=== PATIENT | male | born 1970 | race Caucasian/White ===

== ENCOUNTER 2021-05-05 18:07 | Inpatient (IN) ==
[2021-05-05] MEDS ORDERED: dexAMETHasone**PF** 10 MG/ML VIAL IV ONE (18:45)
[2021-05-05] MEDS ORDERED: ACETAMINOPHEN 1,000 MG/100 ML VIAL IV STA (18:45)
[2021-05-05] MEDS ORDERED: guaiFENesin 600 MG TABCR PO STA (18:45)
[2021-05-05] MEDS ORDERED: SODIUM CHLORIDE 0.9% 1000ML 1,000 ML IV ONE (18:45)
[2021-05-05] MEDS ORDERED: IPRATROPIUM BROMIDE/ALBUTEROL respimat INH INH STA (18:47)
--- NOTE | 2021-05-05 18:50 | Emergency Department Note ---
Impression & Plan Acute respiratory failure with hypoxia, Pneumonia due to COVID-19 virus ED Provider Note NAME: SOUTH WALTON AGE: 50 SEX: M ARRIVES VIA: Walk-In INFORMANT: patient ED PROVIDER(S): Kolton Cm MD CHIEF COMPLAINT: COVID-19, shortness of breath. PLAN: Disposition: Admit MEDICAL DECISION MAKING: The patient is a pleasant 50-year-old gentleman with a past medical history of hypertension, hyperlipidemia, sleep apnea on home CPAP who presents to the emergency department with worsening cough, congestion shortness of breath in the setting of being diagnosed with COVID-19 this past Thursday with symptoms that began approximately a week ago with malaise, sore throat and congestion and then developing fevers and chills. He denies nausea, vomiting, diarrhea. He reports he received noticed on Thursday that a coworker was exposed to COVID-19 and thinks this is how he may have been exposed. He denies being vaccinated for COVID-19. He reports chest tightness but denies discrete chest pain. He was noted to have oxygen saturation of 85% at rest on room air in triage which easily desaturated to 79% with minimal exertion and was placed on 100% nonrebreather. He is in agreement with plan for admission given his low oxygen. On arrival patient is uncomfortable with mild respiratory distress, tachycardic in the 100s and tachypneic in the upper 20s with O2 saturation 85% on room air at rest desaturating to 79% with exertion subsequently placed on 100% nonrebreather with improvement in saturation to the mid 90s. He appears cl inically dry. He has scattered wheezes and is otherwise clear. EKG without overt acute ischemia. Chest x-ray demonstrates bilateral multifocal pneumonia consistent with COVID-19 pneumonia. WBC, H/H and platelets within normal limits. Chemistry without metabolic acidosis. Electrolytes are unremarkable. AST is mildly elevated at 75 and consistent with patient's known COVID-19. Otherwise, LFTs without significant abnormality. Troponin negative/undetectable. BNP within normal limits. Lipase is not elevated. Case was discussed with Dr. Ortega, [facility] hospitalist, who will evaluate the patient for admission. Triage Nursing notes reviewed and agree them. prior medical records reviewed Vital Signs: reviewed and remarkable for hypoxia, tachycardia, tachypnea. Differential diagnosis: Reactive airway disease, pneumonia, pneumothorax, COPD, CHF, infections, cardiac ischemia, pulmonary embolism, musculoskeletal, gastrointestinal, as well as other pathologies. ER treatment provided: See below. Diagnostics interpreted by me: ECG: Normal sinus rhythm, 97 bpm, no ectopy, incomplete right bundle branch block, no overt ST elevation or depression, QTC 436, QRS 102. Cardiac Monitoring: An order for continuous cardiac monitoring was placed and demonstrated normal sinus rhythm, 97 bpm, no ectopy. Laboratory studies: see below Imaging studies: See below Consultation(s): Case was discussed with Dr. Ortega, [facility] hospitalist, who will evaluate the patient for admission. HPI: The patient is a pleasant 50-year-old gentleman with a past medical history of hypertension, hyperlipidemia, sleep apnea on home CPAP who presents to the emergency department with worsening cough, congestion shortness of breath in the setting of being diagnosed with COVID-19 this past Thursday with symptoms that began approximately a week ago with malaise, sore throat and congestion and then developing fevers and chills. He denies nausea, vomiting, diarrhea. He reports he received noticed on Thursday that a coworker was exposed to COVID-19 and thinks this is how he may have been exposed. He denies being vaccinated for COVID-19. He reports chest tightness but denies discrete chest pain. He was noted to have oxygen saturation of 85% at rest on room air in triage which easily desaturated to 79% with minimal exertion and was placed on 100% nonrebreather. He is in agreement with plan for admission given his low oxygen. ROS: See above HPI for pertinent positives & negatives. A total of 10 systems reviewed and were otherwise negative. PAST MEDICAL HISTORY: see Below PAST SURGICAL HISTORY: see Below FAMILY HISTORY:See Below SOCIAL HISTORY: see Below HOME MEDICATIONS: see Below ALLERGIES: see Below VITALS: see Below PHYSICAL EXAMINATION: GENERAL: Awake, alert, uncomfortable-appearing, in mild respiratory distress, BMI 59.0. HENT: Normocephalic, atraumatic. Oropharynx unremarkable. EYES: Normal conjunctiva. Sclera non-icteric. NECK: Supple. No nuchal rigidity. FROM. No JVD. RESPIRATORY: Scattered wheezes bilaterally and otherwise clear to auscultation. Mild increased work of breathing which improved on 100% nonrebreather. CARDIAC: Tachycardic rate, normal rhythm. Extremities warm and well perfused. Pulses equal. ABDOMEN: Soft, non-distended. No tenderness to palpation. No rebound or guarding. No masses. RECTAL: Deferred. MUSCULOSKELETAL: Chest examination reveals no tenderness. The back is symmetrical on inspection without obvious abnormality. There is no CVA tenderness to palpation. No joint edema. LOWER EXTREMITIES: Calves are equal size bilaterally and non-tender. No edema. No discoloration. NEURO: Normal sensorium. No sensory or motor deficits noted. SKIN: No rash or jaundice noted. ED COURSE: Critical Care: I have personally spent greater than 45 minutes of critical care time in the direct management of this patient. This includes bedside care, interpretation of diagnostic studies, and testing, discussion with consultants, patient, and family members, and other required patient management activities. This 45 minutes is in excess of all separately billable procedures. 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 Beliefs That Will Affect Care: Yazdanism Yazdanism Beliefs: mormonism Current Living Situation: Spouse Feels Safe at Home: Yes Assistive Devices: None Allergies Allergies Allergy/AdvReac Type Severity Reaction Status Date / Time Sulfa (Sulfonamide Allergy Intermediate Rash Verified 05/05/21 19:07 Antibiotics) amoxicillin AdvReac Intermediate PUFFY FACE Verified 05/05/21 19:07 Home Meds Home Medications Medication Instructions Recorded Confirmed amlodipine 5 mg tablet 5 mg PO DAILY 05/05/21 05/05/21 atorvastatin 20 mg tablet 20 mg PO DAILY 05/05/21 05/05/21 lisinopril 20 1 tab PO DAILY 05/05/21 05/05/21 mg-hydrochlorothiazide 12.5 mg tablet Results & Data (ED) Vital Signs Vital Signs - 24 hr 05/05/21 18:15 05/05/21 18:33 05/05/21 20:01 Temperature 36.9 C Temperature Source Temporal Artery Scan Pulse Rate 107 H 99 H Pulse Rate [Apical] Pulse Rhythm Regular Pulse Rhythm [Apical] Pulse Strength [Apical] Respiratory Rate 18 28 H Respiratory Effort / Characteristics Respiratory Depth Respiratory Pattern Blood Pressure 154/86 H Blood Pressure [Right Arm] Blood Pressure Mean 108 Blood Pressure Mean [Right Arm] Blood Pressure Position [Right Arm] Pulse Oximetry 85 L 75 L 96 Oxygen Delivery Method Room Air Non-rebreather Non-rebreather Oxygen Flow Rate 0 15 Sepsis Recent Fever Within 48 Hours No Sepsis New/Unexplained Change in Mental Status No Sepsis Action Taken by Nursing No Action Required Oxygen Flow Rate - Titration 15 Pulse Oximetry Post Tiitration 94 05/05/21 20:02 05/05/21 20:36 Temperature 37.5 C Temperature Source Oral Pulse Rate Pulse Rate [Apical] 97 H Pulse Rhythm Pulse Rhythm [Apical] Regular Pulse Strength [Apical] Normal Respiratory Rate 28 H Respiratory Effort / Characteristics Spontaneous SOB on Exertion Short of Breath SOB on Exertion Respiratory Depth Normal Respiratory Pattern Tachypnea Tachypnea Blood Pressure Blood Pressure [Right Arm] 146/95 H Blood Pressure Mean Blood Pressure Mean [Right Arm] 112 Blood Pressure Position [Right Arm] Semi-fowlers Pulse Oximetry 96 Oxygen Delivery Method Non-rebreather Non-rebreather Oxygen Flow Rate 15 15 Sepsis Recent Fever Within 48 Hours Sepsis New/Unexplained Change in Mental Status Sepsis Action Taken by Nursing Oxygen Flow Rate - Titration Pulse Oximetry Post Tiitration Laboratory Data Attestation: I reviewed the patient's lab results. Result diagrams: 05/05/21 19:47 05/05/21 19:47 Lab Results 05/05/21 05/05/21 05/05/21 Range/Units 19:47 19:47 20:27 WBC 7.76 (4.8-10.8) K/uL RBC 5.28 (4.7-6.1) M/uL Hgb 15.6 (14.0-18.0) g/dL Hct 47.9 (42-52) % MCV 90.7 (80-100) fL MCH 29.5 (25-34) pg MCHC 32.6 (32-36) g/dL RDW Std Deviation 50.2 H (36.4-46.3) fL RDW Coeff of Samia 15.0 H (11.5-14.5) % Plt Count 189 (130-400) K/uL MPV 9.8 (7.4-10.4) fL Immature Gran % (Auto) 1.4 % Neut % (Auto) 86.3 % Lymph % (Auto) 8.6 % Campbell % (Auto) 3.6 % Eos % (Auto) 0.0 % Baso % (Auto) 0.1 % Neut # (Auto) 6.69 H (1.4-6.5) K/uL Lymph # (Auto) 0.67 L (1.2-3.4) K/uL Campbell # (Auto) 0.28 (0.11-0.59) K/uL Eos # (Auto) 0.00 (0-0.5) K/uL Baso # (Auto) 0.01 (0-0.2) K/uL Immature Gran # (Auto) 0.11 H (0.00-0.02) K/uL Sodium 138 (136-145) mmol/L Potassium 4.3 (3.5-5.1) mmol/L Chloride 104 (98-107) mmol/L Carbon Dioxide 26 (21-32) mmol/L Anion Gap 9.0 (3-11) BUN 16 (7-18) mg/dl Creatinine 0.90 (0.6-1.4) mg/dl Est Cr Clr Drug Dosing 156.0 ml/min Est GFR ( Amer) 113.4 ml/min Est GFR (Non-Af Amer) 97.9 ml/min BUN/Creatinine Ratio 17.7 (10-20) Glucose 132 H (70-99) mg/dl Calcium 8.3 L (8.5-10.1) mg/dl Phosphorus 2.4 L (2.5-4.9) mg/dl Magnesium 2.2 (1.8-2.4) mg/dl Total Bilirubin 0.6 (0.2-1) mg/dl Direct Bilirubin 0.2 (0-0.2) mg/dl AST 75 H (15-37) U/L ALT 56 (12-78) U/L Alkaline Phosphatase 24 L (45-117) U/L Troponin I < 0.015 (0-0.045) ng/ml NT-Pro-B Natriuret Pep 118 (0-900) pg/ml Total Protein 7.4 (6.4-8.2) gm/dl Albumin 3.0 L (3.4-5.0) gm/dl Globulin 4.4 H (2.5-4.0) gm/dl Albumin/Globulin Ratio 0.7 L (0.9-2) Lipase 96 (73-393) U/L SARS-CoV-2 (PCR) POSITIVE A* (Negative) Administered Medications Enoxaparin Sodium (Enoxaparin Inj 40 Mg/0.4 Ml Syr) 40 mg SQ Q12H NATALIA Stop: 06/05/21 00:00 Last Admin: 05/06/21 01:08 Dose: 40 mg Documented by: [id number] Sodium Chloride (Nss 1000ml) 1,000 mls @ 100 mls/hr IV .Q10H NATALIA Stop: 05/06/21 19:27 Last Admin: 05/06/21 01:15 Dose: 100 mls/hr Documented by: [id number] Sodium Chloride (Sodium Chloride 0.9% 10ml Flush) 30 ml IV Q24H NATALIA Stop: 05/10/21 00:01 Last Admin: 05/06/21 01:06 Dose: 30 ml Documented by: [id number] Discontinued Medications Albuterol (Ipratropium [place]/Albuterol Respimat Inh) 2 puffs INH NOW STA Stop: 05/05/21 18:48 Last Admin: 05/05/21 20:23 Dose: 2 puffs Documented by: [id number] Dexamethasone Sodium Phosphate (DexamethasonePf 10 Mg/Ml Vial) 10 mg IV NOW ONE Stop: 05/05/21 18:46 Last Admin: 05/05/21 20:18 Dose: 10 mg Documented by: [id number] Guaifenesin (Guaifenesin 600 Mg Tabcr) 600 mg PO NOW STA Stop: 05/05/21 18:46 Last Admin: 05/05/21 20:20 Dose: 600 mg Documented by: [id number] Sodium Chloride (Nss 1000ml) 1,000 mls @ 999 mls/hr IV .Q1H1M ONE Stop: 05/05/21 19:45 Last Infusion: 05/06/21 00:05 Dose: 0 mls/hr Documented by: [id number] Admin: 05/05/21 20:12 Dose: 999 mls/hr Documented by: [id number] Acetaminophen (Ofirmev) 1,000 mg in 100 mls @ 400 mls/hr IV NOW STA Stop: 05/05/21 18:59 Last Infusion: 05/05/21 22:05 Dose: 0 mls/hr Documented by: [id number] Admin: 05/05/21 20:14 Dose: 400 mls/hr Documented by: [id number] Remdesivir 200 mg/ Sodium (Chloride) 250 mls @ 125 mls/hr IV ONE STA; Protocol Stop: 05/05/21 23:03 Last Infusion: 05/06/21 00:58 Dose: 0 mls/hr Documented by: [id number] Admin: 05/05/21 21:58 Dose: 125 mls/hr Documented by: [id number] Imaging Data Radiologist's Impression: Chest X-Ray 05/05/21 18:45 XR chest 1V portable CLINICAL HISTORY: Chest Pain. COMPARISON STUDY: 04/17/2018 TECHNIQUE: 1 view of the chest FINDINGS: Single frontal view of the chest demonstrates the cardiomediastinal silhouette to be within normal limits. Extensive patchy interstitial and alveolar opacities are present bilaterally. The findings are most characteristic of a viral type pneumonitis. Covid 19 pneumonia should be excluded. There is no evidence for pl eural effusion. There is no evidence for vascular congestion. There is no acute osseous pathology. IMPRESSION: Extensive patchy interstitial and alveolar opacities bilaterally characteristic of a viral type pneumonitis and probable Covid 19 pneumonia. ACT 112: Negative or not required by law. Electronically signed by: Ramesh Dao M.D. 05/05/2021 7:10 PM Discharge Plan Visit Data Chief Complaint: Shortness of Breath/Dyspnea Stated Complaint: COVID + - SHORTNESS OF BREATH ED Provider: Kolton Cm Discharge Problem: Acute respiratory failure with hypoxia, Pneumonia due to COVID-19 virus Patient Disposition: Admitted As Inpatient Discharge Instructions Interventions: ED Discharge Assessment Last Done: 05/05/21 23:45
--- NOTE | 2021-05-05 19:11 | XRay Report ---
XR chest 1V portable CLINICAL HISTORY: Chest Pain. COMPARISON STUDY: 04/17/2018 TECHNIQUE: 1 view of the chest FINDINGS: Single frontal view of the chest demonstrates the cardiomediastinal silhouette to be within normal li mits. Extensive patchy interstitial and alveolar opacities are present bilaterally. The findings are most characteristic of a viral type pneumonitis. Covid 19 pneumonia should be excluded. There is no e vidence for pleural effusion. There is no evidence for vascular congestion. There is no acute osseous pathology. IMPRESSION: Extensive patchy interstitial and alveolar opacities bilaterally characteristic of a floyd l type pneumonitis and probable Covid 19 pneumonia. ACT 112: Negative or not required by law. Electronically signed by: Ramesh Dao M.D. 05/05/2021 7:10 PM
[2021-05-05 20:15] LABS: Basophils # (auto) 0.01 K/uL (0-0.2); Basophils % (auto) 0.1 %; Hematocrit (blood only) 47.9 % (42-52); Hemoglobin 15.6 g/dL (14.0-18.0); Immature Granulocytes # (auto) 0.11 K/uL (0.00-0.02); Immature Granulocytes % (auto) 1.4 %; Lymphocytes # (auto) 0.67 K/uL (1.2-3.4); Lymphocytes % (auto) 8.6 %; Mean Corpuscular Hemoglobin 29.5 pg (25-34); Mean Corpuscular Hgb Conc 32.6 g/dL (32-36); Mean Corpuscular Volume 90.7 fL (80-100); Mean Platelet Volume 9.8 fL (7.4-10.4); Monocytes # (auto) 0.28 K/uL (0.11-0.59); Monocytes % (auto) 3.6 %; Neutrophils # (auto) 6.69 K/uL (1.4-6.5); Neutrophils % (auto) 86.3 %; Platelet Count 189 K/uL (130-400); RDW Standard Deviation 50.2 fL (36.4-46.3); Red Blood Count 5.28 M/uL (4.7-6.1); White Blood Count 7.76 K/uL (4.8-10.8)
[2021-05-05 20:32] LABS: Alanine Aminotransferase 56 U/L (12-78); Aspartate Aminotransferase 75 U/L (15-37); BUN Creatinine Ratio 17.7 (10-20); Bilirubin Direct 0.2 mg/dl (0-0.2); Blood Urea Nitrogen 16 mg/dl (7-18); Calcium 8.3 mg/dl (8.5-10.1); Carbon Dioxide 26 mmol/L (21-32); Chloride 104 mmol/L (98-107); Est GFR (African American) 113.4 ml/min; Est GFR (Non-African American) 97.9 ml/min; Glucose 132 mg/dl (70-99); Lipase 96 U/L (73-393); Magnesium 2.2 mg/dl (1.8-2.4); Potassium 4.3 mmol/L (3.5-5.1); Sodium 138 mmol/L (136-145)
[2021-05-05 20:35] LABS: Albumin Globulin Ratio 0.7 (0.9-2); Alkaline Phosphatase 24 U/L (45-117); Bilirubin,Total 0.6 mg/dl (0.2-1); Globulin 4.4 gm/dl (2.5-4.0); NT Pro B Type Natriuretic Pept 118 pg/ml (0-900); Phosphorus 2.4 mg/dl (2.5-4.9); Total Protein 7.4 gm/dl (6.4-8.2); Troponin I < 0.015 ng/ml (0-0.045)
[2021-05-05] MEDS ORDERED: REMDESIVIR 200 MG in SODIUM CHLORIDE 0.9% 210 ML IV STA (21:04)
--- NOTE | 2021-05-05 22:38 | History and Physical Report ---
DATE OF ADMISSION: 05/05/2021. CHIEF COMPLAINT: Shortness of breath, COVID pneumonia. HISTORY OF PRESENT ILLNESS: This is a 50-year-old male with past medical history significant for hyperlipidemia, obstructive sleep apnea on CPAP, hypertension, morbid obesity, restless legs, history of tobacco use disorder. Presents with shortness of breath, not feeling well. The patient was diagnosed with COVID on Thursday. The patient says he is having symptoms since last Thursday. Initially felt cold-like symptoms. Then since last , symptoms got worse. He was taking regular Tylenol and Advil, so he was not sure about the fever, but having generalized aches and pains, weakness, poor appetite, constant headaches, body aches, not feeling well, cough, bringing up yellowish greenish phlegm, and he was feeling short of breath, which prompted him to come to the ER. In the ER, he was saturating only 75%, currently he is placed on nonrebreather, saturating in mid 90s. Denies any chest pain. No blurred visions. Denies any runny nose or sore throat, nausea, vomiting or abdominal pain. Abdomen has somewhat discomfort, but no significant pain, no diarrhea. Normal bowel and bladder movements. No rash. ALLERGIES: SULFA ANTIBIOTICS, AMOXICILLIN. PAST MEDICAL HISTORY: As mentioned above. PAST SURGICAL HISTORY: Revision of ankle joint. MEDICATIONS: The patient is on amlodipine 5 mg p.o. daily, atorvastatin 20 mg p.o. daily, lisinopril/hydrochlorothiazide 20/12.5 mg p.o. daily. FAMILY HISTORY: Significant for mother has obesity, maternal grandfather has black lung, paternal grandmother has Alzheimer disease and breast cancer, paternal grandfather has CAD in his 50s. SOCIAL HISTORY: . Smokes cigars once in a while. Alcohol, rarely. No drug use. REVIEW OF SYSTEMS: As per HPI. Rest of the review of systems is negative. PHYSICAL EXAMINATION: GENERAL: The patient is morbidly obese, not in acute distress. VITAL SIGNS: Temperature 37.5, pulse 97, respiratory rate 28, blood pressure 146/94, oxygen 96% on nonrebreather. HEENT: Pupils equal, round and reactive to light. NECK: No JVD. No masses. CARDIOVASCULAR: S1 and S2 heard. Regular rate and rhythm. No murmur, no gallop. RESPIRATORY SYSTEM: Normal AP diameter. No accessory muscle use. No wheezing, no crackles. ABDOMEN: Soft, bowel sounds present, nontender, no distention. CENTRAL NERVOUS SYSTEM: Cranial nerves II through XII are grossly intact, nonfocal. EXTREMITIES: No edema, no erythema. LABORATORY DATA: WBC 7.7, hemoglobin 15.6, hematocrit 47.9, platelets 189. Sodium 138, potassium 4.6, chloride 104, bicarbonate 26, BUN 16, creatinine 0.9, serum glucose 132, calcium 8.3, phosphorus 2.4, magnesium 2.2, total bilirubin 0.6, direct bilirubin 0.2, AST 75, ALT 56, alkaline phosphatase 24. Troponin I less than 0.015. BNP 118. Lipase 96. IMAGING DATA: Chest x-ray, extensive patchy infiltrate seen bilaterally characteristic of a viral-type pneumonitis and probable COVID pneumonia. EKG: Normal sinus rhythm at a rate of 97, incomplete right bundle-branch block, no significant change was found. ASSESSMENT AND PLAN: This is a 50-year-old male who presents with COVID pneumonia. 1. COVID pneumonia, hypoxia: Bilateral extensive infiltrates, having symptoms since last Thursday. Meets criteria for remdesivir and Decadron, which will be given, and follow the remdesivir labs. Supportive care with inhalers and nebs p.r.n. Closely monitor in the tele floor. 2. Morbid obesity, obstructive sleep apnea: On CPAP at bedtime. 3. Hypertension: Continue home medication of amlodipine lisinopril/ hydrochlorothiazide. Will monitor the blood pressure. 4. Hyperlipidemia: Continue statin. 5. Tobacco use disorder: Mild smoking history. 6. Deep venous thrombosis prophylaxis: Lovenox. DISPOSITION: Closely monitor in the tele floor. Level 1 full code. Expect to discharge home and follow with family doctor. Job ID: [id number] [facility]
[2021-05-05] MEDS ORDERED: POLYETHYLENE (MIRALAX) 17 GM PACK PO PRN (23:28)
[2021-05-05] MEDS ORDERED: NITROGLYCERIN SL 0.4 MG/TAB TAB SL PRN (23:28)
[2021-05-05] MEDS ORDERED: ONDANSETRON INJ 2 MG/ML 2 ML VIAL IV PRN (23:28)
[2021-05-05] MEDS ORDERED: LEVALBUTEROL HCL 1.25 MG/3 ML NEB NEB PRN (23:28)
[2021-05-05] MEDS ORDERED: ALBUTEROL HFA 8 GM INHALER INH PRN (23:28)
[2021-05-05] MEDS ORDERED: ACETAMINOPHEN 325 MG TAB PO PRN (23:28)
[2021-05-06] MEDS: SODIUM CHLORIDE 0.9% 10ML FLUSH IV SCH ×2 (01:06→20:55)
[2021-05-06] MEDS: ENOXAPARIN INJ 40 MG/0.4 ML SYR SQ SCH ×3 (01:08→23:00)
[2021-05-06] MEDS: SODIUM CHLORIDE 0.9% 1000ML 1,000 ML IV SCH ×2 (01:15→13:11)
[2021-05-06 05:47] LABS: Basophils # (auto) 0.01 K/uL (0-0.2); Basophils % (auto) 0.1 %; Eosinophils # (auto) 0.01 K/uL (0-0.5); Eosinophils % (auto) 0.1 %; Hematocrit (blood only) 45.4 % (42-52); Hemoglobin 14.7 g/dL (14.0-18.0); Immature Granulocytes # (auto) 0.11 K/uL (0.00-0.02); Immature Granulocytes % (auto) 1.4 %; Lymphocytes # (auto) 0.78 K/uL (1.2-3.4); Lymphocytes % (auto) 9.7 %; Mean Corpuscular Hemoglobin 29.6 pg (25-34); Mean Corpuscular Hgb Conc 32.4 g/dL (32-36); Mean Corpuscular Volume 91.3 fL (80-100); Mean Platelet Volume 9.8 fL (7.4-10.4); Monocytes # (auto) 0.32 K/uL (0.11-0.59); Neutrophils # (auto) 6.78 K/uL (1.4-6.5); Neutrophils % (auto) 84.7 %; Platelet Count 186 K/uL (130-400); RDW Coefficient of Variation 15.2 % (11.5-14.5); RDW Standard Deviation 51.5 fL (36.4-46.3); Red Blood Count 4.97 M/uL (4.7-6.1); White Blood Count 8.01 K/uL (4.8-10.8)
[2021-05-06 06:27] LABS: Albumin Level 2.5 gm/dl (3.4-5.0); BUN Creatinine Ratio 17.6 (10-20); Bilirubin Direct 0.2 mg/dl (0-0.2); C Reactive Protein 8.49 mg/dl (0-0.29); Calcium 7.6 mg/dl (8.5-10.1); Creatinine Clr Calc Pharmacy 159.6 ml/min; Est GFR (African American) 114.5 ml/min; Est GFR (Non-African American) 98.8 ml/min; Magnesium 2.2 mg/dl (1.8-2.4); Potassium 4.1 mmol/L (3.5-5.1)
[2021-05-06 06:30] LABS: Bilirubin,Total 0.5 mg/dl (0.2-1); Total Protein 6.9 gm/dl (6.4-8.2)
[2021-05-06] MEDS: FLUTICASONE FUROATE 100MCG 14 PUFFS/INHALER INH SCH (09:45)
[2021-05-06] MEDS: dexAMETHasone 6 MG in SYRINGE 0 ML IV SCH (09:45)
[2021-05-06] MEDS: LISINOPRIL/HCTZ 20/12.5MG 1 TAB TAB PO SCH (09:45)
[2021-05-06] MEDS: ATORVASTATIN 20 MG TAB PO SCH (09:45)
[2021-05-06] MEDS: amLODIPine BESYLATE 5 MG TAB PO SCH (09:45)
--- NOTE | 2021-05-06 14:41 | Electrocardiogram Report ---
Test Reason : Blood Pressure : / mmHG Vent. Rate : 097 BPM Atrial Rate : 097 BPM P-R Int : 170 ms QRS Dur : 102 ms QT Int : 344 ms P-R-T Axes : 025 -06 028 degrees QTc Int : 436 ms Normal sinus rhythm Incomplete right bundle branch block Poor R wave progression, consider anterior MS vs. lead placement vs. LVH Borderline ECG When compared with ECG of 18-APR-2018 07:43, No significant change was found Confirmed by Chad Aragon ([id number]) on 05/06/2021 2:41:09 PM Referred By: REFERRED SELF Confirmed By:Emmanuel Aragon
--- NOTE | 2021-05-06 18:14 | Hospitalist Progress Note ---
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 if the condition does not get any better (3) Hypertension: Plan: Blood pressure remains in the upper side of normal We will continue current medications (4) SUDHIR (obstructive sleep apnea): Plan: He is morbidly obese and has obstructive sleep apnea Can use his own CPAP (5) Hyperlipidemia: Plan: Continue statin DVT prophylaxis Lovenox CODE STATUS Full Admission and Anticipated Discharge Date Admission Date: May 05, 2021 Subjective 05/06/2021 The patient was seen and examined in emergency room in the [facility] area and in the [place] room He has been complaining of more shortness of breath with cough Has been requiring high flow oxygen to maintain saturation Review of Systems Review of Systems: All systems reviewed and are unremarkable except as noted below Respiratory: Moderate shortness of breath at rest Physical Exam Physical Exam: Sitting on a recliner with mild to moderate shortness of breath Constitutional: well developed, well nourished, + ill appearing and + obese Eyes: PERRL, conjunctivae normal, anicteric sclerae ENMT: external ear and nose normal, oropharynx normal Neck: trachea midline, no thyromegaly Respiratory: + respiratory distress and + cough Auscultation: + diminished lung sounds and + crackles (Minimal crackles at the bases) Cardiovascular: Rate/Rhythm: regular rate, regular rhythm and + tachycardic Heart Sounds: normal S1 and normal S2; no murmur Extremities: + edema (1+ edema bilaterally) Gastrointestinal (Abdomen): Inspection/Auscultation: + abdomen distended and normal bowel sounds Percussion/Palpation: abdomen soft; abdomen nontender Musculoskeletal: No acute arthritis in any joint Neurologic: Alert, awake and oriented x3. Generally weak Results & Data Results & Data ([facility]) Vital Signs (Past 12 Hours) Vital Signs Temp Pulse Pulse Resp BP Pulse Ox 05/06/21 17:44 36.9 C 98 H 24 130/83 89 L 05/06/21 14:35 87 28 H 91 05/06/21 12:55 87 30 H 91 05/06/21 11:45 87 28 H 93 05/06/21 08:09 36.8 C 102 H 38 H 148/102 H 94 05/06/21 07:43 87 28 H 93 05/06/21 06:21 89 18 145/94 H 96 Laboratory Results Short CBC 05/05/21 05/06/21 Range/Units 19:47 04:39 WBC 7.76 8.01 (4.8-10.8) K/uL Hgb 15.6 14.7 (14.0-18.0) g/dL Hct 47.9 45.4 (42-52) % Plt Count 189 186 (130-400) K/uL BMP 05/05/21 05/06/21 19:47 04:39 Sodium 138 139 Potassium 4.3 4.1 Chloride 104 107 Carbon Dioxide 26 24 BUN 16 15 Creatinine 0.90 0.88 Glucose 132 H 164 H Calcium 8.3 L 7.6 L Cardiac Enzymes 05/05/21 Range/Units 19:47 Troponin I < 0.015 (0-0.045) ng/ml Liver Function 05/05/21 05/06/21 Range/Units 19:47 04:39 Total Bilirubin 0.6 0.5 (0.2-1) mg/dl Direct Bilirubin 0.2 0.2 (0-0.2) mg/dl AST 75 H 70 H (15-37) U/L ALT 56 50 (12-78) U/L Alkaline Phosphatase 24 L 11 L (45-117) U/L Albumin 3.0 L 2.5 L (3.4-5.0) gm/dl Medications Administered Current Inpatient Medications Acetaminophen (Acetaminophen 325 Mg Tab) 650 mg PO Q4H PRN PRN Reason: Pain or Fever Stop: 06/04/21 23:27 Albuterol (Albuterol Hfa 8 Gm Inhaler) 2 puffs INH Q4H PRN PRN Reason: Shortness Of Breath Or Wheezin Stop: 06/04/21 23:27 Last Admin: 05/06/21 14:30 Dose: 2 puffs Documented by: Amlodipine Besylate (Amlodipine Besylate 5 Mg Tab) 5 mg PO DAILY [facility] Stop: 06/05/21 08:59 Last Admin: 05/06/21 09:45 Dose: 5 mg Documented by: Atorvastatin Calcium (Atorvastatin 20 Mg Tab) 20 mg PO DAILY NATALIA Stop: 06/05/21 08:59 Last Admin: 05/06/21 09:45 Dose: 20 mg Documented by: Enoxaparin Sodium (Enoxaparin Inj 40 Mg/0.4 Ml Syr) 40 mg SQ Q12H NATALIA Stop: 06/05/21 00:00 Last Admin: 05/06/21 13:11 Dose: 40 mg Documented by: Fluticasone Furoate (Fluticasone Furoate 100mcg 14 Puffs/Inhaler) 1 puffs INH DAILY [facility] Stop: 06/05/21 08:59 Last Admin: 05/06/21 09:45 Dose: 1 puffs Documented by: Lisinopril/HCTZ (Lisinopril/Hctz 20/12.5mg 1 Tab Tab) 1 tab PO DAILY NATALIA Stop: 06/05/21 08:59 Last Admin: 05/06/21 09:45 Dose: 1 tab Documented by: Sodium Chloride (Nss 1000ml) 1,000 mls @ 100 mls/hr IV .Q10H NATALIA Stop: 05/06/21 19:27 Last Admin: 05/06/21 13:11 Dose: 100 mls/hr Documented by: Remdesivir 100 mg/ Sodium (Chloride) 250 mls @ 250 mls/hr IV Q24H [facility]; Protocol Stop: 05/09/21 20:59 Dexamethasone 6 mg/ Syringe 1.5 mls @ 1 mls/min IV DAILY NATALIA Stop: 05/16/21 08:59 Last Admin: 05/06/21 09:45 Dose: 1 mls/min Documented by: Levalbuterol HCl (Levalbuterol Hcl 1.25 Mg/3 Ml Neb) 1.25 mg NEB Q4H PRN PRN Reason: Shortness Of Breath Or Wheezing Stop: 06/04/21 23:27 Nitroglycerin (Nitroglycerin Sl 0.4 Mg/Tab Tab) 0.4 mg SL UD PRN PRN Reason: Chest Pain Stop: 06/04/21 23:27 Ondansetron HCl (Ondansetron Inj 2 Mg/Ml 2 Ml Vial) 4 mg IV Q6H PRN PRN Reason: Nausea Stop: 06/04/21 23:27 Polyethylene Glycol (Polyethylene (Miralax) 17 Gm Pack) 17 gm PO DAILY PRN PRN Reason: Constipation Stop: 06/04/21 23:27 Sodium Chloride (Sodium Chloride 0.9% 10ml Flush) 30 ml IV Q24H NATALIA Stop: 05/10/21 00:01 Last Admin: 05/06/21 01:06 Dose: 30 ml Documented by:
[2021-05-06] MEDS: REMDESIVIR 100 MG in SODIUM CHLORIDE 0.9% 230 ML IV SCH (20:55)
[2021-05-06] MEDS ORDERED: LORazepam 0.5 MG TAB PO STA (21:06)
[2021-05-07] MEDS ORDERED: BENZONATATE 100 MG CAPSULE PO ONE (02:13)
[2021-05-07] MEDS ORDERED: guaiFENesin/CODEINE 100MG/10MG 5ML UDC PO PRN (02:13)
[2021-05-07] MEDS: guaiFENesin 600 MG TABCR PO SCH ×3 (03:45→20:14)
[2021-05-07 07:13] LABS: Basophils # (auto) 0.01 K/uL (0-0.2); Basophils % (auto) 0.1 %; Hemoglobin 15.7 g/dL (14.0-18.0); Immature Granulocytes # (auto) 0.16 K/uL (0.00-0.02); Immature Granulocytes % (auto) 1.7 %; Lymphocytes % (auto) 9.4 %; Mean Corpuscular Hgb Conc 33.4 g/dL (32-36); Mean Corpuscular Volume 89.7 fL (80-100); Mean Platelet Volume 9.8 fL (7.4-10.4); Monocytes # (auto) 0.59 K/uL (0.11-0.59); Monocytes % (auto) 6.1 %; Neutrophils # (auto) 7.95 K/uL (1.4-6.5); Neutrophils % (auto) 82.7 %; Platelet Count 201 K/uL (130-400); RDW Coefficient of Variation 15.2 % (11.5-14.5); RDW Standard Deviation 50.5 fL (36.4-46.3); Red Blood Count 5.24 M/uL (4.7-6.1); White Blood Count 9.61 K/uL (4.8-10.8)
[2021-05-07 07:56] LABS: Albumin Globulin Ratio 0.6 (0.9-2); Albumin Level 2.5 gm/dl (3.4-5.0); BUN Creatinine Ratio 28.6 (10-20); Bilirubin,Total 0.8 mg/dl (0.2-1); C Reactive Protein 5.33 mg/dl (0-0.29); Calcium 8.7 mg/dl (8.5-10.1); Creatinine Clr Calc Pharmacy 191.6 ml/min; Est GFR (African American) 123.6 ml/min; Est GFR (Non-African American) 106.6 ml/min; Globulin 4.2 gm/dl (2.5-4.0); Total Protein 6.7 gm/dl (6.4-8.2)
[2021-05-07] MEDS: dexAMETHasone 6 MG in SYRINGE 0 ML IV SCH (08:13)
[2021-05-07] MEDS: ATORVASTATIN 20 MG TAB PO SCH (11:11)
[2021-05-07] MEDS: LISINOPRIL/HCTZ 20/12.5MG 1 TAB TAB PO SCH (11:11)
[2021-05-07] MEDS: amLODIPine BESYLATE 5 MG TAB PO SCH (11:12)
[2021-05-07] MEDS: BENZONATATE 100 MG CAPSULE PO SCH ×3 (11:12→20:14)
[2021-05-07] MEDS: ENOXAPARIN INJ 40 MG/0.4 ML SYR SQ SCH ×2 (11:13→23:19)
[2021-05-07] MEDS: FLUTICASONE FUROATE 100MCG 14 PUFFS/INHALER INH SCH (11:14)
[2021-05-07] MEDS: REMDESIVIR 100 MG in SODIUM CHLORIDE 0.9% 230 ML IV SCH (20:13)
[2021-05-07] MEDS: SODIUM CHLORIDE 0.9% 10ML FLUSH IV SCH (20:14)
--- NOTE | 2021-05-07 21:42 | Hospitalist Progress Note ---
Date of Service May 07, 2021 Assessment & Plan (1) Acute respiratory failure with hypoxia: Plan: Secondary to COVID-19 virus infection Management as below (2) Pneumonia due to COVID-19 virus: Plan: He is not being vaccinated for COVID-19 virus Symptoms have been since Thursday last Has been receiving dexamethasone and remdesivir Cough suppressants, use of spirometer and flutter valve Monitor inflammatory marker such as ESR, CRP, and ferritin Will repeat procalcitonin in a.m. Continue encouraging patient to prone Continue CPAP for now; then if worsening will consult pulm (3) Hypertension: Plan: Blood pressure remains in the upper side of normal We will continue current medications (4) SUDHIR (obstructive sleep apnea): Plan: He is morbidly obese and has obstructive sleep apnea Can use his own CPAP (5) Hyperlipidemia: Plan: Continue statin DVT prophylaxis Lovenox CODE STATUS Full Admission and Anticipated Discharge Date Admission Date: May 05, 2021 Subjective Patient was seen and examined for follow-up of COVID-19 Lying in bed with respiratory distress Currently on high flow oxygen supplement He said that he felt his breathing slightly better compared to yesterday Denies any chest pain, palpitation, dizziness, fever. Review of Systems Review of Systems: All systems reviewed & are unremarkable except as noted in Subjective Physical Exam Physical Exam: General- obese Head- atraumatic Eyes- PERRL, EOMI, ENT- oropharynx clear Neck- supple, no JVD Lungs- +diminished breath sounds Heart- regular rhythm; no murmur Abdomen- normal bowel sounds, soft, nontender Extremities- no calf tenderness Neuro- alert, oriented x 3; PERRL, EOMI; no facial palsy; no dysarthria Skin- warm & dry Results & Data Results & Data ([facility]) Vital Signs (Past 12 Hours) Vital Signs Temp Pulse Pulse Resp BP BP Pulse Ox 05/07/21 19:17 37.3 C 85 22 109/70 93 05/07/21 14:42 36.7 C 88 18 125/77 91 05/07/21 14:10 93 H 22 90 05/07/21 12:37 37.2 C 90 18 116/82 92 05/07/21 11:47 96 H 36 H 87 L
[2021-05-08] MEDS ORDERED: FUROSEMIDE 40 MG/4 ML VIAL IV ONE ×2 (00:16)
[2021-05-08] MEDS ORDERED: FUROSEMIDE INJ 20 MG/2 ML VIAL IV ONE ×3 (02:27→14:32)
[2021-05-08 07:35] LABS: Albumin Level 2.4 gm/dl (3.4-5.0); BUN Creatinine Ratio 37.1 (10-20); Bilirubin,Total 0.8 mg/dl (0.2-1); Calcium 8.6 mg/dl (8.5-10.1); Creatinine Clr Calc Pharmacy 214.3 ml/min; Est GFR (African American) 129.6 ml/min; Est GFR (Non-African American) 111.9 ml/min; Potassium 3.9 mmol/L (3.5-5.1)
[2021-05-08 07:56] LABS: Albumin Globulin Ratio 0.6 (0.9-2); C Reactive Protein 5.2 mg/dl (0-0.29); Ferritin 5631.4 ng/ml (8-388); Globulin 4.2 gm/dl (2.5-4.0); Total Protein 6.6 gm/dl (6.4-8.2)
[2021-05-08] MEDS: dexAMETHasone 6 MG in SYRINGE 0 ML IV SCH (09:26)
[2021-05-08] MEDS ORDERED: PROPOFOL IV EMULSION 10 MG/ML 100 ML VIAL IV ONE (10:23)
[2021-05-08] MEDS ORDERED: fentaNYL citrate 100 MCG/2 ML VIAL ONE (11:31)
--- NOTE | 2021-05-08 11:43 | Procedure Note ---
Procedure Note Date of Service May 08, 2021 Note Request placed by ICU team to intubate pt due to worsening COVID respiratory failure. Informed patient of plan to place ETT after IV sedation and patient in agreement. Pt preoxygenated and given 30mg etomidate and 180 mg of succinylc holine IV push. Immediately after fasciculations, 8.5 ETT placed orally utilizing glidescope #4. Tube placed easily on first attempt to 26cm at the lips. Placement confirmed with CO2 detection and auscultation. Pt given 50 mg of rocuronium after succinylcholine recovery. Pt care resumed by ICU team. Ileana Rome MD, PhD Anesthesiologist Coding
[2021-05-08] MEDS ORDERED: VECURONIUM BROMIDE 10 MG VIAL IV PRN (11:45)
[2021-05-08] MEDS ORDERED: PROPOFOL BOLUS FROM BAG IV PRN (11:45)
[2021-05-08] MEDS ORDERED: STAT IV Infusion **Titration per Protocol STA ×3 (11:45→14:25)
[2021-05-08 12:09] LABS: iSTAT Art Bld Gas pCO2 Correct 56 mmHg (35-46); iSTAT Art Bld Gas pH Corrected 7.342 (7.35-7.45); iSTAT Arterial Blood Gas HCO3 30 meg/L (19-24); iSTAT Arterial Blood Gas pCO2 56 mmHg (35-46); iSTAT Arterial Blood Gas pH 7.34 (7.35-7.45); iSTAT Arterial Blood Gas pO2 93 mmHg (80-95); iSTAT Arterial Blood Gas pO2 C 92; iSTAT Carbon Dioxide 32 mmol/L (24-31); iSTAT FiO2 100 %; iSTAT Hematocrit 44 % (42-52); iSTAT Potassium 3.8 mmol/L (3.3-5.0); iSTAT Site Art Line; iSTAT Sodium 140 mmol/L (135-144)
--- NOTE | 2021-05-08 12:10 | Procedure Note ---
Procedure Note Date of Service May 08, 2021 Note ARTERIAL LINE PROCEDURE NOTE: Placement of arterial line to right radial artery under ultrasound guidance Procedure: Arterial Line Placement Attending: Dr. Hart APC: Adria Wheeler ([facility]) Indication: Monitoring on Pressors Anesthesia: X Lidocaine 1% Emergent consent implied following intubation Right radial Arterial line was prepped and draped in sterile fashion, the right wrist was placed in extension position. Allens test was performed to ensure adequate perfusion. Ultrasound guidance was used to recoil spring winder the vessel and use to aid needle placement. A 20g Arrow arterial line was introduced into the right ra dial artery. Catheter was threaded, and the needle was removed with appropriate blood return. Good waveform was observed. The patient tolerated the procedure well. Arterial line was secured with stat-lock Blood Loss: Minimal Complications: None Procedural Ultrasound Guidance: Procedure Date: 05/08/21 Indication: Hemodynamic monitoring, frequent ABGs, frequent blood draws Attending: Dr. Hart Artery Identified: YES Line confirmed in Artery with ultrasound:YES Complications: NONE Patient tolerated procedure: WELL Images not saved to medical record Coding
--- NOTE | 2021-05-08 12:16 | Procedure Note ---
Procedure Note Date of Service May 08, 2021 Note INTERNAL JUGULAR CENTRAL LINE PROCEDURE NOTE:- Placement of Triple Lumen Catheter to the Right IJ under direct visual guidance - Procedure #2 Procedure: Internal Jugular Central Line Placement Attending: Dr. Hart APC: Adria Wheeler ([facility]) Indication: Central Drug Administration, Poor Venous Access, Multiple Lab Draws Necessary, etc. Anesthesia: X Lidocaine 1% Emergent consent implied following intubation secondary to COVID 19 respiratory failure A time-out was completed verifying correct patient, procedure, site, positioning, and implants(s) or special equipment if applicable. Patients Right Neck was cleansed and draped in the typical sterile fashion using Chloraprep. The Internal Jugular Vein and Carotid Artery were identified using ultrasound. The IJ was scouted with ultrasound and used for direct visualization for placement. The superficial tissue was anesthetized using [5] mL of 1% lidocaine without epinephrine under direct visualization with the ultrasound. After adequate anesthetization was achieved, the Internal Jugular vein was cannulated under direct ultrasound guidance using an introducer needle on a syringe. Good venous blood return was maintained prior to removal of syringe f rom introducer needle. Using Seldinger Technique, a guide wire was advanced through the introducer needle without resistance. The introducer needle was removed and ultrasound verified the guide wire within the Internal Jugular Vein. A small incision was made in penetrating fashion at the guide wire insertion site utilizing an 11 blade scalpel. The dilator was advanced to the vessel without resistance. The dilator was exchanged for the triple lumen catheter which was advanced into the vessel without resistance. The guide wire was removed intact from the catheter without issue. Claves were placed on each catheter tip with confirmation of good blood flow from each lumen. Each port was easily flushed with sterile saline. The catheter was placed at 16 cm and sutured in place. BioPatch was applied to the catheter and a sterile Tegaderm dressing was applied over the catheter with careful attention to sterility. Patient tolerated procedure well. No immediate complications were met. Post procedure x-ray was completed, placement was appropriate and no pneumothorax was noted. Images obtained are saved for permanent record Procedural Ultrasound Guidance: Procedure Date: 05/08/21 Indication: Intubation, central access for vasopressor agent if needed, Vascular access Attending: Dr. Hart Artery AND Vein visualized: Yes Compressible Vein: Yes Guidewire or Short Catheter seen in vein prior to dilation: Complications: None immediately identified - Blood loss- minimal - Secured with sutures and sterile dressing placed Coding
[2021-05-08] MEDS: ATORVASTATIN 20 MG TAB PO SCH (12:17)
[2021-05-08] MEDS: guaiFENesin 600 MG TABCR PO SCH (12:17)
[2021-05-08] MEDS: amLODIPine BESYLATE 5 MG TAB PO SCH (12:17)
[2021-05-08] MEDS: FLUTICASONE FUROATE 100MCG 14 PUFFS/INHALER INH SCH (12:17)
[2021-05-08] MEDS: BENZONATATE 100 MG CAPSULE PO SCH (12:17)
[2021-05-08] MEDS: LISINOPRIL/HCTZ 20/12.5MG 1 TAB TAB PO SCH (12:18)
[2021-05-08] MEDS: propofoL 1,000 MG/100 ML VIAL IV SCH ×4 (12:30→22:05)
--- NOTE | 2021-05-08 12:32 | XRay Report ---
XR chest 1V portable CLINICAL HISTORY: OGT,ETT,central line placement COMPARISON STUDY: Chest radiograph May 05, 2021. FINDINGS: Tip of the endotracheal tube is approximately 1.2 cm above the juan francisco. Tip of right interna l jugular central line projects over the cavoatrial junction. Tip of nasogastric tube is below the lo wer aspect of this image but at least within the body of the stomach. There is no pneumothorax or ple ural effusion. Enlargement of the cardiac silhouette is unchanged. There has been significant progres katia of extensive bilateral airspace opacities appear IMPRESSION: 1. Tip of endotracheal tube approximately 1.2 cm above the juan francisco. 2. No pneumothorax following placement of a right internal jugular central line. 3. Progression of extensive bilateral airspace opacities suggestive of viral pneumonia. ACT 112: Negative or not required by law. Electronically signed by: Petros Barth M.D. 05/08/2021 12:31 PM
--- NOTE | 2021-05-08 12:48 | Critical Care Consultation ---
Date of Consultation May 08, 2021 Assessment & Plan (1) Acute respiratory failure with hypoxia: (2) Pneumonia due to COVID-19 virus: (3) ARDS (adult respiratory distress syndrome): (4) SUDHIR (obstructive sleep apnea): 50-year-old male who is unvaccinated against COVID-19 with morbid obesity presenting to the hospital due to COVID-19 around pneumonia and found to have ARDS. Neurologic: Sedate with propofol. Pain control with fentanyl. Nimbex for neuromuscular blockade to promote ventilator synchrony. Will initiate Versed as well to limit the use of propofol given the propensity towards hypertriglyceridemia in a patient with his body habitus. Pulmonary: Initiate lung protective ventilation strategy. ABG pending. Chest x-ray with diffuse bilateral infiltrates. Patient with severe ARDS. May require proning, but this may be difficult due to body habitus. Continue as needed Lasix. Will initiate late-phase fibroproliferative steroid dosing. Decadron 20 mg x 5 days and 10 mg x 5 days. Cardiovascular: Art line in place. No hemodynamic issues at present. Will hold antihypertensives while intubated. Echo 2018 was limited due to body habitus. LVEF of 55 to 60%. Right ventricle not well visualized. Continue statin therapy. Gastrointestinal: Protonix 40 mg daily. N.p.o. today. OG tube placed. We will consider initiation of tube feeds tomorrow. Renal: Monitor urine output closely. Will initiate Lasix drip at 10 mg an hour. Monitor BMP every 12 hours. Infectious disease: We will initiate cefepime. MRSA screen pending. Procalcitonin negative. Repeat pro-Quentin tomorrow. Will finish a 5-day course of remdesivir. Hematologic: No significant issues at present. Endocrine: ICU pharmacy consult for management of hyperglycemia. Lines and tubes: Internal jugular central line and radial arterial line placed 05/08/2021. Intubated 05/08/2021. VTE prophylaxis: Lovenox 40 mg twice daily CODE STATUS: Full code Family at bedside: updated over the phone extensively. Disposition: Remain in the ICU I have personally spent 61 minutes of critical care time in the direct management of this patient. This is a life/limb threatening event. This includes time spent evaluating patient, direct bedside care, chart review, placing orders, interpretation of diagnostic studies, discussion with consultants, patient, and family members, as well as other required patient management activities. This time is exclusive of all separately billable procedures, and teaching time and separate from and in addition to any other critical care service time. Thank you for allowing us to participate in the care of this patient. History of Present Illness Reason for Consultation: Acute hypoxemic respiratory failure secondary to COVID-19 pneumonia Attending Physician: Wicho Joseph MD History of Present Illness 50-year-old male with a past medical history of morbid obesity, obstructive sleep apnea, hypertension, restless leg syndrome and tobacco abuse presenting to the hospital on 05/05/2021 due to COVID-19. He was diagnosed on Thursday. He has had increasing shortness of breath. In the Covid unit he has been requiring CPAP continuously and has had significant desaturations when coming off of CPAP. He denied any chest pain. He did note body aches prior to hospital admission. His oxygen saturations were in the 70s while on nasal cannula. On 100% CPAP his pulse oximetry readings were anywhere from 86 to 91%. Patient was initially very hesitant about intubation and wish that I discussed this with his over the phone. I had a lengthy discussion with his and the patient. Ultimately they were agreeable to intubation. The patient was intubated by the anesthesia staff. Allergies Allergy/AdvReac Type Severity Reaction Status Date / Time Sulfa (Sulfonamide Allergy Intermediate Rash Verified 05/05/21 19:07 Antibiotics) amoxicillin AdvReac Intermediate PUFFY FACE Verified 05/05/21 19:07 Home Medications Medication Instructions Recorded Confirmed Type amlodipine 5 mg tablet 5 mg PO DAILY 05/05/21 05/05/21 History atorvastatin 20 mg tablet 20 mg PO DAILY 05/05/21 05/05/21 History lisinopril 20 1 tab PO DAILY 05/05/21 05/05/21 History mg-hydrochlorothiazide 12.5 mg tablet Patient History Medical History (Updated 05/08/21 @ 12:55 by Marco Hart MD) ARDS (adult respiratory distress syndrome) Body mass index (BMI) of 50-59.9 in adult Hyperlipidemia Hypertension SUDHIR (obstructive sleep apnea) Surgical History History of ankle surgery Family History Other No significant family history Social History Smoking Status: Former smoker Hx Alcohol Use: No Hx Substance Use: No Preferred Language: [place] Communication Ability: Effective Student Services Vice President Required: No Beliefs That Will Affect Care: None marital status: Current Living Situation: Spouse How many Children do You have: 1 Other Information That Helps Us Care for You: No Feels Safe at Home: Yes Safety Concerns: Feels Safe At This Time Assistive Devices: CPAP and Oxygen - Continuous Review of Systems Review of Systems: All systems reviewed & are unremarkable except as noted in HPI & below Physical Exam Physical Exam: Constitutional: Morbidly obese appearing male in severe distress. CPAP mask in place. Eyes: Pupils are equal round and reactive to light. Conjunctivae are normal. Anicteric sclera. Ears nose, mouth and throat: Mallampati class 3. Normal posterior oropharynx. Uvula is midline. Neck: Trachea is midline. Visual inspection is normal. Respiratory: Diminished lung sounds bilaterally. No wheezes. Cardiovascular: Regular rate and rhythm. No murmurs. Trace edema. Gastrointestinal: Normal bowel sounds, soft, nontender and nondistended. No hepatosplenomegaly noted. Musculoskeletal: Patient is able to move all extremities. Skin: No rashes, warm dry and intact. Neurologic: No obvious focal neurological deficits seen. Psychiatric: Alert and oriented x3 with a euthymic affect. Results & Data Results & Data ([facility]) Vital Signs (Past 12 Hours) Vital Signs Temp Pulse Pulse Resp BP BP Pulse Ox 05/08/21 11:02 76 24 92 05/08/21 08:21 90 33 H 91 05/08/21 07:59 37.0 C 83 18 153/98 H 89 L 05/08/21 04:57 73 22 88 L 05/08/21 02:36 74 30 H 90 05/08/21 02:32 37.2 C 85 26 H 148/94 H 91 Vital signs, labs and imaging reviewed. Chest x-ray with diffuse lateral alveolar interstitial infiltrates. Coding Level of Care Code Critical Care 1st 30-74 mins Diagnoses Acute respiratory failure with hypoxia J96.01 Pneumonia due to COVID-19 virus U07.1; J12.82 ARDS (adult respiratory distress syndrome) J80 SUDHIR (obstructive sleep apnea) G47.33 Time Spent (min) 61
[2021-05-08] MEDS ORDERED: MIDAZOLAM BOLUS FROM BAG IV PRN (12:57)
[2021-05-08] MEDS: fentaNYL DRIP 1,250 MCG/250 ML BAG IV SCH ×2 (13:00→19:46)
[2021-05-08] MEDS: ENOXAPARIN INJ 40 MG/0.4 ML SYR SQ SCH (13:30)
[2021-05-08 13:56] LABS: Calcium 8.3 mg/dl (8.5-10.1); Creatinine Clr Calc Pharmacy 163.9 ml/min; Est GFR (African American) 116.1 ml/min; Est GFR (Non-African American) 100.2 ml/min; Potassium 4.1 mmol/L (3.5-5.1)
[2021-05-08] MEDS ORDERED: dexAMETHasone 14 MG in DEXTROSE 5% 25 ML IV ONE (14:00)
[2021-05-08] MEDS: CEFEPIME 2,000 MG in SYRINGE 0 ML IV SCH ×2 (14:42→22:03)
[2021-05-08] MEDS: FUROSEMIDE 100 MG in DEXTROSE 5% 90 ML IV SCH (14:43)
[2021-05-08] MEDS: MIDAZOLAM HCL 125 MG/250 ML BAG IV SCH (14:43)
[2021-05-08] MEDS: CISATRACURIUM BESYLATE 40 MG in 0.9 % SODIUM CHLORIDE 80 ML IV SCH ×2 (15:35→22:03)
--- NOTE | 2021-05-08 17:21 | Communication Note ---
Date of Service: May 08, 2021 1630- Patient proning performed, with decrease in SPO2 to 76% with no increase in oxygenation and increase in Pplt pressures to 38. Patient unproned with increase in SPo2 to 92% and decrease in Pplt bck to 30-32. Discussed with Terminal Operator to discuss with Primary team for possible ECMO candidacy as he still remains on PEEP 18 and FIO2 100%, although his obesity will likely preclude him from such. Continue maximal ventilatory support and supportive care. CXR pending after Movement to assess tube placment. Adria STUART ([facility]
[2021-05-08] MEDS: ICU PROTOCOL FOR HYPERGLYCEMIA SCH (17:48)
[2021-05-08] MEDS: ARTIFICIAL TEARS OP OINT 3.5 GM TUBE OP SCH ×2 (17:49→20:24)
--- NOTE | 2021-05-08 18:02 | XRay Report ---
XR chest 1V portable at 5:28 PM CLINICAL HISTORY: Hypoxia, Check tube placement. COMPARISON STUDY: Portable chest from 05/08/2021 and 11:54 AM TECHNIQUE: 1 view of the chest FINDINGS: Single frontal view of the chest demonstrates the cardiomediastinal silhouette to be within normal li mits. Tubes and catheters are in satisfactory position. Diffuse interstitial alveolar opacities are a gain seen bilaterally throughout both lungs characteristic of a viral type pneumonitis and Covid pneu monia. There is no evidence for pleural effusion. There is no evidence for vascular congestion. There is no acute osseous pathology. IMPRESSION: Tubes and catheters are in satisfactory position. Extensive interstitial and alveolar opa cities characteristic of Covid pneumonia are again seen. ACT 112: Negative or not required by law. Electronically signed by: Ramesh Dao M.D. 05/08/2021 6:00 PM
--- NOTE | 2021-05-08 18:13 | Hospitalist Progress Note ---
Date of Service May 08, 2021 Assessment & Plan (1) Acute respiratory failure with hypoxia: Plan: Secondary to COVID-19 virus infection (2) Pneumonia due to COVID-19 virus: Plan: Acute respiratory failure with hypoxia ARDS Pneumonia due to COVID-19 H/O SUDHIR --CXR:Extensive patchy interstitial and alveolar opacities bilaterally characteristic of a viral type pneumonitis and probable Covid 19 pneumonia. -Intubated on 05/08/21 -Appreciate Critical Care Input -CRP:8.49> 5.20 -On 100% FiO2 and PEEP 18 Desaturated with proning Not a candidate for ECHO given his BMI as per Critical Care, [facility] Continue Dexamethasone, Remdesivir Also on Cefepime Received Nimbex Also on lasix drip on Lovenox for DVT Prophylaxis (3) Hypertension: Plan: Slightly elevated Continue current medications (4) SUDHIR (obstructive sleep apnea): Plan: Morbidly obese BMI: 58 Was on CPAP (5) Hyperlipidemia: Plan: Continue statin DVT prophylaxis Lovenox CODE STATUS Full Admission and Anticipated Discharge Date Admission Date: May 05, 2021 Subjective Patient is seen and examined at bedside Respiratory status deteriorated earlier this morning and patient was intubated Discussed with pulmonary critical care today Patient is on 100% FiO2, PEEP of 18 Review of Systems Review of Systems: Unobtainable due to endotracheal tube Physical Exam Physical Exam: Physical Exam: Vitals signs as noted above General Appearance:Morbidly Obese, no apparent distress, Sedated and Intubated Head: normocephalic, Atraumatic Eyes: normal inspection, EOMI Neck: supple, Trachea midline Respiratory/Chest: Decreased breath sounds, CTA Cardiovascular: S1, S2, No murmur Abdomen/GI:Soft, Non tender, Bowel sounds present Extremities/Musculoskeletal:normal inspection, no edema Neurologic/Psych:Sedated and Intubated Skin: normal color, warm Results & Data Results & Data ([facility]) Vital Signs (Past 12 Hours) Vital Signs Temp Pulse Pulse Resp BP Pulse Ox 05/08/21 15:15 68 27 H 92 05/08/21 12:17 26 H 05/08/21 11:02 76 24 92 05/08/21 08:21 90 33 H 91 05/08/21 07:59 37.0 C 83 18 153/98 H 89 L Laboratory Results [facility] 05/08/21 05/08/21 06:06 13:26 Sodium 139 140 Potassium 3.9 4.1 Chloride 106 107 Carbon Dioxide 27 29 BUN 24 H 28 H Creatinine 0.65 0.85 Glucose 154 H 168 H Calcium 8.6 8.3 L Liver Function 05/08/21 Range/Units 06:06 Total Bilirubin 0.8 (0.2-1) mg/dl AST 75 H (15-37) U/L ALT 47 (12-78) U/L Alkaline Phosphatase 23 L (45-117) U/L Albumin 2.4 L (3.4-5.0) gm/dl
[2021-05-08 19:54] LABS: iSTAT Art Bld Gas pCO2 Correct 64 mmHg (35-46); iSTAT Art Bld Gas pH Corrected 7.285 (7.35-7.45); iSTAT Arterial Blood Gas HCO3 30 meg/L (19-24); iSTAT Arterial Blood Gas pCO2 64 mmHg (35-46); iSTAT Arterial Blood Gas pH 7.29 (7.35-7.45); iSTAT Arterial Blood Gas pO2 124 mmHg (80-95); iSTAT Arterial Blood Gas pO2 C 124; iSTAT Carbon Dioxide 32 mmol/L (24-31); iSTAT FiO2 100 %; iSTAT Hematocrit 45 % (42-52); iSTAT Hemoglobin 15.3 g/dl (14.0-18.0); iSTAT Potassium 4.4 mmol/L (3.3-5.0); iSTAT Site Art Line; iSTAT Sodium 142 mmol/L (135-144)
[2021-05-08] MEDS ORDERED: CHLOROTHIAZIDE SODIUM 500 MG in DEXTROSE 5% 50 ML IV ONE (20:01)
[2021-05-08] MEDS: REMDESIVIR 100 MG in SODIUM CHLORIDE 0.9% 230 ML IV SCH (20:24)
[2021-05-08] MEDS: SODIUM CHLORIDE 0.9% 10ML FLUSH IV SCH (20:25)
[2021-05-09] MEDS: ENOXAPARIN INJ 40 MG/0.4 ML SYR SQ SCH ×3 (00:21→23:54)
[2021-05-09] MEDS: FUROSEMIDE 100 MG in DEXTROSE 5% 90 ML IV SCH ×3 (00:22→20:41)
[2021-05-09] MEDS: ARTIFICIAL TEARS OP OINT 3.5 GM TUBE OP SCH ×7 (00:23→23:54)
[2021-05-09] MEDS: CISATRACURIUM BESYLATE 40 MG in 0.9 % SODIUM CHLORIDE 80 ML IV SCH ×5 (02:14→23:38)
[2021-05-09] MEDS: propofoL 1,000 MG/100 ML VIAL IV SCH ×7 (02:14→23:38)
[2021-05-09] MEDS: fentaNYL DRIP 1,250 MCG/250 ML BAG IV SCH ×3 (04:08→20:46)
[2021-05-09 05:04] LABS: iSTAT Arterial Blood Gas HCO3 32 meg/L (19-24); iSTAT Arterial Blood Gas pCO2 68 mmHg (35-46); iSTAT Arterial Blood Gas pH 7.28 (7.35-7.45); iSTAT Arterial Blood Gas pO2 99 mmHg (80-95); iSTAT Carbon Dioxide 34 mmol/L (24-31); iSTAT FiO2 75 %; iSTAT Site Art Line
[2021-05-09] MEDS: CEFEPIME 2,000 MG in SYRINGE 0 ML IV SCH ×3 (05:55→22:07)
[2021-05-09 07:22] LABS: Basophils # (auto) 0.02 K/uL (0-0.2); Basophils % (auto) 0.2 %; Hematocrit (blood only) 45.7 % (42-52); Hemoglobin 14.2 g/dL (14.0-18.0); Immature Granulocytes # (auto) 0.35 K/uL (0.00-0.02); Immature Granulocytes % (auto) 3.2 %; Lymphocytes # (auto) 0.53 K/uL (1.2-3.4); Lymphocytes % (auto) 4.9 %; Mean Corpuscular Hemoglobin 29.1 pg (25-34); Mean Corpuscular Hgb Conc 31.1 g/dL (32-36); Mean Corpuscular Volume 93.6 fL (80-100); Mean Platelet Volume 9.5 fL (7.4-10.4); Monocytes # (auto) 0.54 K/uL (0.11-0.59); Monocytes % (auto) 4.9 %; Neutrophils # (auto) 9.48 K/uL (1.4-6.5); Neutrophils % (auto) 86.8 %; Platelet Count 235 K/uL (130-400); RDW Coefficient of Variation 15.5 % (11.5-14.5); RDW Standard Deviation 53.4 fL (36.4-46.3); Red Blood Count 4.88 M/uL (4.7-6.1); White Blood Count 10.92 K/uL (4.8-10.8)
[2021-05-09 07:57] LABS: Albumin Level 2.3 gm/dl (3.4-5.0); BUN Creatinine Ratio 34.9 (10-20); Calcium 8.3 mg/dl (8.5-10.1); Creatinine Clr Calc Pharmacy 113.3 ml/min; Est GFR (African American) 80.1 ml/min; Est GFR (Non-African American) 69.1 ml/min; Potassium 4.2 mmol/L (3.5-5.1)
[2021-05-09 07:59] LABS: Albumin Globulin Ratio 0.5 (0.9-2); Bilirubin,Total 0.6 mg/dl (0.2-1); Globulin 4.2 gm/dl (2.5-4.0); Phosphorus 6.2 mg/dl (2.5-4.9); Total Protein 6.5 gm/dl (6.4-8.2)
[2021-05-09] MEDS: dexAMETHasone 20 MG in DEXTROSE 5% 25 ML IV SCH (08:10)
[2021-05-09] MEDS: ATORVASTATIN 20 MG TAB PO SCH (08:10)
--- NOTE | 2021-05-09 08:32 | XRay Report ---
XR chest 1V portable HISTORY: Shortness of breath. Respiratory failure. Follow-up. COMPARISON: Chest 05/08/2021. FINDINGS: Endotracheal tube terminates 4.9 cm and the juan francisco. Nasogastric tube terminates below the d iaphragm. The tip is not included on this study. Right jugular central venous catheter terminates at the distal SVC. No pneumothorax. No pleural effusions. Hazy bilateral airspace opacities persist. The heart is borderline enlarged. IMPRESSION: 1. Satisfactory support line placement. 2. No change in the hazy bilateral airspace opacities consistent with a viral pneumonia. ACT 112: Negative or not required by law. Electronically signed by: Otis Lagos M.D. 05/09/2021 8:31 AM
[2021-05-09] MEDS: ICU PROTOCOL FOR HYPERGLYCEMIA SCH (09:34)
[2021-05-09] MEDS ORDERED: PEPTAMEN INTENSE VHP 1.0 CAL 1,000 ML BAG GT SCH (10:30)
[2021-05-09] MEDS ORDERED: STAT IV Infusion **Titration per Protocol STA (11:05)
[2021-05-09] MEDS: NOREPINEPHRINE/D5W 8 MG/508 ML BAG IV SCH (11:29)
[2021-05-09] MEDS ORDERED: DOCUSATE SODIUM SYRUP 100 MG/10 ML UDC PO ONE (11:30)
[2021-05-09] MEDS ORDERED: POLYETHYLENE (MIRALAX) 17 GM PACK PO ONE (11:30)
[2021-05-09] MEDS ORDERED: PHARMACY GLYCEMIC MGMT CONSULT PRN (12:38)
[2021-05-09] MEDS ORDERED: INSULIN GLARGINE SOLOSTAR 100 UNITS/ML 3 ML PEN SC ONE (12:45)
[2021-05-09] MEDS ORDERED: INSULIN ASPART 100 UNITS/ML 3 ML PEN SC ONE (12:45)
--- NOTE | 2021-05-09 13:30 | Pharmacy Report ---
Pharmacy Glycemic Short Note 2 - Date of Service May 09, 2021 - Glycemic Short BSG Results (Last 24 hours): 05/08/21 05/08/21 05/08/21 13:26 18:45 23:55 Glucose 168 H POC Glucose 161 H 178 H 05/09/21 05/09/21 05/09/21 06:01 07:05 11:59 Glucose 201 H POC Glucose 181 H 180 H OUTPATIENT ANTIDIABETIC REGIMEN: * n/a * A1c = ? ASSESSMENT: * Patient admitted for respiratory failure secondary to COVID19 viral pna, ARDS * Auto glycemic consult generated per ICU hyperglycemia screening protocol (>/= 2 consecutive BSGs above 140) * Currently intubated, sedated, paralyzed, receiving IV steroid therapy, on pressor support (norepi at 0.05mcg/kg/min), and tube feeds have now been ordered * BSGs in 180-200 range this AM prior to initiation of tube feeds. * Will add A1c to current labs * Will begin Novolog Q 4 hrs to provide correctional insulin as well as carb coverage delivered in continuous feeds - "severe" stress level dosing based upon adjusted BW due to obesity * Low dose Lantus x 1 dose will be given now, will determine if more should be given based upon response to initial SQ Novolog doses and upon eval of A1c PLAN FOR INPATIENT GLYCEMIC CONTROL: * Basal insulin * Lantus 15 units SQ x 1 now * Bolus insulin * NovoLog per scale Q 4 hrs * Goal Range: Low 110 mg/dL - High 140 mg/dL * Correction Factor: 18 mg/dL/unit * Nutritional / Prandial insulin per carb ratio of 1 unit per 6 grams CHO consumed PLAN FOR DISCHARGE: * to be determined
[2021-05-09] MEDS: PANTOprazole 40 MG in SYRINGE 0 ML IV SCH (13:58)
[2021-05-09] MEDS: TUBE FEEDING WATER FLUSH GT SCH ×3 (13:59→20:41)
[2021-05-09 14:33] LABS: Estimated Average Glucose 134 mg/dl; Hemoglobin A1C 6.3 % (4.5-5.6)
--- NOTE | 2021-05-09 16:06 | Critical Care Progress Note ---
Date of Service May 09, 2021 Assessment & Plan (1) Acute respiratory failure with hypoxia: (2) Pneumonia due to COVID-19 virus: (3) ARDS (adult respiratory distress syndrome): (4) SUDHIR (obstructive sleep apnea): Plan: 50-year-old male who is unvaccinated against COVID-19 with morbid obesity presenting to the hospital due to COVID-19 around pneumonia and found to have ARDS. Neurologic: Continue lowest effective dose of propofol, Versed and fentanyl. Continue neuromuscular blockade and wean to the lowest effective dose. No encephalopathy prior to intubation. Pulmonary: Continue lung protective ventilation strategy. Patient with severe ARDS. Responded very poorly to proning on 05/08/2021 and was quickly placed supine. Continue as needed Lasix. Will initiate late-phase fibroproliferative steroid dosing. Decadron 20 mg x 5 days and 10 mg x 5 days. Continues to require significant vent support. FiO2 65% and PEEP of 18. Cardiovascular: Art line in place. No significant hemodynamic issues at present. Echo 2018 was limited due to body habitus. LVEF of 55 to 60%. Right ventricle not well visualized. Continue statin therapy. Gastrointestinal: Protonix 40 mg daily. Tube feeds initiated. Renal: Monitor urine output closely. Continue Lasix drip. Infectious disease: Continue empiric cefepime. MRSA screen negative. Procalcitonin negative. Will finish a 5-day course of remdesivir. Sputum cultures orderd. Hematologic: No significant issues at present. Endocrine: ICU pharmacy consult for management of hyperglycemia. Lines and tubes: Internal jugular central line and radial arterial line placed 05/08/2021. Intubated 05/08/2021. VTE prophylaxis: Lovenox 40 mg twice daily CODE STATUS: Full code Family at bedside: None available due to covid 19 pandemic Disposition: Remain in the ICU I have personally spent 46 minutes of critical care time in the direct management of this patient. This is a life/limb threatening event. This includes time spent evaluating patient, direct bedside care, chart review, placing order s, interpretation of diagnostic studies, discussion with consultants, patient, and family members, as well as other required patient management activities. This time is exclusive of all separately billable procedures, and teaching time and separate from and in addition to any other critical care service time. Thank you for allowing us to participate in the care of this patient. Admission and Anticipated Discharge Date Admission Date: May 05, 2021 Subjective Patient seen and examined at bedside. Currently on sedation with propofol fentanyl and Versed. Also neuromuscular blockade with Nimbex. Review of Systems Review of Systems: Unobtainable due to endotracheal tube Physical Exam Physical Exam: Constitutional: Morbidly obese appearing male currently intubated and sedated. Eyes: Pupils are equal round and reactive to light. Conjunctivae are normal. Anicteric sclera. Ears nose, mouth and throat: ET tube in place. Neck: Trachea is midline. Visual inspection is normal. Respiratory: Diminished lung sounds bilaterally. No wheezes. Cardiovascular: Regular rate and rhythm. No murmurs. Trace edema. Gastrointestinal: Normal bowel sounds, soft, nontender and nondistended. No hepatosplenomegaly noted. Musculoskeletal: Patient is able to move all extremities. Skin: No rashes, warm dry and intact. Neurologic: Exam limited due to neuromuscular blockade Results & Data Results & Data ([facility]) Vital Signs (Past 12 Hours) Vital Signs Temp Pulse Resp BP Pulse Ox 05/09/21 14:40 80 26 H 92 05/09/21 11:10 80 26 H 92 05/09/21 07:13 80 24 91 05/09/21 07:00 37.1 C 05/09/21 06:00 82 24 91 05/09/21 05:30 82 24 91 05/09/21 05:00 83 24 90 05/09/21 04:40 24 05/09/21 04:30 84 24 92 05/09/21 04:00 83 24 86/54 L 92 Coding Level of Care Code Critical Care 1st 30-74 mins Diagnoses Acute respiratory failure with hypoxia J96.01 Pneumonia due to COVID-19 virus U07.1; J12.82 ARDS (adult respiratory distress syndrome) J80 SUDHIR (obstructive sleep apnea) G47.33 Time Spent (min) 46
--- NOTE | 2021-05-09 17:12 | Hospitalist Progress Note ---
Date of Service May 09, 2021 Assessment & Plan (1) Acute respiratory failure with hypoxia: Plan: Secondary to COVID-19 virus infection (2) Pneumonia due to COVID-19 virus: Plan: Acute respiratory failure with hypoxia ARDS Pneumonia due to COVID-19 H/O SUDHIR --CXR:Extensive patchy interstitial and alveolar opacities bilaterally characteristic of a viral type pneumonitis and probable Covid 19 pneumonia. -Intubated on 05/08/21 -Appreciate Critical Care Input -CRP:8.49> 5.20 -On 100% FiO2 and PEEP 18 Desaturated with proning Not a candidate for ECHO given his BMI as per Critical Care, [facility] Continue Dexamethasone, Remdesivir as per Protocol Also on Cefepime Received Nimbex Also on lasix drip on Lovenox for DVT Prophylaxis On 65% FiO2 Continue current management Follow-up sputum cultures (3) Hypertension: Plan: BP low today Monitor (4) SUDHIR (obstructive sleep apnea): Plan: Morbidly obese BMI: 58 Was on CPAP (5) Hyperlipidemia: Plan: Continue statin DVT prophylaxis Lovenox CODE STATUS Full Admission and Anticipated Discharge Date Admission Date: May 05, 2021 Subjective Patient is seen and examined at bedside Remains Intubated On 65% FiO2 Sedated with propofol, Versed and fentanyl Also had neuromuscular blockade Review of Systems Review of Systems: Unobtainable due to endotracheal tube Physical Exam Physical Exam: Physical Exam: Vitals signs as noted above General Appearance:Morbidly Obese, no apparent distress, Sedated and Intubated Head: normocephalic, Atraumatic Eyes: normal inspection, EOMI Neck: supple, Trachea midline Respiratory/Chest: Decreased breath sounds, CTA Cardiovascular: S1, S2, No murmur Abdomen/GI:Soft, Non tender, Bowel sounds present Extremities/Musculoskeletal:normal inspection, no edema Neurologic/Psych:Sedated and Intubated Skin: normal color, warm Results & Data Results & Data ([facility]) Vital Signs (Past 12 Hours) Vital Signs Temp Pulse Resp Pulse Ox 05/09/21 14:40 80 26 H 92 05/09/21 11:10 80 26 H 92 05/09/21 07:13 80 24 91 05/09/21 07:00 37.1 C 05/09/21 06:00 82 24 91 05/09/21 05:30 82 24 91 Laboratory Results Short CBC 05/09/21 Range/Units 07:05 WBC 10.92 H (4.8-10.8) K/uL Hgb 14.2 (14.0-18.0) g/dL Hct 45.7 (42-52) % Plt Count 235 (130-400) K/uL BMP 05/09/21 07:05 Sodium 139 Potassium 4.2 Chloride 106 Carbon Dioxide 29 BUN 42 H Creatinine 1.20 D Glucose 201 H Calcium 8.3 L Liver Function 05/09/21 Range/Units 07:05 Total Bilirubin 0.6 (0.2-1) mg/dl AST 33 (15-37) U/L ALT 41 (12-78) U/L Alkaline Phosphatase 24 L (45-117) U/L Albumin 2.3 L (3.4-5.0) gm/dl
[2021-05-09] MEDS: INSULIN ASPART 100 UNITS/ML 3 ML PEN SC SCH ×2 (18:19→22:06)
[2021-05-09] MEDS: REMDESIVIR 100 MG in SODIUM CHLORIDE 0.9% 230 ML IV SCH (20:40)
[2021-05-09] MEDS: SODIUM CHLORIDE 0.9% 10ML FLUSH IV SCH (20:42)
[2021-05-09] MEDS: DOCUSATE SODIUM SYRUP 100 MG/10 ML UDC PO SCH (20:42)
[2021-05-10] MEDS: TUBE FEEDING WATER FLUSH GT SCH ×6 (01:03→21:12)
[2021-05-10] MEDS: INSULIN ASPART 100 UNITS/ML 3 ML PEN SC SCH ×6 (01:04→21:04)
[2021-05-10] MEDS: CISATRACURIUM BESYLATE 40 MG in 0.9 % SODIUM CHLORIDE 80 ML IV SCH ×5 (03:58→23:54)
[2021-05-10] MEDS: propofoL 1,000 MG/100 ML VIAL IV SCH ×6 (03:59→23:56)
[2021-05-10] MEDS: ARTIFICIAL TEARS OP OINT 3.5 GM TUBE OP SCH ×5 (04:00→21:06)
[2021-05-10 04:32] LABS: iSTAT Art Bld Gas pCO2 Correct 62 mmHg (35-46); iSTAT Art Bld Gas pH Corrected 7.322 (7.35-7.45); iSTAT Arterial Blood Gas HCO3 32 meg/L (19-24); iSTAT Arterial Blood Gas pCO2 61 mmHg (35-46); iSTAT Arterial Blood Gas pH 7.33 (7.35-7.45); iSTAT Arterial Blood Gas pO2 75 mmHg (80-95); iSTAT Arterial Blood Gas pO2 C 77; iSTAT Carbon Dioxide 34 mmol/L (24-31); iSTAT FiO2 50 %; iSTAT Hematocrit 45 % (42-52); iSTAT Hemoglobin 15.3 g/dl (14.0-18.0); iSTAT Potassium 3.7 mmol/L (3.3-5.0); iSTAT Site Art Line; iSTAT Sodium 143 mmol/L (135-144)
[2021-05-10] MEDS: FUROSEMIDE 100 MG in DEXTROSE 5% 90 ML IV SCH ×2 (05:39→15:55)
[2021-05-10] MEDS: CEFEPIME 2,000 MG in SYRINGE 0 ML IV SCH ×2 (05:40→14:21)
[2021-05-10] MEDS: fentaNYL DRIP 1,250 MCG/250 ML BAG IV SCH ×4 (05:41→23:57)
[2021-05-10 07:09] LABS: Hematocrit (blood only) 47.2 % (42-52); Mean Corpuscular Hemoglobin 29.6 pg (25-34); Mean Corpuscular Hgb Conc 31.8 g/dL (32-36); Mean Corpuscular Volume 93.3 fL (80-100); Mean Platelet Volume 9.5 fL (7.4-10.4); Platelet Count 318 K/uL (130-400); RDW Coefficient of Variation 15.5 % (11.5-14.5); RDW Standard Deviation 53.1 fL (36.4-46.3); Red Blood Count 5.06 M/uL (4.7-6.1); White Blood Count 13.88 K/uL (4.8-10.8)
[2021-05-10 07:28] LABS: Basophils # (auto) 0.06 K/uL (0-0.2); Basophils % (auto) 0.4 %; Immature Granulocytes # (auto) 0.88 K/uL (0.00-0.02); Immature Granulocytes % (auto) 6.3 %; Lymphocytes # (auto) 0.61 K/uL (1.2-3.4); Lymphocytes % (auto) 4.4 %; Monocytes # (auto) 1.13 K/uL (0.11-0.59); Monocytes % (auto) 8.1 %; Neutrophils % (auto) 80.8 %
[2021-05-10 07:36] LABS: Albumin Level 2.2 gm/dl (3.4-5.0); BUN Creatinine Ratio 40.8 (10-20); Calcium 8.2 mg/dl (8.5-10.1); Creatinine Clr Calc Pharmacy 115.5 ml/min; Est GFR (African American) 80.9 ml/min; Est GFR (Non-African American) 69.8 ml/min; Potassium 3.6 mmol/L (3.5-5.1)
[2021-05-10 07:39] LABS: Albumin Globulin Ratio 0.5 (0.9-2); Bilirubin,Total 0.8 mg/dl (0.2-1); Globulin 4.3 gm/dl (2.5-4.0); Total Protein 6.5 gm/dl (6.4-8.2)
--- NOTE | 2021-05-10 08:40 | XRay Report ---
XR chest 1V portable CLINICAL HISTORY: Resp failure. Follow-up bilateral interstitial and alveolar opacities COMPARISON STUDY: 05/09/2021 TECHNIQUE: 1 view of the chest FINDINGS: Single frontal view of the chest demonstrates the cardiomediastinal silhouette to be within normal li mits. Tubes and catheters are unchanged. Compared to the previous examination, there is no significan t interval change of bilateral interstitial and alveolar opacities. There is no evidence for pleural effusion. There is no evidence for vascular congestion. There is no acute osseous pathology. IMPRESSION: No significant interval change of bilateral interstitial and alveolar opacities, again mo st characteristic of a viral type pneumonitis and Covid pneumonia. ACT 112: Negative or not required by law. Electronically signed by: Ramesh Dao M.D. 05/10/2021 8:38 AM
[2021-05-10] MEDS: POLYETHYLENE (MIRALAX) 17 GM PACK PO SCH (08:53)
[2021-05-10] MEDS: DOCUSATE SODIUM SYRUP 100 MG/10 ML UDC PO SCH (08:53)
[2021-05-10] MEDS: ATORVASTATIN 20 MG TAB PO SCH (08:53)
[2021-05-10] MEDS: dexAMETHasone 20 MG in DEXTROSE 5% 25 ML IV SCH (08:54)
[2021-05-10] MEDS ORDERED: INSULIN HUMAN NPH SC SCH (09:00)
[2021-05-10] MEDS: NOREPINEPHRINE/D5W 8 MG/508 ML BAG IV SCH (11:24)
[2021-05-10] MEDS: ENOXAPARIN INJ 40 MG/0.4 ML SYR SQ SCH (11:25)
[2021-05-10] MEDS: PEPTAMEN INTENSE VHP 1.0 CAL 1,000 ML BAG GT SCH (11:25)
[2021-05-10] MEDS: PANTOprazole 40 MG in SYRINGE 0 ML IV SCH (11:25)
--- NOTE | 2021-05-10 11:30 | Pharmacy Report ---
Pharmacy Glycemic Short Note 2 - Date of Service May 10, 2021 - Glycemic Short BSG Results (Last 24 hours): 05/09/21 05/09/21 05/09/21 11:59 18:08 22:04 Glucose POC Glucose 180 H 197 H 214 H POC Glucose (other) 05/10/21 05/10/21 05/10/21 00:55 04:24 06:37 Glucose 213 H POC Glucose POC Glucose (other) 228 H 238 H 05/10/21 08:42 Glucose POC Glucose 179 H POC Glucose (other) OUTPATIENT ANTIDIABETIC REGIMEN: * n/a * A1c = 6.3% 05/09/21 ASSESSMENT: 05/10 * BSGs remained elevated despite addition of SQ insulin orders yesterday * Patient remains intubated, sedated, paralyzed, high dose IV steroid continues as well as pressor support and tube feeds * Will convert basal insulin to NPH and administer once daily in AM at the same time dexamethasone given * Will also increase Novolog dosing parameters 05/09 * Patient admitted for respiratory failure secondary to COVID19 viral pna, ARDS * Auto glycemic consult generated per ICU hyperglycemia screening protocol (>/= 2 consecutive BSGs above 140) * Currently intubated, sedated, paralyzed, receiving IV steroid therapy, on pressor support (norepi at 0.05mcg/kg/min), and tube feeds have now been ordered * BSGs in 180-200 range this AM prior to initiation of tube feeds. * Will add A1c to current labs * Will begin Novolog Q 4 hrs to provide correctional insulin as well as carb coverage delivered in continuous feeds - "severe" stress level dosing based upon adjusted BW due to obesity * Low dose Lantus x 1 dose will be given now, will determine if more should be given based upon response to initial SQ Novolog doses and upon eval of A1c PLAN FOR INPATIENT GLYCEMIC CONTROL: * Basal insulin * NPH 40 units SQ Q AM with IV dexamethasone * Bolus insulin * NovoLog per scale Q 4 hrs * Goal Range: Low 110 mg/dL - High 140 mg/dL * Correction Factor: 12 mg/dL/unit * Nutritional / Prandial insulin per carb ratio of 1 unit per 4 grams CHO consumed PLAN FOR DISCHARGE: * to be determined
[2021-05-10] MEDS ORDERED: POTASSIUM CHLORIDE 20 MEQ/15 ML UDC PO STA (14:12)
--- NOTE | 2021-05-10 14:15 | Critical Care Progress Note ---
Date of Service May 10, 2021 Assessment & Plan (1) Acute respiratory failure with hypoxia: (2) Pneumonia due to COVID-19 virus: (3) ARDS (adult respiratory distress syndrome): (4) SUDHIR (obstructive sleep apnea): (5) Morbid obesity: Plan: 50-year-old male who is unvaccinated against COVID-19 with morbid obesity presenting to the hospital due to COVID-19 around pneumonia and found to have ARDS. Neurologic: Continue lowest effective dose of propofol, Versed and fentanyl. Wean off neuromuscular blockade and wean to the lowest effective dose. No encephalopathy prior to intubation. Pulmonary: Continue lung protective ventilation strategy. Patient with severe ARDS. Responded very poorly to proning on 05/08/2021 and was quickly placed supine. Continue as needed Lasix. Will initiate late-phase fibroproliferative steroid dosing. Decadron 20 mg x 5 days and 10 mg x 5 days. Vent parameters improved to 50% FiO2 and a PEEP of 18. Cardiovascular: Art line in place. No significant hemodynamic issues at present. Echo 2018 was limited due to body habitus. LVEF of 55 to 60%. Right ventricle not well visualized. Continue statin therapy. Gastrointestinal: Protonix 40 mg daily. Tube feeds initiated. Renal: Monitor urine output closely. Continue Lasix drip 10mg/hr. Infectious disease: We will discontinue cefepime as no obvious signs of infection at this time. MRSA screen negative. Procalcitonin negative. Will finish a 5-day course of remdesivir. Sputum cultures ordered. Hematologic: No significant issues at present. Endocrine: ICU pharmacy consult for management of hyperglycemia. Lines and tubes: Internal jugular central line and radial arterial line placed 05/08/2021. Intubated 05/08/2021. VTE prophylaxis: Lovenox 40 mg twice daily CODE STATUS: Full code Family at bedside: None available due to covid 19 pandemic Disposition: Remain in the ICU I have personally spent 38 minutes of critical care time in the direct management of this patient. This is a life/limb threatening event. This includes time spent evaluating patient, direct bedside care, chart review, placing orders, interpretation of diagnostic studies, discussion with consultants, patient, and family members, as well as other required patient management activities. This time is exclusive of all separately billable procedures, and teaching time and separate from and in addition to any other critical care service time. Thank you for allowing us to participate in the care of this patient. Admission and Anticipated Discharge Date Admission Date: May 05, 2021 Subjective Patient seen and examined. He remained stable on his current vent settings. He is on 50% FiO2 and a PEEP of 18. No significant events overnight. Review of Systems Review of Systems: Unobtainable due to endotracheal tube Physical Exam Physical Exam: Constitutional: Morbidly obese appearing male currently intubated and sedated. Eyes: Pupils are equal round and reactive to light. Conjunctivae are normal. Anicteric sclera. Ears nose, mouth and throat: ET tube in place. Neck: Trachea is midline. Visual inspection is normal. Respiratory: Diminished lung sounds bilaterally. No wheezes. Cardiovascular: Regular rate and rhythm. No murmurs. Trace edema. Gastrointestinal: Normal bowel sounds, soft, nontender and nondistended. No hepatosplenomegaly noted. Musculoskeletal: Patient is able to move all extremities. Skin: No rashes, warm dry and intact. Neurologic: Unable to fully assess due to sedation Results & Data Results & Data ([facility]) Vital Signs (Past 12 Hours) Vital Signs Pulse Resp Pulse Ox 05/10/21 10:23 30 H 05/10/21 05:59 87 30 H 89 L 05/10/21 04:18 30 H 05/10/21 03:30 86 26 H 91 05/10/21 03:00 85 26 H 91 05/10/21 02:30 85 26 H 91 Coding Level of Care Code Critical Care 1st 30-74 mins Diagnoses Acute respiratory failure with hypoxia J96.01 Pneumonia due to COVID-19 virus U07.1; J12.82 ARDS (adult respiratory distress syndrome) J80 SUDHIR (obstructive sleep apnea) G47.33 Morbid obesity E66.01 Time Spent (min) 38
--- NOTE | 2021-05-10 17:30 | XRay Report ---
SINGLE VIEW CHEST CLINICAL HISTORY: Hypoxia. FINDINGS: 4 AP, portable, upright chest radiographs are compared to study performed earlier the same day 05/10/2021. The examinations are significantly degraded by portable technique and patient rotation . The endotracheal tube, an enteric tube, and a right internal jugular central venous catheter are un changed in position. The cardiac silhouette appears enlarged. Multifocal airspace opacities throughou t both lungs are unchanged to modestly worsened from today's earlier examination. No large pleural ef fusion or pneumothorax is seen. The bony thorax is grossly intact. IMPRESSION: 1. Stable lines and tubes. 2. Multifocal airspace opacities are unchanged to modestly worsened from today's earlier study. The a ppearance favors a viral pneumonia. Correlate clinically for evidence of superimposed fluid overload/ congestive failure. Radiographic follow-up to resolution is recommended. ACT 112: Negative or not required by law. Electronically signed by: Mario Gipson M.D. 05/10/2021 5:29 PM
[2021-05-10] MEDS ORDERED: STAT IV Infusion **Titration per Protocol STA (17:56)
--- NOTE | 2021-05-10 19:24 | Hospitalist Progress Note ---
Date of Service May 10, 2021 Assessment & Plan (1) Acute respiratory failure with hypoxia: Plan: Secondary to COVID-19 virus infection (2) Pneumonia due to COVID-19 virus: Plan: Acute respiratory failure with hypoxia ARDS Pneumonia due to COVID-19 H/O SUDHIR --CXR:Extensive patchy interstitial and alveolar opacities bilaterally characteristic of a viral type pneumonitis and probable Covid 19 pneumonia. -Intubated on 05/08/21 -Appreciate Critical Care Input -CRP:8.49> 5.20 -On 100% FiO2 and PEEP 18 Desaturated with proning Not a candidate for ECHO given his BMI as per Critical Care, [facility] Completed Remdesivir Continue dexamethasone Received Cefepime weaned off of Nimbex Also on lasix drip on Lovenox for DVT Prophylaxis On propofol, Versed and fentanyl Vent management as per Critical Care CXR today suggestive of worsening pneumonia and fluid overload. Currently on 100% FiO2, 18 PEEP (3) Hypertension: Plan: Monitor (4) SUDHIR (obstructive sleep apnea): Plan: Morbidly obese BMI: 58 Was on CPAP (5) Hyperlipidemia: Plan: Continue statin DVT prophylaxis Lovenox CODE STATUS Full Admission and Anticipated Discharge Date Admission Date: May 05, 2021 Subjective Patient is seen and examined at bedside Remains Intubated PEEP 18 , 100 % FiO2 today evening CXR suggestive of worsening pneumonia and fluid overload. On Lasix drip Review of Systems Review of Systems: Unobtainable due to endotracheal tube Physical Exam Physical Exam: Physical Exam: Vitals signs as noted above General Appearance:Morbidly Obese, no apparent distress, Sedated and Intubated Head: normocephalic, Atraumatic Eyes: normal inspection, EOMI Neck: supple, Trachea midline Respiratory/Chest: Decreased breath sounds Cardiovascular: S1, S2, No murmur Abdomen/GI:Soft, Non tender, Bowel sounds present Extremities/Musculoskeletal:normal inspection, no edema Neurologic/Psych:Sedated and Intubated Skin: normal color, warm Results & Data Results & Data ([facility]) Vital Signs (Past 12 Hours) Vital Signs Pulse Resp Pulse Ox 05/10/21 14:48 99 H 30 H 89 L 05/10/21 10:23 30 H 05/10/21 08:00 63 Laboratory Results Short CBC 05/10/21 Range/Units 06:37 WBC 13.88 H (4.8-10.8) K/uL Hgb 15.0 (14.0-18.0) g/dL Hct 47.2 (42-52) % Plt Count 318 (130-400) K/uL BMP 05/10/21 06:37 Sodium 143 Potassium 3.6 Chloride 107 Carbon Dioxide 30 BUN 49 H Creatinine 1.19 Glucose 213 H Calcium 8.2 L Liver Function 05/10/21 Range/Units 06:37 Total Bilirubin 0.8 (0.2-1) mg/dl AST 26 (15-37) U/L ALT 35 (12-78) U/L Alkaline Phosphatase 22 L (45-117) U/L Albumin 2.2 L (3.4-5.0) gm/dl
[2021-05-10 19:31] LABS: BUN Creatinine Ratio 41.9 (10-20); Calcium 8.4 mg/dl (8.5-10.1); Creatinine Clr Calc Pharmacy 108.3 ml/min; Est GFR (African American) 74.8 ml/min; Est GFR (Non-African American) 64.5 ml/min
[2021-05-10] MEDS ORDERED: ACETAMINOPHEN SUSP 500 MG/15.6 ML UDP PO PRN (23:27)
[2021-05-11] MEDS: INSULIN ASPART 100 UNITS/ML 3 ML PEN SC SCH ×6 (00:38→20:25)
[2021-05-11] MEDS: DOCUSATE SODIUM SYRUP 100 MG/10 ML UDC PO SCH ×2 (00:43→08:03)
[2021-05-11] MEDS: FUROSEMIDE 100 MG in DEXTROSE 5% 90 ML IV SCH (02:00)
[2021-05-11] MEDS: propofoL 1,000 MG/100 ML VIAL IV SCH ×7 (02:01→20:34)
[2021-05-11] MEDS: ENOXAPARIN INJ 40 MG/0.4 ML SYR SQ SCH ×2 (02:21→12:35)
[2021-05-11] MEDS: TUBE FEEDING WATER FLUSH GT SCH ×6 (02:22→20:29)
[2021-05-11] MEDS: ARTIFICIAL TEARS OP OINT 3.5 GM TUBE OP SCH ×6 (04:29→21:39)
[2021-05-11 04:56] LABS: iSTAT Arterial Blood Gas HCO3 37 meg/L (19-24); iSTAT Arterial Blood Gas pCO2 56 mmHg (35-46); iSTAT Arterial Blood Gas pH 7.42 (7.35-7.45); iSTAT Arterial Blood Gas pO2 75 mmHg (80-95); iSTAT Carbon Dioxide 38 mmol/L (24-31); iSTAT FiO2 80 %; iSTAT Site Art Line
[2021-05-11] MEDS: fentaNYL DRIP 1,250 MCG/250 ML BAG IV SCH ×5 (05:30→23:05)
[2021-05-11] MEDS: CISATRACURIUM BESYLATE 40 MG in 0.9 % SODIUM CHLORIDE 80 ML IV SCH ×6 (07:13→20:30)
[2021-05-11] MEDS: NOREPINEPHRINE/D5W 8 MG/508 ML BAG IV SCH ×2 (07:13→07:52)
[2021-05-11 07:27] LABS: Hematocrit (blood only) 45.2 % (42-52); Hemoglobin 14.2 g/dL (14.0-18.0); Mean Corpuscular Hemoglobin 29.5 pg (25-34); Mean Corpuscular Hgb Conc 31.4 g/dL (32-36); Mean Corpuscular Volume 93.8 fL (80-100); Platelet Count 316 K/uL (130-400); RDW Coefficient of Variation 15.2 % (11.5-14.5); RDW Standard Deviation 52.6 fL (36.4-46.3); Red Blood Count 4.82 M/uL (4.7-6.1); White Blood Count 14.18 K/uL (4.8-10.8)
[2021-05-11] MEDS: MIDAZOLAM HCL 125 MG/250 ML BAG IV SCH (07:52)
[2021-05-11 08:00] LABS: BUN Creatinine Ratio 41.4 (10-20); Calcium 8.3 mg/dl (8.5-10.1); Creatinine Clr Calc Pharmacy 115.8 ml/min; Est GFR (African American) 81.7 ml/min; Est GFR (Non-African American) 70.5 ml/min; Magnesium 2.9 mg/dl (1.8-2.4)
[2021-05-11] MEDS: dexAMETHasone 20 MG in DEXTROSE 5% 25 ML IV SCH (08:01)
[2021-05-11] MEDS: ATORVASTATIN 20 MG TAB PO SCH (08:04)
[2021-05-11] MEDS: POLYETHYLENE (MIRALAX) 17 GM PACK PO SCH (08:05)
[2021-05-11 08:17] LABS: Albumin Globulin Ratio 0.5 (0.9-2); Bilirubin,Total 0.9 mg/dl (0.2-1); Globulin 4.2 gm/dl (2.5-4.0); Phosphorus 3.2 mg/dl (2.5-4.9); Total Protein 6.2 gm/dl (6.4-8.2)
--- NOTE | 2021-05-11 08:32 | XRay Report ---
XR chest 1V portable CLINICAL HISTORY: Respiratory failure. COMPARISON STUDY: Chest radiograph May 10, 2021. FINDINGS: Tip of endotracheal tube 6 cm above the [place]. Tip of nasogastric tube is below the lower aspect of this image but at least within the proximal stomach. There is no pneumothorax or pleural ef fusion. Right internal jugular central line remains in place. Interstitial thickening and moderate to extensive bilateral airspace opacities are similar to prior exam. IMPRESSION: 1. Satisfactory positioning of lines and tubes. 2. No significant change in bilateral airspace opacities suggestive of viral pneumonia. ACT 112: Negative or not required by law. Electronically signed by: Petros Barth M.D. 05/11/2021 8:31 AM
[2021-05-11] MEDS ORDERED: MAGNESIUM HYDROXIDE SUSP 30 ML UDC PO ONE (08:52)
[2021-05-11] MEDS ORDERED: INSULIN HUMAN NPH SC SCH ×2 (09:00→20:00)
[2021-05-11] MEDS: PEPTAMEN INTENSE VHP 1.0 CAL 1,000 ML BAG GT SCH (10:33)
[2021-05-11] MEDS: PANTOprazole 40 MG in SYRINGE 0 ML IV SCH (10:33)
[2021-05-11] MEDS: DOCUSATE SODIUM/SENNA 50/8.6MG TAB PO SCH ×2 (10:33→20:31)
--- NOTE | 2021-05-11 11:08 | Pharmacy Report ---
Pharmacy Glycemic Short Note 2 - Date of Service May 11, 2021 - Glycemic Short BSG Results (Last 24 hours): 05/10/21 05/10/21 05/10/21 12:05 17:08 18:44 Glucose 200 H POC Glucose 154 H 153 H POC Glucose (other) 05/10/21 05/11/21 05/11/21 21:02 00:36 04:27 Glucose POC Glucose 198 H 217 H 214 H POC Glucose (other) 05/11/21 05/11/21 06:17 07:52 Glucose 195 H POC Glucose POC Glucose (other) 180 H OUTPATIENT ANTIDIABETIC REGIMEN: * n/a * A1c = 6.3% 05/09/21 ASSESSMENT: 05/11 * Glycemic control improved with yesterday's changes. BSGs did climb overnight however. May need to consider BID dosing of NPH if same BSG pattern repeats today while on continuous tube feeds. Continuous tube feeds resumed at "trickle" this AM. * Patient remains intubated, sedated but no longer paralyzed. High dose dexamethasone (20mg daily IV) continues. * NPH dose will be increased slightly today and carb ratio will also be increased slightly given last 3 BSGs > 180. 05/10 * BSGs remained elevated despite addition of SQ insulin orders yesterday * Patient remains intubated, sedated, paralyzed, high dose IV steroid continues as well as pressor support and tube feeds * Will convert basal insulin to NPH and administer once daily in AM at the same time dexamethasone given * Will also increase Novolog dosing parameters 05/09 * Patient admitted for respiratory failure secondary to COVID19 viral pna, ARDS * Auto glycemic consult generated per ICU hyperglycemia screening protocol (>/= 2 consecutive BSGs above 140) * Currently intubated, sedated, paralyzed, receiving IV steroid therapy, on pressor support (norepi at 0.05mcg/kg/min), and tube feeds have now been ordered * BSGs in 180-200 range this AM prior to initiation of tube feeds. * Will add A1c to current labs * Will begin Novolog Q 4 hrs to provide correctional insulin as well as carb coverage delivered in continuous feeds - "severe" stress level dosing based upon adjusted BW due to obesity * Low dose Lantus x 1 dose will be given now, will determine if more should be given based upon response to initial SQ Novolog doses and upon eval of A1c PLAN FOR INPATIENT GLYCEMIC CONTROL: * Basal insulin * NPH 45 units SQ Q AM with IV dexamethasone; consider addition of PM dose of NPH if BSGs again trend upwards 2nd half of day * Bolus insulin * NovoLog per scale Q 4 hrs * Goal Range: Low 110 mg/dL - High 140 mg/dL * Correction Factor: 12 mg/dL/unit * Nutritional / Prandial insulin per carb ratio of 1 unit per 3 grams CHO consumed PLAN FOR DISCHARGE: * to be determined
[2021-05-11] MEDS ORDERED: STAT IV Infusion **Titration per Protocol STA (12:18)
[2021-05-11] MEDS ORDERED: PROPOFOL BOLUS FROM BAG IV PRN (12:18)
[2021-05-11] MEDS ORDERED: PIPERACILL/TAZOBAC CONSULT ACTIVE PRN (12:28)
--- NOTE | 2021-05-11 12:29 | Critical Care Progress Note ---
Date of Service May 11, 2021 Assessment & Plan (1) Acute respiratory failure with hypoxia: (2) Pneumonia due to COVID-19 virus: (3) ARDS (adult respiratory distress syndrome): (4) SUDHIR (obstructive sleep apnea): (5) Morbid obesity: Plan: Neurologic: Sedated and pharmacologically paralyzed for mechanical ventilation - No acute needs- If Pplt and oxygenation levels remain stable today can likely discontinue Nimbex infusion tomorrow and move towards bolus dosing for syncrony and complaince Pulmonary: COVID 19, hypoxic respiratory failure secondry to COVID 19, ARDS, SUDHIR Continue lung protective ventilation strategy. Patient with severe ARDS. Responded very poorly to proning on 05/08/2021 and was quickly placed supine. Continue as needed Lasix. DEXARDS dosing for Decadron 20 mg x 5 days and 10 mg x 5 days. Vent parameters improved to 50% FiO2 and a PEEP of 18. Pplt 24 today, increase VT to 400ml. Cardiovascular: HLD, HTN, pressor dependant Art line in place. Continue hemodynamic support, no evidence of organ dysfunction, cultues are pending for secondary infection. Gastrointestinal: NPO - Resume trickle feeds while on vasopressor Protonix 40 mg daily. Tube feeds initiated. Renal: Monitor urine output closely. Continue Lasix drip 10mg/hr. Infectious disease: COVID, Luekocytosis - Will place on Zosyn with elevation of WBC to 14, PCT pending (was negative on admission) MRSA screen negative. Will finish a 5-day course of remdesivir. Sputum cultures ordered. Hematologic: No significant issues at present. Endocrine: DMII ICU pharmacy consult for management of hyperglycemia. Lines and tubes: Internal jugular central line and radial arterial line placed 05/08/2021. Intu bated 05/08/2021. BARBY Duffy- Continue use of these lines VTE prophylaxis: Lovenox 40 mg twice daily CODE STATUS: Full code Disposition: Remain in the ICU I have personally spent 30 minutes of critical care time in the direct management of this patient. This is a life/limb threatening event. This includes time spent evaluating patient, direct bedside care, chart review, placing orders, interpretation of diagnostic studies, discussion with consultants, patient, and family members, as well as other required patient management activities. This time is exclusive of all separately billable procedures, and teaching time and separate from and in addition to any other critical care service time. Thank you for allowing us to participate in the care of this patient. Admission and Anticipated Discharge Date Admission Date: May 05, 2021 Subjective 50 YOM- ICU day #3, Intubation day #3 secondary to hypoxic respiratory failure secondary to COVID 19 and ARDS. Patient remains on high Peep and high FIO2, with minimal reduction in ventilator settings, but noted better Pplt. Will resume trickle tube feeds today as he is still remaining on Levophed for MAP support. His WBC are elevated this morning with Tmax 38.5. He has had blood cultures drawn this morning. No acute changes in his CXR. He has not had a BM in a few days so will increase his bowel regime. Duffy is draining dilute yellow urine. Will D/C his Lasix infusion and move to bolus dosing this afternoon. Lines in good position and no evidence of infection noted at CVL site. Will place on Zosyn IV and await blood culture results. Will add biomarkers. Review of Systems Review of Systems: Unable to perform secondary to intubation and sedaton Physical Exam Physical Exam: N: Unable to assess CAM Intubated, sedated, paralyzed pharmacologically Eyes: Pupils are equal round and reactive to light Neck: Trachea is midline. CVL site intact no errythema Respiratory: ETT in place with OGT, Diminished coarse lung sounds bilaterally. Cardiovascular: Regular rate and rhythm. No murmurs. Trace edema. Gastrointestinal: Normal bowel sounds, soft, obese, typmanic on exam Skin: No rashes, warm dry and intact, bony prominences padded Results & Data Results & Data ([facility]) Vital Signs (Past 12 Hours) Vital Signs Temp Pulse Resp BP Pulse Ox 05/11/21 11:08 72 30 H 90 05/11/21 09:30 74 30 H 92 05/11/21 09:00 79 30 H 91 05/11/21 08:30 79 30 H 92 05/11/21 08:00 38.4 C H 77 30 H 92 05/11/21 07:30 78 30 H 90 05/11/21 07:18 76 30 H 90 05/11/21 06:00 76 30 H 91 05/11/21 05:30 79 30 H 91 05/11/21 05:00 37.5 C 76 30 H 91 05/11/21 04:30 78 30 H 92 12/04/21 04:00 79 30 H 92 05/11/21 03:59 74 05/11/21 03:30 38.0 C H 79 30 H 92 05/11/21 03:20 80 30 H 92 05/11/21 03:00 80 30 H 108/62 92 05/11/21 02:30 83 30 H 91 05/11/21 02:00 76 31 H 92 05/11/21 01:30 76 32 H 92 05/11/21 01:00 75 28 H 92 05/11/21 00:30 76 31 H 92 Laboratory Results Abnormal lab results 05/10/21 05/10/21 05/10/21 Range/Units 17:08 18:44 21:02 WBC (4.8-10.8) K/uL MCHC (32-36) g/dL RDW Std Deviation (36.4-46.3) fL RDW Coeff of Samia (11.5-14.5) % POC pCO2 (35-46) mmHg POC pO2 (80-95) mmHg POC HCO3 (19-24) jovanna/L POC Total CO2 (24-31) mmol/L POC Base Excess (-9-1.8) jovanna/L Carbon Dioxide (21-32) mmol/L BUN 53 H (7-18) mg/dl BUN/Creatinine Ratio 41.9 H (10-20) Glucose 200 H (70-99) mg/dl POC Glucose 153 H 198 H (70-99) mg/dl POC Glucose (other) (70-99) mg/dl Calcium 8.4 L (8.5-10.1) mg/dl Magnesium (1.8-2.4) mg/dl Alkaline Phosphatase (45-117) U/L Total Protein (6.4-8.2) gm/dl Albumin (3.4-5.0) gm/dl Globulin (2.5-4.0) gm/dl Albumin/Globulin Ratio (0.9-2) 05/11/21 05/11/21 05/11/21 Range/Units 00:36 04:27 04:42 WBC (4.8-10.8) K/uL MCHC (32-36) g/dL RDW Std Deviation (36.4-46.3) fL RDW Coeff of Samia (11.5-14.5) % POC pCO2 56 H (35-46) mmHg POC pO2 75 L (80-95) mmHg POC HCO3 37 H (19-24) jovanna/L POC Total CO2 38 H (24-31) mmol/L POC Base Excess 12.0 H (-9-1.8) jovanna/L Carbon Dioxide (21-32) mmol/L BUN (7-18) mg/dl BUN/Creatinine Ratio (10-20) Glucose (70-99) mg/dl POC Glucose 217 H 214 H (70-99) mg/dl POC Glucose (other) (70-99) mg/dl Calcium (8.5-10.1) mg/dl Magnesium (1.8-2.4) mg/dl Alkaline Phosphatase (45-117) U/L Total Protein (6.4-8.2) gm/dl Albumin (3.4-5.0) gm/dl Globulin (2.5-4.0) gm/dl Albumin/Globulin Ratio (0.9-2) 05/11/21 05/11/21 05/11/21 Range/Units 06:17 06:17 07:52 WBC 14.18 H (4.8-10.8) K/uL MCHC 31.4 L (32-36) g/dL RDW Std Deviation 52.6 H (36.4-46.3) fL RDW Coeff of Samia 15.2 H (11.5-14.5) % POC pCO2 (35-46) mmHg POC pO2 (80-95) mmHg POC HCO3 (19-24) jovanna/L POC Total CO2 (24-31) mmol/L POC Base Excess (-9-1.8) jovanna/L Carbon Dioxide 33 H (21-32) mmol/L BUN 49 H (7-18) mg/dl BUN/Creatinine Ratio 41.4 H (10-20) Glucose 195 H (70-99) mg/dl POC Glucose (70-99) mg/dl POC Glucose (other) 180 H (70-99) mg/dl Calcium 8.3 L (8.5-10.1) mg/dl Magnesium 2.9 H (1.8-2.4) mg/dl Alkaline Phosphatase 17 L (45-117) U/L Total Protein 6.2 L (6.4-8.2) gm/dl Albumin 2.0 L (3.4-5.0) gm/dl Globulin 4.2 H (2.5-4.0) gm/dl Albumin/Globulin Ratio 0.5 L (0.9-2) Medications Administered CLINICAL HISTORY: Respiratory failure. COMPARISON STUDY: Chest radiograph May 10, 2021. FINDINGS: Tip of endotracheal tube 6 cm above the juan francisco. Tip of nasogastric tube is below the lower aspect of this image but at least within the proximal stomach. There is no pneumothorax or pleural effusion. Right internal jugular central line remains in place. Interstitial thickening and moderate to extensive bilateral airspace opacities are similar to prior exam. IMPRESSION: 1. Satisfactory positioning of lines and tubes. 2. No significant change in bilateral airspace opacities suggestive of viral pneumonia. ACT 112: Negative or not required by law. Coding Level of Care Code Critical Care 1st 30-74 mins Diagnoses Acute respiratory failure with hypoxia J96.01 Pneumonia due to COVID-19 virus U07.1; J12.82 ARDS (adult respiratory distress syndrome) J80 SUDHIR (obstructive sleep apnea) G47.33 Morbid obesity E66.01
[2021-05-11] MEDS ORDERED: PIPERACILLIN/TAZOBACTAM 3.375 GM in DEXTROSE 5% 100 ML IV SCH (12:30)
[2021-05-11] MEDS ORDERED: PIPERACILLIN/TAZOBACTAM 4.5 GM in DEXTROSE 5% 100 ML IV ONE (13:00)
[2021-05-11 14:44] LABS: Appearance Urine Clear (Clear); Bacteria Urine Automated Negative (Negative); Bilirubin Urine Negative (Negative); Blood Urine Negative (Negative); Color Urine Dark Yellow; Epithelial Cell Urine Auto >30 /lpf (0-5); Glucose Urine UA Negative (Negative); Ketones Urine Negative (Negative); Leukocyte Esterase Urine Trace (Negative); Nitrite Urine Negative (Negative); Protein Urine Trace (Negative); Specific Gravity Urine 1.022 (1.000-1.030); Urobilinogen Urine Negative (Negative); pH Urine 5.5 (4.5-7.5)
[2021-05-11] MEDS: FUROSEMIDE 40 MG/4 ML VIAL IV SCH ×2 (16:54→20:31)
--- NOTE | 2021-05-11 19:19 | Hospitalist Progress Note ---
Date of Service May 11, 2021 Assessment & Plan (1) Acute respiratory failure with hypoxia: Plan: Secondary to COVID-19 virus infection (2) Pneumonia due to COVID-19 virus: Plan: Acute respiratory failure with hypoxia ARDS Pneumonia due to COVID-19 H/O SUDHIR --CXR:Extensive patchy interstitial and alveolar opacities bilaterally characteristic of a viral type pneumonitis and probable Covid 19 pneumonia. -Intubated on 05/08/21 -Appreciate Critical Care Input -CRP:8.49> 5.20 Desaturated with proning Not a candidate for ECHO given his BMI as per Critical Care, [facility] [place] Completed 5 day Remdesivir course Continue dexamethasone course Received Cefepime >> Zosyn weaned off of Nimbex lasix drip>> transition to Lasix 40mg TID on Lovenox for DVT Prophylaxis On propofol, Versed and fentanyl Vent management as per Critical Care Pressor dependent on Levophed Currently on 16 PEEP, 70% FiO2 Blood, sputum cultures pending (3) Hypertension: Plan: Monitor (4) SUDHIR (obstructive sleep apnea): Plan: Morbidly obese BMI: 58 Was on CPAP (5) Hyperlipidemia: Plan: Continue statin DVT prophylaxis Lovenox CODE STATUS Full Admission and Anticipated Discharge Date Admission Date: May 05, 2021 Subjective Patient is seen and examined at bedside Remains Intubated Currently on PEEP 16, FiO2 70% Nimbex discontinued Febrile today Empirically started on broad-spectrum antibiotics Updated patient's family over the phone Review of Systems Review of Systems: Unobtainable due to endotracheal tube Physical Exam Physical Exam: Physical Exam: Vitals signs as noted above General Appearance:Morbidly Obese, no apparent distress, Sedated and Intubated Head: normocephalic, Atraumatic Eyes: normal inspection, EOMI Neck: supple, Trachea midline Respiratory/Chest: Decreased breath sounds Cardiovascular: S1, S2, No murmur Abdomen/GI:Soft, Non tender, Bowel sounds present Extremities/Musculoskeletal:normal inspection, no edema Neurologic/Psych:Sedated and Intubated Skin: normal color, warm Results & Data Results & Data ([facility]) Vital Signs (Past 12 Hours) Vital Signs Temp Pulse Resp BP Pulse Ox 05/11/21 18:30 83 30 H 90 05/11/21 18:00 81 30 H 89 L 05/11/21 17:30 80 30 H 91 05/11/21 17:00 37.9 C H 75 30 H 116/71 93 05/11/21 16:30 76 30 H 92 05/11/21 16:00 75 30 H 92 05/11/21 15:30 75 30 H 92 05/11/21 15:00 75 30 H 92 05/11/21 14:30 78 30 H 91 05/11/21 14:00 75 30 H 91 05/11/21 13:51 38.0 C H 05/11/21 13:30 63 30 H 93 05/11/21 13:00 73 30 H 92 05/11/21 12:30 68 30 H 92 05/11/21 12:00 70 30 H 92 05/11/21 11:30 72 30 H 91 05/11/21 11:08 72 30 H 90 05/11/21 11:00 73 30 H 90 05/11/21 10:30 73 30 H 92 05/11/21 10:00 74 30 H 92 05/11/21 09:30 74 30 H 92 05/11/21 09:00 79 30 H 91 05/11/21 08:30 79 30 H 92 05/11/21 08:00 38.4 C H 77 30 H 92 05/11/21 07:30 78 30 H 90 05/11/21 07:18 76 30 H 90 Laboratory Results Short CBC 05/11/21 Range/Units 06:17 WBC 14.18 H (4.8-10.8) K/uL Hgb 14.2 (14.0-18.0) g/dL Hct 45.2 (42-52) % Plt Count 316 (130-400) K/uL BMP 05/10/21 05/11/21 18:44 06:17 Sodium 142 145 Potassium 4.0 4.0 Chloride 106 105 Carbon Dioxide 28 33 H BUN 53 H 49 H Creatinine 1.27 1.18 Glucose 200 H 195 H Calcium 8.4 L 8.3 L Liver Function 05/11/21 Range/Units 06:17 Total Bilirubin 0.9 (0.2-1) mg/dl AST 25 (15-37) U/L ALT 29 (12-78) Alkaline Phosphatase 17 L (45-117) U/L Albumin 2.0 L (3.4-5.0) gm/dl Urine 12/04/21 Range/Units 14:00 Urine Color Dark Yellow Urine Appearance Clear (Clear) Urine pH 5.5 (4.5-7.5) Ur Specific [place] 1.022 (1.000-1.030) Urine Protein Trace H (Negative) Urine Glucose (UA) Negative (Negative)
[2021-05-11] MEDS: PIPERACILLIN/TAZOBACTAM 4.5 GM in DEXTROSE 5% 100 ML IV SCH (20:30)
[2021-05-12] MEDS: INSULIN ASPART 100 UNITS/ML 3 ML PEN SC SCH ×5 (00:03→16:28)
[2021-05-12] MEDS: ENOXAPARIN INJ 40 MG/0.4 ML SYR SQ SCH ×3 (00:04→23:50)
[2021-05-12] MEDS: propofoL 1,000 MG/100 ML VIAL IV SCH ×7 (00:11→23:52)
[2021-05-12] MEDS: CISATRACURIUM BESYLATE 40 MG in 0.9 % SODIUM CHLORIDE 80 ML IV SCH ×3 (00:13→07:47)
[2021-05-12] MEDS: TUBE FEEDING WATER FLUSH GT SCH ×8 (00:13→23:50)
[2021-05-12] MEDS: ARTIFICIAL TEARS OP OINT 3.5 GM TUBE OP SCH ×6 (02:15→20:51)
[2021-05-12] MEDS: PIPERACILLIN/TAZOBACTAM 4.5 GM in DEXTROSE 5% 100 ML IV SCH ×3 (03:59→20:49)
[2021-05-12] MEDS: ACETAMINOPHEN SUSP 160 MG/5 ML UDC PO PRN ×3 (04:14→15:07)
[2021-05-12 05:31] LABS: iSTAT Art Bld Gas pCO2 Correct 56 mmHg (35-46); iSTAT Art Bld Gas pH Corrected 7.469 (7.35-7.45); iSTAT Arterial Blood Gas HCO3 40 meg/L (19-24); iSTAT Arterial Blood Gas pCO2 50 mmHg (35-46); iSTAT Arterial Blood Gas pH 7.51 (7.35-7.45); iSTAT Arterial Blood Gas pO2 77 mmHg (80-95); iSTAT Arterial Blood Gas pO2 C 90; iSTAT Carbon Dioxide > 40 mmol/L (24-31); iSTAT FiO2 70 %; iSTAT Hematocrit 40 % (42-52); iSTAT Hemoglobin 13.6 g/dl (14.0-18.0); iSTAT Potassium 3.8 mmol/L (3.3-5.0); iSTAT Site Art Line; iSTAT Sodium 146 mmol/L (135-144)
[2021-05-12 07:43] LABS: Hematocrit (blood only) 43.9 % (42-52); Hemoglobin 13.5 g/dL (14.0-18.0); Mean Corpuscular Hemoglobin 29.3 pg (25-34); Mean Corpuscular Hgb Conc 30.8 g/dL (32-36); Mean Corpuscular Volume 95.2 fL (80-100); Mean Platelet Volume 9.9 fL (7.4-10.4); Nucleated RBC # (auto) 0.02 K/uL (0-0); Nucleated RBC % (auto) 0.1 %; Platelet Count 294 K/uL (130-400); RDW Coefficient of Variation 15.2 % (11.5-14.5); RDW Standard Deviation 53.2 fL (36.4-46.3); Red Blood Count 4.61 M/uL (4.7-6.1); White Blood Count 17.26 K/uL (4.8-10.8)
[2021-05-12] MEDS: dexAMETHasone 20 MG in DEXTROSE 5% 25 ML IV SCH (08:18)
[2021-05-12] MEDS: INSULIN HUMAN NPH SC SCH (08:19)
[2021-05-12] MEDS: POLYETHYLENE (MIRALAX) 17 GM PACK PO SCH (08:19)
[2021-05-12] MEDS: ATORVASTATIN 20 MG TAB PO SCH (08:19)
[2021-05-12] MEDS: FUROSEMIDE 40 MG/4 ML VIAL IV SCH (08:19)
[2021-05-12] MEDS: DOCUSATE SODIUM/SENNA 50/8.6MG TAB PO SCH ×2 (08:20→20:50)
[2021-05-12 08:24] LABS: Calcium 8.6 mg/dl (8.5-10.1); Creatinine Clr Calc Pharmacy 103.9 ml/min; Est GFR (African American) 71.4 ml/min; Est GFR (Non-African American) 61.6 ml/min; Magnesium 3.3 mg/dl (1.8-2.4); Phosphorus 3.8 mg/dl (2.5-4.9); Potassium 3.8 mmol/L (3.5-5.1)
--- NOTE | 2021-05-12 08:29 | XRay Report ---
XR chest 1V portable CLINICAL HISTORY: Respiratory failure. COMPARISON STUDY: Chest radiograph May 11, 2021. FINDINGS: Tip of endotracheal tube is 5.8 cm above the juan francisco. Right internal jugular central line re nathalie in place. Tip of nasogastric tube is not well visualized on this exam but is at least within th e proximal stomach. No pneumothorax or pleural effusion is noted. Cardiomediastinal silhouette is sta ble. Interstitial thickening and bilateral opacities are similar to prior exam. IMPRESSION: 1. Satisfactory positioning of lines and tubes. 2. No significant change in bilateral airspace opacities suggestive of viral pneumonia. ACT 112: Negative or not required by law. Electronically signed by: Petros Barth M.D. 05/12/2021 8:28 AM
[2021-05-12 09:18] LABS: iSTAT Art Bld Gas pCO2 Correct 54 mmHg (35-46); iSTAT Art Bld Gas pH Corrected 7.473 (7.35-7.45); iSTAT Arterial Blood Gas HCO3 40 meg/L (19-24); iSTAT Arterial Blood Gas pCO2 54 mmHg (35-46); iSTAT Arterial Blood Gas pH 7.47 (7.35-7.45); iSTAT Arterial Blood Gas pO2 75 mmHg (80-95); iSTAT Arterial Blood Gas pO2 C 75; iSTAT Carbon Dioxide > 40 mmol/L (24-31); iSTAT FiO2 60 %; iSTAT Hematocrit 41 % (42-52); iSTAT Hemoglobin 13.9 g/dl (14.0-18.0); iSTAT Potassium 3.5 mmol/L (3.3-5.0); iSTAT Site Art Line; iSTAT Sodium 145 mmol/L (135-144)
[2021-05-12] MEDS: fentaNYL DRIP 1,250 MCG/250 ML BAG IV SCH ×2 (11:02→20:23)
[2021-05-12] MEDS: PANTOprazole 40 MG in SYRINGE 0 ML IV SCH (11:09)
--- NOTE | 2021-05-12 11:38 | Critical Care Progress Note ---
Date of Service May 12, 2021 Assessment & Plan (1) Acute respiratory failure with hypoxia: (2) Pneumonia due to COVID-19 virus: (3) ARDS (adult respiratory distress syndrome): (4) SUDHIR (obstructive sleep apnea): (5) Morbid obesity: Plan: Neurologic: Sedated and pharmacologically paralyzed for mechanical ventilation - No acute needs- If Pplt and oxygenation levels remain stable today. Remains off paraylytics - Continue sedation- if stable overnight with decreasing Vent requirements- sedation holiday tomorrow morning Pulmonary: COVID 19, hypoxic respiratory failure secondary to COVID 19, ARDS, SUDHIR Continue lung protective ventilation strategy. Patient with severe ARDS. Responded very poorly to proning on 05/08/2021 and was quickly placed supine. Continue as needed Lasix. DEXARDS dosing for Decadron 20 mg x 5 days and 10 mg x 5 days. Vent parameters improved to 50% FiO2 and a PEEP of 16. Pplt 24 today, increase VT to 420ml. Cardiovascular: HLD, HTN, pressor dependant Art line in place. Continue hemodynamic support, no evidence of organ dysfunction, Gastrointestinal: NPO - Resume trickle feeds while on vasopressor Protonix 40 mg daily. Tube feeds initiated. - Increased free water today to 60ml q4 Renal: Monitor urine output closely. - Mixed alkalosis- likely contractile at this time with diuretics Infectious disease: COVID, Luekocytosis - Continue Zosyn with GNB in sputum- remains ventliated- PCT negative at 0.09 - WBC elevated but remains on DeX 20mg MRSA screen negative. Will finish a 5-day course of remdesivir. Sputum cultures ordered. Hematologic: No significant issues at present. Endocrine: DMII ICU pharmacy consult for management of hyperglycemia. Lines and tubes: Internal jugular central line and radial arterial line placed 05/08/2021. Intubated 05/08/2021. BARBY Duffy- Continue use of these lines VTE prophylaxis: Lovenox 40 mg twice daily CODE STATUS: Full code Disposition: Remain in the ICU I have personally spent 40 minutes of critical care time in the direct management of this patient. This is a life/limb threatening event. This includes time spent evaluating patient, direct bedside care, chart review, placing orders, interpretation of diagnostic studies, discussion with consultants, patient, and family members, as well as other required patient management activities. This time is exclusive of all separately billable procedures, and teaching time and separate from and in addition to any other critical care service time. Thank you for allowing us to participate in the care of this patient. Admission and Anticipated Discharge Date Admission Date: May 05, 2021 Subjective 50 YOM- ICU day #4, Intubation day #4 secondary to hypoxic respiratory failure secondary to COVID 19 and ARDS. Patient remains on high Peep and high FIO2, with minimal reduction in ventilator settings, but noted better Pplt. His VT has been titrated back to 6ml/kg. Remains on High Peep Low Fio2 ARDSnet. Continue with tube feed to goal today- low dose pressors. His WBC are elevated this morning with Tmax 38.5- sputum with GNB sensitivities pending- Started on Zosyn yesterday. He has had blood cultures drawn with NGTD, No acute changes in his CXR. remains with no BM. Duffy is draining dilute yellow urine. Likely contractile alkalosis this morning as his NA has crept up as well. Will discontinue TID lasix an dgive one dose this evening. Increase free water. Lines in good position and no evidence of infection noted at CVL site. Will place on Zosyn IV and await blood culture results. Will add biomarkers. Review of Systems Review of Systems: Unable to perform secondary to intubation and sedaton Physical Exam Physical Exam: N: Unable to assess CAM Intubated, sedated, paralyzed pharmacologically Eyes: Pupils are equal round and reactive to light Neck: Trachea is midline. CVL site intact no errythema Respiratory: ETT in place with OGT, Diminished coarse lung sounds bilaterally. Cardiovascular: Regular rate and rhythm. No murmurs. Trace edema. Gastrointestinal: Normal bowel sounds, soft, obese, typmanic on exam Skin: No rashes, warm dry and intact, bony prominences padded Results & Data Results & Data ([facility]) Vital Signs (Past 12 Hours) Vital Signs Temp Pulse Resp BP Pulse Ox 05/12/21 07:27 73 26 H 90 05/12/21 05:26 38.6 C H 05/12/21 05:00 80 26 H 96/59 L 91 05/12/21 04:31 26 H 05/12/21 04:30 78 30 H 92 05/12/21 04:11 39.1 C H 05/12/21 04:00 80 30 H 92/52 L 94 12/05/21 03:30 78 93 05/12/21 03:00 77 93 05/12/21 02:30 80 93 05/12/21 02:00 71 116/68 94 05/12/21 01:30 76 93 05/12/21 01:00 74 110/68 93 05/12/21 00:30 75 93 05/12/21 00:00 37.5 C 76 111/66 93 05/11/21 23:55 77 30 H 94 05/11/21 23:31 79 05/11/21 23:30 70 94 Laboratory Results Abnormal lab results 05/11/21 05/11/21 05/11/21 Range/Units 12:33 14:00 16:30 WBC (4.8-10.8) K/uL RBC (4.7-6.1) M/uL Hgb (14.0-18.0) g/dL POC Hgb (14.0-18.0) g/dl POC Hct (42-52) % MCHC (32-36) g/dL RDW Std Deviation (36.4-46.3) fL RDW Coeff of Samia (11.5-14.5) % Absolute Nucleated RBC (0-0) K/uL POC pH (7.35-7.45) POC pCO2 (35-46) mmHg POC pO2 (80-95) mmHg POC HCO3 (19-24) jovanna/L POC Total CO2 (24-31) mmol/L POC Base Excess (-9-1.8) jovanna/L ABG pH (Temp Correct) (7.35-7.45) ABG pCO2 (Temp Corrct (35-46) mmHg POC ABG O2 Sat (90-95) % POC Sodium (135-144) mmol/L Sodium (136-145) mmol/L Carbon Dioxide (21-32) mmol/L BUN (7-18) mg/dl BUN/Creatinine Ratio (10-20) Glucose (70-99) mg/dl POC Glucose (other) 207 H 226 H (70-99) mg/dl Magnesium (1.8-2.4) mg/dl Urine Protein Trace H (Negative) Ur Leukocyte Esterase Trace H (Negative) Urine WBC (Auto) 5-10 H (0-5) /hpf Urine RBC (Auto) 5-10 H (0-4) /hpf U Epithel Cells (Auto) >30 H (0-5) /lpf 05/12/21 05/12/21 05/12/21 Range/Units 04:31 07:24 07:24 WBC 17.26 H (4.8-10.8) K/uL RBC 4.61 L (4.7-6.1) M/uL Hgb 13.5 L (14.0-18.0) g/dL POC Hgb 13.6 L (14.0-18.0) g/dl POC Hct 40 L (42-52) % MCHC 30.8 L (32-36) g/dL RDW Std Deviation 53.2 H (36.4-46.3) fL RDW Coeff of Samia 15.2 H (11.5-14.5) % Absolute Nucleated RBC 0.02 H (0-0) K/uL POC pH 7.51 H* (7.35-7.45) POC pCO2 50 H (35-46) mmHg POC pO2 77 L (80-95) mmHg POC HCO3 40 H (19-24) jovanna/L POC Total CO2 > 40 H* (24-31) mmol/L POC Base Excess 17.0 H (-9-1.8) jovanna/L ABG pH (Temp Correct) 7.469 H (7.35-7.45) ABG pCO2 (Temp Corrct 56 H (35-46) mmHg POC ABG O2 Sat 96.0 H (90-95) % POC Sodium 146 H (135-144) mmol/L Sodium 146 H (136-145) mmol/L Carbon Dioxide 33 H (21-32) mmol/L BUN 65 H (7-18) mg/dl BUN/Creatinine Ratio 49.0 H (10-20) Glucose 173 H (70-99) mg/dl POC Glucose (other) (70-99) mg/dl Magnesium 3.3 H (1.8-2.4) mg/dl Urine Protein (Negative) Ur Leukocyte Esterase (Negative) Urine WBC (Auto) (0-5) /hpf Urine RBC (Auto) (0-4) /hpf U Epithel Cells (Auto) (0-5) /lpf 05/12/21 05/12/21 Range/Units 07:47 09:02 WBC (4.8-10.8) K/uL RBC (4.7-6.1) M/uL Hgb (14.0-18.0) g/dL POC Hgb 13.9 L (14.0-18.0) g/dl POC Hct 41 L (42-52) % MCHC (32-36) g/dL RDW Std Deviation (36.4-46.3) fL RDW Coeff of Samia (11.5-14.5) % Absolute Nucleated RBC (0-0) K/uL POC pH 7.47 H (7.35-7.45) POC pCO2 54 H (35-46) mmHg POC pO2 75 L (80-95) mmHg POC HCO3 40 H (19-24) jovanna/L POC Total CO2 > 40 H* (24-31) mmol/L POC Base Excess 16.0 H (-9-1.8) jovanna/L ABG pH (Temp Correct) 7.473 H (7.35-7.45) ABG pCO2 (Temp Corrct 54 H (35-46) mmHg POC ABG O2 Sat (90-95) % POC Sodium 145 H (135-144) mmol/L Sodium (136-145) mmol/L Carbon Dioxide (21-32) mmol/L BUN (7-18) mg/dl BUN/Creatinine Ratio (10-20) Glucose (70-99) mg/dl POC Glucose (other) 169 H (70-99) mg/dl Magnesium (1.8-2.4) mg/dl Urine Protein (Negative) Ur Leukocyte Esterase (Negative) Urine WBC (Auto) (0-5) /hpf Urine RBC (Auto) (0-4) /hpf U Epithel Cells (Auto) (0-5) /lpf pec: [id number] Collected: 05/11/21-1099 Received: 05/11/[address]: Marco Hart MD Copy To: Gio Ortega MD Source: Sputum,Vent Suction OV Order: Ordered: Sputum Cult/Smr Procedure Result Verified Site Gram Stain Final 05/12/21 Gram Stain Result Few Epithelial Cells Moderate WBCs Seen Moderate Gram Negative Bacilli Sputum Culture Preliminary 05/12/21 Organism 1 Gram negative bacilli Quantity Moderate Sens No Sensitivities to Follow Normal Amy No Normal Amy Diagnostic Findings XR chest 1V portable CLINICAL HISTORY: Respiratory failure. COMPARISON STUDY: Chest radiograph May 11, 2021. FINDINGS: Tip of endotracheal tube is 5.8 cm above the juan francisco. Right internal jugular central line remains in place. Tip of nasogastric tube is not well visualized on this exam but is at least within the proximal stomach. No pneumothorax or pleural effusion is noted. Cardiomediastinal silhouette is stable. Interstitial thickening and bilateral opacities are similar to prior exam. IMPRESSION: 1. Satisfactory positioning of lines and tubes. 2. No significant change in bilateral airspace opacities suggestive of viral pneumonia. Coding Level of Care Code Critical Care 1st 30-74 mins Diagnoses Acute respiratory failure with hypoxia J96.01 Pneumonia due to COVID-19 virus U07.1; J12.82 ARDS (adult respiratory distress syndrome) J80 SUDHIR (obstructive sleep apnea) G47.33 Morbid obesity E66.01
[2021-05-12] MEDS: NOREPINEPHRINE/D5W 8 MG/508 ML BAG IV SCH ×3 (12:26→16:30)
[2021-05-12] MEDS: PEPTAMEN INTENSE VHP 1.0 CAL 1,000 ML BAG GT SCH (14:00)
[2021-05-12] MEDS ORDERED: VANCOMYCIN CONSULT ACTIVE PRN ×2 (14:30)
[2021-05-12] MEDS ORDERED: VANCOMYCIN HCL 1 MG in SODIUM CHLORIDE 0.9% 250 ML IV SCH (14:30)
[2021-05-12] MEDS ORDERED: MAGNESIUM HYDROXIDE SUSP 30 ML UDC ONE (15:02)
[2021-05-12] MEDS: bisacodyL 10 MG SUPP PR PRN (15:07)
[2021-05-12] MEDS: LINEZOLID 600 MG/300 ML BAG IV SCH ×2 (16:11→23:51)
--- NOTE | 2021-05-12 16:44 | Hospitalist Progress Note ---
Date of Service May 12, 2021 Assessment & Plan (1) Acute respiratory failure with hypoxia: Plan: Secondary to COVID-19 virus infection (2) Pneumonia due to COVID-19 virus: Plan: Acute respiratory failure with hypoxia ARDS Pneumonia due to COVID-19 H/O SUDHIR --CXR:Extensive patchy interstitial and alveolar opacities bilaterally characteristic of a viral type pneumonitis and probable Covid 19 pneumonia. -Intubated on 05/08/21 -Appreciate Critical Care Input -CRP:8.49> 5.20 Desaturated with proning Not a candidate for ECHO given his BMI as per Critical Care, [facility] [place] Completed 5 day Remdesivir course Continue dexamethasone course Received Cefepime >> Zosyn weaned off of Nimbex lasix drip>> transition to Lasix 40mg TID on Lovenox for DVT Prophylaxis On propofol, Versed and fentanyl Vent management as per Critical Care Pressor dependent on Levophed Currently on 16 PEEP, 50% FiO2 1/2 Blood Cx growing gram-positive cocci Sputum culture growing gram-negative Added vancomycin to Zosyn (3) Hypertension: Plan: Monitor (4) SUDHIR (obstructive sleep apnea): Plan: Morbidly obese BMI: 58 Was on CPAP (5) Hyperlipidemia: Plan: Continue statin DVT prophylaxis Lovenox CODE STATUS Full Admission and Anticipated Discharge Date Admission Date: May 05, 2021 Subjective Patient is seen and examined at bedside Remains Intubated 1/2 blood culture growing gram-positive cocci Sputum culture growing gram-negative bacilli Currently on PEEP 16, FiO2 50% [place] frothy sputum noted Febrile today Vancomycin added to Zosyn Pressor dependent Review of Systems Review of Systems: Unobtainable due to endotracheal tube Physical Exam Physical Exam: Physical Exam: Vitals signs as noted above General Appearance:Morbidly Obese, no apparent distress, Sedated and Intubated Head: normocephalic, Atraumatic Eyes: normal inspection, EOMI Neck: supple, Trachea midline Respiratory/Chest: Decreased breath sounds, CTA Cardiovascular: S1, S2, No murmur Abdomen/GI:Soft, Non tender, Bowel sounds present Extremities/Musculoskeletal:normal inspection, no edema Neurologic/Psych:Sedated and Intubated Skin: normal color, warm Results & Data Results & Data ([facility]) Vital Signs (Past 12 Hours) Vital Signs Temp Pulse Resp BP Pulse Ox 05/12/21 16:07 71 26 H 92 05/12/21 12:00 70 26 H 89 L 05/12/21 11:30 78 26 H 89 L 05/12/21 11:00 66 26 H 138/71 89 L 05/12/21 10:30 72 26 H 88 L 05/12/21 10:00 71 26 H 114/66 88 L 05/12/21 09:30 72 26 H 89 L 05/12/21 09:00 69 26 H 119/67 91 05/12/21 08:30 75 27 H 90 05/12/21 08:00 38.4 C H 73 26 H 98/60 L 91 05/12/21 07:30 75 26 H 90 05/12/21 07:27 73 26 H 90 05/12/21 05:26 38.6 C H 05/12/21 05:00 80 26 H 96/59 L 91 Laboratory Results Short CBC 05/12/21 Range/Units 07:24 WBC 17.26 H (4.8-10.8) K/uL Hgb 13.5 L (14.0-18.0) g/dL Hct 43.9 (42-52) % Plt Count 294 (130-400) K/uL BMP 05/12/21 07:24 Sodium 146 H Potassium 3.8 Chloride 105 Carbon Dioxide 33 H BUN 65 H Creatinine 1.32 Glucose 173 H Calcium 8.6
[2021-05-12] MEDS ORDERED: FUROSEMIDE 40 MG/4 ML VIAL IV ONE (20:00)
[2021-05-12] MEDS ORDERED: INSULIN HUMAN NPH SC SCH (21:00)
[2021-05-12] MEDS: MAGNESIUM HYDROXIDE SUSP 30 ML UDC PO SCH (21:18)
[2021-05-12] MEDS: INSULIN ASPART 100 UNITS/ML VIAL SC SCH (21:20)
[2021-05-13] MEDS: INSULIN ASPART 100 UNITS/ML VIAL SC SCH ×6 (02:25→19:47)
[2021-05-13] MEDS: ARTIFICIAL TEARS OP OINT 3.5 GM TUBE OP SCH ×6 (02:25→21:39)
[2021-05-13] MEDS: propofoL 1,000 MG/100 ML VIAL IV SCH ×12 (02:26→21:38)
[2021-05-13] MEDS: NOREPINEPHRINE/D5W 8 MG/508 ML BAG IV SCH ×2 (02:45→06:52)
[2021-05-13 05:32] LABS: iSTAT Art Bld Gas pCO2 Correct 53 mmHg (35-46); iSTAT Art Bld Gas pH Corrected 7.514 (7.35-7.45); iSTAT Arterial Blood Gas HCO3 42 meg/L (19-24); iSTAT Arterial Blood Gas pCO2 49 mmHg (35-46); iSTAT Arterial Blood Gas pH 7.54 (7.35-7.45); iSTAT Arterial Blood Gas pO2 57 mmHg (80-95); iSTAT Arterial Blood Gas pO2 C 64; iSTAT Carbon Dioxide > 40 mmol/L (24-31); iSTAT FiO2 40 %; iSTAT Hematocrit 38 % (42-52); iSTAT Hemoglobin 12.9 g/dl (14.0-18.0); iSTAT Potassium 3.5 mmol/L (3.3-5.0); iSTAT Site Art Line; iSTAT Sodium 144 mmol/L (135-144)
[2021-05-13 06:21] LABS: Hematocrit (blood only) 42.4 % (42-52); Hemoglobin 13.1 g/dL (14.0-18.0); Mean Corpuscular Hemoglobin 29.4 pg (25-34); Mean Corpuscular Hgb Conc 30.9 g/dL (32-36); Mean Corpuscular Volume 95.3 fL (80-100); Mean Platelet Volume 10.1 fL (7.4-10.4); Platelet Count 282 K/uL (130-400); RDW Coefficient of Variation 15.1 % (11.5-14.5); RDW Standard Deviation 53.2 fL (36.4-46.3); Red Blood Count 4.45 M/uL (4.7-6.1)
[2021-05-13] MEDS: TUBE FEEDING WATER FLUSH GT SCH ×5 (06:39→19:33)
[2021-05-13] MEDS: PIPERACILLIN/TAZOBACTAM 4.5 GM in DEXTROSE 5% 100 ML IV SCH ×3 (06:47→19:33)
[2021-05-13] MEDS: fentaNYL DRIP 1,250 MCG/250 ML BAG IV SCH ×3 (06:48→19:51)
[2021-05-13 06:58] LABS: BUN Creatinine Ratio 56.6 (10-20); Calcium 8.6 mg/dl (8.5-10.1); Creatinine Clr Calc Pharmacy 136.5 ml/min; Est GFR (African American) 98.7 ml/min; Est GFR (Non-African American) 85.1 ml/min; Magnesium 3.7 mg/dl (1.8-2.4); Potassium 3.5 mmol/L (3.5-5.1)
[2021-05-13 06:59] LABS: Phosphorus 3.8 mg/dl (2.5-4.9)
[2021-05-13] MEDS: dexAMETHasone 10 MG in SYRINGE 0 ML IV SCH (08:25)
[2021-05-13] MEDS: ATORVASTATIN 20 MG TAB PO SCH (08:25)
[2021-05-13] MEDS: DOCUSATE SODIUM/SENNA 50/8.6MG TAB PO SCH ×2 (08:26→19:37)
[2021-05-13] MEDS: INSULIN HUMAN NPH SC SCH ×2 (08:30→19:48)
[2021-05-13] MEDS: LINEZOLID 600 MG/300 ML BAG IV SCH (08:31)
[2021-05-13] MEDS: POLYETHYLENE (MIRALAX) 17 GM PACK PO SCH (08:35)
[2021-05-13] MEDS: MAGNESIUM HYDROXIDE SUSP 30 ML UDC PO SCH ×2 (08:35→19:36)
--- NOTE | 2021-05-13 08:48 | XRay Report ---
XR chest 1V portable CLINICAL HISTORY: Resp failure. Follow-up bilateral airspace opacities COMPARISON STUDY: 05/12/2021 TECHNIQUE: 1 view of the chest FINDINGS: Single frontal view of the chest demonstrates the cardiomediastinal silhouette to be within normal li mits. Tubes and catheters are unchanged. Patchy interstitial and alveolar opacities are again seen bi laterally and essentially unchanged. The findings are again characteristic of a viral type pneumoniti s and Covid pneumonia. There is no evidence for pleural effusion. There is no evidence for vascular c ongestion. There is no acute osseous pathology. IMPRESSION: Compared to the previous study, bilateral interstitial and alveolar opacities are again s een and essentially unchanged. Findings are again most characteristic of a viral type pneumonitis and Covid pneumonia. ACT 112: Negative or not required by law. Electronically signed by: Ramesh Dao M.D. 05/13/2021 8:46 AM
[2021-05-13] MEDS: MIDAZOLAM HCL 125 MG/250 ML BAG IV SCH ×2 (10:24→18:08)
[2021-05-13] MEDS: PANTOprazole 40 MG in SYRINGE 0 ML IV SCH (12:17)
[2021-05-13] MEDS: ENOXAPARIN INJ 40 MG/0.4 ML SYR SQ SCH (12:24)
--- NOTE | 2021-05-13 14:23 | Pharmacy Report ---
Pharmacy Glycemic Short Note 2 - Date of Service May 13, 2021 - Glycemic Short BSG Results (Last 24 hours): 05/12/21 05/13/21 05/13/21 16:27 04:17 05:56 Glucose 148 H POC Glucose POC Glucose (other) 232 H 174 H 05/13/21 05/13/21 08:25 12:23 Glucose POC Glucose 174 H POC Glucose (other) 155 H OUTPATIENT ANTIDIABETIC REGIMEN: * n/a * A1c = 6.3% 05/09/21 ASSESSMENT: 05/13 * BSGs continue to rise throughout the day into the evening. Adjusted NPH to BID dosing. TF increased to 20mL/hr. * Given decrease in dex from 20mg -->10mg daily, plan to dose HS NPH as a scale given well controlled AM fasting BSGs. * Norepinephrine continues; pt remains intubated. 05/11 * Glycemic control improved with yesterday's changes. BSGs did climb overnight however. May need to consider BID dosing of NPH if same BSG pattern repeats today while on continuous tube feeds. Continuous tube feeds resumed at "trickle" this AM. * Patient remains intubated, sedated but no longer paralyzed. High dose dexamethasone (20mg daily IV) continues. * NPH dose will be increased slightly today and carb ratio will also be increased slightly given last 3 BSGs > 180. 05/10 * BSGs remained elevated despite addition of SQ insulin orders yesterday * Patient remains intubated, sedated, paralyzed, high dose IV steroid continues as well as pressor support and tube feeds * Will convert basal insulin to NPH and administer once daily in AM at the same time dexamethasone given * Will also increase Novolog dosing parameters 05/09 * Patient admitted for respiratory failure secondary to COVID19 viral pna, ARDS * Auto glycemic consult generated per ICU hyperglycemia screening protocol (>/= 2 consecutive BSGs above 140) * Currently intubated, sedated, paralyzed, receiving IV steroid therapy, on pressor support (norepi at 0.05mcg/kg/min), and tube feeds have now been ordered * BSGs in 180-200 range this AM prior to initiation of tube feeds. * Will add A1c to current labs * Will begin Novolog Q 4 hrs to provide correctional insulin as well as carb coverage delivered in continuous feeds - "severe" stress level dosing based upon adjusted BW due to obesity * Low dose Lantus x 1 dose will be given now, will determine if more should be given based upon response to initial SQ Novolog doses and upon eval of A1c PLAN FOR INPATIENT GLYCEMIC CONTROL: * Basal insulin * NPH 55 units SQ Q AM with IV dexamethasone + scaled dosing this evening (20/30 units) * Bolus insulin * NovoLog per scale Q 4 hrs * Goal Range: Low 110 mg/dL - High 140 mg/dL * Correction Factor: 12 mg/dL/unit * Nutritional / Prandial insulin per carb ratio of 1 unit per 3 grams CHO consumed PLAN FOR DISCHARGE: * to be determined
--- NOTE | 2021-05-13 15:24 | Critical Care Progress Note ---
Date of Service May 13, 2021 Assessment & Plan (1) Acute respiratory failure with hypoxia: (2) Pneumonia due to COVID-19 virus: (3) ARDS (adult respiratory distress syndrome): (4) SUDHIR (obstructive sleep apnea): (5) Morbid obesity: Plan: Impression: 50-year-old male admitted to hospital 05/05/2021 with Covid pneumonia. He was intubated 05/08/2021. 24-hour events: Patient remains on high PEEP with lower FiO2. Recommendations Neurologic: Continue sedation. Currently on propofol fentanyl and Versed. Neuromuscular blockade is off. Work on weaning PEEP. Once PEEP is decreased, may consider sedation holidays and SBT trials. Pulmonary: Continue lung protective ventilation strategy. Patient with severe ARDS. Responded very poorly to proning on 05/08/2021 and was quickly placed supine. Defer any additional proning. BMI excludes any additional interventions such as extracorporeal membrane oxygenation. Continue Dex dosing for late-phase ARDS, Decadron 20 mg x 5 days and 10 mg x 5 days. Vent parameters improved to 40% FiO2 and a PEEP of 14. Pplt 24. Continue to work on weaning PEEP as tolerated. Cardiovascular: Off pressors. Hemodynamically stable currently. Gastrointestinal: Continue trophic tube feedings with free water flushes. PPI in place. We will need aggressive bowel protocol. Renal: Electrolytes stable. Acid-base status stable. Infectious disease: Day #5 broad-spectrum antibiotics. Received 2 days of cefepime followed by 3 days of Zosyn. Day #2 Zyvox. Respiratory culture with pansensitive Pseudomonas. Will discontinue Zyvox. Continue Zosyn for anticipated 7-10-day course for Pseudomonas ventilator associated PNA. Hematologic: No significant issues at present. Continue to trend Endocrine: Glycemic control per protocol. Lines and tubes: Internal jugular central line and radial arterial line placed 05/08/2021. Intubated 05/08/2021. BARBY Duffy- Continue use of these lines VTE prophylaxis: Lovenox 40 mg daily CODE STATUS: Full code Disposition: Remain in the ICU I have personally spent 50 minutes of critical care time in the direct management of this patient. This is a life/limb threatening event. This includes time spent evaluating patient, direct bedside care, chart review, placing orders, interpretation of diagnostic studies, discussion with consultants, patient, and family members, as well as other required patient management activities. This time is exclusive of all separately billable procedures, and teaching time and separate from and in addition to any other critical care service time. Thank you for allowing us to participate in the care of this patient. Admission and Anticipated Discharge Date Admission Date: May 05, 2021 Subjective Patient is intubated and sedated. Review of Systems Review of Systems: Unobtainable due to endotracheal tube Physical Exam Constitutional: + mechanically ventilated Neck: trachea midline, no thyromegaly Respiratory: no respiratory distress and no labored breathing Auscultation: + crackles and + wheezes Cardiovascular: RRR, no murmur, no edema Gastrointestinal (Abdomen): normal bowel sounds, soft, nontender, no hepatospl enomegaly Musculoskeletal: Extremities: extremities normal to inspection Skin: no rashes, warm and dry Neurologic: Nonfocal exam Lymphatic: no cervical lymphadenopathy Results & Data Results & Data ([facility]) Vital Signs (Past 12 Hours) Vital Signs Temp Pulse Resp Pulse Ox 05/13/21 14:59 80 25 H 88 L 05/13/21 13:12 36.9 C 05/13/21 13:00 87 22 87 L 05/13/21 12:30 77 22 90 05/13/21 12:00 77 22 90 05/13/21 11:53 78 22 90 05/13/21 11:30 82 26 H 90 05/13/21 11:00 87 25 H 90 05/13/21 10:30 84 23 90 05/13/21 10:00 79 22 90 05/13/21 09:30 87 26 H 90 05/13/21 09:00 92 H 27 H 91 05/13/21 08:47 86 24 93 05/13/21 08:30 102 H 29 H 93 05/13/21 08:00 37.2 C 83 23 93 05/13/21 07:30 78 25 H 91 05/13/21 07:00 74 22 91 05/13/21 04:49 22 05/13/21 03:55 93 H 26 H 94 Critical Care Results & Data Vital Signs (Past 12 Hours) Vital Signs Temp Pulse Resp Pulse Ox 05/13/21 14:59 80 25 H 88 L 05/13/21 13:12 36.9 C 05/13/21 13:00 87 22 87 L 12/06/21 12:30 77 22 90 05/13/21 12:00 77 22 90 05/13/21 11:53 78 22 90 05/13/21 11:30 82 26 H 90 05/13/21 11:00 87 25 H 90 05/13/21 10:30 84 23 90 05/13/21 10:00 79 22 90 05/13/21 09:30 87 26 H 90 05/13/21 09:00 92 H 27 H 91 05/13/21 08:47 86 24 93 05/13/21 08:30 102 H 29 H 93 05/13/21 08:00 37.2 C 83 23 93 05/13/21 07:30 78 25 H 91 05/13/21 07:00 74 22 91 05/13/21 04:49 22 05/13/21 03:55 93 H 26 H 94 Lab & Micro Results (Past 24 Hours) RBC 4.45 M/uL (4.7-6.1) L 05/13/21 WBC 17.60 K/uL (4.8-10.8) H 05/13/21 Hgb 13.1 g/dL (14.0-18.0) L 05/13/21 Hct 42.4 % (42-52) 05/13/21 MCV 95.3 fL (80-100) 05/13/21 MCH 29.4 pg (25-34) 05/13/21 MCHC 30.9 g/dL (32-36) L 05/13/21 RDW Standard Deviation 53.2 fL (36.4-46.3) H 05/13/21 RDW Coefficient of Variation 15.1 % (11.5-14.5) H 05/13/21 Plt Count 282 K/uL (130-400) 05/13/21 MPV 10.1 fL (7.4-10.4) 05/13/21 Na 143 mmol/L (136-145) 05/13/21 K 3.5 mmol/L (3.5-5.1) 05/13/21 Cl 103 mmol/L (98-107) 05/13/21 CO2 37 mmol/L (21-32) H 05/13/21 Anion Gap 3.0 (3-11) 05/13/21 BUN 57 mg/dl (7-18) H 05/13/21 Creatinine 1.01 mg/dl (0.6-1.4) 05/13/21 Estimated GFR ( Amer) 98.7 ml/min 05/13/21 Estimated GFR (Non-Af Amer) 85.1 ml/min 05/13/21 BUN/Creatinine Ratio 56.6 (10-20) H 05/13/21 Glu 148 mg/dl (70-99) H 05/13/21 Ca 8.6 mg/dl (8.5-10.1) 05/13/21 Phosphorus Level 3.8 mg/dl (2.5-4.9) 05/13/21 Mg 3.7 mg/dl (1.8-2.4) H 05/13/21 05:56 05/13/21 Calcium Level 8.6 mg/dl (8.5-10.1) 05/13/21 05:56 05/13/21 Rajinder Test NA 05/13/21 04:49 05/13/21 Microbiology 05/11/21 06:17 Aerobic Blood Culture - Preliminary Blood Coag neg staph not lugdunensis Anaerobic Blood Culture - Preliminary No growth in Anaerobic bottle after 24 hours. 05/11/21 07:58 Aerobic Blood Culture - Preliminary Blood No growth in Aerobic bottle after 48 hours. Anaerobic Blood Culture - Preliminary No growth in Anaerobic bottle after 48 hours. 05/11/21 11:00 Gram Stain - Final Sputum,Vent Suction Sputum Culture - Final Pseudomonas aeruginosa Diagnostic Findings (Past 24 Hours) Chest X-Ray 05/13/21 07:00 XR chest 1V portable CLINICAL HISTORY: Resp failure. Follow-up bilateral airspace opacities COMPARISON STUDY: 05/12/2021 TECHNIQUE: 1 view of the chest FINDINGS: Single frontal view of the chest demonstrates the cardiomediastinal silhouette to be within normal limits. Tubes and catheters are unchanged. Patchy interstitial and alveolar opacities are again seen bilaterally and essentially unchanged. The findings are again characteristic of a viral type pneumonitis and Covid pneumonia. There is no evidence for pleural effusion. There is no evidence for vascular congestion. There is no acute osseous pathology. IMPRESSION: Compared to the previous study, bilateral interstitial and alveolar opacities are again seen and essentially unchanged. Findings are again most characteristic of a viral type pneumonitis and Covid pneumonia. ACT 112: Negative or not required by law. Electronically signed by: Ramesh Dao M.D. 05/13/2021 8:46 AM I & O Totals 24 Hours 05/12/21 05/13/21 05/14/21 06:59 06:59 06:59 Intake Total 2303.158 / 2303.158 2419.422 / 2419.422 590.423 / 590.423 Output Total 2450 / 2450 2375 / 2375 500 / 500 Balance -146.842 / -146.842 44.422 / 44.422 90.423 / 90.423 Cumulative 05/05/21 18:07 thru 05/13/21 14:00 Intake Total 89385.045 Output Total 06507 Balance -2600.955 RT Ventilator Mngmt (Last Documented) Ventilator Ordered Settings Ventilator Support Mode Assist Control 05/13/21 14:59 Respiratory Rate 25 05/13/21 14:59 Ventilator Tidal Volume 420 05/13/21 14:59 Setting Minute Ventilation 9.2 05/13/21 14:59 Ventilator Positive Pressure 18 05/08/21 20:00 Support Setting Positive End Expiratory 14 05/13/21 14:59 Pressure Fraction of Inspired Oxygen 40 05/13/21 14:59 Peak Inspiratory Flow 42 05/13/21 14:59 Machine Comment RR changed post ABG, TUBE PUSHER aware 05/13/21 04:49 Ventilator - PT Measurements Respiratory Rate 25 Exhaled Tidal Volume 438 Minute Ventilation 9.2 Peak Inspiratory Airway 26 Pressure Plateau Pressure 23.8 Respiratory Cycle Inspiratory: 1:2.4 Expiratory Ratio Inspiratory Phase Time 0.80 End-Tidal CO2 46 Static Lung Compliance 44.69 Dynamic Lung Compliance 36.50 Normal Static Lung Compliance 48.00 Patient Measurements Comment moderate amount brown tinged secretions extracted via high/low Coding Level of Care Code Critical Care 1st 30-74 mins Diagnoses Acute respiratory failure with hypoxia J96.01 Pneumonia due to COVID-19 virus U07.1; J12.82 ARDS (adult respiratory distress syndrome) J80 SUDHIR (obstructive sleep apnea) G47.33 Morbid obesity E66.01 Time Spent (min) 50
[2021-05-13] MEDS: PEPTAMEN INTENSE VHP 1.0 CAL 1,000 ML BAG GT SCH (16:37)
--- NOTE | 2021-05-13 17:48 | Hospitalist Progress Note ---
Date of Service May 13, 2021 Assessment & Plan (1) Acute respiratory failure with hypoxia: Plan: Secondary to COVID-19 virus infection (2) Pneumonia due to COVID-19 virus: Plan: Acute respiratory failure with hypoxia ARDS Pneumonia due to COVID-19 H/O SUDHIR --CXR:Extensive patchy interstitial and alveolar opacities bilaterally characteristic of a viral type pneumonitis and probable Covid 19 pneumonia. -Intubated on 05/08/21 -Appreciate Critical Care Input -CRP:8.49> 5.20 Desaturated with proning Not a candidate for ECHO given his BMI as per Critical Care, [facility] [place] Completed 5 day Remdesivir course Continue dexamethasone course Received Cefepime >> Zosyn weaned off of Nimbex lasix drip>> transition to Lasix 40mg TID> Lasix PRN on Lovenox for DVT Prophylaxis On propofol, Versed and fentanyl Vent management as per Critical Care Pressor dependent on Levophed Currently on 14 PEEP, 40% FiO2 1/2 Blood Cx coagulase-negative staph Sputum culture Pseudomonas Continue current management (3) Hypertension: Plan: Monitor (4) SUDHIR (obstructive sleep apnea): Plan: Morbidly obese BMI: 58 Was on CPAP (5) Hyperlipidemia: Plan: Continue statin DVT prophylaxis Lovenox CODE STATUS Full Admission and Anticipated Discharge Date Admission Date: May 05, 2021 Subjective Patient is seen and examined at bedside Remains Intubated 1/2 blood culture growing coagulase-negative staph Sputum culture growing Pseudomonas Currently on PEEP 14, FiO2 40% Off Pressors Review of Systems Review of Systems: Unobtainable due to endotracheal tube Physical Exam Physical Exam: Physical Exam: Vitals signs as noted above General Appearance:Morbidly Obese, no apparent distress, Sedated and Intubated Head: normocephalic, Atraumatic Eyes: normal inspection, EOMI Neck: supple, Trachea midline Respiratory/Chest: Decreased breath sounds, CTA Cardiovascular: S1, S2, No murmur Abdomen/GI:Soft, Non tender, Bowel sounds present Extremities/Musculoskeletal:normal inspection, no edema Neurologic/Psych:Sedated and Intubated Skin: normal color, warm Results & Data Results & Data ([facility]) Vital Signs (Past 12 Hours) Vital Signs Temp Pulse Resp Pulse Ox 05/13/21 16:45 36.9 C 05/13/21 16:00 92 H 21 88 L 05/13/21 15:30 84 18 87 L 05/13/21 15:00 74 20 89 L 05/13/21 14:59 80 25 H 88 L 05/13/21 14:30 75 23 88 L 05/13/21 14:00 73 23 89 L 05/13/21 13:30 82 22 88 L 05/13/21 13:12 36.9 C 05/13/21 13:00 87 22 87 L 05/13/21 12:30 77 22 90 05/13/21 12:00 77 22 90 05/13/21 11:53 78 22 90 05/13/21 11:30 82 26 H 90 05/13/21 11:00 87 25 H 90 05/13/21 10:30 84 23 90 05/13/21 10:00 79 22 90 05/13/21 09:30 87 26 H 90 05/13/21 09:00 92 H 27 H 91 05/13/21 08:47 86 24 93 05/13/21 08:30 102 H 29 H 93 05/13/21 08:00 37.2 C 83 23 93 05/13/21 07:30 78 25 H 91 05/13/21 07:00 74 22 91 Laboratory Results Short CBC 05/13/21 Range/Units 05:56 WBC 17.60 H (4.8-10.8) K/uL Hgb 13.1 L (14.0-18.0) g/dL Hct 42.4 (42-52) % Plt Count 282 (130-400) K/uL BMP 05/13/21 05:56 Sodium 143 Potassium 3.5 Chloride 103 Carbon Dioxide 37 H BUN 57 H Creatinine 1.01 Glucose 148 H Calcium 8.6
[2021-05-13] MEDS: ACETAMINOPHEN SUSP 160 MG/5 ML UDC PO PRN (18:49)
[2021-05-14] MEDS: INSULIN ASPART 100 UNITS/ML VIAL SC SCH ×6 (00:24→20:11)
[2021-05-14] MEDS: propofoL 1,000 MG/100 ML VIAL IV SCH ×11 (00:24→23:54)
[2021-05-14] MEDS: TUBE FEEDING WATER FLUSH GT SCH ×7 (00:24→22:00)
[2021-05-14] MEDS: ARTIFICIAL TEARS OP OINT 3.5 GM TUBE OP SCH ×6 (02:20→22:00)
[2021-05-14] MEDS: PIPERACILLIN/TAZOBACTAM 4.5 GM in DEXTROSE 5% 100 ML IV SCH ×3 (03:44→19:47)
[2021-05-14 03:53] LABS: iSTAT Art Bld Gas pCO2 Correct 55 mmHg (35-46); iSTAT Arterial Blood Gas HCO3 41 meg/L (19-24); iSTAT Arterial Blood Gas pCO2 53 mmHg (35-46); iSTAT Arterial Blood Gas pO2 60 mmHg (80-95); iSTAT Arterial Blood Gas pO2 C 64; iSTAT Carbon Dioxide > 40 mmol/L (24-31); iSTAT FiO2 50 %; iSTAT Hematocrit 37 % (42-52); iSTAT Hemoglobin 12.6 g/dl (14.0-18.0); iSTAT Potassium 3.9 mmol/L (3.3-5.0); iSTAT Site Art Line; iSTAT Sodium 144 mmol/L (135-144)
[2021-05-14 06:46] LABS: Hematocrit (blood only) 42.9 % (42-52); Hemoglobin 13.1 g/dL (14.0-18.0); Mean Corpuscular Hemoglobin 29.4 pg (25-34); Mean Corpuscular Hgb Conc 30.5 g/dL (32-36); Mean Corpuscular Volume 96.4 fL (80-100); Mean Platelet Volume 10.4 fL (7.4-10.4); Platelet Count 267 K/uL (130-400); RDW Coefficient of Variation 15.1 % (11.5-14.5); RDW Standard Deviation 53.6 fL (36.4-46.3); Red Blood Count 4.45 M/uL (4.7-6.1); White Blood Count 17.47 K/uL (4.8-10.8)
[2021-05-14] MEDS: ACETAMINOPHEN SUSP 160 MG/5 ML UDC PO PRN ×3 (07:27→19:49)
[2021-05-14 07:30] LABS: BUN Creatinine Ratio 59.9 (10-20); Calcium 9.3 mg/dl (8.5-10.1); Creatinine Clr Calc Pharmacy 168.2 ml/min; Est GFR (African American) 117.8 ml/min; Est GFR (Non-African American) 101.7 ml/min; Potassium 3.8 mmol/L (3.5-5.1)
--- NOTE | 2021-05-14 07:53 | XRay Report ---
XR chest 1V portable CLINICAL HISTORY: Resp failure. Follow-up bilateral airspace opacities COMPARISON STUDY: 05/13/2021 TECHNIQUE: 1 view of the chest FINDINGS: Single frontal view of the chest demonstrates the cardiomediastinal silhouette to be within normal li mits. Tubes and catheters are unchanged. Compared to previous examination, there has been interval wo rsening of bilateral interstitial and alveolar opacities. There is no evidence for pleural effusion. There is no evidence for vascular congestion. There is no acute osseous pathology. IMPRESSION: Interval worsening of bilateral interstitial and alveolar opacities. ACT 112: Negative or not required by law. Electronically signed by: Ramesh Dao M.D. 05/14/2021 7:52 AM
[2021-05-14] MEDS ORDERED: INSULIN HUMAN NPH SC SCH (09:00)
[2021-05-14] MEDS: dexAMETHasone 10 MG in SYRINGE 0 ML IV SCH (09:15)
[2021-05-14] MEDS: ATORVASTATIN 20 MG TAB PO SCH (09:22)
[2021-05-14] MEDS: DOCUSATE SODIUM/SENNA 50/8.6MG TAB PO SCH ×2 (09:22→19:47)
[2021-05-14] MEDS: ENOXAPARIN INJ 40 MG/0.4 ML SYR SQ SCH (09:22)
[2021-05-14] MEDS: MAGNESIUM HYDROXIDE SUSP 30 ML UDC PO SCH ×2 (09:23→19:46)
[2021-05-14] MEDS: POLYETHYLENE (MIRALAX) 17 GM PACK PO SCH (09:23)
[2021-05-14] MEDS: fentaNYL DRIP 1,250 MCG/250 ML BAG IV SCH ×2 (09:48→19:01)
[2021-05-14] MEDS: PANTOprazole 40 MG in SYRINGE 0 ML IV SCH (11:01)
[2021-05-14] MEDS: PEPTAMEN INTENSE VHP 1.0 CAL 1,000 ML BAG GT SCH (12:40)
[2021-05-14] MEDS ORDERED: STAT IV Infusion **Titration per Protocol STA (14:43)
[2021-05-14] MEDS ORDERED: PROPOFOL BOLUS FROM BAG IV PRN (14:43)
[2021-05-14] MEDS ORDERED: PROPOFOL IV EMULSION 10 MG/ML 100 ML VIAL IV ONE (14:45)
--- NOTE | 2021-05-14 17:10 | Hospitalist Progress Note ---
Date of Service May 14, 2021 Assessment & Plan (1) Acute respiratory failure with hypoxia: Plan: Secondary to COVID-19 virus infection (2) Pneumonia due to COVID-19 virus: Plan: Acute respiratory failure with hypoxia ARDS Pneumonia due to COVID-19 H/O SUDHIR --CXR:Extensive patchy interstitial and alveolar opacities bilaterally characteristic of a viral type pneumonitis and probable Covid 19 pneumonia. -Intubated on 05/08/21 -Appreciate Critical Care Input -CRP:8.49> 5.20 Desaturated with proning Not a candidate for ECHO given his BMI as per Critical Care, [facility] [place] Completed 5 day Remdesivir course Continue dexamethasone course Received Cefepime >> Zosyn weaned off of Nimbex lasix drip>> transition to Lasix 40mg TID> Lasix PRN on Lovenox for DVT Prophylaxis On propofol, Versed and fentanyl Vent management as per Critical Care 06/09 Blood Cx coagulase-negative staph Sputum culture grew Pseudomonas Currently on 14 PEEP, 55% FiO2 Chest x-ray today showed worsening bilateral interstitial and alveolar opacities (3) Hypertension: Plan: Monitor (4) SUDHIR (obstructive sleep apnea): Plan: Morbidly obese BMI: 58 Was on CPAP (5) Hyperlipidemia: Plan: Continue statin DVT prophylaxis Lovenox CODE STATUS Full Admission and Anticipated Discharge Date Admission Date: May 05, 2021 Subjective Patient is seen and examined at bedside Remains Intubated Febrile today Currently on PEEP 14, FiO2 55 % Chest x-ray today showed worsening bilateral interstitial and alveolar opacities On tube feeds Review of Systems Review of Systems: Unobtainable due to endotracheal tube Physical Exam Physical Exam: Physical Exam: Vitals signs as noted above General Appearance:Morbidly Obese, no apparent distress, Sedated and Intubated Head: normocephalic, Atraumatic Eyes: normal inspection, EOMI Neck: supple, Trachea midline Respiratory/Chest: Decreased breath sounds, CTA Cardiovascular: S1, S2, No murmur Abdomen/GI:Soft, Non tender, Bowel sounds present Extremities/Musculoskeletal:normal inspection, no edema Neurologic/Psych:Sedated and Intubated Skin: normal color, warm Results & Data Results & Data ([facility]) Vital Signs (Past 12 Hours) Vital Signs Temp Pulse Resp BP Pulse Ox 05/14/21 16:13 73 05/14/21 16:00 74 22 112/54 L 89 L 05/14/21 15:46 38.1 C H 05/14/21 15:30 73 18 91 05/14/21 15:00 73 17 119/68 90 05/14/21 14:50 73 22 90 05/14/21 14:30 71 92 05/14/21 14:00 72 122/70 91 05/14/21 13:30 73 91 05/14/21 13:00 79 91 05/14/21 12:30 100 H 22 83 L 05/14/21 12:00 78 127/61 89 L 05/14/21 11:58 38.4 C H 05/14/21 11:30 77 14 89 L 05/14/21 11:15 79 17 89 L 05/14/21 11:13 81 24 89 L 05/14/21 11:00 84 14 90 05/14/21 10:45 89 14 91 05/14/21 10:30 95 H 21 88 L 05/14/21 10:15 84 15 91 05/14/21 10:00 85 17 118/75 91 05/14/21 09:45 85 17 92 05/14/21 09:40 87 05/14/21 09:30 86 21 91 05/14/21 09:15 83 18 91 05/14/21 09:00 84 16 91 05/14/21 08:45 83 21 91 05/14/21 08:30 82 23 91 05/14/21 08:15 82 18 90 05/14/21 08:00 87 17 89 L 05/14/21 07:55 38.0 C H 05/14/21 07:45 95 H 21 86 L 05/14/21 07:30 98 H 22 88 L 05/14/21 07:15 108 H 24 87 L 05/14/21 07:00 107 H 23 88 L 05/14/21 06:44 24 Laboratory Results Short CBC 05/14/21 Range/Units 06:14 WBC 17.47 H (4.8-10.8) K/uL Hgb 13.1 L (14.0-18.0) g/dL Hct 42.9 (42-52) % Plt Count 267 (130-400) K/uL BMP 05/14/21 06:14 Sodium 142 Potassium 3.8 Chloride 104 Carbon Dioxide 34 H BUN 49 H Creatinine 0.82 Glucose 124 H Calcium 9.3
--- NOTE | 2021-05-14 17:13 | Critical Care Progress Note ---
Date of Service May 14, 2021 Assessment & Plan (1) Acute respiratory failure with hypoxia: (2) Pneumonia due to COVID-19 virus: (3) ARDS (adult respiratory distress syndrome): (4) SUDHIR (obstructive sleep apnea): (5) Morbid obesity: Plan: Impression: 50-year-old male admitted to hospital 05/05/2021 with Covid pneumonia. He was intubated 05/08/2021. 24-hour events: Minimal progress weaning ventilator. Recommendations Neurologic: Continue sedation. Currently on propofol fentanyl and Versed. Neuromuscular blockade is off. Work on weaning PEEP. Once PEEP is decreased, may consider sedation holidays and SBT trials. Pulmonary: Continue lung protective ventilation strategy. Patient with severe ARDS mechanical ventilation day #7. Responded very poorly to proning on 05/08/2021 and was quickly placed supine. Defer any additional proning. BMI excludes any additional interventions such as extracorporeal membrane oxygenation. Continue Dex dosing for late-phase ARDS, Decadron 20 mg x 5 days and 10 mg x 5 days. Current vent settings: Assist-control: 22/420/14/0.55, plateau pressure 23. Last blood gas 7.5/53/60. open to prospect of trach. If he fails to make any progress with diuresis over the next 24 to 48 hours, may consider tracheostomy at that point. Cardiovascular: Off pressors. Hemodynamically stable currently. We will pursue trial of diuretics, Lasix 40 mg IV twice a day Gastrointestinal: Advance tube feedings with free water flushes. PPI in place. We will need aggressive bowel protocol. Renal: Electrolytes stable. Acid-base status stable. Starting Lasix. Will give dose of Diamox for post hypercapnic alkalosis Infectious disease: Day #6 broad-spectrum antibiotics. Received 2 days of cefepime followed by Zosyn. Received 2 days of Zyvox. Respiratory culture with pansensitive Pseudomonas. Continue Zosyn for anticipated 7-10-day course for Pseudomonas ventilator associated PNA. Continues with intermittent fevers. White count remains elevated but stable. May need to reculture if persistently febrile Hematologic: No significant issues at present. Continue to trend Endocrine: Glycemic control per protocol. Lines and tubes: Internal jugular central line and radial arterial line placed 05/08/2021. Intubated 05/08/2021. BARBY Duffy- Continue use of these lines VTE prophylaxis: Lovenox 40 mg daily CODE STATUS: Full code Disposition: Remain in the ICU I have personally spent 56 minutes of critical care time in the direct management of this patient. This is a life/limb threatening event. This includes time spent evaluating patient, direct bedside care, chart review, placing orders, interpretation of diagnostic studies, discussion with consultants, patient, and family members, as well as other required patient management activities. This time is exclusive of all separately billable procedures, and teaching time and separate from and in addition to any other critical care service time. Discussed with on phone and updated. We briefly discussed tracheostomy as the patient is currently mechanical ventilation day #7. She is amenable to do what ever is needed. She understands that he may require long-term acute care. Admission and Anticipated Discharge Date Admission Date: May 05, 2021 Subjective Intubated and sedated Review of Systems Review of Systems: Unobtainable due to endotracheal tube Physical Exam Constitutional: + mechanically ventilated Neck: trachea midline, no thyromegaly Respiratory: no respiratory distress and no labored breathing Auscultation: + crackles and + wheezes Cardiovascular: RRR, no murmur, no edema Gastrointestinal (Abdomen): normal bowel sounds, soft, nontender, no hepatosplenomegaly Musculoskeletal: Extremities: extremities normal to inspection Skin: no rashes, warm and dry Lymphatic: no cervical lymphadenopathy Results & Data Results & Data ([facility]) Vital Signs (Past 12 Hours) Vital Signs Temp Pulse Resp BP Pulse Ox 05/14/21 16:13 73 05/14/21 16:00 74 22 112/54 L 89 L 05/14/21 15:46 38.1 C H 05/14/21 15:30 73 18 91 05/14/21 15:00 73 17 119/68 90 05/14/21 14:50 73 22 90 05/14/21 14:30 71 92 05/14/21 14:00 72 122/70 91 05/14/21 13:30 73 91 05/14/21 13:00 79 91 05/14/21 12:30 100 H 22 83 L 05/14/21 12:00 78 127/61 89 L 05/14/21 11:58 38.4 C H 05/14/21 11:30 77 14 89 L 05/14/21 11:15 79 17 89 L 05/14/21 11:13 81 24 89 L 05/14/21 11:00 84 14 90 05/14/21 10:45 89 14 91 05/14/21 10:30 95 H 21 88 L 05/14/21 10:15 84 15 91 05/14/21 10:00 85 17 118/75 91 05/14/21 09:45 85 17 92 05/14/21 09:40 87 05/14/21 09:30 86 21 91 05/14/21 09:15 83 18 91 05/14/21 09:00 84 16 91 05/14/21 08:45 83 21 91 05/14/21 08:30 82 23 91 05/14/21 08:15 82 18 90 05/14/21 08:00 87 17 89 L 05/14/21 07:55 38.0 C H 05/14/21 07:45 95 H 21 86 L 05/14/21 07:30 98 H 22 88 L 05/14/21 07:15 108 H 24 87 L 05/14/21 07:00 107 H 23 88 L 05/14/21 06:44 24 Critical Care Results & Data Vital Signs (Past 12 Hours) Vital Signs Temp Pulse Resp BP Pulse Ox 05/14/21 16:13 73 05/14/21 16:00 74 22 112/54 L 89 L 05/14/21 15:46 38.1 C H 05/14/21 15:30 73 18 91 05/14/21 15:00 73 17 119/68 90 05/14/21 14:50 73 22 90 05/14/21 14:30 71 92 05/14/21 14:00 72 122/70 91 05/14/21 13:30 73 91 05/14/21 13:00 79 91 05/14/21 12:30 100 H 22 83 L 05/14/21 12:00 78 127/61 89 L 05/14/21 11:58 38.4 C H 05/14/21 11:30 77 14 89 L 05/14/21 11:15 79 17 89 L 05/14/21 11:13 81 24 89 L 05/14/21 11:00 84 14 90 05/14/21 10:45 89 14 91 05/14/21 10:30 95 H 21 88 L 12/07/21 10:15 84 15 91 05/14/21 10:00 85 17 118/75 91 05/14/21 09:45 85 17 92 05/14/21 09:40 87 05/14/21 09:30 86 21 91 05/14/21 09:15 83 18 91 05/14/21 09:00 84 16 91 05/14/21 08:45 83 21 91 05/14/21 08:30 82 23 91 05/14/21 08:15 82 18 90 05/14/21 08:00 87 17 89 L 05/14/21 07:55 38.0 C H 05/14/21 07:45 95 H 21 86 L 05/14/21 07:30 98 H 22 88 L 05/14/21 07:15 108 H 24 87 L 05/14/21 07:00 107 H 23 88 L 05/14/21 06:44 24 Lab & Micro Results (Past 24 Hours) RBC 4.45 M/uL (4.7-6.1) L 05/14/21 WBC 17.47 K/uL (4.8-10.8) H 05/14/21 Hgb 13.1 g/dL (14.0-18.0) L 05/14/21 Hct 42.9 % (42-52) 05/14/21 MCV 96.4 fL (80-100) 05/14/21 MCH 29.4 pg (25-34) 05/14/21 MCHC 30.5 g/dL (32-36) L 05/14/21 RDW Standard Deviation 53.6 fL (36.4-46.3) H 05/14/21 RDW Coefficient of Variation 15.1 % (11.5-14.5) H 05/14/21 Plt Count 267 K/uL (130-400) 05/14/21 MPV 10.4 fL (7.4-10.4) 05/14/21 Na 142 mmol/L (136-145) 05/14/21 K 3.8 mmol/L (3.5-5.1) 05/14/21 Cl 104 mmol/L (98-107) 05/14/21 CO2 34 mmol/L (21-32) H 05/14/21 Anion Gap 4.0 (3-11) 05/14/21 BUN 49 mg/dl (7-18) H 05/14/21 Creatinine 0.82 mg/dl (0.6-1.4) 05/14/21 Estimated GFR ( Amer) 117.8 ml/min 05/14/21 Estimated GFR (Non-Af Amer) 101.7 ml/min 05/14/21 BUN/Creatinine Ratio 59.9 (10-20) H 05/14/21 Glu 124 mg/dl (70-99) H 05/14/21 Ca 9.3 mg/dl (8.5-10.1) 05/14/21 Calcium Level 9.3 mg/dl (8.5-10.1) 05/14/21 06:14 05/14/21 Rajinder Test NA 05/14/21 03:38 05/14/21 Microbiology 05/11/21 06:17 Aerobic Blood Culture - Preliminary Blood Coag neg staph not lugdunensis Anaerobic Blood Culture - Preliminary No growth in Anaerobic bottle after 48 hours. Diagnostic Findings (Past 24 Hours) Chest X-Ray 05/14/21 07:00 XR chest 1V portable CLINICAL HISTORY: Resp failure. Follow-up bilateral airspace opacities COMPARISON STUDY: 05/13/2021 TECHNIQUE: 1 view of the chest FINDINGS: Single frontal view of the chest demonstrates the cardiomediastinal silhouette to be within normal limits. Tubes and catheters are unchanged. Compared to previous examination, there has been interval worsening of bilateral interstitial and alveolar opacities. There is no evidence for pleural effusion. There is no evidence for vascular congestion. There is no acute osseous pathology. IMPRESSION: Interval worsening of bilateral interstitial and alveolar opacities. ACT 112: Negative or not required by law. Electronically signed by: Ramesh Dao M.D. 05/14/2021 7:52 AM I & O Totals 24 Hours 05/13/21 05/14/21 05/15/21 06:59 06:59 06:59 Intake Total 2419.422 / 2419.422 1752.114 / 3546.683 2547.547 / 1251.547 Output Total 2375 / 2375 1760 / 1760 735 / 735 Balance 44.422 / 44.422 -7.886 / -7.886 516.547 / 516.547 Cumulative 05/05/21 18:07 thru 05/14/21 16:26 Intake Total 52501.283 Output Total 32105 Balance -2182.717 RT Ventilator Mngmt (Last Documented) Ventilator Ordered Settings Ventilator Support Mode Assist Control 05/14/21 14:50 Respiratory Rate 22 05/14/21 16:00 Ventilator Tidal Volume 420 05/14/21 14:50 Setting Minute Ventilation 7.5 05/14/21 14:50 Ventilator Positive Pressure 18 05/08/21 20:00 Support Setting Positive End Expiratory 14 05/14/21 14 :50 Pressure Fraction of Inspired Oxygen 55 05/14/21 14:50 Peak Inspiratory Flow 42 05/13/21 14:59 Machine Comment DECREASED TO 55% FIO2 05/14/21 14:50 Ventilator - PT Measurements Respiratory Rate 22 Exhaled Tidal Volume 430 Minute Ventilation 7.5 Peak Inspiratory Airway 25 Pressure Plateau Pressure 23 Respiratory Cycle Inspiratory: 1:3.2 Expiratory Ratio Inspiratory Phase Time 0.8 End-Tidal CO2 45 Static Lung Compliance 47.78 Dynamic Lung Compliance 39.09 Normal Static Lung Compliance 48.00 Patient Measurements Comment FIO2 INCREASED TO 55% AT THIS TIME Coding Level of Care Code Critical Care 1st 30-74 mins Diagnoses Acute respiratory failure with hypoxia J96.01 Pneumonia due to COVID-19 virus U07.1; J12.82 ARDS (adult respiratory distress syndrome) J80 SUDHIR (obstructive sleep apnea) G47.33 Morbid obesity E66.01 Time Spent (min) 56
[2021-05-14] MEDS: acetaZOLAMIDE 500 MG in SYRINGE 0 ML IV SCH (18:16)
[2021-05-14] MEDS: ICU ELECTROLYTE REPLACEMENT PROTOCOL SCH (18:20)
[2021-05-14] MEDS: FUROSEMIDE 40 MG/4 ML VIAL IV SCH (19:47)
[2021-05-14] MEDS: INSULIN HUMAN NPH SC SCH (20:12)
[2021-05-14] MEDS: NOREPINEPHRINE/D5W 8 MG/508 ML BAG IV SCH (22:00)
[2021-05-15] MEDS: INSULIN ASPART 100 UNITS/ML VIAL SC SCH ×7 (00:08→23:50)
[2021-05-15] MEDS: ARTIFICIAL TEARS OP OINT 3.5 GM TUBE OP SCH ×6 (03:34→20:42)
[2021-05-15] MEDS: TUBE FEEDING WATER FLUSH GT SCH ×6 (03:36→23:47)
[2021-05-15] MEDS: PIPERACILLIN/TAZOBACTAM 4.5 GM in DEXTROSE 5% 100 ML IV SCH ×3 (03:52→20:37)
[2021-05-15 04:08] LABS: iSTAT Art Bld Gas pCO2 Correct 55 mmHg (35-46); iSTAT Art Bld Gas pH Corrected 7.426 (7.35-7.45); iSTAT Arterial Blood Gas HCO3 36 meg/L (19-24); iSTAT Arterial Blood Gas pCO2 53 mmHg (35-46); iSTAT Arterial Blood Gas pH 7.44 (7.35-7.45); iSTAT Arterial Blood Gas pO2 64 mmHg (80-95); iSTAT Arterial Blood Gas pO2 C 68; iSTAT Carbon Dioxide 38 mmol/L (24-31); iSTAT FiO2 55 %; iSTAT Hematocrit 38 % (42-52); iSTAT Hemoglobin 12.9 g/dl (14.0-18.0); iSTAT Potassium 3.9 mmol/L (3.3-5.0); iSTAT Site Art Line; iSTAT Sodium 141 mmol/L (135-144)
[2021-05-15] MEDS: propofoL 1,000 MG/100 ML VIAL IV SCH ×6 (04:21→23:11)
[2021-05-15 06:05] LABS: Hemoglobin 12.7 g/dL (14.0-18.0); Mean Corpuscular Hemoglobin 29.3 pg (25-34); Mean Corpuscular Hgb Conc 30.2 g/dL (32-36); Mean Platelet Volume 10.8 fL (7.4-10.4); Platelet Count 246 K/uL (130-400); RDW Standard Deviation 53.3 fL (36.4-46.3); Red Blood Count 4.33 M/uL (4.7-6.1); White Blood Count 17.11 K/uL (4.8-10.8)
[2021-05-15] MEDS: fentaNYL DRIP 1,250 MCG/250 ML BAG IV SCH ×4 (06:25→20:58)
[2021-05-15 06:41] LABS: BUN Creatinine Ratio 51.8 (10-20); Calcium 8.4 mg/dl (8.5-10.1); Creatinine Clr Calc Pharmacy 170.2 ml/min; Est GFR (African American) 118.4 ml/min; Est GFR (Non-African American) 102.2 ml/min; Magnesium 2.9 mg/dl (1.8-2.4); Potassium 3.8 mmol/L (3.5-5.1)
[2021-05-15 06:55] LABS: Phosphorus 3.2 mg/dl (2.5-4.9)
--- NOTE | 2021-05-15 07:45 | XRay Report ---
XR chest 1V portable CLINICAL HISTORY: Resp failure. Follow-up bilateral airspace opacities COMPARISON STUDY: No previous studies for comparison. TECHNIQUE: 1 view of the chest FINDINGS: Single frontal view of the chest demonstrates the cardiomediastinal silhouette to be within normal li mits. Tubes and catheters appear unchanged. Diffuse interstitial and alveolar opacities are again see n bilaterally and essentially unchanged. There is evidence for left pleural effusion and left basilar atelectasis. There is no evidence for vascular congestion. There is no acute osseous pathology. IMPRESSION: No significant interval change in interstitial and alveolar opacities bilaterally. There is also evidence for small left pleural effusion and left basilar atelectasis. ACT 112: Negative or not required by law. Electronically signed by: Ramesh Dao M.D. 05/15/2021 7:43 AM
[2021-05-15] MEDS: ENOXAPARIN INJ 40 MG/0.4 ML SYR SQ SCH (08:40)
[2021-05-15] MEDS: dexAMETHasone 10 MG in SYRINGE 0 ML IV SCH (08:40)
[2021-05-15] MEDS: FUROSEMIDE 40 MG/4 ML VIAL IV SCH ×2 (08:41→20:46)
[2021-05-15] MEDS: ACETAMINOPHEN SUSP 160 MG/5 ML UDC PO PRN ×2 (08:41→23:11)
[2021-05-15] MEDS: ATORVASTATIN 20 MG TAB PO SCH (08:42)
[2021-05-15] MEDS: acetaZOLAMIDE 500 MG in SYRINGE 0 ML IV SCH (08:43)
[2021-05-15] MEDS: MAGNESIUM HYDROXIDE SUSP 30 ML UDC PO SCH ×2 (08:52→20:46)
[2021-05-15] MEDS ORDERED: INSULIN HUMAN NPH SC SCH (09:00)
[2021-05-15] MEDS: PANTOprazole 40 MG in SYRINGE 0 ML IV SCH (11:30)
[2021-05-15] MEDS: POLYETHYLENE (MIRALAX) 17 GM PACK PO SCH (11:41)
[2021-05-15] MEDS: DOCUSATE SODIUM/SENNA 50/8.6MG TAB PO SCH ×2 (11:41→20:46)
[2021-05-15] MEDS: PEPTAMEN INTENSE VHP 1.0 CAL 1,000 ML BAG GT SCH (13:46)
--- NOTE | 2021-05-15 15:11 | Pharmacy Report ---
Pharmacy Glycemic Short Note 2 - Date of Service May 15, 2021 - Glycemic Short BSG Results (Last 24 hours): 05/14/21 05/14/21 05/15/21 16:30 19:45 00:06 Glucose POC Glucose 170 H 133 H 111 H 05/15/21 05/15/21 05/15/21 03:49 05:25 08:06 Glucose 138 H POC Glucose 106 H 103 H 05/15/21 12:09 Glucose POC Glucose 166 H OUTPATIENT ANTIDIABETIC REGIMEN: * n/a * A1c = 6.3% 05/09/21 ASSESSMENT: 05/15 * BSGs better controlled over last 2 days * Patient remains intubated, sedated, receiving dexamethasone 10mg IV Q AM, receiving continuous tube feeds (Peptamen VHP @ 50cc/hr) and remains on norepi at low dose this AM (0.02mcg/kg/min) * NPH doses have been titrated down slowly over last 2 days as BSGs did drip below 140 on several occasions. Will again adjust down slightly, and use a scaled dose of NPH in the PM as BSGs do tend to drop overnight as effects of AM steroid dissipate. 05/13 * BSGs continue to rise throughout the day into the evening. Adjusted NPH to BID dosing. TF increased to 20mL/hr. * Given decrease in dex from 20mg -->10mg daily, plan to dose HS NPH as a scale given well controlled AM fasting BSGs. * Norepinephrine continues; pt remains intubated. 05/11 * Glycemic control improved with yesterday's changes. BSGs did climb overnight however. May need to consider BID dosing of NPH if same BSG pattern repeats today while on continuous tube feeds. Continuous tube feeds resumed at "trickle" this AM. * Patient remains intubated, sedated but no longer paralyzed. High dose dexamethasone (20mg daily IV) continues. * NPH dose will be increased slightly today and carb ratio will also be increased slightly given last 3 BSGs > 180. 05/10 * BSGs remained elevated despite addition of SQ insulin orders yesterday * Patient remains intubated, sedated, paralyzed, high dose IV steroid continues as well as pressor support and tube feeds * Will convert basal insulin to NPH and administer once daily in AM at the same time dexamethasone given * Will also increase Novolog dosing parameters PLAN FOR INPATIENT GLYCEMIC CONTROL: * Basal insulin * NPH 40 units SQ Q AM with IV dexamethasone + scaled dosing this evening (8/15 units) * Bolus insulin * NovoLog per scale Q 4 hrs * Goal Range: Low 110 mg/dL - High 140 mg/dL * Correction Factor: 12 mg/dL/unit * Nutritional / Prandial insulin per carb ratio of 1 unit per 3 grams CHO consumed PLAN FOR DISCHARGE: * to be determined
--- NOTE | 2021-05-15 17:08 | Critical Care Progress Note ---
Date of Service May 15, 2021 Assessment & Plan (1) Acute respiratory failure with hypoxia: (2) Pneumonia due to COVID-19 virus: (3) ARDS (adult respiratory distress syndrome): (4) SUDHIR (obstructive sleep apnea): (5) Morbid obesity: Plan: Impression: 50-year-old male admitted to hospital 05/05/2021 with Covid pneumonia. He was intubated 05/08/2021. 24-hour events: Minimal progress weaning ventilator. Had to increase fio2 and PEEP with turning today. Diuresed well. Still on small dose of norepi. Recommendations Neurologic: Continue sedation. Currently on propofol fentanyl and Versed. No indication for additional NM blockade. Pulmonary: Continue lung protective ventilation strategy. Patient with severe ARDS mechanical ventilation day #8. Responded very poorly to proning on 05/08/2021 and was quickly placed supine. Defer any additional proning. BMI excludes any additional interventions such as extracorporeal membrane oxygenation. Continue Dex dosing for late-phase ARDS, Decadron 20 mg x 5 days and 10 mg x 5 days. Current vent settings: Assist-control: 26/420/14/0.75, plateau pressure 26. Last blood gas 7.44/53/64. open to prospect of trach. We will plan on pursuing bedside tracheostomy once vent settings are appropriate. Cardiovascular: Off pressors. Hemodynamically stable currently. Continue Lasix 40 mg IV twice a day Gastrointestinal: Advance tube feedings with free water flushes. PPI in place. We will need aggressive bowel protocol. Renal: Electrolytes stable. Acid-base status stable. Starting Lasix. Post hypercapnic alkalosis better with Diamox. Follow at this point time. Infectious disease: Day #7 Zosyn for Pseudomonas. Still febrile. White count remains elevated but stable. Will reculture Hematologic: No significant issues at present. Continue to trend Endocrine: Glycemic control per protocol. Lines and tubes: Internal jugular central line and radial arterial line placed 05/08/2021. Intub ated 05/08/2021. BARBY Duffy- Continue use of these lines VTE prophylaxis: Lovenox 40 mg daily CODE STATUS: Full code Disposition: Remain in the ICU I have personally spent 48 minutes of critical care time in the direct management of this patient. This is a life/limb threatening event. This includes time spent evaluating patient, direct bedside care, chart review, placing orders, interpretation of diagnostic studies, discussion with consultants, patient, and family members, as well as other required patient management activities. This time is exclusive of all separately billable procedures, and teaching time and separate from and in addition to any other critical care service time. Admission and Anticipated Discharge Date Admission Date: May 05, 2021 Subjective intubated and sedated Review of Systems Review of Systems: Unobtainable due to endotracheal tube Physical Exam Constitutional: + mechanically ventilated Neck: trachea midline, no thyromegaly Respiratory: no respiratory distress and no labored breathing Auscultation: + crackles and + wheezes Cardiovascular: RRR, no murmur, no edema Gastrointestinal (Abdomen): normal bowel sounds, soft, nontender, no hepatosplenomegaly Musculoskeletal: Extremities: extremities normal to inspection Skin: no rashes, warm and dry Lymphatic: no cervical lymphadenopathy Results & Data Results & Data ([facility]) Vital Signs (Past 12 Hours) Vital Signs Temp Pulse Resp BP Pulse Ox 05/15/21 14:52 69 26 H 90 05/15/21 14:00 37.8 C H 71 17 91 05/15/21 12:00 37.8 C H 77 15 114/69 89 L 05/15/21 11:34 79 27 H 89 L 05/15/21 10:00 38.1 C H 82 18 105/77 88 L 05/15/21 08:00 38 C H 80 18 94 05/15/21 07:20 81 21 78 L 05/15/21 07:00 86 23 81 L 05/15/21 06:00 75 24 109/78 88 L Critical Care Results & Data Vital Signs (Past 12 Hours) Vital Signs Temp Pulse Resp BP Pulse Ox 05/15/21 14:52 69 26 H 90 05/15/21 14:00 37.8 C H 71 17 91 05/15/21 12:00 37.8 C H 77 15 114/69 89 L 05/15/21 11:34 79 27 H 89 L 05/15/21 10:00 38.1 C H 82 18 105/77 88 L 05/15/21 08:00 38 C H 80 18 94 05/15/21 07:20 81 21 78 L 05/15/21 07:00 86 23 81 L 05/15/21 06:00 75 24 109/78 88 L Lab & Micro Results (Past 24 Hours) RBC 4.33 M/uL (4.7-6.1) L 05/15/21 WBC 17.11 K/uL (4.8-10.8) H 05/15/21 Hgb 12.7 g/dL (14.0-18.0) L 05/15/21 Hct 42.0 % (42-52) 05/15/21 MCV 97.0 fL (80-100) 05/15/21 MCH 29.3 pg (25-34) 05/15/21 MCHC 30.2 g/dL (32-36) L 05/15/21 RDW Standard Deviation 53.3 fL (36.4-46.3) H 05/15/21 RDW Coefficient of Variation 15.0 % (11.5-14.5) H 05/15/21 Plt Count 246 K/uL (130-400) 05/15/21 MPV 10.8 fL (7.4-10.4) H 05/15/21 Na 142 mmol/L (136-145) 05/15/21 K 3.8 mmol/L (3.5-5.1) 05/15/21 Cl 104 mmol/L (98-107) 05/15/21 CO2 33 mmol/L (21-32) H 05/15/21 Anion Gap 4.0 (3-11) 05/15/21 BUN 42 mg/dl (7-18) H 05/15/21 Creatinine 0.81 mg/dl (0.6-1.4) 05/15/21 Estimated GFR ( Amer) 118.4 ml/min 05/15/21 Estimated GFR (Non-Af Amer) 102.2 ml/min 05/15/21 BUN/Creatinine Ratio 51.8 (10-20) H 05/15/21 Glu 138 mg/dl (70-99) H 05/15/21 Ca 8.4 mg/dl (8.5-10.1) L 05/15/21 Phosphorus Level 3.2 mg/dl (2.5-4.9) 05/15/21 Mg 2.9 mg/dl (1.8-2.4) H 05/15/21 05:25 05/15/21 Calcium Level 8.4 mg/dl (8.5-10.1) L 05/15/21 05:25 05/15/21 Rajinder Test NA 05/15/21 03:54 05/15/21 Diagnostic Findings (Past 24 Hours) Chest X-Ray 05/15/21 07:00 XR chest 1V portable CLINICAL HISTORY: Resp failure. Follow-up bilateral airspace opacities COMPARISON STUDY: No previous studies for comparison. TECHNIQUE: 1 view of the chest FINDINGS: Single frontal view of the chest demonstrates the cardiomediastinal silhouette to be within normal limits. Tubes and catheters appear unchanged. Diffuse interstitial and alveolar opacities are again seen bilaterally and essentially unchanged. There is evidence for left pleural effusion and left basilar atelectasis. There is no evidence for vascular congestion. There is no acute osseous pathology. IMPRESSION: No significant interval change in interstitial and alveolar opacities bilaterally. There is also evidence for small left pleural effusion and left basilar atelectasis. ACT 112: Negative or not required by law. Electronically signed by: Ramesh Dao M.D. 05/15/2021 7:43 AM I & O Totals 24 Hours 05/14/21 05/15/21 05/16/21 06:59 06:59 06:59 Intake Total 1752.114 / 6131.510 5181.247 / 3232.147 873.413 / 873.413 Output Total 1760 / 1760 3260 / 3260 1800 / 1800 Balance -7.886 / -7.886 -145.753 / -27.853 -926.587 / -926.587 Cumulative 05/05/21 18:07 thru 05/15/21 15:50 Intake Total 18418.396 Output Total 15112 Balance -3771.604 RT Ventilator Mngmt (Last Documented) Ventilator Ordered Settings Ventilator Support Mode Assist Control 05/15/21 14:52 Respiratory Rate 26 05/15/21 14:52 Ventilator Tidal Volume 420 05/15/21 14:52 Setting Minute Ventilation 9.6 05/15/21 14:52 Ventilator Positive Pressure 18 05/08/21 20:00 Support Setting Positive End Expiratory 14 05/15/21 14:52 Pressure Fraction of Inspired Oxygen 75 05/15/21 14:52 Peak Inspiratory Flow 42 05/13/21 14:59 Machine Comment found on 75%O2 05/15/21 14:52 Ventilator - PT Measurements Respiratory Rate 26 Exhaled Tidal Volume 627 Minute Ventilation 9.6 Peak Inspiratory Airway 36 Pressure Plateau Pressure 26 Respiratory Cycle Inspiratory: 1:3.8 Expiratory Ratio Inspiratory Phase Time 0.70 End-Tidal CO2 37 Static Lung Compliance 52.25 Dynamic Lung Compliance 28.50 Normal Static Lung Compliance 47.00 Patient Measurements Comment SPO2 91% after increasing peep to 16 Coding Level of Care Code Critical Care 1st 30-74 mins Diagnoses Acute respiratory failure with hypoxia J96.01 Pneumonia due to COVID-19 virus U07.1; J12.82 ARDS (adult respiratory distress syndrome) J80 SUDHIR (obstructive sleep apnea) G47.33 Morbid obesity E66.01 Time Spent (min) 48
--- NOTE | 2021-05-15 17:18 | Hospitalist Progress Note ---
Date of Service May 15, 2021 Assessment & Plan (1) Acute respiratory failure with hypoxia: Plan: Secondary to COVID-19 virus infection (2) Pneumonia due to COVID-19 virus: Plan: Acute respiratory failure with hypoxia ARDS Pneumonia due to COVID-19 H/O SUDHIR --CXR:Extensive patchy interstitial and alveolar opacities bilaterally characteristic of a viral type pneumonitis and probable Covid 19 pneumonia. -Intubated on 05/08/21 -Appreciate Critical Care Input -CRP:8.49> 5.20 Desaturated with proning Not a candidate for ECMO given his BMI as per Critical Care, [facility] [place] [facility] [place]pleted 5 day Remdesivir course Continue dexamethasone course Received Cefepime >> Zosyn weaned off of Nimbex lasix drip>> transition to Lasix 40mg TID> Lasix PRN on Lovenox for DVT Prophylaxis On propofol, Versed and fentanyl Vent management as per Critical Care 06/09 Blood Cx coagulase-negative staph Sputum culture grew Pseudomonas - cont. Zosyn Chest x-ray today 05/15- No significant interval change in interstitial and alveolar opacities bilaterally. There is also evidence for small left pleural effusion and left basilar atelectasis. (3) Hypertension: Plan: Monitor (4) SUDHIR (obstructive sleep apnea): Plan: Morbidly obese BMI: 58 Was on CPAP (5) Hyperlipidemia: Plan: Continue statin DVT prophylaxis Lovenox CODE STATUS Full Admission and Anticipated Discharge Date Admission Date: May 05, 2021 Subjective Patient is seen in follow up of COVID pna, ARDS Remains Intubated, sedated Febrile On tube feeds on zosyn for pseudomonas pna, and steroid for ards Pulmonary medicine following closely Review of Systems Review of Systems: Unobtainable due to cognitive status and Unobtainable due to endotracheal tube Physical Exam Physical Exam: General Appearance:Morbidly Obese M, Sedated and Intubated Head: normocephalic, Atraumatic Eyes: normal inspection Respiratory/Chest: +decreased breath sounds, +crackles Cardiovascular: S1, S2, No murmur Abdomen/GI:Soft, obese, Bowel sounds present Extremities/Musculoskeletal:normal inspection, no edema Neurologic/Psych:Sedated and Intubated Skin: normal color, warm Results & Data Results & Data ([facility]) Vital Signs (Past 12 Hours) Vital Signs Temp Pulse Resp BP Pulse Ox 05/15/21 14:52 69 26 H 90 12/08/21 14:00 37.8 C H 71 17 91 05/15/21 12:00 37.8 C H 77 15 114/69 89 L 05/15/21 11:34 79 27 H 89 L 05/15/21 10:00 38.1 C H 82 18 105/77 88 L 05/15/21 08:00 38 C H 80 18 94 05/15/21 07:20 81 21 78 L 05/15/21 07:00 86 23 81 L 05/15/21 06:00 75 24 109/78 88 L Laboratory Results 05/15/21 05/15/21 05/15/21 Range/Units 16:01 12:09 08:06 WBC (4.8-10.8) K/uL RBC (4.7-6.1) M/uL Hgb (14.0-18.0) g/dL POC Hgb (14.0-18.0) g/dl Hct (42-52) % POC Hct (42-52) % MCV (80-100) fL MCH (25-34) pg MCHC (32-36) g/dL RDW Std Deviation (36.4-46.3) fL RDW Coeff of Samia (11.5-14.5) % Plt Count (130-400) K/uL MPV (7.4-10.4) fL Sample Site POC pH (7.35-7.45) POC pCO2 (35-46) mmHg POC pO2 (80-95) mmHg POC HCO3 (19-24) jovanna/L POC Total CO2 (24-31) mmol/L POC Base Excess (-9-1.8) jovanna/L ABG pH (Temp Correct) (7.35-7.45) ABG pCO2 (Temp Corrct (35-46) mmHg POC ABG pO2 at Pt Temp POC ABG O2 Sat (90-95) % Rajinder Test O2 Delivery Device POC O2 Rate POC FiO2 % Tidal Volume PEEP POC Sodium (135-144) mmol/L Sodium (136-145) mmol/L POC Potassium (3.3-5.0) mmol/L Potassium (3.5-5.1) mmol/L Chloride (98-107) mmol/L Carbon Dioxide (21-32) mmol/L Anion Gap (3-11) BUN (7-18) mg/dl Creatinine (0.6-1.4) mg/dl Est Cr Clr Drug Dosing ml/min Est GFR ( Amer) ml/min Est GFR (Non-Af Amer) ml/min BUN/Creatinine Ratio (10-20) Glucose (70-99) mg/dl POC Glucose 180 H 166 H 103 H (70-99) mg/dl Calcium (8.5-10.1) mg/dl Phosphorus (2.5-4.9) mg/dl Magnesium (1.8-2.4) mg/dl 05/15/21 05/15/21 05/15/21 Range/Units 05:25 05:25 03:54 WBC 17.11 H (4.8-10.8) K/uL RBC 4.33 L (4.7-6.1) M/uL Hgb 12.7 L (14.0-18.0) g/dL POC Hgb 12.9 L (14.0-18.0) g/dl Hct 42.0 (42-52) % POC Hct 38 L (42-52) % MCV 97.0 (80-100) fL MCH 29.3 (25-34) pg MCHC 30.2 L (32-36) g/dL RDW Std Deviation 53.3 H (36.4-46.3) fL RDW Coeff of Samia 15.0 H (11.5-14.5) % Plt Count 246 (130-400) K/uL MPV 10.8 H (7.4-10.4) fL Sample Site Art Line POC pH 7.44 (7.35-7.45) POC pCO2 53 H (35-46) mmHg POC pO2 64 L (80-95) mmHg POC HCO3 36 H (19-24) jovanna/L POC Total CO2 38 H (24-31) mmol/L POC Base Excess 12.0 H (-9-1.8) jovanna/L ABG pH (Temp Correct) 7.426 (7.35-7.45) ABG pCO2 (Temp Corrct 55 H (35-46) mmHg POC ABG pO2 at Pt Temp 68 POC ABG O2 Sat 92.0 (90-95) % Rajinder Test NA O2 Delivery Device Ventilator POC O2 Rate 19 POC FiO2 55 % Tidal Volume 420 PEEP 14 POC Sodium 141 (135-144) mmol/L Sodium 142 (136-145) mmol/L POC Potassium 3.9 (3.3-5.0) mmol/L Potassium 3.8 (3.5-5.1) mmol/L Chloride 104 (98-107) mmol/L Carbon Dioxide 33 H (21-32) mmol/L Anion Gap 4.0 (3-11) BUN 42 H (7-18) mg/dl Creatinine 0.81 (0.6-1.4) mg/dl Est Cr Clr Drug Dosing 170.2 ml/min Est GFR ( Amer) 118.4 ml/min Est GFR (Non-Af Amer) 102.2 ml/min BUN/Creatinine Ratio 51.8 H (10-20) Glucose 138 H (70-99) mg/dl POC Glucose (70-99) mg/dl Calcium 8.4 L (8.5-10.1) mg/dl Phosphorus 3.2 (2.5-4.9) mg/dl Magnesium 2.9 H (1.8-2.4) mg/dl 05/15/21 05/15/21 05/14/21 Range/Units 03:49 00:06 19:45 WBC (4.8-10.8) K/uL RBC (4.7-6.1) M/uL Hgb (14.0-18.0) g/dL POC Hgb (14.0-18.0) g/dl Hct (42-52) % POC Hct (42-52) % MCV (80-100) fL MCH (25-34) pg MCHC (32-36) g/dL RDW Std Deviation (36.4-46.3) fL RDW Coeff of Samia (11.5-14.5) % Plt Count (130-400) K/uL MPV (7.4-10.4) fL Sample Site POC pH (7.35-7.45) POC pCO2 (35-46) mmHg POC pO2 (80-95) mmHg POC HCO3 (19-24) jovanna/L POC Total CO2 (24-31) mmol/L POC Base Excess (-9-1.8) jovanna/L ABG pH (Temp Correct) (7.35-7.45) ABG pCO2 (Temp Corrct (35-46) mmHg POC ABG pO2 at Pt Temp POC ABG O2 Sat (90-95) % Rajinder Test O2 Delivery Device POC O2 Rate POC FiO2 % Tidal Volume PEEP POC Sodium (135-144) mmol/L Sodium (136-145) mmol/L POC Potassium (3.3-5.0) mmol/L Potassium (3.5-5.1) mmol/L Chloride (98-107) mmol/L Carbon Dioxide (21-32) mmol/L Anion Gap (3-11) BUN (7-18) mg/dl Creatinine (0.6-1.4) mg/dl Est Cr Clr Drug Dosing ml/min Est GFR ( Amer) ml/min Est GFR (Non-Af Amer) ml/min BUN/Creatinine Ratio (10-20) Glucose (70-99) mg/dl POC Glucose 106 H 111 H 133 H (70-99) mg/dl Calcium (8.5-10.1) mg/dl Phosphorus (2.5-4.9) mg/dl Magnesium (1.8-2.4) mg/dl Medications Administered Current Inpatient Medications Acetaminophen (Acetaminophen Susp 160 Mg/5 Ml Udc) 480 mg PO Q6H PRN PRN Reason: Fever Stop: 06/10/21 12:20 Last Admin: 05/15/21 08:41 Dose: 480 mg Documented by: Amlodipine Besylate (Amlodipine Besylate 5 Mg Tab) 5 mg PO DAILY [facility] Stop: 06/05/21 08:59 Last Admin: 05/08/21 12:17 Dose: Not Given Documented by: Atorvastatin Calcium (Atorvastatin 20 Mg Tab) 20 mg PO DAILY [facility] Stop: 06/05/21 08:59 Last Admin: 05/15/21 08:42 Dose: 20 mg Documented by: Bisacodyl (Bisacodyl 10 Mg Supp) 10 mg MT DAILY PRN PRN Reason: Constipation- No BM >3 days Stop: 06/10/21 09:02 Last Admin: 05/12/21 15:07 Dose: 10 mg Documented by: Enoxaparin Sodium (Enoxaparin Inj 40 Mg/0.4 Ml Syr) 40 mg SQ DAILY [facility] Stop: 06/13/21 08:59 Last Admin: 05/15/21 08:40 Dose: 40 mg Documented by: Fentanyl Citrate (Fentanyl Bolus From Bag) 50 mcg IV Q60M PRN PRN Reason: Pain or Agitation Stop: 05/22/21 11:44 Last Admin: 05/10/21 21:34 Dose: 50 mcg Documented by: Furosemide (Furosemide 40 Mg/4 Ml Vial) 40 mg IV BID [facility] Stop: 06/13/21 20:59 Last Admin: 05/15/21 08:41 Dose: 40 mg Documented by: Fentanyl Citrate (Fentanyl Drip) 1,250 mcg in 250 mls @ 25 mls/hr IV .Q10H [facility]; Protocol Stop: 05/22/21 11:44 Last Admin: 05/15/21 15:49 Dose: 125 mcg/hr, 25 mls/hr Documented by: Dexamethasone 10 mg/ Syringe 2.5 mls @ 1 mls/min IV Q24H [facility] Stop: 05/17/21 09:03 Last Admin: 05/15/21 08:40 Dose: 1 mls/min Documented by: Midazolam HCl (Versed) 125 mg in 250 mls @ 4 mls/hr IV .[id number] [facility]; Protocol Stop: 06/07/21 12:59 Last Titration: 05/14/21 19:03 Dose: 2 mg/hr, 4 mls/hr Documented by: Pantoprazole Sodium 40 mg/ (Syringe) 10 mls @ 5 mls/min IV DAILY@1100 NATAL[facility] Stop: 06/08/21 10:59 Last Admin: 05/15/21 11:30 Dose: 5 mls/min Documented by: Norepinephrine Bitartrate (Levophed/D5w) 8 mg in 508 mls @ 6.553 mls/hr IV .Q24H [facility]; Protocol Stop: 06/08/21 11:14 Last Titration: 05/15/21 07:00 Dose: 0.01 mcg/kg/min, 6.6 mls/hr Documented by: Piperacillin Sod/Tazobactam (Sod 4.5 gm/ Dextrose) 120 mls @ 30 mls/hr IV Q8H [facility]; Protocol Stop: 05/25/21 19:59 Last Admin: 05/15/21 12:36 Dose: 28.7 mls/hr Documented by: Propofol (Diprivan) 1,000 mg in 100 mls @ 31.68 mls/hr IV .Q3H10M [facility]; Protocol Stop: 05/17/21 14:44 Last Admin: 05/15/21 15:50 Dose: 30 mcg/kg/min, 31.7 mls/hr Documented by: Acetazolamide 500 mg/ Syringe 5 mls @ 5 mls/min IV DAILY [facility] Stop: 05/16/21 17:29 Last Admin: 05/15/21 08:43 Dose: 5 mls/min Documented by: Insulin Aspart (Insulin Aspart 100 Units/Ml Vial) 0 units SC Q4 [facility] Stop: 06/11/21 19:59 Last Admin: 05/15/21 16:15 Dose: 6 units Documented by: Insulin Human NPH (Insulin Human Nph) 0 units SC DAILY@2100 [facility]; Protocol Stop: 06/11/21 20:59 Last Admin: 05/14/21 20:12 Dose: 12 units Documented by: Insulin Human NPH (Insulin Human Nph) 40 units SC QAM [facility] Stop: 06/14/21 08:59 Last Admin: 05/15/21 08:44 Dose: 40 units Documented by: Levalbuterol HCl (Levalbuterol Hcl 1.25 Mg/3 Ml Neb) 1.25 mg NEB Q4H PRN PRN Reason: Shortness Of Breath Or Wheezing Stop: 06/04/21 23:27 Magnesium Hydroxide (Magnesium Hydroxide Susp 30 Ml Udc) 30 ml PO Q12 [facility] Stop: 06/11/21 20:59 Last Admin: 05/15/21 08:52 Dose: 30 ml Documented by: Midazolam HCl (Midazolam Bolus From Bag) 2 mg IV Q60M PRN PRN Reason: Sedation Stop: 06/07/21 12:56 Miscellaneous (Icu Electrolyte Replacement Protocol) 1 ea N/A BID@06,18 [facility]; Protocol Stop: 05/21/21 17:59 Last Admin: 05/14/21 18:20 Dose: Not Given Documented by: Miscellaneous Information (Pharmacy Glycemic Mgmt Consult) 1 ea N/A UD PRN PRN Reason: Consult Stop: 06/08/21 12:37 Miscellaneous Information (Piperacill/Tazobac Consult Active) 1 ea N/A UD PRN PRN Reason: Consult Stop: 06/10/21 12:27 Multi-Ingredient Cream (Artificial Tears Op Oint 3.5 Gm Tube) 1 appln OP Q4H [facility] Stop: 06/09/21 17:59 Last Admin: 05/15/21 17:11 Dose: 1 appln Documented by: Nitroglycerin (Nitroglycerin Sl 0.4 Mg/Tab Tab) 0.4 mg SL UD PRN PRN Reason: Chest Pain Stop: 06/04/21 23:27 Nutritional Formula (Peptamen Intense Vhp 1.0 Quentin 1,000 Ml Bag) 1,000 ml GT CONT [facility]; Protocol Stop: 06/09/21 10:29 Last Admin: 05/15/21 13:46 Dose: 1,000 ml Documented by: Polyethylene Glycol (Polyethylene (Miralax) 17 Gm Pack) 17 gm PO DAILY PRN PRN Reason: Constipation Stop: 06/04/21 23:27 Polyethylene Glycol (Polyethylene (Miralax) 17 Gm Pack) 17 gm PO QAM [facility] Stop: 06/09/21 08:59 Last Admin: 05/15/21 11:41 Dose: Not Given Documented by: Propofol (Propofol Bolus From Bag) 20 mg IV Q5M PRN PRN Reason: Sedation Stop: 05/17/21 14:42 Senna/Docusate Sodium (Docusate Sodium/Senna 50/8.6mg Tab) 1 tab PO BID [facility] Stop: 06/10/21 08:59 Last Admin: 05/15/21 11:41 Dose: Not Given Documented by: Sterile Water (Tube Feeding Water Flush) 60 ml GT Q4H [facility] Stop: 06/11/21 11:29 Last Admin: 05/15/21 15:51 Dose: 60 ml Documented by:
[2021-05-15] MEDS ORDERED: ICU ELECTROLYTE REPLACEMENT PROTOCOL SCH (18:00)
[2021-05-15] MEDS: INSULIN HUMAN NPH SC SCH (20:30)
[2021-05-15] MEDS: NOREPINEPHRINE/D5W 8 MG/508 ML BAG IV SCH ×2 (20:55→23:20)
[2021-05-15] MEDS: MIDAZOLAM HCL 125 MG/250 ML BAG IV SCH (20:56)
[2021-05-15] MEDS: ICU ELECTROLYTE REPLACEMENT PROTOCOL SCH ×2 (20:56→20:57)
[2021-05-16] MEDS: fentaNYL DRIP 1,250 MCG/250 ML BAG IV SCH ×3 (01:07→19:12)
[2021-05-16] MEDS: ARTIFICIAL TEARS OP OINT 3.5 GM TUBE OP SCH ×6 (02:00→22:34)
[2021-05-16] MEDS: propofoL 1,000 MG/100 ML VIAL IV SCH ×8 (03:43→22:34)
[2021-05-16] MEDS: INSULIN ASPART 100 UNITS/ML VIAL SC SCH ×6 (04:17→23:38)
[2021-05-16] MEDS: TUBE FEEDING WATER FLUSH GT SCH ×6 (04:18→23:38)
[2021-05-16] MEDS: PIPERACILLIN/TAZOBACTAM 4.5 GM in DEXTROSE 5% 100 ML IV SCH ×3 (04:25→20:30)
[2021-05-16 04:47] LABS: iSTAT Arterial Blood Gas HCO3 35 meg/L (19-24); iSTAT Arterial Blood Gas pCO2 57 mmHg (35-46); iSTAT Arterial Blood Gas pO2 68 mmHg (80-95); iSTAT Carbon Dioxide 37 mmol/L (24-31); iSTAT FiO2 65 %; iSTAT Site Art Line
[2021-05-16 06:33] LABS: Hematocrit (blood only) 40.6 % (42-52); Hemoglobin 12.4 g/dL (14.0-18.0); Mean Corpuscular Hemoglobin 29.4 pg (25-34); Mean Corpuscular Hgb Conc 30.5 g/dL (32-36); Mean Corpuscular Volume 96.2 fL (80-100); Mean Platelet Volume 11.2 fL (7.4-10.4); Platelet Count 217 K/uL (130-400); RDW Coefficient of Variation 14.7 % (11.5-14.5); RDW Standard Deviation 52.1 fL (36.4-46.3); Red Blood Count 4.22 M/uL (4.7-6.1); White Blood Count 18.77 K/uL (4.8-10.8)
[2021-05-16 07:32] LABS: BUN Creatinine Ratio 54.5 (10-20); Creatinine Clr Calc Pharmacy 172.8 ml/min; Est GFR (African American) 119.7 ml/min; Est GFR (Non-African American) 103.2 ml/min; Magnesium 2.8 mg/dl (1.8-2.4); Potassium 3.6 mmol/L (3.5-5.1)
[2021-05-16 07:33] LABS: Phosphorus 2.7 mg/dl (2.5-4.9)
--- NOTE | 2021-05-16 07:49 | XRay Report ---
XR chest 1V portable HISTORY: 50 years-old Male Resp failure acute respiratory failure COMPARISON: Chest radiograph 05/15/2021 TECHNIQUE: Portable AP view of the chest FINDINGS: Endotracheal tube overlies the midline, 3.6 cm superior to the juan francisco. Right IJ central venous cathet er distal tip overlies the right atrium. Enteric tube courses below the diaphragm with distal tip out side the [id number]. No pneumothorax or large pleural effusion. Extensive bilateral airspace opaci ties have progressively worsened in the interval. Degenerative changes of the spine and left shoulder . The right lateral costophrenic angle is partially excluded from the [id number]. IMPRESSION: 1. Satisfactory positioning of life-support lines and tubes. 2. Progressively worsened multifocal airspace opacities. 3. No pneumothorax. ACT 112: Negative or not required by law. The above report was generated using voice recognition software. It may contain grammatical, syntax o r spelling errors. Electronically signed by: Satish Dowd M.D. 05/16/2021 7:48 AM
[2021-05-16] MEDS: acetaZOLAMIDE 500 MG in SYRINGE 0 ML IV SCH (07:52)
[2021-05-16] MEDS: ATORVASTATIN 20 MG TAB PO SCH (07:52)
[2021-05-16] MEDS: ENOXAPARIN INJ 40 MG/0.4 ML SYR SQ SCH ×2 (07:53→20:31)
[2021-05-16] MEDS: dexAMETHasone 10 MG in SYRINGE 0 ML IV SCH (07:54)
[2021-05-16] MEDS: MAGNESIUM HYDROXIDE SUSP 30 ML UDC PO SCH ×2 (07:56→20:30)
[2021-05-16] MEDS: POLYETHYLENE (MIRALAX) 17 GM PACK PO SCH (07:56)
[2021-05-16] MEDS: INSULIN HUMAN NPH SC SCH ×2 (08:00→20:22)
[2021-05-16] MEDS: DOCUSATE SODIUM/SENNA 50/8.6MG TAB PO SCH ×2 (08:01→20:32)
[2021-05-16] MEDS: FUROSEMIDE 40 MG/4 ML VIAL IV SCH ×2 (08:08→20:38)
[2021-05-16] MEDS ORDERED: VECURONIUM BROMIDE 10 MG VIAL IV ONE (09:05)
[2021-05-16] MEDS: ICU ELECTROLYTE REPLACEMENT PROTOCOL SCH ×2 (10:01→17:13)
[2021-05-16] MEDS: MIDAZOLAM HCL 125 MG/250 ML BAG IV SCH (10:50)
[2021-05-16] MEDS: PANTOprazole 40 MG in SYRINGE 0 ML IV SCH (10:51)
[2021-05-16] MEDS: POTASSIUM CHLORIDE / WTR 20 MEQ/100 ML PLCT IV SCH ×2 (11:22→13:19)
--- NOTE | 2021-05-16 11:55 | Pharmacy Report ---
Pharmacy Glycemic Short Note 2 - Date of Service May 16, 2021 - Glycemic Short BSG Results (Last 24 hours): 05/15/21 05/15/21 05/15/21 12:09 16:01 20:19 Glucose POC Glucose 166 H 180 H 138 H 05/15/21 05/16/21 05/16/21 23:47 04:07 05:47 Glucose 134 H POC Glucose 138 H 111 H 05/16/21 05/16/21 07:26 11:38 Glucose POC Glucose 115 H 135 H OUTPATIENT ANTIDIABETIC REGIMEN: * n/a * A1c = 6.3% 05/09/21 ASSESSMENT: 05/16 * Stressors stable, other than tubefeeds titrating up (currently about half of goal rate). Anticipate continued titration up over the next 24 hours. * BSG's in or slightly below goal range for ICU status patient, ranging 111-180 mg/dL over the last 24 hours. Will slightly reduce both AM and PM NPH. * No change to Novolog at this time 05/15 * BSGs better controlled over last 2 days * Patient remains intubated, sedated, receiving dexamethasone 10mg IV Q AM, receiving continuous tube feeds (Peptamen VHP @ 50cc/hr) and remains on norepi at low dose this AM (0.02mcg/kg/min) * NPH doses have been titrated down slowly over last 2 days as BSGs did drip below 140 on several occasions. Will again adjust down slightly, and use a scaled dose of NPH in the PM as BSGs do tend to drop overnight as effects of AM steroid dissipate. 05/13 * BSGs continue to rise throughout the day into the evening. Adjusted NPH to BID dosing. TF increased to 20mL/hr. * Given decrease in dex from 20mg -->10mg daily, plan to dose HS NPH as a scale given well controlled AM fasting BSGs. * Norepinephrine continues; pt remains intubated. PLAN FOR INPATIENT GLYCEMIC CONTROL: * Basal insulin * NPH 35 units SQ Q AM with IV dexamethasone + scaled dosing this evening (4- 8 units) * Bolus insulin * NovoLog per scale Q 4 hrs * Goal Range: Low 110 mg/dL - High 140 mg/dL * Correction Factor: 12 mg/dL/unit * Nutritional / Prandial insulin per carb ratio of 1 unit per 3 grams CHO consumed PLAN FOR DISCHARGE: * to be determined
[2021-05-16] MEDS: PEPTAMEN INTENSE VHP 1.0 CAL 1,000 ML BAG GT SCH (14:32)
--- NOTE | 2021-05-16 15:47 | Critical Care Progress Note ---
Date of Service May 16, 2021 Assessment & Plan (1) Acute respiratory failure with hypoxia: (2) Pneumonia due to COVID-19 virus: (3) ARDS (adult respiratory distress syndrome): (4) SUDHIR (obstructive sleep apnea): (5) Morbid obesity: Plan: Impression: 50-year-old male admitted to hospital 05/05/2021 with Covid pneumonia. He was intubated 05/08/2021. 24-hour events: Chest x-ray seems to have worsening opacities bilaterally. Patient continues to require FiO2 of 100%. Diuresed well. Pressors have been discontinued Recommendations Neurologic: Continue sedation with Fentanyl, midazolam, and Propofol. NM blockade discontinued. Synchronous with the vent. Pulmonary: Continue lung protective ventilation strategy. Patient with severe ARDS mechanical ventilation day #9. Responded very poorly to proning on 05/08/2021 and was quickly placed supine. Defer any additional proning. BMI excludes any additional interventions such as extracorporeal membrane oxygenati on. This was discussed extensively with the patient's Susan. Continue Dex dosing for late-phase ARDS, Decadron 20 mg x 5 days and 10 mg x 5 days. Continues with ventilation using assist control and still at FiO2 of 100%. Last blood gas 7.4/57/68. Long discussion with Susan. Still not able to consider trach as vent setting are not able to be maximized. Will continue to try to wean vent. Discussed possibility that we may never get to the point of trach unless oxygenation requirements reduce significantly and that by Thursday we may need to discuss withdrawal of care. was tearful but understood that we are doing everything possible. Further discussed Plaquenil and ivermectin as not being an option as they are not FDA approved and that data suggests that they can actually be harmful to COVID patients with advanced ARDs. She was receptive to our discussion. Cardiovascular: Off pressors. Hemodynamically stable currently. Continue Lasix 40 mg IV twice a day. Patient currently negative 5.6 liters Gastrointestinal: Advanced tube feedings with free water flushes. Currently at 50 ml/hr with a goal of 70ml/hr. Continue PPI. Large bowel movement. Continue bowel regimen Renal: Electrolytes stable. K+ 3.6 today. Continue ICU electrolyte replacement protocol. Acid-base status stable. Continue Lasix twice daily. Follow I&Os and maintain negative balance. Post hypercapnic alkalosis better with Diamox. Follow at this point time. Infectious disease: Day #01/19 Zosyn for Pseudomonas. Still febrile. White count remains elevated but stable. Will reculture as patient has fever again today. Hematologic: No significant issues at present. Continue to trend Endocrine: Glycemic control per protocol. Lines and tubes: Internal jugular central line and radial arterial line placed 05/08/2021. Intubated 05/08/2021. BARBY Duffy- Continue use of these lines VTE prophylaxis: Increase Lovenox to 40 mg twice daily CODE STATUS: Full code Disposition: Remain in the ICU I have personally spent 70 minutes of critical care time in the direct management of this patient including discussion with Susan. This is a life/limb threatening event. This includes time spent evaluating patient, direct bedside care, chart review, placing orders, interpretation of diagnostic studies, discussion with consultants, patient, and family members, as well as other required patient management activities. This time is exclusive of all separately billable procedures, and teaching time and separate from and in addition to any other critical care service time. Admission and Anticipated Discharge Date Admission Date: May 05, 2021 Subjective Attending: Dr. Hudson Patient seen and examined in his room. He continues to be ventilated. He still has high FiO2 requirements of 80 - 100%. The patient did have fever today with a T-max of 39 C. He did have a large bowel movement today. He continues on sedation but no neuromuscular blockade. Patient remains supine. No further rolled pronation. Review of Systems Review of Systems: Unobtainable due to endotracheal tube Physical Exam Physical Exam: GENERAL : No acute distress EYES: No icterus, gaze conjugate NOSE: No evidence of epistaxis MOUTH: No lesions or candidiasis NECK: Supple LUNGS: Patient remains mechanically ventilated. He has bibasilar crackles. Very faint expiratory wheezes. HEART: Regular, rate controlled ABDOMEN: Soft, NT, ND, BS Present EXTREMITIES: No LE edema. Legs and feet are cold. Palpable pedal pulses are weak. No cyanosis. No evidence of tissue breakdown. NEURO: A&OX3 Results & Data Results & Data ([facility]) Vital Signs (Past 12 Hours) Vital Signs Temp Pulse Pulse Resp BP BP Pulse Ox 05/16/21 15:20 79 27 H 97 05/16/21 14:00 37.8 C H 18 102/62 95/56 L 96 05/16/21 13:00 37.9 C H 18 105/63 98/56 L 95 05/16/21 12:00 38.1 C H 18 110/63 98/56 L 93 05/16/21 11:14 95 H 25 H 92 05/16/21 11:00 38.5 C H 105 H 18 102/65 92/53 L 91 05/16/21 10:00 38.8 C H 113 H 18 112/74 105/52 L 92 05/16/21 09:00 38.8 C H 116 H 18 115/82 116/56 L 86 L 05/16/21 08:00 38.3 C H 83 93 H 18 128/69 120/55 L 88 L 05/16/21 07:42 92 H 29 H 80 L 05/16/21 07:00 38 C H 89 18 109/72 109/62 86 L 05/16/21 06:00 85 18 89 L 05/16/21 05:30 85 24 90 05/16/21 05:27 80 05/16/21 05:00 83 24 90 05/16/21 04:30 58 L 16 94 05/16/21 04:13 78 25 H 91 05/16/21 04:00 81 19 91 Laboratory Results 05/16/21 05:47 05/16/21 05:47 05/08/21 05/08/21 05/09/21 11:54 19:31 04:39 POC pCO2 56 H 64 H 68 H POC pO2 93 124 H 99 H 05/10/21 05/11/21 05/12/21 04:18 04:42 04:31 POC pCO2 61 H 56 H 50 H POC pO2 75 L 75 L 77 L 05/12/21 05/13/21 05/14/21 09:02 04:49 03:38 POC pCO2 54 H 49 H 53 H POC pO2 75 L 57 L 60 L 05/15/21 05/16/21 03:54 04:12 POC pCO2 53 H 57 H POC pO2 64 L 68 L Critical Care Results & Data Vital Signs (Past 12 Hours) Vital Signs Temp Pulse Pulse Resp BP BP Pulse Ox 05/16/21 15:20 79 27 H 97 05/16/21 14:00 37.8 C H 18 102/62 95/56 L 96 05/16/21 13:00 37.9 C H 18 105/63 98/56 L 95 05/16/21 12:00 38.1 C H 18 110/63 98/56 L 93 05/16/21 11:14 95 H 25 H 92 05/16/21 11:00 38.5 C H 105 H 18 102/65 92/53 L 91 05/16/21 10:00 38.8 C H 113 H 18 112/74 105/52 L 92 05/16/21 09:00 38.8 C H 116 H 18 115/82 116/56 L 86 L 05/16/21 08:00 38.3 C H 83 93 H 18 128/69 120/55 L 88 L 05/16/21 07:42 92 H 29 H 80 L 05/16/21 07:00 38 C H 89 18 109/72 109/62 86 L 05/16/21 06:00 85 18 89 L 05/16/21 05:30 85 24 90 05/16/21 05:27 80 Lab & Micro Results (Past 24 Hours) RBC 4.22 M/uL (4.7-6.1) L 05/16/21 WBC 18.77 K/uL (4.8-10.8) H 05/16/21 Hgb 12.4 g/dL (14.0-18.0) L 05/16/21 Hct 40.6 % (42-52) L 05/16/21 MCV 96.2 fL (80-100) 05/16/21 MCH 29.4 pg (25-34) 05/16/21 MCHC 30.5 g/dL (32-36) L 05/16/21 RDW Standard Deviation 52.1 fL (36.4-46.3) H 05/16/21 RDW Coefficient of Variation 14.7 % (11.5-14.5) H 05/16/21 Plt Count 217 K/uL (130-400) 05/16/21 MPV 11.2 fL (7.4-10.4) H 05/16/21 Na 138 mmol/L (136-145) 05/16/21 K 3.6 mmol/L (3.5-5.1) 05/16/21 Cl 103 mmol/L (98-107) 05/16/21 CO2 29 mmol/L (21-32) 05/16/21 Anion Gap 6.0 (3-11) 05/16/21 BUN 43 mg/dl (7-18) H 05/16/21 Creatinine 0.79 mg/dl (0.6-1.4) 05/16/21 Estimated GFR ( Amer) 119.7 ml/min 05/16/21 Estimated GFR (Non-Af Amer) 103.2 ml/min 05/16/21 BUN/Creatinine Ratio 54.5 (10-20) H 05/16/21 Glu 134 mg/dl (70-99) H 05/16/21 Ca 9.0 mg/dl (8.5-10.1) 05/16/21 Phosphorus Level 2.7 mg/dl (2.5-4.9) 05/16/21 Mg 2.8 mg/dl (1.8-2.4) H 05/16/21 05:47 05/16/21 Calcium Level 9.0 mg/dl (8.5-10.1) 05/16/21 05:47 05/16/21 Rajinder Test NA 05/16/21 04:12 05/16/21 Microbiology 05/16/21 Unknown Gram Stain - Final Sputum,Vent Suction 05/11/21 06:17 Aerobic Blood Culture - Final Blood Coag neg staph not lugdunensis Anaerobic Blood Culture - Final No growth in Anaerobic bottle after 5 days. 05/11/21 07:58 Aerobic Blood Culture - Final Blood No growth in Aerobic bottle after 5 days. Anaerobic Blood Culture - Final No growth in Anaerobic bottle after 5 days. 05/15/21 20:55 Urine Culture - Preliminary Urine,Indwelling Cath No growth - Less than 1,000 colonies/mL, Final report to follow. Diagnostic Findings (Past 24 Hours) Chest X-Ray 05/16/21 07:00 XR chest 1V portable HISTORY: 50 years-old Male Resp failure acute respiratory failure COMPARISON: Chest radiograph 05/15/2021 TECHNIQUE: Portable AP view of the chest FINDINGS: Endotracheal tube overlies the midline, 3.6 cm superior to the juan francisco. Right IJ central venous catheter distal tip overlies the right atrium. Enteric tube courses below the diaphragm with distal tip outside the [id number]. No pneumothorax or large pleural effusion. Extensive bilateral airspace opacities have progressively worsened in the interval. Degenerative changes of the spine and left shoulder. The right lateral costophrenic angle is partially excluded from the [id number]. IMPRESSION: 1. Satisfactory positioning of life-support lines and tubes. 2. Progressively worsened multifocal airspace opacities. 3. No pneumothorax. ACT 112: Negative or not required by law. The above report was generated using voice recognition software. It may contain grammatical, syntax or spelling errors. Electronically signed by: Satish Dowd M.D. 05/16/2021 7:48 AM I & O Totals 24 Hours 05/15/21 05/16/21 05/17/21 06:59 06:59 06:59 Intake Total 3114.247 / 3232.147 2130.966 / 2130.966 760.670 / 760.670 Output Total 3260 / 3260 3850 / 3850 1450 / 1450 Balance -145.753 / -27.853 -1719.034 / -1719.034 -689.330 / -689.330 Cumulative 05/05/21 18:07 thru 05/16/21 16:07 Intake Total 74455.619 Output Total 66113 Balance -5253.381 RT Ventilator Mngmt (Last Documented) Ventilator Ordered Settings Ventilator Support Mode Assist Control 05/16/21 15:20 Respiratory Rate 27 05/16/21 15:20 Ventilator Tidal Volume 420 05/16/21 15:20 Setting Minute Ventilation 8.1 05/16/21 15:20 Ventilator Positive Pressure 18 05/15/21 16:00 Support Setting Positive End Expiratory 14 05/16/21 15:51 Pressure Fraction of Inspired Oxygen 100 05/16/21 15:20 Peak Inspiratory Flow 42 05/13/21 14:59 Machine Comment weaned peep to 14 05/16/21 15:51 Ventilator - PT Measurements Respiratory Rate 27 Exhaled Tidal Volume 497 Minute Ventilation 8.1 Peak Inspiratory Airway 33 Pressure Plateau Pressure 24 Respiratory Cycle Inspiratory: 1:3.8 Expiratory Ratio Inspiratory Phase Time 0.70 End-Tidal CO2 39 Static Lung Compliance 62.13 Dynamic Lung Compliance 29.24 Normal Static Lung Compliance 47.00 Patient Measurements Comment SPO2 91% after increasing peep to 16 Coding Level of Care Code Critical Care 1st 30-74 mins Diagnoses Acute respiratory failure with hypoxia J96.01 Pneumonia due to COVID-19 virus U07.1; J12.82 ARDS (adult respiratory distress syndrome) J80 SUDHIR (obstructive sleep apnea) G47.33 Morbid obesity E66.01 Time Spent (min) 70
--- NOTE | 2021-05-16 17:02 | Hospitalist Progress Note ---
Date of Service May 16, 2021 Assessment & Plan (1) Acute respiratory failure with hypoxia: Plan: Secondary to COVID-19 virus infection (2) Pneumonia due to COVID-19 virus: Plan: Acute respiratory failure with hypoxia ARDS Pneumonia due to COVID-19 H/O SUDHIR --CXR:Extensive patchy interstitial and alveolar opacities bilaterally characteristic of a viral type pneumonitis and probable Covid 19 pneumonia. -Intubated on 05/08/21 -Appreciate Critical Care Input -CRP:8.49> 5.20 Desaturated with proning Not a candidate for ECMO given his BMI as per Critical Care, [facility] [place] Completed 5 day Remdesivir course Continue dexamethasone course Received Cefepime >> Zosyn weaned off of Nimbex lasix drip>> transition to Lasix 40mg TID> Lasix PRN on Lovenox for DVT Prophylaxis On propofol, Versed and fentanyl Vent management as per Critical Care 06/09 Blood Cx coagulase-negative staph Sputum culture grew Pseudomonas - cont. Zosyn Chest x-ray today 05/15- No significant interval change in interstitial and alveolar opacities bilaterally. There is also evidence for small left pleural effusion and left basilar atelectasis. 05/16 - Continues with ventilation using assist control and still at FiO2 of 100%. Still not able to consider trach. Will continue to try to wean vent. Pulmonary medicine discussed possibility w/ pt's that we may never get to the point of trach unless oxygenation requirements reduce significantly and that by Thursday we may need to discuss withdrawal of care. (3) Hypertension: Plan: Monitor (4) SUDHIR (obstructive sleep apnea): Plan: Morbidly obese BMI: 58 Was on CPAP (5) Hyperlipidemia: Plan: Continue statin DVT prophylaxis Lovenox CODE STATUS Full Admission and Anticipated Discharge Date Admission Date: May 05, 2021 Subjective Patient is seen in follow up of COVID pna, ARDS Remains Intubated, sedated Febrile On tube feeds on zosyn for pseudomonas pna, and steroid for ards Pulmonary medicine following closely Review of Systems Review of Systems: Unobtainable due to cognitive status and Unobtainable due to endotracheal tube Physical Exam Physical Exam: General Appearance:Morbidly Obese M, Sedated and Intubated Head: normocephalic, Atraumatic Eyes: normal inspection Respiratory/Chest: +decreased breath sounds, +crackles Cardiovascular: S1, S2, No murmur Abdomen/GI:Soft, obese, Bowel sounds present Extremities/Musculoskeletal:normal inspection, no edema Neurologic/Psych:Sedated and Intubated Skin: normal color, warm Results & Data Results & Data ([facility]) Vital Signs (Past 12 Hours) Vital Signs Temp Pulse Pulse Resp BP BP Pulse Ox 05/16/21 15:20 79 27 H 97 05/16/21 14:00 37.8 C H 18 102/62 95/56 L 96 05/16/21 13:00 37.9 C H 18 105/63 98/56 L 95 05/16/21 12:00 38.1 C H 18 110/63 98/56 L 93 05/16/21 11:14 95 H 25 H 92 05/16/21 11:00 38.5 C H 105 H 18 102/65 92/53 L 91 05/16/21 10:00 38.8 C H 113 H 18 112/74 105/52 L 92 05/16/21 09:00 38.8 C H 116 H 18 115/82 116/56 L 86 L 05/16/21 08:00 38.3 C H 83 93 H 18 128/69 120/55 L 88 L 05/16/21 07:42 92 H 29 H 80 L 05/16/21 07:00 38 C H 89 18 109/72 109/62 86 L 05/16/21 06:00 85 18 89 L 05/16/21 05:30 85 24 90 05/16/21 05:27 80 Laboratory Results 05/16/21 05/16/21 05/16/21 Range/Units 16:17 11:38 07:26 WBC (4.8-10.8) K/uL RBC (4.7-6.1) M/uL Hgb (14.0-18.0) g/dL Hct (42-52) % MCV (80-100) fL MCH (25-34) pg MCHC (32-36) g/dL RDW Std Deviation (36.4-46.3) fL RDW Coeff of Samia (11.5-14.5) % Plt Count (130-400) K/uL MPV (7.4-10.4) fL Sample Site POC pH (7.35-7.45) POC pCO2 (35-46) mmHg POC pO2 (80-95) mmHg POC HCO3 (19-24) jovanna/L POC Total CO2 (24-31) mmol/L POC Base Excess (-9-1.8) jovanna/L POC ABG O2 Sat (90-95) % Rajinder Test O2 Delivery Device POC O2 Rate POC FiO2 % Tidal Volume PEEP Sodium (136-145) mmol/L Potassium (3.5-5.1) mmol/L Chloride (98-107) mmol/L Carbon Dioxide (21-32) mmol/L Anion Gap (3-11) BUN (7-18) mg/dl Creatinine (0.6-1.4) mg/dl Est Cr Clr Drug Dosing ml/min Est GFR ( Amer) ml/min Est GFR (Non-Af Amer) ml/min BUN/Creatinine Ratio (10-20) Glucose (70-99) mg/dl POC Glucose 193 H 135 H 115 H (70-99) mg/dl Calcium (8.5-10.1) mg/dl Phosphorus (2.5-4.9) mg/dl Magnesium (1.8-2.4) mg/dl 05/16/21 05/16/21 05/16/21 Range/Units 05:47 05:47 04:12 WBC 18.77 H (4.8-10.8) K/uL RBC 4.22 L (4.7-6.1) M/uL Hgb 12.4 L (14.0-18.0) g/dL Hct 40.6 L (42-52) % MCV 96.2 (80-100) fL MCH 29.4 (25-34) pg MCHC 30.5 L (32-36) g/dL RDW Std Deviation 52.1 H (36.4-46.3) fL RDW Coeff of Samia 14.7 H (11.5-14.5) % Plt Count 217 (130-400) K/uL MPV 11.2 H (7.4-10.4) fL Sample Site Art Line POC pH 7.40 (7.35-7.45) POC pCO2 57 H (35-46) mmHg POC pO2 68 L (80-95) mmHg POC HCO3 35 H (19-24) jovanna/L POC Total CO2 37 H (24-31) mmol/L POC Base Excess 11.0 H (-9-1.8) jovanna/L POC ABG O2 Sat 93.0 (90-95) % Rajinder Test NA O2 Delivery Device Ventilator POC O2 Rate 18 POC FiO2 65 % Tidal Volume 420 PEEP 14 Sodium 138 (136-145) mmol/L Potassium 3.6 (3.5-5.1) mmol/L Chloride 103 (98-107) mmol/L Carbon Dioxide 29 (21-32) mmol/L Anion Gap 6.0 (3-11) BUN 43 H (7-18) mg/dl Creatinine 0.79 (0.6-1.4) mg/dl Est Cr Clr Drug Dosing 172.8 ml/min Est GFR ( Amer) 119.7 ml/min Est GFR (Non-Af Amer) 103.2 ml/min BUN/Creatinine Ratio 54.5 H (10-20) Glucose 134 H (70-99) mg/dl POC Glucose (70-99) mg/dl Calcium 9.0 (8.5-10.1) mg/dl Phosphorus 2.7 (2.5-4.9) mg/dl Magnesium 2.8 H (1.8-2.4) mg/dl 05/16/21 05/15/21 05/15/21 Range/Units 04:07 23:47 20:19 WBC (4.8-10.8) K/uL RBC (4.7-6.1) M/uL Hgb (14.0-18.0) g/dL Hct (42-52) % MCV (80-100) fL MCH (25-34) pg MCHC (32-36) g/dL RDW Std Deviation (36.4-46.3) fL RDW Coeff of Samia (11.5-14.5) % Plt Count (130-400) K/uL MPV (7.4-10.4) fL Sample Site POC pH (7.35-7.45) POC pCO2 (35-46) mmHg POC pO2 (80-95) mmHg POC HCO3 (19-24) jovanna/L POC Total CO2 (24-31) mmol/L POC Base Excess (-9-1.8) jovanna/L POC ABG O2 Sat (90-95) % Rajinder Test O2 Delivery Device POC O2 Rate POC FiO2 % Tidal Volume PEEP Sodium (136-145) mmol/L Potassium (3.5-5.1) mmol/L Chloride (98-107) mmol/L Carbon Dioxide (21-32) mmol/L Anion Gap (3-11) BUN (7-18) mg/dl Creatinine (0.6-1.4) mg/dl Est Cr Clr Drug Dosing ml/min Est GFR ( Amer) ml/min Est GFR (Non-Af Amer) ml/min BUN/Creatinine Ratio (10-20) Glucose (70-99) mg/dl POC Glucose 111 H 138 H 138 H (70-99) mg/dl Calcium (8.5-10.1) mg/dl Phosphorus (2.5-4.9) mg/dl Magnesium (1.8-2.4) mg/dl Medications Administered Current Inpatient Medications Acetaminophen (Acetaminophen Susp 160 Mg/5 Ml Udc) 480 mg PO Q6H PRN PRN Reason: Fever Stop: 06/10/21 12:20 Last Admin: 05/15/21 23:11 Dose: 480 mg Documented by: Amlodipine Besylate (Amlodipine Besylate 5 Mg Tab) 5 mg PO DAILY [facility] Stop: 06/05/21 08:59 Last Admin: 05/08/21 12:17 Dose: Not Given Documented by: Atorvastatin Calcium (Atorvastatin 20 Mg Tab) 20 mg PO DAILY [facility] Stop: 06/05/21 08:59 Last Admin: 05/16/21 07:52 Dose: 20 mg Documented by: Bisacodyl (Bisacodyl 10 Mg Supp) 10 mg IA DAILY PRN PRN Reason: Constipation- No BM >3 days Stop: 06/10/21 09:02 Last Admin: 05/12/21 15:07 Dose: 10 mg Documented by: Enoxaparin Sodium (Enoxaparin Inj 40 Mg/0.4 Ml Syr) 40 mg SQ BID [facility] Stop: 06/15/21 20:59 Fentanyl Citrate (Fentanyl Bolus From Bag) 50 mcg IV Q60M PRN PRN Reason: Pain or Agitation Stop: 05/22/21 11:44 Last Admin: 05/10/21 21:34 Dose: 50 mcg Documented by: Furosemide (Furosemide 40 Mg/4 Ml Vial) 40 mg IV BID NATAL[facility] Stop: 06/13/21 20:59 Last Admin: 05/16/21 08:08 Dose: 40 mg Documented by: Fentanyl Citrate (Fentanyl Drip) 1,250 mcg in 250 mls @ 30 mls/hr IV .Q8H20M [facility]ALIA; Protocol Stop: 05/22/21 11:44 Last Admin: 05/16/21 10:50 Dose: 150 mcg/hr, 30 mls/hr Documented by: Dexamethasone 10 mg/ Syringe 2.5 mls @ 1 mls/min IV Q24H [facility] Stop: 05/17/21 09:03 Last Admin: 05/16/21 07:54 Dose: 1 mls/min Documented by: Midazolam HCl (Versed) 125 mg in 250 mls @ 4 mls/hr IV .[id number] [facility]; Protocol Stop: 06/07/21 12:59 Last Admin: 05/16/21 10:50 Dose: 2 mg/hr, 4 mls/hr Documented by: Pantoprazole Sodium 40 mg/ (Syringe) 10 mls @ 5 mls/min IV DAILY@1100 [facility] Stop: 06/08/21 10:59 Last Admin: 05/16/21 10:51 Dose: 5 mls/min Documented by: Norepinephrine Bitartrate (Levophed/D5w) 8 mg in 508 mls @ 19.66 mls/hr IV .Q24H [facility]; Protocol Stop: 06/08/21 11:14 Last Titration: 05/15/21 23:41 Dose: Infused Documented by: Piperacillin Sod/Tazobactam (Sod 4.5 gm/ Dextrose) 120 mls @ 30 mls/hr IV Q8H [facility]; Protocol Stop: 05/25/21 19:59 Last Infusion: 05/16/21 15:41 Dose: Infused Documented by: Propofol (Diprivan) 1,000 mg in 100 mls @ 21.12 mls/hr IV .Q4H45M [facility]; Protocol Stop: 05/17/21 14:44 Last Admin: 05/16/21 15:47 Dose: Not Given Documented by: Acetazolamide 500 mg/ Syringe 5 mls @ 5 mls/min IV DAILY [facility] Stop: 05/16/21 17:29 Last Admin: 05/16/21 07:52 Dose: 5 mls/min Documented by: Insulin Aspart (Insulin Aspart 100 Units/Ml Vial) 0 units SC Q4 [facility] Stop: 06/11/21 19:59 Last Admin: 05/16/21 12:31 Dose: 5 units Documented by: Insulin Human NPH (Insulin Human Nph) 0 units SC DAILY@2100 [facility]; Protocol Stop: 06/11/21 20:59 Last Admin: 05/15/21 20:30 Dose: 8 units Documented by: Insulin Human NPH (Insulin Human Nph) 35 units SC QAM [facility] Stop: 06/15/21 08:59 Last Admin: 05/16/21 08:00 Dose: 35 units Documented by: Levalbuterol HCl (Levalbuterol Hcl 1.25 Mg/3 Ml Neb) 1.25 mg NEB Q4H PRN PRN Reason: Shortness Of Breath Or Wheezing Stop: 06/04/21 23:27 Magnesium Hydroxide (Magnesium Hydroxide Susp 30 Ml Udc) 30 ml PO Q12 [facility] Stop: 06/11/21 20:59 Last Admin: 05/16/21 07:56 Dose: Not Given Documented by: Midazolam HCl (Midazolam Bolus From Bag) 2 mg IV Q60M PRN PRN Reason: Sedation Stop: 06/07/21 12:56 Miscellaneous (Icu Electrolyte Replacement Protocol) 1 ea N/A BID@06,18 [facility]; Protocol Stop: 05/21/21 17:59 Last Admin: 05/16/21 10:01 Dose: 1 ea Documented by: Miscellaneous Information (Pharmacy Glycemic Mgmt Consult) 1 ea N/A UD PRN PRN Reason: Consult Stop: 06/08/21 12:37 Miscellaneous Information (Piperacill/Tazobac Consult Active) 1 ea N/A UD PRN PRN Reason: Consult Stop: 06/10/21 12:27 Multi-Ingredient Cream (Artificial Tears Op Oint 3.5 Gm Tube) 1 appln OP Q4H [facility] Stop: 06/09/21 17:59 Last Admin: 05/16/21 14:32 Dose: 1 appln Documented by: Nitroglycerin (Nitroglycerin Sl 0.4 Mg/Tab Tab) 0.4 mg SL UD PRN PRN Reason: Chest Pain Stop: 06/04/21 23:27 Nutritional Formula (Peptamen Intense Vhp 1.0 Quentin 1,000 Ml Bag) 1,000 ml GT CONT [facility]; Protocol Stop: 06/09/21 10:29 Last Admin: 05/16/21 14:32 Dose: 1,000 ml Documented by: Polyethylene Glycol (Polyethylene (Miralax) 17 Gm Pack) 17 gm PO DAILY PRN PRN Reason: Constipation Stop: 06/04/21 23:27 Polyethylene Glycol (Polyethylene (Miralax) 17 Gm Pack) 17 gm PO QAM [facility] Stop: 06/09/21 08:59 Last Admin: 05/16/21 07:56 Dose: Not Given Documented by: Propofol (Propofol Bolus From Bag) 20 mg IV Q5M PRN PRN Reason: Sedation Stop: 05/17/21 14:42 Senna/Docusate Sodium (Docusate Sodium/Senna 50/8.6mg Tab) 1 tab PO BID [facility] Stop: 06/10/21 08:59 Last Admin: 05/16/21 08:01 Dose: Not Given Documented by: Sterile Water (Tube Feeding Water Flush) 60 ml GT Q4H [facility] Stop: 06/11/21 11:29 Last Admin: 05/16/21 14:32 Dose: 60 ml Documented by:
[2021-05-17] MEDS: ARTIFICIAL TEARS OP OINT 3.5 GM TUBE OP SCH ×3 (02:27→09:07)
[2021-05-17] MEDS: propofoL 1,000 MG/100 ML VIAL IV SCH ×5 (02:37→19:28)
[2021-05-17] MEDS: TUBE FEEDING WATER FLUSH GT SCH ×6 (04:09→23:49)
[2021-05-17] MEDS: INSULIN ASPART 100 UNITS/ML VIAL SC SCH ×5 (04:10→21:21)
[2021-05-17] MEDS: fentaNYL DRIP 1,250 MCG/250 ML BAG IV SCH ×3 (04:11→21:36)
[2021-05-17] MEDS: PIPERACILLIN/TAZOBACTAM 4.5 GM in DEXTROSE 5% 100 ML IV SCH ×3 (04:11→21:19)
[2021-05-17 04:30] LABS: iSTAT Arterial Blood Gas HCO3 33 meg/L (19-24); iSTAT Arterial Blood Gas pCO2 57 mmHg (35-46); iSTAT Arterial Blood Gas pH 7.37 (7.35-7.45); iSTAT Arterial Blood Gas pO2 66 mmHg (80-95); iSTAT Carbon Dioxide 35 mmol/L (24-31); iSTAT FiO2 80 %; iSTAT Site Art Line
[2021-05-17 06:42] LABS: Hematocrit (blood only) 37.4 % (42-52); Hemoglobin 11.4 g/dL (14.0-18.0); Mean Corpuscular Hemoglobin 29.2 pg (25-34); Mean Corpuscular Hgb Conc 30.5 g/dL (32-36); Mean Corpuscular Volume 95.9 fL (80-100); Platelet Count 228 K/uL (130-400); RDW Coefficient of Variation 14.6 % (11.5-14.5); RDW Standard Deviation 51.4 fL (36.4-46.3); White Blood Count 21.87 K/uL (4.8-10.8)
[2021-05-17 07:17] LABS: ALC (manual) 0.57 K/uL (1.2-3.4); ANC (manual) 19.77 K/uL (1.4-6.5); Eosinophils % (manual) 0.9 %; Lymphocytes # (manual) 0.57 K/uL (1.2-3.4); Lymphocytes % (manual) 2.6 %; Metamyelocytes % (manual) 0.9 %; Monocytes # (manual) 0.57 K/uL (0.11-0.59); Monocytes % (manual) 2.6 %; Myelocytes # (manual) 0.57 K/uL (0-0); Myelocytes % (manual) 2.6 %; Neutrophils # (manual) 19.77 K/uL (1.4-6.5); Neutrophils % (manual) 90.4 %
[2021-05-17 07:23] LABS: BUN Creatinine Ratio 56.9 (10-20); Calcium 8.9 mg/dl (8.5-10.1); Creatinine Clr Calc Pharmacy 176.1 ml/min; Est GFR (African American) 120.9 ml/min; Est GFR (Non-African American) 104.3 ml/min; Magnesium 2.6 mg/dl (1.8-2.4); Phosphorus 2.3 mg/dl (2.5-4.9); Potassium 3.5 mmol/L (3.5-5.1)
--- NOTE | 2021-05-17 08:03 | Hospitalist Progress Note ---
Date of Service May 17, 2021 Assessment & Plan (1) Acute respiratory failure with hypoxia: Plan: Secondary to COVID-19 virus infection (2) Pneumonia due to COVID-19 virus: Plan: Acute respiratory failure with hypoxia ARDS Pneumonia due to COVID-19 H/O SUDHIR --CXR:Extensive patchy interstitial and alveolar opacities bilaterally characteristic of a viral type pneumonitis and probable Covid 19 pneumonia. -Intubated on 05/08/21 -Appreciate Critical Care Input -CRP:8.49> 5.20 Desaturated with proning Not a candidate for ECMO given his BMI as per Critical Care[place] [facility] [place] 5 day Remdesivir course Continue dexamethasone course Received Cefepime >> Zosyn weaned off of Nimbex lasix drip>> transition to Lasix 40mg TID> Lasix PRN on Lovenox for DVT Prophylaxis On propofol, Versed and fentanyl Vent management as per Critical Care 06/09 Blood Cx coagulase-negative staph Sputum culture grew Pseudomonas - cont. Zosyn Chest x-ray today 05/15- No significant interval change in interstitial and alveolar opacities bilaterally. There is also evidence for small left pleural effusion and left basilar atelectasis. 05/16 - Continues with ventilation using assist control and still at FiO2 of 100%. Still not able to consider trach. Will continue to try to wean vent. Pulmonary medicine discussed possibility w/ pt's that we may never get to the point of trach unless oxygenation requirements reduce significantly and that by Thursday we may need to discuss withdrawal of care. (3) Hypertension: Plan: Monitor (4) SUDHIR (obstructive sleep apnea): Plan: Morbidly obese BMI: 58 Was on CPAP (5) Hyperlipidemia: Plan: Continue statin DVT prophylaxis: Lovenox CODE STATUS: Full Admission and Anticipated Discharge Date Admission Date: May 05, 2021 Subjective Patient is seen in follow up of COVID pna, ARDS Remains Intubated, sedated Febrile On tube feeds on zosyn for pseudomonas pna, and steroid for ards Pulmonary medicine following closely Review of Systems Review of Systems: Unobtainable due to cognitive status and Unobtainable due to endotracheal tube Physical Exam Physical Exam: General Appearance:Morbidly Obese M, Sedated and Intubated Head: normocephalic, Atraumatic Eyes: normal inspection Respiratory/Chest: +decreased breath sounds, +crackles Cardiovascular: S1, S2, No murmur Abdomen/GI:Soft, obese, Bowel sounds present Extremities/Musculoskeletal:normal inspection, no edema Neurologic/Psych:Sedated and Intubated Skin: normal color, warm Results & Data Results & Data ([facility]) Vital Signs (Past 12 Hours) Vital Signs Temp Pulse Resp BP Pulse Ox 05/17/21 07:00 37.6 C H 88 27 H 109/57 L 90 05/17/21 06:30 76 19 92 05/17/21 06:27 73 26 H 92 05/17/21 06:00 73 14 92 05/17/21 05:30 73 91 05/17/21 05:00 76 19 98/72 L 91 05/17/21 04:30 83 17 91 05/17/21 04:00 83 91 05/17/21 03:50 83 29 H 91 05/17/21 03:30 83 19 91 05/17/21 03:00 70 17 93 05/17/21 02:38 74 05/17/21 02:30 71 93 05/17/21 02:00 72 16 93 05/17/21 01:30 75 16 114/63 93 05/17/21 01:00 73 17 98/67 L 93 05/17/21 00:30 74 14 93 05/17/21 00:00 69 94 05/16/21 23:30 74 16 92 05/16/21 23:00 74 107/67 91 05/16/21 22:55 73 27 H 93 05/16/21 22:30 72 16 112/66 93 05/16/21 22:00 72 17 92 05/16/21 21:30 74 16 92 05/16/21 21:00 70 15 94 05/16/21 20:30 72 18 93 05/16/21 20:02 70 27 H 96 Laboratory Results 05/17/21 05/17/21 05/17/21 Range/Units 07:51 06:13 06:13 WBC 21.87 H (4.8-10.8) K/uL RBC 3.90 L (4.7-6.1) M/uL Hgb 11.4 L (14.0-18.0) g/dL Hct 37.4 L (42-52) % MCV 95.9 (80-100) fL MCH 29.2 (25-34) pg MCHC 30.5 L (32-36) g/dL RDW Std Deviation 51.4 H (36.4-46.3) fL RDW Coeff of Samia 14.6 H (11.5-14.5) % Plt Count 228 (130-400) K/uL MPV 11.0 H (7.4-10.4) fL Neutrophils % (Manual) 90.4 % Lymphocytes % (Manual) 2.6 % Monocytes % (Manual) 2.6 % Eosinophils % (Manual) 0.9 % Metamyelocytes % (Man) 0.9 % Myelocytes % (Man) 2.6 % Neutrophils # (Manual) 19.77 H (1.4-6.5) K/uL Total Absolute Neuts 19.77 H (1.4-6.5) K/uL Lymphocytes # (Manual) 0.57 L (1.2-3.4) K/uL Total Abs Lymphocytes 0.57 L (1.2-3.4) K/uL Monocytes # (Manual) 0.57 (0.11-0.59) K/uL Eosinophils # (Manual) 0.20 (0-0.5) K/uL Metamyelocytes # (Man) 0.20 H (0-0) K/uL Myelocytes # (Manual) 0.57 H (0-0) K/uL Sample Site POC pH (7.35-7.45) POC pCO2 (35-46) mmHg POC pO2 (80-95) mmHg POC HCO3 (19-24) jovanna/L POC Total CO2 (24-31) mmol/L POC Base Excess (-9-1.8) jovanna/L POC ABG O2 Sat (90-95) % Rajinder Test O2 Delivery Device POC O2 Rate POC FiO2 % Tidal Volume PEEP Sodium 141 (136-145) mmol/L Potassium 3.5 (3.5-5.1) mmol/L Chloride 103 (98-107) mmol/L Carbon Dioxide 33 H (21-32) mmol/L Anion Gap 5.0 (3-11) BUN 44 H (7-18) mg/dl Creatinine 0.77 (0.6-1.4) mg/dl Est Cr Clr Drug Dosing 176.1 ml/min Est GFR ( Amer) 120.9 ml/min Est GFR (Non-Af Amer) 104.3 ml/min BUN/Creatinine Ratio 56.9 H (10-20) Glucose 122 H (70-99) mg/dl POC Glucose 127 H (70-99) mg/dl Calcium 8.9 (8.5-10.1) mg/dl Phosphorus 2.3 L (2.5-4.9) mg/dl Magnesium 2.6 H (1.8-2.4) mg/dl 05/17/21 05/17/21 05/16/21 Range/Units 04:17 04:03 23:35 WBC (4.8-10.8) K/uL RBC (4.7-6.1) M/uL Hgb (14.0-18.0) g/dL Hct (42-52) % MCV (80-100) fL MCH (25-34) pg MCHC (32-36) g/dL RDW Std Deviation (36.4-46.3) fL RDW Coeff of Samia (11.5-14.5) % Plt Count (130-400) K/uL MPV (7.4-10.4) fL Neutrophils % (Manual) % Lymphocytes % (Manual) % Monocytes % (Manual) % Eosinophils % (Manual) % Metamyelocytes % (Man) % Myelocytes % (Man) % Neutrophils # (Manual) (1.4-6.5) K/uL Total Absolute Neuts (1.4-6.5) K/uL Lymphocytes # (Manual) (1.2-3.4) K/uL Total Abs Lymphocytes (1.2-3.4) K/uL Monocytes # (Manual) (0.11-0.59) K/uL Eosinophils # (Manual) (0-0.5) K/uL Metamyelocytes # (Man) (0-0) K/uL Myelocytes # (Manual) (0-0) K/uL Sample Site Art Line POC pH 7.37 (7.35-7.45) POC pCO2 57 H (35-46) mmHg POC pO2 66 L (80-95) mmHg POC HCO3 33 H (19-24) jovanna/L POC Total CO2 35 H (24-31) mmol/L POC Base Excess 8.0 H (-9-1.8) jovnana/L POC ABG O2 Sat 91.0 (90-95) % Rajinder Test NA O2 Delivery Device Ventilator POC O2 Rate 18 POC FiO2 80 % Tidal Volume 420 PEEP 14 Sodium (136-145) mmol/L Potassium (3.5-5.1) mmol/L Chloride (98-107) mmol/L Carbon Dioxide (21-32) mmol/L Anion Gap (3-11) BUN (7-18) mg/dl Creatinine (0.6-1.4) mg/dl Est Cr Clr Drug Dosing ml/min Est GFR ( Amer) ml/min Est GFR (Non-Af Amer) ml/min BUN/Creatinine Ratio (10-20) Glucose (70-99) mg/dl POC Glucose 120 H 119 H (70-99) mg/dl Calcium (8.5-10.1) mg/dl Phosphorus (2.5-4.9) mg/dl Magnesium (1.8-2.4) mg/dl 05/16/21 05/16/21 05/16/21 Range/Units 20:13 16:17 11:38 WBC (4.8-10.8) K/uL RBC (4.7-6.1) M/uL Hgb (14.0-18.0) g/dL Hct (42-52) % MCV (80-100) fL MCH (25-34) pg MCHC (32-36) g/dL RDW Std Deviation (36.4-46.3) fL RDW Coeff of Samia (11.5-14.5) % Plt Count (130-400) K/uL MPV (7.4-10.4) fL Neutrophils % (Manual) % Lymphocytes % (Manual) % Monocytes % (Manual) % Eosinophils % (Manual) % Metamyelocytes % (Man) % Myelocytes % (Man) % Neutrophils # (Manual) (1.4-6.5) K/uL Total Absolute Neuts (1.4-6.5) K/uL Lymphocytes # (Manual) (1.2-3.4) K/uL Total Abs Lymphocytes (1.2-3.4) K/uL Monocytes # (Manual) (0.11-0.59) K/uL Eosinophils # (Manual) (0-0.5) K/uL Metamyelocytes # (Man) (0-0) K/uL Myelocytes # (Manual) (0-0) K/uL Sample Site POC pH (7.35-7.45) POC pCO2 (35-46) mmHg POC pO2 (80-95) mmHg POC HCO3 (19-24) jovanna/L POC Total CO2 (24-31) mmol/L POC Base Excess (-9-1.8) jovanna/L POC ABG O2 Sat (90-95) % Rajinder Test O2 Delivery Device POC O2 Rate POC FiO2 % Tidal Volume PEEP Sodium (136-145) mmol/L Potassium (3.5-5.1) mmol/L Chloride (98-107) mmol/L Carbon Dioxide (21-32) mmol/L Anion Gap (3-11) BUN (7-18) mg/dl Creatinine (0.6-1.4) mg/dl Est Cr Clr Drug Dosing ml/min Est GFR ( Amer) ml/min Est GFR (Non-Af Amer) ml/min BUN/Creatinine Ratio (10-20) Glucose (70-99) mg/dl POC Glucose 144 H 193 H 135 H (70-99) mg/dl Calcium (8.5-10.1) mg/dl Phosphorus (2.5-4.9) mg/dl Magnesium (1.8-2.4) mg/dl Medications Administered Current Inpatient Medications Acetaminophen (Acetaminophen Susp 160 Mg/5 Ml Udc) 480 mg PO Q6H PRN PRN Reason: Fever Stop: 06/10/21 12:20 Last Admin: 05/15/21 23:11 Dose: 480 mg Documented by: Amlodipine Besylate (Amlodipine Besylate 5 Mg Tab) 5 mg PO DAILY [facility] Stop: 06/05/21 08:59 Last Admin: 05/08/21 12:17 Dose: Not Given Documented by: Atorvastatin Calcium (Atorvastatin 20 Mg Tab) 20 mg PO DAILY [facility] Stop: 06/05/21 08:59 Last Admin: 05/16/21 07:52 Dose: 20 mg Documented by: Bisacodyl (Bisacodyl 10 Mg Supp) 10 mg NM DAILY PRN PRN Reason: Constipation- No BM >3 days Stop: 06/10/21 09:02 Last Admin: 05/12/21 15:07 Dose: 10 mg Documented by: Enoxaparin Sodium (Enoxaparin Inj 40 Mg/0.4 Ml Syr) 40 mg SQ BID [facility] Stop: 06/15/21 20:59 Last Admin: 05/16/21 20:31 Dose: 40 mg Documented by: Fentanyl Citrate (Fentanyl Bolus From Bag) 50 mcg IV Q60M PRN PRN Reason: Pain or Agitation Stop: 05/22/21 11:44 Last Admin: 05/10/21 21:34 Dose: 50 mcg Documented by: Furosemide (Furosemide 40 Mg/4 Ml Vial) 40 mg IV BID [facility] Stop: 06/13/21 20:59 Last Admin: 05/16/21 20:38 Dose: 40 mg Documented by: Fentanyl Citrate (Fentanyl Drip) 1,250 mcg in 250 mls @ 30 mls/hr IV .Q8H20M [facility]; Protocol Stop: 05/22/21 11:44 Last Titration: 05/17/21 06:56 Dose: 150 mcg/hr, 30 mls/hr Documented by: Dexamethasone 10 mg/ Syringe 2.5 mls @ 1 mls/min IV Q24H [facility] Stop: 05/17/21 09:03 Last Admin: 05/16/21 07:54 Dose: 1 mls/min Documented by: Midazolam HCl (Versed) 125 mg in 250 mls @ 4 mls/hr IV .[id number] [facility]; Protocol Stop: 06/07/21 12:59 Last Titration: 05/17/21 06:56 Dose: 2 mg/hr, 4 mls/hr Documented by: Pantoprazole Sodium 40 mg/ (Syringe) 10 mls @ 5 mls/min IV DAILY@1100 [facility] Stop: 06/08/21 10:59 Last Admin: 05/16/21 10:51 Dose: 5 mls/min Documented by: Norepinephrine Bitartrate (Levophed/D5w) 8 mg in 508 mls @ 19.66 mls/hr IV .Q24H [facility]; Protocol Stop: 06/08/21 11:14 Last Titration: 05/15/21 23:41 Dose: Infused Documented by: Piperacillin Sod/Tazobactam (Sod 4.5 gm/ Dextrose) 120 mls @ 30 mls/hr IV Q8H [facility]; Protocol Stop: 05/25/21 19:59 Last Admin: 05/17/21 04:11 Dose: 30 mls/hr Documented by: Propofol (Diprivan) 1,000 mg in 100 mls @ 21.12 mls/hr IV .Q4H45M [facility]; Protocol Stop: 05/17/21 14:44 Last Titration: 05/17/21 06:56 Dose: 20 mcg/kg/min, 21.1 mls/hr Documented by: Insulin Aspart (Insulin Aspart 100 Units/Ml Vial) 0 units SC Q4 [facility] Stop: 06/11/21 19:59 Last Admin: 05/17/21 04:10 Dose: 7 units Documented by: Insulin Human NPH (Insulin Human Nph) 0 units SC DAILY@2100 [facility]; Protocol Stop: 06/11/21 20:59 Last Admin: 05/16/21 20:22 Dose: 4 units Documented by: Insulin Human NPH (Insulin Human Nph) 35 units SC QAM [facility] Stop: 06/15/21 08:59 Last Admin: 05/16/21 08:00 Dose: 35 units Documented by: Levalbuterol HCl (Levalbuterol Hcl 1.25 Mg/3 Ml Neb) 1.25 mg NEB Q4H PRN PRN Reason: Shortness Of Breath Or Wheezing Stop: 06/04/21 23:27 Magnesium Hydroxide (Magnesium Hydroxide Susp 30 Ml Udc) 30 ml PO Q12 [facility] Stop: 06/11/21 20:59 Last Admin: 05/16/21 20:30 Dose: 30 ml Documented by: Midazolam HCl (Midazolam Bolus From Bag) 2 mg IV Q60M PRN PRN Reason: Sedation Stop: 06/07/21 12:56 Miscellaneous (Icu Electrolyte Replacement Protocol) 1 ea N/A BID@06,18 [facility]; Protocol Stop: 05/21/21 17:59 Last Admin: 05/16/21 17:13 Dose: Not Given Documented by: Miscellaneous Information (Pharmacy Glycemic Mgmt Consult) 1 ea N/A UD PRN PRN Reason: Consult Stop: 06/08/21 12:37 Miscellaneous Information (Piperacill/Tazobac Consult Active) 1 ea N/A UD PRN PRN Reason: Consult Stop: 06/10/21 12:27 Multi-Ingredient Cream (Artificial Tears Op Oint 3.5 Gm Tube) 1 appln OP Q4H [facility] Stop: 06/09/21 17:59 Last Admin: 05/17/21 06:39 Dose: 1 appln Documented by: Nitroglycerin (Nitroglycerin Sl 0.4 Mg/Tab Tab) 0.4 mg SL UD PRN PRN Reason: Chest Pain Stop: 06/04/21 23:27 Nutritional Formula (Peptamen Intense Vhp 1.0 Quentin 1,000 Ml Bag) 1,000 ml GT CONT [facility]; Protocol Stop: 06/09/21 10:29 Last Admin: 05/16/21 14:32 Dose: 1,000 ml Documented by: Polyethylene Glycol (Polyethylene (Miralax) 17 Gm Pack) 17 gm PO DAILY PRN PRN Reason: Constipation Stop: 06/04/21 23:27 Polyethylene Glycol (Polyethylene (Miralax) 17 Gm Pack) 17 gm PO QAM [facility] Stop: 06/09/21 08:59 Last Admin: 05/16/21 07:56 Dose: Not Given Documented by: Propofol (Propofol Bolus From Bag) 20 mg IV Q5M PRN PRN Reason: Sedation Stop: 05/17/21 14:42 Senna/Docusate Sodium (Docusate Sodium/Senna 50/8.6mg Tab) 1 tab PO BID [facility] Stop: 06/10/21 08:59 Last Admin: 05/16/21 20:32 Dose: Not Given Documented by: Sterile Water (Tube Feeding Water Flush) 60 ml GT Q4H [facility] Stop: 06/11/21 11:29 Last Admin: 05/17/21 04:09 Dose: 60 ml Documented by:
[2021-05-17] MEDS ORDERED: SODIUM PHOSPHATE 3 MMOL/1 ML INFUSION IV STA (08:06)
[2021-05-17] MEDS: ICU ELECTROLYTE REPLACEMENT PROTOCOL SCH ×2 (08:20→17:09)
[2021-05-17] MEDS: DOCUSATE SODIUM/SENNA 50/8.6MG TAB PO SCH ×2 (08:21→21:20)
[2021-05-17] MEDS: POLYETHYLENE (MIRALAX) 17 GM PACK PO SCH (08:22)
[2021-05-17] MEDS: MAGNESIUM HYDROXIDE SUSP 30 ML UDC PO SCH ×2 (08:22→21:25)
--- NOTE | 2021-05-17 08:27 | XRay Report ---
XR chest 1V portable CLINICAL HISTORY: Follow-up bilateral airspace opacities.. COMPARISON STUDY: 05/16/2021 TECHNIQUE: 1 view of the chest FINDINGS: Single frontal view of the chest demonstrates the heart to be mildly enlarged. Tubes and catheters ar e unchanged. Extensive interstitial and alveolar opacities are again seen bilaterally characteristic of a viral pneumonitis and Covid pneumonia. There is blunting of left costophrenic angle characterist ic of a small left pleural effusion as well. There is no evidence for vascular congestion. There is n o acute osseous pathology. IMPRESSION: Compared to previous examination, extensive interstitial and alveolar opacities are again seen bilaterally most characteristic of Covid pneumonia. There is also evidence for left pleural eff usion. ACT 112: Negative or not required by law. Electronically signed by: Ramesh Dao M.D. 05/17/2021 8:26 AM
[2021-05-17] MEDS: POTASSIUM CHLORIDE 20 MEQ/15 ML UDC NG SCH ×2 (08:29→12:56)
[2021-05-17] MEDS ORDERED: SODIUM PHOSPHATE 15 MMOL in SODIUM CHLORIDE 0.9% 250 ML IV ONE (08:30)
[2021-05-17] MEDS: ATORVASTATIN 20 MG TAB PO SCH (08:48)
[2021-05-17] MEDS: FUROSEMIDE 40 MG/4 ML VIAL IV SCH ×2 (08:50→21:25)
[2021-05-17] MEDS: ENOXAPARIN INJ 40 MG/0.4 ML SYR SQ SCH ×2 (08:50→21:19)
[2021-05-17] MEDS: dexAMETHasone 10 MG in SYRINGE 0 ML IV SCH (08:50)
[2021-05-17] MEDS: INSULIN HUMAN NPH SC SCH ×2 (09:02→21:22)
[2021-05-17] MEDS: PEPTAMEN INTENSE VHP 1.0 CAL 1,000 ML BAG GT SCH (09:44)
[2021-05-17] MEDS: PANTOprazole 40 MG in SYRINGE 0 ML IV SCH (10:32)
--- NOTE | 2021-05-17 14:45 | Pharmacy Report ---
Pharmacy Glycemic Short Note 2 - Date of Service May 17, 2021 - Glycemic Short BSG Results (Last 24 hours): 05/16/21 05/16/21 05/16/21 16:17 20:13 23:35 Glucose POC Glucose 193 H 144 H 119 H 05/17/21 05/17/21 05/17/21 04:03 06:13 07:51 Glucose 122 H POC Glucose 120 H 127 H 05/17/21 12:10 Glucose POC Glucose 149 H OUTPATIENT ANTIDIABETIC REGIMEN: * n/a * A1c = 6.3% 05/09/21 ASSESSMENT: 05/17 * BSG's adequate for ICU status patient, ranging 119-193 mg/dL over the last 24 hours. Continue same for today. * Steroids stopping tomorrow. Will hold NPH starting tomorrow AM. Will also loosen Novolog parameters slightly tomorrow AM. Patient will likely require further adjustments tomorrow. 05/16 * Stressors stable, other than tubefeeds titrating up (currently about half of goal rate). Anticipate continued titration up over the next 24 hours. * BSG's in or slightly below goal range for ICU status patient, ranging 111-180 mg/dL over the last 24 hours. Will slightly reduce both AM and PM NPH. * No change to Novolog at this time 05/15 * BSGs better controlled over last 2 days * Patient remains intubated, sedated, receiving dexamethasone 10mg IV Q AM, receiving continuous tube feeds (Peptamen VHP @ 50cc/hr) and remains on norepi at low dose this AM (0.02mcg/kg/min) * NPH doses have been titrated down slowly over last 2 days as BSGs did drip below 140 on several occasions. Will again adjust down slightly, and use a scaled dose of NPH in the PM as BSGs do tend to drop overnight as effects of AM steroid dissipate. 05/13 * BSGs continue to rise throughout the day into the evening. Adjusted NPH to BID dosing. TF increased to 20mL/hr. * Given decrease in dex from 20mg -->10mg daily, plan to dose HS NPH as a scale given well controlled AM fasting BSGs. * Norepinephrine continues; pt remains intubated. PLAN FOR INPATIENT GLYCEMIC CONTROL: * Basal insulin * NPH 35 units SQ Q AM with IV dexamethasone + scaled dosing this evening (4- 8 units). Discontinue tomorrow AM. * Bolus insulin (today) * NovoLog per scale Q 4 hrs * Goal Range: Low 110 mg/dL - High 140 mg/dL * Correction Factor: 12 mg/dL/unit * Nutritional / Prandial insulin per carb ratio of 1 unit per 3 grams CHO consumed * Bolus insulin (tomorrow) * NovoLog per scale Q 4 hrs * Goal Range: Low 110 mg/dL - High 140 mg/dL * Correction Factor: 15 mg/dL/unit * Nutritional / Prandial insulin per carb ratio of 1 unit per 4 grams CHO consumed PLAN FOR DISCHARGE: * to be determined
--- NOTE | 2021-05-17 15:42 | Critical Care Progress Note ---
Date of Service May 17, 2021 Assessment & Plan (1) Acute respiratory failure with hypoxia: (2) Pneumonia due to COVID-19 virus: (3) ARDS (adult respiratory distress syndrome): (4) SUDHIR (obstructive sleep apnea): (5) Morbid obesity: Plan: Impression: 50-year-old male admitted to hospital 05/05/2021 with Covid pneumonia. He was intubated 05/08/2021. 24-hour events: Some progress in getting FiO2 down slightly. He otherwise remains about the same Recommendations Neurologic: Continue sedation with Fentanyl, midazolam, and Propofol. Now off neuromuscular blockade Pulmonary: Continue lung protective ventilation strategy. Patient with severe ARDS mechanical ventilation day #10. Responded very poorly to proning on 05/08/2021 and was quickly placed supine. Defer any additional proning. BMI excludes any additional interventions such as extracorporeal membrane oxygenation. Continue Dex dosing for late-phase ARDS, Decadron 20 mg x 5 days and 10 mg x 5 days. Continues with ventilation using assist control 26/420/14/0.8 with a plateau of 26. Last blood gas 7.37/57/66 Cardiovascular: Off pressors. Hemodynamically stable currently. Continue Lasix 40 mg IV twice a day. -1.2 L last 24 hours. Gastrointestinal: Tube feeding per dietary. Continue PPI. Large bowel movement. Continue bowel regimen Renal: Continue ICU electrolyte replacement protocol. Acid-base status stable. Continue Lasix twice daily. Follow I&Os and maintain negative balance. Continue diuresis pending bump in serum creatinine/BUN or progressive alkalosis or hemodynamic instability. Infectious disease: Day #9/ Zosyn for Pseudomonas. With white blood cell count increased to 21,000 today. Follow-up cultures pending but appear to show persistent Pseudomonas, query resistant organism versus potential stenotrophomonas. Await speciation. If remains febrile, will need to consider potentially replacing the patient's lines as they are 10 days old. Hematologic: No significant issues at present. Continue to trend Endocrine: Glycemic control per protocol. Lines and tubes: Internal jugular central line and radial arterial line placed 05/08/2021. Intubated 05/08/2021. BARBY Duffy- Continue use of these lines VTE prophylaxis: Increase Lovenox to 40 mg twice daily CODE STATUS: Full code Disposition: Remain in the ICU I have personally spent 55 minutes of critical care time in the direct management of this patient including discussion with Susan. This is a life/limb threatening event. This includes time spent evaluating patient, direct bedside care, chart review, placing orders, interpretation of diagnostic studies, discussion with consultants, patient, and family members, as well as other required patient management activities. This time is exclusive of all separately billable procedures, and teaching time and separate from and in addition to any other critical care service time. Admission and Anticipated Discharge Date Admission Date: May 05, 2021 Subjective Intubated and sedated Review of Systems Review of Systems: Unobtainable due to endotracheal tube Physical Exam Constitutional: + mechanically ventilated Neck: trachea midline, no thyromegaly Respiratory: no respiratory distress and no labored breathing Auscultation: + crackles and + wheezes Cardiovascular: RRR, no murmur, no edema Gastrointestinal (Abdomen): normal bowel sounds, soft, nontender, no hepatosplenomegaly Musculoskeletal: Extremities: extremities normal to inspection Skin: no rashes, warm and dry Lymphatic: no cervical lymphadenopathy Results & Data Results & Data ([facility]) Vital Signs (Past 12 Hours) Vital Signs Temp Pulse Resp BP Pulse Ox 05/17/21 15:06 69 26 H 91 05/17/21 15:00 37.5 C 71 26 H 103/51 L 90 05/17/21 14:00 37.5 C 85 26 H 111/60 90 05/17/21 13:00 37.5 C 85 28 H 109/53 L 90 05/17/21 12:00 37.5 C 73 26 H 105/54 L 90 05/17/21 11:00 37.7 C H 84 28 H 98/57 L 90 05/17/21 10:00 37.6 C H 93 H 28 H 95/61 L 90 05/17/21 09:00 37.5 C 81 28 H 131/70 93 05/17/21 08:00 37.5 C 77 28 H 110/58 L 92 05/17/21 07:00 37.6 C H 88 27 H 109/57 L 90 05/17/21 06:30 76 19 92 05/17/21 06:27 73 26 H 92 05/17/21 06:00 73 14 92 05/17/21 05:30 73 91 05/17/21 05:00 76 19 98/72 L 91 05/17/21 04:30 83 17 91 05/17/21 04:00 83 91 05/17/21 03:50 83 29 H 91 Critical Care Results & Data Vital Signs (Past 12 Hours) Vital Signs Temp Pulse Resp BP Pulse Ox 05/17/21 15:06 69 26 H 91 05/17/21 15:00 37.5 C 71 26 H 103/51 L 90 05/17/21 14:00 37.5 C 85 26 H 111/60 90 05/17/21 13:00 37.5 C 85 28 H 109/53 L 90 05/17/21 12:00 37.5 C 73 26 H 105/54 L 90 05/17/21 11:00 37.7 C H 84 28 H 98/57 L 90 05/17/21 10:00 37.6 C H 93 H 28 H 95/61 L 90 05/17/21 09:00 37.5 C 81 28 H 131/70 93 05/17/21 08:00 37.5 C 77 28 H 110/58 L 92 05/17/21 07:00 37.6 C H 88 27 H 109/57 L 90 05/17/21 06:30 76 19 92 05/17/21 06:27 73 26 H 92 05/17/21 06:00 73 14 92 05/17/21 05:30 73 91 05/17/21 05:00 76 19 98/72 L 91 05/17/21 04:30 83 17 91 05/17/21 04:00 83 91 05/17/21 03:50 83 29 H 91 Lab & Micro Results (Past 24 Hours) RBC 3.90 M/uL (4.7-6.1) L 05/17/21 WBC 21.87 K/uL (4.8-10.8) H 05/17/21 Hgb 11.4 g/dL (14.0-18.0) L 05/17/21 Hct 37.4 % (42-52) L 05/17/21 MCV 95.9 fL (80-100) 05/17/21 MCH 29.2 pg (25-34) 05/17/21 MCHC 30.5 g/dL (32-36) L 05/17/21 RDW Standard Deviation 51.4 fL (36.4-46.3) H 05/17/21 RDW Coefficient of Variation 14.6 % (11.5-14.5) H 05/17/21 Plt Count 228 K/uL (130-400) 05/17/21 MPV 11.0 fL (7.4-10.4) H 05/17/21 ANC 19.77 K/uL (1.4-6.5) H 05/17/21 ALC 0.57 K/uL (1.2-3.4) L 05/17/21 Neutrophils % (Manual) 90.4 % 05/17/21 Lymphocytes % (Manual) 2.6 % 05/17/21 Monocytes % (Manual) 2.6 % 05/17/21 Eosinophils % (Manual) 0.9 % 05/17/21 Metamyelocytes % (manual) 0.9 % 05/17/21 Myelocytes % (Manual) 2.6 % 05/17/21 Neutrophils # (Manual) 19.77 K/uL (1.4-6.5) H 05/17/21 Lymphocytes # (Manual) 0.57 K/uL (1.2-3.4) L 05/17/21 Monocytes # (Manual) 0.57 K/uL (0.11-0.59) 05/17/21 Eosinophils # (Manual) 0.20 K/uL (0-0.5) 05/17/21 Metamyelocytes # (Manual) 0.20 K/uL (0-0) H 05/17/21 Myelocytes # (Manual) 0.57 K/uL (0-0) H 05/17/21 Na 141 mmol/L (136-145) 05/17/21 K 3.5 mmol/L (3.5-5.1) 05/17/21 Cl 103 mmol/L (98-107) 05/17/21 CO2 33 mmol/L (21-32) H 05/17/21 Anion Gap 5.0 (3-11) 05/17/21 BUN 44 mg/dl (7-18) H 05/17/21 Creatinine 0.77 mg/dl (0.6-1.4) 05/17/21 Estimated GFR ( Amer) 120.9 ml/min 05/17/21 Estimated GFR (Non-Af Amer) 104.3 ml/min 05/17/21 BUN/Creatinine Ratio 56.9 (10-20) H 05/17/21 Glu 122 mg/dl (70-99) H 05/17/21 Ca 8.9 mg/dl (8.5-10.1) 05/17/21 Phosphorus Level 2.3 mg/dl (2.5-4.9) L 05/17/21 Mg 2.6 mg/dl (1.8-2.4) H 05/17/21 06:13 05/17/21 Calcium Level 8.9 mg/dl (8.5-10.1) 05/17/21 06:13 05/17/21 Rajinder Test NA 05/17/21 04:17 05/17/21 Microbiology 05/15/21 20:55 Urine Culture - Final Urine,Indwelling Cath No growth - less than 1,000 colonies/mL. 05/16/21 Unknown Gram Stain - Final Sputum,Vent Suction Sputum Culture - Preliminary Probable Pseudomonas species 05/15/21 17:59 Aerobic Blood Culture - Preliminary Blood No growth in Aerobic bottle after 24 hours. Anaerobic Blood Culture - Preliminary No growth in Anaerobic bottle after 24 hours. 05/15/21 17:59 Aerobic Blood Culture - Preliminary Blood No growth in Aerobic bottle after 24 hours. Anaerobic Blood Culture - Preliminary No growth in Anaerobic bottle after 24 hours. 05/11/21 06:17 Aerobic Blood Culture - Final Blood Coag neg staph not lugdunensis Anaerobic Blood Culture - Final No growth in Anaerobic bottle after 5 days. 05/11/21 07:58 Aerobic Blood Culture - Final Blood No growth in Aerobic bottle after 5 days. Anaerobic Blood Culture - Final No growth in Anaerobic bottle after 5 days. Diagnostic Findings (Past 24 Hours) Chest X-Ray 05/17/21 07:00 XR chest 1V portable CLINICAL HISTORY: Follow-up bilateral airspace opacities.. COMPARISON STUDY: 05/16/2021 TECHNIQUE: 1 view of the chest FINDINGS: Single frontal view of the chest demonstrates the heart to be mildly enlarged. Tubes and catheters are unchanged. Extensive interstitial and alveolar opacities are again seen bilaterally characteristic of a viral pneumonitis and Covid pneumonia. There is blunting of left costophrenic angle characteristic of a small left pleural effusion as well. There is no evidence for vascular co ngestion. There is no acute osseous pathology. IMPRESSION: Compared to previous examination, extensive interstitial and alveolar opacities are again seen bilaterally most characteristic of Covid pneumonia. There is also evidence for left pleural effusion. ACT 112: Negative or not required by law. Electronically signed by: Ramesh Dao M.D. 05/17/2021 8:26 AM I & O Totals 24 Hours 05/16/21 05/17/21 05/18/21 06:59 06:59 06:59 Intake Total 2130.966 / 2130.966 1820.107 / 1820.107 622.328 / 622.328 Output Total 3850 / 3850 3025 / 3025 1800 / 1800 Balance -1719.034 / -1719.034 -1204.893 / -1204.893 -1177.672 / -1177.672 Cumulative 05/05/21 18:07 thru 05/17/21 14:00 Intake Total 13901.384 Output Total 58862 Balance -6946.616 RT Ventilator Mngmt (Last Documented) Ventilator Ordered Settings Ventilator Support Mode Assist Control 05/17/21 15:06 Respiratory Rate 26 05/17/21 15:06 Ventilator Tidal Volume 420 05/17/21 15:06 Setting Minute Ventilation 8.2 05/17/21 15:06 Ventilator Positive Pressure 18 05/15/21 16:00 Support Setting Positive End Expiratory 14 05/17/21 15:06 Pressure Fraction of Inspired Oxygen 80 05/17/21 15:06 Peak Inspiratory Flow 42 05/13/21 14:59 Machine Comment Titrated FiO2 to 80% 05/16/21 20:02 Ventilator - PT Measurements Respiratory Rate 26 Exhaled Tidal Volume 500 Minute Ventilation 8.2 Peak Inspiratory Airway 27 Pressure Plateau Pressure 26 Respiratory Cycle Inspiratory: 1:3.8 Expiratory Ratio Inspiratory Phase Time 0.7 End-Tidal CO2 31 Static Lung Compliance 41.67 Dynamic Lung Compliance 38.46 Normal Static Lung Compliance 48.00 Patient Measurements Comment SPO2 91% after increasing peep to 16 Coding Level of Care Code Critical Care 1st 30-74 mins Diagnoses Acute respiratory failure with hypoxia J96.01 Pneumonia due to COVID-19 virus U07.1; J12.82 ARDS (adult respiratory distress syndrome) J80 SUDHIR (obstructive sleep apnea) G47.33 Morbid obesity E66.01 Time Spent (min) 52
[2021-05-17] MEDS ORDERED: PROPOFOL BOLUS FROM BAG IV PRN (16:08)
[2021-05-17] MEDS ORDERED: STAT IV Infusion **Titration per Protocol STA (16:08)
[2021-05-18] MEDS: INSULIN ASPART 100 UNITS/ML VIAL SC SCH ×6 (00:56→20:24)
[2021-05-18] MEDS: propofoL 1,000 MG/100 ML VIAL IV SCH ×6 (00:56→22:20)
[2021-05-18] MEDS: TUBE FEEDING WATER FLUSH GT SCH ×6 (03:37→22:20)
[2021-05-18] MEDS: PIPERACILLIN/TAZOBACTAM 4.5 GM in DEXTROSE 5% 100 ML IV SCH ×3 (04:17→19:57)
[2021-05-18 04:59] LABS: iSTAT Arterial Blood Gas HCO3 38 meg/L (19-24); iSTAT Arterial Blood Gas pCO2 53 mmHg (35-46); iSTAT Arterial Blood Gas pH 7.46 (7.35-7.45); iSTAT Arterial Blood Gas pO2 64 mmHg (80-95); iSTAT Carbon Dioxide 39 mmol/L (24-31); iSTAT FiO2 90 %; iSTAT Site Art Line
[2021-05-18] MEDS: NOREPINEPHRINE/D5W 8 MG/508 ML BAG IV SCH (06:53)
[2021-05-18 07:36] LABS: Hematocrit (blood only) 36.8 % (42-52); Hemoglobin 11.5 g/dL (14.0-18.0); Mean Corpuscular Hemoglobin 29.6 pg (25-34); Mean Corpuscular Hgb Conc 31.3 g/dL (32-36); Mean Corpuscular Volume 94.8 fL (80-100); Mean Platelet Volume 11.4 fL (7.4-10.4); Platelet Count 258 K/uL (130-400); RDW Coefficient of Variation 14.5 % (11.5-14.5); RDW Standard Deviation 49.7 fL (36.4-46.3); Red Blood Count 3.88 M/uL (4.7-6.1); White Blood Count 21.95 K/uL (4.8-10.8)
[2021-05-18] MEDS: DOCUSATE SODIUM/SENNA 50/8.6MG TAB PO SCH ×2 (08:10→20:50)
[2021-05-18] MEDS: ATORVASTATIN 20 MG TAB PO SCH (08:10)
[2021-05-18 08:11] LABS: Creatinine Clr Calc Pharmacy 186.9 ml/min; Est GFR (African American) 123.6 ml/min; Est GFR (Non-African American) 106.6 ml/min; Magnesium 2.3 mg/dl (1.8-2.4); Potassium 3.3 mmol/L (3.5-5.1)
[2021-05-18] MEDS: ENOXAPARIN INJ 40 MG/0.4 ML SYR SQ SCH ×2 (08:11→20:51)
[2021-05-18 08:12] LABS: Phosphorus 2.2 mg/dl (2.5-4.9)
[2021-05-18] MEDS: FUROSEMIDE 40 MG/4 ML VIAL IV SCH ×2 (08:14→20:57)
[2021-05-18] MEDS: MAGNESIUM HYDROXIDE SUSP 30 ML UDC PO SCH ×2 (08:14→20:57)
[2021-05-18 08:21] LABS: Basophils # (auto) 0.04 K/uL (0-0.2); Basophils % (auto) 0.2 %; Eosinophils # (auto) 0.12 K/uL (0-0.5); Eosinophils % (auto) 0.5 %; Immature Granulocytes # (auto) 2.11 K/uL (0.00-0.02); Immature Granulocytes % (auto) 9.6 %; Monocytes # (auto) 1.05 K/uL (0.11-0.59); Monocytes % (auto) 4.8 %; Neutrophils # (auto) 17.53 K/uL (1.4-6.5); Neutrophils % (auto) 79.9 %
[2021-05-18] MEDS ORDERED: POTASSIUM CHLORIDE 20 MEQ/15 ML UDC PO STA ×2 (08:25→17:37)
[2021-05-18] MEDS ORDERED: SODIUM PHOSPHATE 3 MMOL/1 ML INFUSION IV STA (08:26)
[2021-05-18] MEDS: ICU ELECTROLYTE REPLACEMENT PROTOCOL SCH ×2 (08:28→18:17)
[2021-05-18] MEDS: fentaNYL DRIP 1,250 MCG/250 ML BAG IV SCH ×2 (08:28→17:17)
[2021-05-18] MEDS ORDERED: SODIUM PHOSPHATE 15 MMOL in SODIUM CHLORIDE 0.9% 250 ML IV ONE (08:45)
--- NOTE | 2021-05-18 09:00 | XRay Report ---
XR chest 1V portable CLINICAL HISTORY: Follow-up bilateral interstitial and alveolar opacities. COMPARISON STUDY: 05/17/2021 TECHNIQUE: 1 view of the chest FINDINGS: Single frontal view of the chest demonstrates the cardiomediastinal silhouette to be within normal li mits. Tubes and catheters are unchanged. Extensive interstitial and alveolar opacities are again seen bilaterally and essentially unchanged. There is again blunting of left costophrenic angle characteri stic of a small left pleural effusion. There is no evidence for vascular congestion. There is no acut e osseous pathology. IMPRESSION: Extensive interstitial and alveolar opacities are again seen bilaterally and unchanged. E vidence for small left pleural effusion as well. ACT 112: Negative or not required by law. Electronically signed by: Ramesh Dao M.D. 05/18/2021 8:58 AM
[2021-05-18] MEDS ORDERED: STAT IV Infusion **Titration per Protocol STA (10:25)
[2021-05-18] MEDS ORDERED: CISATRACURIUM BOLUS FROM BAG IV STA (10:25)
[2021-05-18] MEDS: INSULIN GLARGINE SOLOSTAR 100 UNITS/ML 3 ML PEN SC SCH ×2 (10:59→20:52)
[2021-05-18] MEDS: PANTOprazole 40 MG in SYRINGE 0 ML IV SCH ×2 (11:02→11:03)
[2021-05-18] MEDS: CISATRACURIUM BESYLATE 40 MG in 0.9 % SODIUM CHLORIDE 80 ML IV SCH ×2 (11:03→16:12)
[2021-05-18] MEDS: PEPTAMEN INTENSE VHP 1.0 CAL 1,000 ML BAG GT SCH (11:39)
[2021-05-18] MEDS: ARTIFICIAL TEARS OP OINT 3.5 GM TUBE OP SCH ×4 (11:39→20:53)
--- NOTE | 2021-05-18 12:29 | Critical Care Progress Note ---
Date of Service May 18, 2021 Assessment & Plan (1) Acute respiratory failure with hypoxia: (2) Pneumonia due to COVID-19 virus: (3) ARDS (adult respiratory distress syndrome): (4) SUDHIR (obstructive sleep apnea): (5) Morbid obesity: Plan: Impression: 50-year-old male admitted to hospital 05/05/2021 with Covid pneumonia. He was intubated 05/08/2021. 24-hour events: Unfortunately the patient has become dyssynchronous this morning with the ventilator. This has resulted in decreasing oxygen saturations. His respiratory cultures are persistently positive for Pseudomonas Recommendations Neurologic: Continue sedation with Fentanyl, midazolam, and Propofol. Restart cisatracurium given his ventilator asynchrony and increasing oxygen requirements. Pulmonary: Continue lung protective ventilation strategy. Patient with severe ARDS mechanical ventilation day #11. Responded very poorly to proning on 05/08/2021 and was quickly placed supine. Defer any additional proning. BMI excludes any additional interventions such as extracorporeal membrane oxygenation. Continue Dex dosing for late-phase ARDS, Decadron 20 mg x 5 days and 10 mg x 5 days. Continues with ventilation using assist control 16/420/14/1.0 with a plateau of 22. Last blood gas 7.46/53/64. Chest x-ray today continues to show diffuse pulmonary infiltrates, unclear how much may be related to fluid overload. He is net -7 L since admission Cardiovascular: Off pressors. Hemodynamically stable currently. Continue Lasix 40 mg IV twice a day. -2.2 L last 24 hours. Gastrointestinal: Tube feeding per dietary. Continue PPI. Successful bowel movement. Continue bowel regimen Renal: Continue ICU electrolyte replacement protocol. Acid-base status stable. Continue Lasix twice daily. Follow I&Os and maintain negative balance. Serum creatinine has been stable so far so we will continue to push with aggressive diuresis. Infectious disease: Day #03/21 Zosyn for Pseudomonas. With white blood cell count stable at 21,000 today. Follow-up cultures show persistent Pseudomonas, remains pansensitive. His fever curve is better today. No change in antimicrobial therapy. Remaining cultures no growth to date Hematologic: No significant issues at present. Continue to trend Endocrine: Glycemic control per protocol. Lines and tubes: Internal jugular central line and radial arterial line placed 05/08/2021. Intubated 05/08/2021. BARBY Duffy- Continue use of these lines but may consider changing them out if the patient becomes persistently febrile VTE prophylaxis: Increase Lovenox to 40 mg twice daily CODE STATUS: Full code Disposition: Remain in the ICU I have personally spent 46 minutes of critical care time in the direct management of this patient including discussion with Susan. This is a life/limb threatening event. This includes time spent evaluating patient, direct bedside care, chart review, placing orders, interpretation of diagnostic studies, discussion with consultants, patient, and family members, as well as other required patient management activities. This time is exclusive of all separately billable procedures, and teaching time and separate from and in addition to any other critical care service time. Admission and Anticipated Discharge Date Admission Date: May 05, 2021 Subjective Intubated and sedated Review of Systems Review of Systems: Unobtainable due to endotracheal tube Physical Exam Constitutional: + morbidly obese and + mechanically ventilated Neck: trachea midline, no thyromegaly Respiratory: no respiratory distress and no labored breathing Auscultation: + crackles and + wheezes Cardiovascular: RRR, no murmur, no edema Gastrointestinal (Abdomen): normal bowel sounds, soft, nontender, no hepa tosplenomegaly Musculoskeletal: Extremities: extremities normal to inspection Skin: no rashes, warm and dry Lymphatic: no cervical lymphadenopathy Results & Data Results & Data ([facility]) Vital Signs (Past 12 Hours) Vital Signs Temp Pulse Resp BP Pulse Ox 05/18/21 03:00 77 16 104/68 90 05/18/21 02:16 90 30 H 89 L 05/18/21 02:00 37.4 C 82 115/60 89 L 05/18/21 01:00 85 118/69 90 Critical Care Results & Data Vital Signs (Past 12 Hours) Vital Signs Temp Pulse Resp BP Pulse Ox 05/18/21 03:00 77 16 104/68 90 05/18/21 02:16 90 30 H 89 L 05/18/21 02:00 37.4 C 82 115/60 89 L 05/18/21 01:00 85 118/69 90 Lab & Micro Results (Past 24 Hours) RBC 3.88 M/uL (4.7-6.1) L 05/18/21 WBC 21.95 K/uL (4.8-10.8) H 05/18/21 Hgb 11.5 g/dL (14.0-18.0) L 05/18/21 Hct 36.8 % (42-52) L 05/18/21 MCV 94.8 fL (80-100) 05/18/21 MCH 29.6 pg (25-34) 05/18/21 MCHC 31.3 g/dL (32-36) L 05/18/21 RDW Standard Deviation 49.7 fL (36.4-46.3) H 05/18/21 RDW Coefficient of Variation 14.5 % (11.5-14.5) 05/18/21 Plt Count 258 K/uL (130-400) 05/18/21 MPV 11.4 fL (7.4-10.4) H 05/18/21 Neutrophils (%) (Auto) 79.9 % 05/18/21 Lymphocytes (%) (Auto) 5.0 % 05/18/21 Monocytes # (Auto) 1.05 K/uL (0.11-0.59) H 05/18/21 Eosinophils # (Auto) 0.12 K/uL (0-0.5) 05/18/21 Immature Granulocyte % (Auto) 9.6 % 05/18/21 Neutrophils # (Auto) 17.53 K/uL (1.4-6.5) H 05/18/21 Lymphocytes # (Auto) 1.10 K/uL (1.2-3.4) L 05/18/21 Monocytes # (Auto) 1.05 K/uL (0.11-0.59) H 05/18/21 Eosinophils # (Auto) 0.12 K/uL (0-0.5) 05/18/21 Basophils # (Auto) 0.04 K/uL (0-0.2) 05/18/21 Immature Granulocyte # (Auto) 2.11 K/uL (0.00-0.02) H 05/18/21 Na 139 mmol/L (136-145) 05/18/21 K 3.3 mmol/L (3.5-5.1) L 05/18/21 Cl 101 mmol/L (98-107) 05/18/21 CO2 32 mmol/L (21-32) 05/18/21 Anion Gap 6.0 (3-11) 05/18/21 BUN 41 mg/dl (7-18) H 05/18/21 Creatinine 0.73 mg/dl (0.6-1.4) 05/18/21 Estimated GFR ( Amer) 123.6 ml/min 05/18/21 Estimated GFR (Non-Af Amer) 106.6 ml/min 05/18/21 BUN/Creatinine Ratio 56.0 (10-20) H 05/18/21 Glu 111 mg/dl (70-99) H 05/18/21 Ca 9.0 mg/dl (8.5-10.1) 05/18/21 Phosphorus Level 2.2 mg/dl (2.5-4.9) L 05/18/21 Mg 2.3 mg/dl (1.8-2.4) 05/18/21 06:34 05/18/21 Calcium Level 9.0 mg/dl (8.5-10.1) 05/18/21 06:34 05/18/21 Rajinder Test NA 05/18/21 04:22 05/18/21 Microbiology 05/16/21 Unknown Gram Stain - Final Sputum,Vent Suction Sputum Culture - Final Pseudomonas aeruginosa 05/15/21 17:59 Aerobic Blood Culture - Preliminary Blood No growth in Aerobic bottle after 48 hours. Anaerobic Blood Culture - Preliminary No growth in Anaerobic bottle after 48 hours. 05/15/21 17:59 Aerobic Blood Culture - Preliminary Blood No growth in Aerobic bottle after 48 hours. Anaerobic Blood Culture - Preliminary No growth in Anaerobic bottle after 48 hours. 05/15/21 20:55 Urine Culture - Final Urine,Indwelling Cath No growth - less than 1,000 colonies/mL. Diagnostic Findings (Past 24 Hours) Chest X-Ray 05/18/21 07:00 XR chest 1V portable CLINICAL HISTORY: Follow-up bilateral interstitial and alveolar opacities. COMPARISON STUDY: 05/17/2021 TECHNIQUE: 1 view of the chest FINDINGS: Single frontal view of the chest demonstrates the cardiomediastinal silhouette t o be within normal limits. Tubes and catheters are unchanged. Extensive interstitial and alveolar opacities are again seen bilaterally and essentially unchanged. There is again blunting of left costophrenic angle characteristic of a small left pleural effusion. There is no evidence for vascular congestion. There is no acute osseous pathology. IMPRESSION: Extensive interstitial and alveolar opacities are again seen bilaterally and unchanged. Evidence for small left pleural effusion as well. ACT 112: Negative or not required by law. Electronically signed by: Ramesh Dao M.D. 05/18/2021 8:58 AM I & O Totals 24 Hours 05/17/21 05/18/21 05/19/21 06:59 06:59 06:59 Intake Total 1820.107 / 7491.548 1985.265 / 1866.265 492.16 / 492.16 Output Total 3025 / 3025 4075 / 4075 Balance -1204.893 / -1204.893 -2208.735 / -2208.735 492.16 / 492.16 Cumulative 05/05/21 18:07 thru 05/18/21 09:52 Intake Total 46532.481 Output Total 34358 Balance -7485.519 RT Ventilator Mngmt (Last Documented) Ventilator Ordered Settings Ventilator Support Mode Assist Control 05/18/21 08:00 Respiratory Rate 16 05/18/21 03:00 Ventilator Tidal Volume 420 05/18/21 08:00 Setting Minute Ventilation 9.2 05/18/21 02:16 Ventilator Positive Pressure 18 05/15/21 16:00 Support Setting Positive End Expiratory 14 05/18/21 08:00 Pressure Fraction of Inspired Oxygen 100 05/18/21 08:00 Peak Inspiratory Flow 42 05/13/21 14:59 Machine Comment Titrated FiO2 to 80% 05/16/21 20:02 Ventilator - PT Measurements Respiratory Rate 16 Exhaled Tidal Volume 624 Minute Ventilation 9.2 Peak Inspiratory Airway 29 Pressure Plateau Pressure 22.2 Respiratory Cycle Inspiratory: 1:3.8 Expiratory Ratio Inspiratory Phase Time 0.70 End-Tidal CO2 35 Static Lung Compliance 76.10 Dynamic Lung Compliance 41.60 Normal Static Lung Compliance 48.00 Patient Measurements Comment increased FiO2 at this time Coding Level of Care Code Critical Care 1st 30-74 mins Diagnoses Acute respiratory failure with hypoxia J96.01 Pneumonia due to COVID-19 virus U07.1; J12.82 ARDS (adult respiratory distress syndrome) J80 SUDHIR (obstructive sleep apnea) G47.33 Morbid obesity E66.01 Time Spent (min) 46
[2021-05-18] MEDS ORDERED: POTASSIUM CHLORIDE 20 MEQ/15 ML UDC PO ONE ×2 (12:30→21:45)
--- NOTE | 2021-05-18 13:22 | Hospitalist Progress Note ---
Date of Service May 18, 2021 Assessment & Plan (1) Acute respiratory failure with hypoxia: Plan: Secondary to COVID-19 virus infection (2) Pneumonia due to COVID-19 virus: Plan: Acute respiratory failure with hypoxia ARDS Pneumonia due to COVID-19 H/O SUDHIR --CXR:Extensive patchy interstitial and alveolar opacities bilaterally characteristic of a viral type pneumonitis and probable Covid 19 pneumonia. -Intubated on 05/08/21 -Appreciate Critical Care Input -CRP:8.49> 5.20 Desaturated with proning Not a candidate for ECMO given his BMI as per Critical Care, [facility] [place] Completed 5 day Remdesivir course Continue dexamethasone course Received Cefepime >> Zosyn weaned off of Nimbex lasix drip>> transition to Lasix 40mg TID> Lasix PRN on Lovenox for DVT Prophylaxis On propofol, Versed and fentanyl Vent management as per Critical Care 06/09 Blood Cx coagulase-negative staph Sputum culture 05/11 grew Pseudomonas - cont. Zosyn Repeat sputum cultx 05/16 -persistently growing Pseudomonas Chest x-ray05/15- No significant interval change in interstitial and alveolar opacities bilaterally. There is also evidence for small left pleural effusion and left basilar atelectasis. 05/16 - Continues with ventilation using assist control and still at FiO2 of 100%. Still not able to consider trach. Will continue to try to wean vent. Pulmonary medicine discussed possibility w/ pt's that we may never get to the point of trach unless oxygenation requirements reduce significantly and that by Thursday we may need to discuss withdrawal of care. (3) Hypertension: Plan: Monitor (4) SUDHIR (obstructive sleep apnea): Plan: Morbidly obese BMI: 58 Was on CPAP (5) Hyperlipidemia: Plan: Continue statin DVT prophylaxis: Lovenox CODE STATUS: Full Admission and Anticipated Discharge Date Admission Date: May 05, 2021 Subjective Patient is seen in follow up of COVID pna, ARDS Remains Intubated, sedated Febrile On tube feeds on zosyn for pseudomonas pna, and steroid for ards Pulmonary/ ICU medicine following closely Review of Systems Review of Systems: All systems reviewed & are unremarkable except as noted in Subjective Physical Exam Physical Exam: General Appearance:Morbidly Obese M, Sedated and Intubated Head: normocephalic, Atraumatic Eyes: normal inspection Respiratory/Chest: +decreased breath sounds, +crackles Cardiovascular: S1, S2, No murmur Abdomen/GI:Soft, obese, Bowel sounds present Extremities/Musculoskeletal:normal inspection, no edema Neurologic/Psych:Sedated and Intubated Skin: normal color, warm Results & Data Results & Data ([facility]) Vital Signs (Past 12 Hours) Vital Signs Temp Pulse Resp BP Pulse Ox 05/18/21 03:00 77 16 104/68 90 05/18/21 02:16 90 30 H 89 L 05/18/21 02:00 37.4 C 82 115/60 89 L Laboratory Results 05/18/21 05/18/21 05/18/21 Range/Units 11:42 07:39 06:34 WBC 21.95 H (4.8-10.8) K/uL RBC 3.88 L (4.7-6.1) M/uL Hgb 11.5 L (14.0-18.0) g/dL Hct 36.8 L (42-52) % MCV 94.8 (80-100) fL MCH 29.6 (25-34) pg MCHC 31.3 L (32-36) g/dL RDW Std Deviation 49.7 H (36.4-46.3) fL RDW Coeff of Samia 14.5 (11.5-14.5) % Plt Count 258 (130-400) K/uL MPV 11.4 H (7.4-10.4) fL Immature Gran % (Auto) 9.6 % Neut % (Auto) 79.9 % Lymph % (Auto) 5.0 % [place] % (Auto) 4.8 % Eos % (Auto) 0.5 % Baso % (Auto) 0.2 % Neut # (Auto) 17.53 H (1.4-6.5) K/uL Lymph # (Auto) 1.10 L (1.2-3.4) K/uL [place] # (Auto) 1.05 H (0.11-0.59) K/uL Eos # (Auto) 0.12 (0-0.5) K/uL Baso # (Auto) 0.04 (0-0.2) K/uL Immature Gran # (Auto) 2.11 H (0.00-0.02) K/uL Sample Site POC pH (7.35-7.45) POC pCO2 (35-46) mmHg POC pO2 (80-95) mmHg POC HCO3 (19-24) jovanna/L POC Total CO2 (24-31) mmol/L POC Base Excess (-9-1.8) jovanna/L POC ABG O2 Sat (90-95) % Rajinder Test O2 Delivery Device POC O2 Rate Minute Ventilation POC FiO2 % Tidal Volume PEEP Sodium (136-145) mmol/L Potassium (3.5-5.1) mmol/L Chloride (98-107) mmol/L Carbon Dioxide (21-32) mmol/L Anion Gap (3-11) BUN (7-18) mg/dl Creatinine (0.6-1.4) mg/dl Est Cr Clr Drug Dosing ml/min Est GFR ( Amer) ml/min Est GFR (Non-Af Amer) ml/min BUN/Creatinine Ratio (10-20) Glucose (70-99) mg/dl POC Glucose 100 H 110 H (70-99) mg/dl Calcium (8.5-10.1) mg/dl Phosphorus (2.5-4.9) mg/dl Magnesium (1.8-2.4) mg/dl 05/18/21 05/18/21 05/18/21 Range/Units 06:34 04:22 04:01 WBC (4.8-10.8) K/uL RBC (4.7-6.1) M/uL Hgb (14.0-18.0) g/dL Hct (42-52) % MCV (80-100) fL MCH (25-34) pg MCHC (32-36) g/dL RDW Std Deviation (36.4-46.3) fL RDW Coeff of Samia (11.5-14.5) % Plt Count (130-400) K/uL MPV (7.4-10.4) fL Immature Gran % (Auto) % Neut % (Auto) % Lymph % (Auto) % [place] % (Auto) % Eos % (Auto) % Baso % (Auto) % Neut # (Auto) (1.4-6.5) K/uL Lymph # (Auto) (1.2-3.4) K/uL [place] # (Auto) (0.11-0.59) K/uL Eos # (Auto) (0-0.5) K/uL Baso # (Auto) (0-0.2) K/uL Immature Gran # (Auto) (0.00-0.02) K/uL Sample Site Art Line POC pH 7.46 H (7.35-7.45) POC pCO2 53 H (35-46) mmHg POC pO2 64 L (80-95) mmHg POC HCO3 38 H (19-24) jovanna/L POC Total CO2 39 H (24-31) mmol/L POC Base Excess 14.0 H (-9-1.8) jovanna/L POC ABG O2 Sat 93.0 (90-95) % Rajinder Test NA O2 Delivery Device Ventilator POC O2 Rate 18 Minute Ventilation 10.2 POC FiO2 90 % Tidal Volume 420 PEEP 14 Sodium 139 (136-145) mmol/L Potassium 3.3 L (3.5-5.1) mmol/L Chloride 101 (98-107) mmol/L Carbon Dioxide 32 (21-32) mmol/L Anion Gap 6.0 (3-11) BUN 41 H (7-18) mg/dl Creatinine 0.73 (0.6-1.4) mg/dl Est Cr Clr Drug Dosing 186.9 ml/min Est GFR ( Amer) 123.6 ml/min Est GFR (Non-Af Amer) 106.6 ml/min BUN/Creatinine Ratio 56.0 H (10-20) Glucose 111 H (70-99) mg/dl POC Glucose 88 (70-99) mg/dl Calcium 9.0 (8.5-10.1) mg/dl Phosphorus 2.2 L (2.5-4.9) mg/dl Magnesium 2.3 (1.8-2.4) mg/dl 05/18/21 05/17/21 05/17/21 Range/Units 00:00 19:39 17:12 WBC (4.8-10.8) K/uL RBC (4.7-6.1) M/uL Hgb (14.0-18.0) g/dL Hct (42-52) % MCV (80-100) fL MCH (25-34) pg MCHC (32-36) g/dL RDW Std Deviation (36.4-46.3) fL RDW Coeff of Samia (11.5-14.5) % Plt Count (130-400) K/uL MPV (7.4-10.4) fL Immature Gran % (Auto) % Neut % (Auto) % Lymph % (Auto) % [place] % (Auto) % Eos % (Auto) % Baso % (Auto) % Neut # (Auto) (1.4-6.5) K/uL Lymph # (Auto) (1.2-3.4) K/uL [place] # (Auto) (0.11-0.59) K/uL Eos # (Auto) (0-0.5) K/uL Baso # (Auto) (0-0.2) K/uL Immature Gran # (Auto) (0.00-0.02) K/uL Sample Site POC pH (7.35-7.45) POC pCO2 (35-46) mmHg POC pO2 (80-95) mmHg POC HCO3 (19-24) jovanna/L POC Total CO2 (24-31) mmol/L POC Base Excess (-9-1.8) jovanna/L POC ABG O2 Sat (90-95) % Rajinder Test O2 Delivery Device POC O2 Rate Minute Ventilation POC FiO2 % Tidal Volume PEEP Sodium (136-145) mmol/L Potassium (3.5-5.1) mmol/L Chloride (98-107) mmol/L Carbon Dioxide (21-32) mmol/L Anion Gap (3-11) BUN (7-18) mg/dl Creatinine (0.6-1.4) mg/dl Est Cr Clr Drug Dosing ml/min Est GFR ( Amer) ml/min Est GFR (Non-Af Amer) ml/min BUN/Creatinine Ratio (10-20) Glucose (70-99) mg/dl POC Glucose 132 H 124 H 154 H (70-99) mg/dl Calcium (8.5-10.1) mg/dl Phosphorus (2.5-4.9) mg/dl Magnesium (1.8-2.4) mg/dl Medications Administered Current Inpatient Medications Acetaminophen (Acetaminophen Susp 160 Mg/5 Ml Udc) 480 mg PO Q6H PRN PRN Reason: Fever Stop: 06/10/21 12:20 Last Admin: 05/15/21 23:11 Dose: 480 mg Documented by: Amlodipine Besylate (Amlodipine Besylate 5 Mg Tab) 5 mg PO DAILY NATALIA Stop: 06/05/21 08:59 Last Admin: 05/08/21 12:17 Dose: Not Given Documented by: Atorvastatin Calcium (Atorvastatin 20 Mg Tab) 20 mg PO DAILY [facility] Stop: 06/05/21 08:59 Last Admin: 05/18/21 08:10 Dose: 20 mg Documented by: Bisacodyl (Bisacodyl 10 Mg Supp) 10 mg IN DAILY PRN PRN Reason: Constipation- No BM >3 days Stop: 06/10/21 09:02 Last Admin: 05/12/21 15:07 Dose: 10 mg Documented by: Enoxaparin Sodium (Enoxaparin Inj 40 Mg/0.4 Ml Syr) 40 mg SQ BID [facility] Stop: 06/15/21 20:59 Last Admin: 05/18/21 08:11 Dose: 40 mg Documented by: Fentanyl Citrate (Fentanyl Bolus From Bag) 50 mcg IV Q60M PRN PRN Reason: Pain or Agitation Stop: 05/22/21 11:44 Last Admin: 05/10/21 21:34 Dose: 50 mcg Documented by: Furosemide (Furosemide 40 Mg/4 Ml Vial) 40 mg IV BID [facility] Stop: 06/13/21 20:59 Last Admin: 05/18/21 08:14 Dose: 40 mg Documented by: Fentanyl Citrate (Fentanyl Drip) 1,250 mcg in 250 mls @ 30 mls/hr IV .Q8H20M [facility]; Protocol Stop: 05/22/21 11:44 Last Admin: 05/18/21 08:28 Dose: 150 mcg/hr, 30 mls/hr Documented by: Midazolam HCl (Versed) 125 mg in 250 mls @ 4 mls/hr IV .[id number] [facility]; Protocol Stop: 06/07/21 12:59 Last Titration: 05/18/21 07:05 Dose: 2 mg/hr, 4 mls/hr Documented by: Pantoprazole Sodium 40 mg/ (Syringe) 10 mls @ 5 mls/min IV DAILY@1100 [facility] Stop: 06/08/21 10:59 Last Admin: 05/18/21 11:03 Dose: 5 mls/min Documented by: Norepinephrine Bitartrate (Levophed/D5w) 8 mg in 508 mls @ 19.66 mls/hr IV .Q24H [facility]; Protocol Stop: 06/08/21 11:14 Last Admin: 12/11/21 06:53 Dose: Not Given Documented by: Piperacillin Sod/Tazobactam (Sod 4.5 gm/ Dextrose) 120 mls @ 30 mls/hr IV Q8H [facility]; Protocol Stop: 05/25/21 19:59 Last Admin: 05/18/21 12:58 Dose: 30 mls/hr Documented by: Propofol (Diprivan) 1,000 mg in 100 mls @ 20.556 mls/hr IV .Q4H52M [facility]; Protocol Stop: 05/20/21 16:14 Last Admin: 05/18/21 09:52 Dose: 20 mcg/kg/min, 20.6 mls/hr Documented by: Cisatracurium Besylate 40 mg/ (Sodium Chloride) 100 mls @ 10.605 mls/hr IV .Q9H26M [facility]; Protocol Stop: 06/17/21 10:29 Last Admin: 05/18/21 11:03 Dose: 1 mcg/kg/min, 10.6 mls/hr Documented by: Insulin Aspart (Insulin Aspart 100 Units/Ml Vial) 0 units SC Q4 [facility] Stop: 06/17/21 07:59 Last Admin: 05/18/21 13:05 Dose: 5 units Documented by: Insulin Glargine (Insulin Glargine Solostar 100 Units/Ml 3 Ml Pen) 5 units SC BID [facility]; Protocol Stop: 06/17/21 09:14 Last Admin: 05/18/21 10:59 Dose: 5 units Documented by: Levalbuterol HCl (Levalbuterol Hcl 1.25 Mg/3 Ml Neb) 1.25 mg NEB Q4H PRN PRN Reason: Shortness Of Breath Or Wheezing Stop: 06/04/21 23:27 Magnesium Hydroxide (Magnesium Hydroxide Susp 30 Ml Udc) 30 ml PO Q12 [facility] Stop: 06/11/21 20:59 Last Admin: 05/18/21 08:14 Dose: 30 ml Documented by: Midazolam HCl (Midazolam Bolus From Bag) 2 mg IV Q60M PRN PRN Reason: Sedation Stop: 06/07/21 12:56 Miscellaneous (Icu Electrolyte Replacement Protocol) 1 ea N/A BID@ [facility]; Protocol Stop: 05/21/21 17:59 Last Admin: 05/18/21 08:28 Dose: 1 ea Documented by: Miscellaneous Information (Pharmacy Glycemic Mgmt Consult) 1 ea N/A UD PRN PRN Reason: Consult Stop: 06/08/21 12:37 Miscellaneous Information (Piperacill/Tazobac Consult Active) 1 ea N/A UD PRN PRN Reason: Consult Stop: 06/10/21 12:27 Multi-Ingredient Cream (Artificial Tears Op Oint 3.5 Gm Tube) 1 appln OP Q4H NATALIA Stop: 06/17/21 10:29 Last Admin: 05/18/21 11:39 Dose: 1 appln Documented by: Nitroglycerin (Nitroglycerin Sl 0.4 Mg/Tab Tab) 0.4 mg SL UD PRN PRN Reason: Chest Pain Stop: 06/04/21 23:27 Nutritional Formula (Peptamen Intense Vhp 1.0 Quentin 1,000 Ml Bag) 1,000 ml GT CONT NATALIA; Protocol Stop: 06/09/21 10:29 Last Admin: 05/18/21 11:39 Dose: 1,000 ml Documented by: Polyethylene Glycol (Polyethylene (Miralax) 17 Gm Pack) 17 gm PO DAILY PRN PRN Reason: Constipation Stop: 06/04/21 23:27 Propofol (Propofol Bolus From Bag) 20 mg IV Q5M PRN PRN Reason: Sedation Stop: 05/20/21 16:07 Senna/Docusate Sodium (Docusate Sodium/Senna 50/8.6mg Tab) 1 tab PO BID [facility] Stop: 06/10/21 08:59 Last Admin: 05/18/21 08:10 Dose: 1 tab Documented by: Sterile Water (Tube Feeding Water Flush) 60 ml GT Q4H [facility] Stop: 06/11/21 11:29 Last Admin: 05/18/21 11:40 Dose: 60 ml Documented by:
[2021-05-18 17:27] LABS: BUN Creatinine Ratio 51.6 (10-20); Creatinine Clr Calc Pharmacy 156.8 ml/min; Est GFR (Non-African American) 99.2 ml/min; Potassium 3.9 mmol/L (3.5-5.1)
[2021-05-18] MEDS: CISATRACURIUM BESYLATE 80 MG in SODIUM CHLORIDE 0.9% 160 ML IV SCH ×2 (18:06→20:54)
[2021-05-18 18:15] LABS: Magnesium 2.6 mg/dl (1.8-2.4); Phosphorus 4.8 mg/dl (2.5-4.9)
[2021-05-19] MEDS: INSULIN ASPART 100 UNITS/ML VIAL SC SCH ×7 (00:13→23:59)
[2021-05-19] MEDS: fentaNYL DRIP 1,250 MCG/250 ML BAG IV SCH ×3 (01:16→19:45)
[2021-05-19] MEDS: CISATRACURIUM BESYLATE 80 MG in SODIUM CHLORIDE 0.9% 160 ML IV SCH ×6 (01:18→21:41)
[2021-05-19] MEDS: ARTIFICIAL TEARS OP OINT 3.5 GM TUBE OP SCH ×6 (01:50→23:16)
[2021-05-19] MEDS: propofoL 1,000 MG/100 ML VIAL IV SCH ×5 (02:49→20:58)
[2021-05-19] MEDS: TUBE FEEDING WATER FLUSH GT SCH ×6 (03:54→23:16)
[2021-05-19] MEDS: PIPERACILLIN/TAZOBACTAM 4.5 GM in DEXTROSE 5% 100 ML IV SCH ×3 (04:06→20:50)
[2021-05-19 05:05] LABS: iSTAT Arterial Blood Gas HCO3 41 meg/L (19-24); iSTAT Arterial Blood Gas pCO2 95 mmHg (35-46); iSTAT Arterial Blood Gas pH 7.25 (7.35-7.45); iSTAT Arterial Blood Gas pO2 58 mmHg (80-95); iSTAT Carbon Dioxide > 40 mmol/L (24-31); iSTAT FiO2 100 %; iSTAT Site Art Line
[2021-05-19] MEDS: MIDAZOLAM HCL 125 MG/250 ML BAG IV SCH (06:23)
[2021-05-19 06:44] LABS: Appearance Urine Clear (Clear); Bacteria Urine Automated Negative (Negative); Bilirubin Urine Negative (Negative); Blood Urine 1+ (Negative); Color Urine Dark Yellow; Epithelial Cell Urine Auto 20-30 /lpf (0-5); Glucose Urine UA Negative (Negative); Ketones Urine Negative (Negative); Leukocyte Esterase Urine Negative (Negative); Nitrite Urine Negative (Negative); Protein Urine 1+ (Negative); Specific Gravity Urine 1.022 (1.000-1.030); Urobilinogen Urine Negative (Negative); pH Urine 5.5 (4.5-7.5)
[2021-05-19 06:59] LABS: Amorphous Sediment Urine Present (None Prsent)
--- NOTE | 2021-05-19 07:16 | Hospitalist Progress Note ---
Date of Service May 19, 2021 Assessment & Plan (1) Acute respiratory failure with hypoxia: Plan: Secondary to COVID-19 virus infection (2) Pneumonia due to COVID-19 virus: Plan: Acute respiratory failure with hypoxia ARDS Pneumonia due to COVID-19 H/O SUDHIR --CXR:Extensive patchy interstitial and alveolar opacities bilaterally characteristic of a viral type pneumonitis and probable Covid 19 pneumonia. -Intubated on 05/08/21 -Appreciate Critical Care Input -CRP:8.49> 5.20 Desaturated with proning Not a candidate for ECMO given his BMI as per Critical Care, [facility] [place] Completed 5 day Remdesivir course Continue dexamethasone course Received Cefepime >> Zosyn weaned off of Nimbex lasix drip>> transition to Lasix 40mg TID> Lasix PRN on Lovenox for DVT Prophylaxis On propofol, Versed and fentanyl Vent management as per Critical Care 06/09 Blood Cx coagulase-negative staph Sputum culture 05/11 grew Pseudomonas - cont. Zosyn Repeat sputum cultx 05/16 -persistently growing Pseudomonas Chest x-ray05/15- No significant interval change in interstitial and alveolar opacities bilaterally. There is also evidence for small left pleural effusion and left basilar atelectasis. 05/16 - Continues with ventilation using assist control and still at FiO2 of 100%. Still not able to consider trach. Will continue to try to wean vent. Pulmonary medicine discussed possibility w/ pt's that we may never get to the point of trach unless oxygenation requirements reduce significantly and that by Thursday (05/20) we may need to discuss withdrawal of care. 05/19 - Continues with ventilation using assist control 24//18/1 0.0 with a plateau of 31. Last ABG 7. 25/95/58. P/F 58, significantly worse than yesterday. Compliance continues to be a problem. Per pulmonary -we'll continue to tolerate permissive hypercapnia in an effort to minimize distending pressures. Chest x-ray today continues to show diffuse pulmonary infiltrates, unclear how much may be related to fluid overload. He is net - 10 L since admission (3) Hypertension: Plan: Monitor (4) SUDHIR (obstructive sleep apnea): Plan: Morbidly obese BMI: 58 Was on CPAP (5) Hyperlipidemia: Plan: Continue statin DVT prophylaxis: Lovenox CODE STATUS: Full Admission and Anticipated Discharge Date Admission Date: May 05, 2021 Subjective Patient is seen in follow up of COVID pna, ARDS Remains Intubated, sedated Febrile On tube feeds on zosyn for pseudomonas pna, and steroid for ards Pulmonary/ ICU medicine following closely Review of Systems Review of Systems: Unobtainable due to cognitive status and Unobtainable due to endotracheal tube Physical Exam Physical Exam: General Appearance:Morbidly Obese M, Sedated and Intubated Head: normocephalic, Atraumatic Eyes: normal inspection Respiratory/Chest: +decreased breath sounds, +crackles Cardiovascular: S1, S2, No murmur Abdomen/GI:Soft, obese, Bowel sounds present Extremities/Musculoskeletal:normal inspection, no edema Neurologic/Psych:Sedated and Intubated Skin: normal color, warm Results & Data Results & Data ([facility]) Vital Signs (Past 12 Hours) Vital Signs Pulse Resp BP Pulse Ox 05/19/21 06:36 112 H 24 89 L 05/19/21 06:00 111 H 24 126/75 87 L 05/19/21 05:00 116 H 24 129/72 86 L 05/19/21 04:00 118 H 18 133/72 86 L 05/19/21 03:00 116 H 18 87 L 05/19/21 02:40 115 H 18 87 L 05/19/21 02:00 115 H 18 129/77 87 L 05/19/21 01:00 112 H 18 125/75 87 L 05/19/21 00:00 113 H 18 126/69 87 L 05/18/21 23:00 114 H 18 127/72 86 L 05/18/21 22:55 115 H 18 86 L 05/18/21 22:00 115 H 18 141/78 H 85 L 05/18/21 21:00 115 H 18 135/77 86 L 05/18/21 20:01 114 H 18 86 L 05/18/21 20:00 119 H 22 133/76 86 L
[2021-05-19 07:36] LABS: BUN Creatinine Ratio 51.8 (10-20); Calcium 8.9 mg/dl (8.5-10.1); Creatinine Clr Calc Pharmacy 184.4 ml/min; Est GFR (African American) 122.9 ml/min; Est GFR (Non-African American) 106.1 ml/min; Magnesium 2.5 mg/dl (1.8-2.4); Potassium 4.3 mmol/L (3.5-5.1)
[2021-05-19 07:46] LABS: Phosphorus 3.2 mg/dl (2.5-4.9)
[2021-05-19] MEDS: NOREPINEPHRINE/D5W 8 MG/508 ML BAG IV SCH (08:31)
[2021-05-19] MEDS: ATORVASTATIN 20 MG TAB PO SCH (08:36)
[2021-05-19] MEDS: ENOXAPARIN INJ 40 MG/0.4 ML SYR SQ SCH ×2 (08:37→20:51)
[2021-05-19] MEDS: DOCUSATE SODIUM/SENNA 50/8.6MG TAB PO SCH ×2 (08:37→20:51)
[2021-05-19] MEDS: INSULIN GLARGINE SOLOSTAR 100 UNITS/ML 3 ML PEN SC SCH ×2 (08:37→20:51)
[2021-05-19] MEDS: ACETAMINOPHEN SUSP 160 MG/5 ML UDC PO PRN (08:38)
[2021-05-19] MEDS: ICU ELECTROLYTE REPLACEMENT PROTOCOL SCH ×2 (08:50→17:31)
[2021-05-19] MEDS: FUROSEMIDE 40 MG/4 ML VIAL IV SCH ×2 (08:53→20:57)
[2021-05-19] MEDS: MAGNESIUM HYDROXIDE SUSP 30 ML UDC PO SCH (08:53)
[2021-05-19 09:04] LABS: Hematocrit (blood only) 38.4 % (42-52); Hemoglobin 11.2 g/dL (14.0-18.0); Mean Corpuscular Hemoglobin 29.4 pg (25-34); Mean Corpuscular Hgb Conc 29.2 g/dL (32-36); Mean Corpuscular Volume 100.8 fL (80-100); Mean Platelet Volume 10.4 fL (7.4-10.4); Nucleated RBC # (auto) 0.04 K/uL (0-0); Nucleated RBC % (auto) 0.2 %; Platelet Count 264 K/uL (130-400); RDW Coefficient of Variation 15.4 % (11.5-14.5); RDW Standard Deviation 56.8 fL (36.4-46.3); Red Blood Count 3.81 M/uL (4.7-6.1); White Blood Count 18.31 K/uL (4.8-10.8)
[2021-05-19 09:08] LABS: ALC (manual) 0.55 K/uL (1.2-3.4); Lymphocytes # (manual) 0.55 K/uL (1.2-3.4); Monocytes # (manual) 1.46 K/uL (0.11-0.59); RBC Morphology Unremarkable
--- NOTE | 2021-05-19 10:08 | XRay Report ---
XR chest 1V portable CLINICAL HISTORY: Hypoxia TECHNIQUE: Single frontal radiograph of the chest was obtained. Comparison: Comparison is made to chest one view 05/18/2021 FINDINGS: Lines and tubes are stable. The cardiomediastinal silhouette is obscured. Redemonstration of diffuse bilateral airspace opacities. Likely small bilateral pleural effusions are unchanged. IMPRESSION: Stable diffuse airspace opacities with possible bilateral pleural effusions. ACT 112: Negative or not required by law. Electronically signed by: Wily Fuller M.D. 05/19/2021 10:07 AM
--- NOTE | 2021-05-19 11:07 | Pharmacy Report ---
Pharmacy Glycemic Short Note 2 - Date of Service May 19, 2021 - Glycemic Short BSG Results (Last 24 hours): 05/18/21 05/18/21 05/18/21 11:42 16:43 16:49 Glucose 162 H POC Glucose 100 H 140 H 05/18/21 05/19/21 05/19/21 20:01 00:02 04:02 Glucose POC Glucose 131 H 128 H 114 H 05/19/21 05/19/21 06:08 08:08 Glucose 122 H POC Glucose 134 H OUTPATIENT ANTIDIABETIC REGIMEN: * n/a * A1c = 6.3% 05/09/21 ASSESSMENT: 05/19: * BSGs well controlled yesterday: [phone] mg/dL * Received 10 units Lantus + 36 units Novolog * Fasting BSG well controlled at 134 mg/dL this AM * No change to insulin regimen at this time * Continues on Nimbex and Levophed while tube feeds are running at goal. No steroids. 05/17: * BSG's adequate for ICU status patient, ranging 119-193 mg/dL over the last 24 hours. Continue same for today. * Steroids stopping tomorrow. Will hold NPH starting tomorrow AM. Will also loosen Novolog parameters slightly tomorrow AM. Patient will likely require further adjustments tomorrow. 05/16: * Stressors stable, other than tubefeeds titrating up (currently about half of goal rate). Anticipate continued titration up over the next 24 hours. * BSG's in or slightly below goal range for ICU status patient, ranging 111-180 mg/dL over the last 24 hours. Will slightly reduce both AM and PM NPH. * No change to Novolog at this time PLAN FOR INPATIENT GLYCEMIC CONTROL: * Basal insulin * Lantus 5 units SC BID * Bolus insulin * NovoLog per scale Q 4 hrs * Goal Range: Low 110 mg/dL - High 140 mg/dL * Correction Factor: 15 mg/dL/unit * Nutritional / Prandial insulin per carb ratio of 1 unit per 4 grams CHO consumed PLAN FOR DISCHARGE: * HbA1c was 6.3%. Unless patient is discharged on steroids for a long period of time, unlikely that antidiabetic medications will be necessary at discharge. * Continue to support lifestyle management
--- NOTE | 2021-05-19 12:58 | Critical Care Progress Note ---
Date of Service May 19, 2021 Assessment & Plan (1) Acute respiratory failure with hypoxia: (2) Pneumonia due to COVID-19 virus: (3) ARDS (adult respiratory distress syndrome): (4) SUDHIR (obstructive sleep apnea): (5) Morbid obesity: Plan: Impression: 50-year-old male admitted to hospital 05/05/2021 with Covid pneumonia. He was intubated 05/08/2021. 24-hour events: Patient continues to diurese well. His ventilator was optimized this morning in accordance with ARDS net strategies. PEEP was increased. Tidal volume was dropped down to about 4 cc/kg ideal body weight. He has been persistently febrile. Recommendations Neurologic: Continue sedation with Fentanyl, midazolam, and Propofol. Continue cisatracurium to promote low tidal volumes in accordance with ARDS net and to facilitate ventilator synchrony Pulmonary: Continue lung protective ventilation strategy. Patient with severe ARDS mechanical ventilation day #12. Responded very poorly to proning on 021 and was quickly placed supine. Defer any additional proning. BMI excludes any additional interventions such as extracorporeal membrane oxygenation. Continue Dex dosing for late-phase ARDS, Decadron 20 mg x 5 days and 10 mg x 5 days. Continues with ventilation using assist control 24/420/18/1 0.0 with a plateau of 31. Last blood gas 7. 25/95/58. P to F ratio 58, significantly worse than yesterday. Compliance continues to be a problem. We'll continue to tolerate permissive hypercapnia in an effort to minimize distending pressures. I suspect his plateau pressure may not actually reflect transpulmonary pressures given the patient's morbid obesity. If it remains problematic, we may consider esophageal pressure monitoring. Chest x-ray today continues to show diffuse pulmonary infiltrates, unclear how much may be related to fluid overload. He is net - 10 L since admission Cardiovascular: Off pressors. Hemodynamically stable currently. Continue Lasix 40 mg IV twice a day. -2.4 L last 24 hours. Gastrointestinal: Tube feeding per dietary. Continue PPI. Successful bowel movement. Continue bowel regimen Renal: Continue ICU electrolyte replacement protocol. Acid-base status stable. Continue Lasix twice daily. Follow I&Os and maintain negative balance. Serum creatinine has been stable so far so we will continue to push with aggressive diuresis. Infectious disease: Day #04/21 Zosyn for Pseudomonas. With white blood cell count decreased to 18,000 today. Still persistently febrile intermittently. Follow-up cultures show persistent Pseudomonas, remains pansensitive. No change in antimicrobial therapy. Remaining cultures no growth to date. Tylenol as needed Hematologic: No significant issues at present. Continue to trend Endocrine: Glycemic control per protocol. Lines and tubes: Internal jugular central line and radial arterial line placed 05/08/2021. Intubated 05/08/2021. BARBY Duffy- Continue use of these lines but may consider changing them out if the patient becomes persistently febrile VTE prophylaxis: Continue Lovenox 40 mg twice daily CODE STATUS: Full code Disposition: Remain in the ICU I have personally spent 46 minutes of critical care time in the direct management of this patient including discussion with Susan. This is a life/limb threatening event. This includes time spent evaluating patient, direct bedside care, chart review, placing orders, interpretation of diagnostic studies, discussion with consultants, patient, and family members, as well as other required patient management activities. This time is exclusive of all separately billable procedures, and teaching time and separate from and in addition to any other critical care service time. Admission and Anticipated Discharge Date Admission Date: May 05, 2021 Subjective Intubated sedated and paralyzed Review of Systems Review of Systems: Unobtainable due to endotracheal tube Physical Exam Constitutional: + morbidly obese and + mechanically ventilated Neck: trachea midline, no thyromegaly Respiratory: Auscultation: + crackles Cardiovascular: RRR, no murmur, no edema Gastrointestinal (Abdomen): normal bowel sounds, soft, nontender, no hepatosplenomegaly Musculoskeletal: Extremities: extremities normal to inspection Skin: no rashes, warm and dry Lymphatic: no cervical lymphadenopathy Results & Data Results & Data ([facility]) Vital Signs (Past 12 Hours) Vital Signs Pulse Resp BP Pulse Ox 05/19/21 12:00 124 H 24 88 L 05/19/21 11:15 127 H 24 85 L 05/19/21 11:00 128 H 24 85 L 05/19/21 10:00 121 H 24 136/81 86 L 05/19/21 09:00 111 H 24 104/59 L 87 L 05/19/21 08:00 110 H 24 96/54 L 87 L 05/19/21 07:00 114 H 24 88 L 05/19/21 06:36 112 H 24 89 L 05/19/21 06:00 111 H 24 126/75 87 L 05/19/21 05:00 116 H 24 129/72 86 L 05/19/21 04:00 118 H 18 133/72 86 L 05/19/21 03:00 116 H 18 87 L 05/19/21 02:40 115 H 18 87 L 05/19/21 02:00 115 H 18 129/77 87 L 05/19/21 01:00 112 H 18 125/75 87 L Critical Care Results & Data Vital Signs (Past 12 Hours) Vital Signs Pulse Resp BP Pulse Ox 05/19/21 12:00 124 H 24 88 L 05/19/21 11:15 127 H 24 85 L 05/19/21 11:00 128 H 24 85 L 05/19/21 10:00 121 H 24 136/81 86 L 05/19/21 09:00 111 H 24 104/59 L 87 L 05/19/21 08:00 110 H 24 96/54 L 87 L 05/19/21 07:00 114 H 24 88 L 05/19/21 06:36 112 H 24 89 L 05/19/21 06:00 111 H 24 126/75 87 L 05/19/21 05:00 116 H 24 129/72 86 L 05/19/21 04:00 118 H 18 133/72 86 L 05/19/21 03:00 116 H 18 87 L 05/19/21 02:40 115 H 18 87 L 05/19/21 02:00 115 H 18 129/77 87 L 05/19/21 01:00 112 H 18 125/75 87 L Lab & Micro Results (Past 24 Hours) RBC 3.81 M/uL (4.7-6.1) L 05/19/21 WBC 18.31 K/uL (4.8-10.8) H 05/19/21 Hgb 11.2 g/dL (14.0-18.0) L 05/19/21 Hct 38.4 % (42-52) L 05/19/21 MCV 100.8 fL (80-100) H 05/19/21 MCH 29.4 pg (25-34) 05/19/21 MCHC 29.2 g/dL (32-36) L 05/19/21 RDW Standard Deviation 56.8 fL (36.4-46.3) H 05/19/21 RDW Coefficient of Variation 15.4 % (11.5-14.5) H 05/19/21 Plt Count 264 K/uL (130-400) 05/19/21 MPV 10.4 fL (7.4-10.4) 05/19/21 Nucleated Red Blood Cells % (auto) 0.2 % 05/19/21 Nucleated RBC Absolute Count (auto) 0.04 K/uL (0-0) H 05/19/21 ANC 16.30 K/uL (1.4-6.5) H 05/19/21 ALC 0.55 K/uL (1.2-3.4) L 05/19/21 Neutrophils % (Manual) 89.0 % 05/19/21 Lymphocytes % (Manual) 3.0 % 05/19/21 Monocytes % (Manual) 8.0 % 05/19/21 Neutrophils # (Manual) 16.30 K/uL (1.4-6.5) H 05/19/21 Lymphocytes # (Manual) 0.55 K/uL (1.2-3.4) L 05/19/21 Monocytes # (Manual) 1.46 K/uL (0.11-0.59) H 05/19/21 Red Blood Cell Morphology Unremarkable 05/19/21 Na 142 mmol/L (136-145) 05/19/21 K 4.3 mmol/L (3.5-5.1) 05/19/21 Cl 103 mmol/L (98-107) 05/19/21 CO2 36 mmol/L (21-32) H 05/19/21 Anion Gap 3.0 (3-11) 05/19/21 BUN 38 mg/dl (7-18) H 05/19/21 Creatinine 0.74 mg/dl (0.6-1.4) 05/19/21 Estimated GFR ( Amer) 122.9 ml/min 05/19/21 Estimated GFR (Non-Af Amer) 106.1 ml/min 05/19/21 BUN/Creatinine Ratio 51.8 (10-20) H 05/19/21 Glu 122 mg/dl (70-99) H 05/19/21 Ca 8.9 mg/dl (8.5-10.1) 05/19/21 Phosphorus Level 3.2 mg/dl (2.5-4.9) 05/19/21 Mg 2.5 mg/dl (1.8-2.4) H 05/19/21 06:08 05/19/21 Calcium Level 8.9 mg/dl (8.5-10.1) 05/19/21 06:08 05/19/21 Rajinder Test NA 05/19/21 04:28 05/19/21 Microbiology 05/16/21 Unknown Gram Stain - Final Sputum,Vent Suction Sputum Culture - Final Pseudomonas aeruginosa Diagnostic Findings (Past 24 Hours) Chest X-Ray 05/19/21 07:00 XR chest 1V portable CLINICAL HISTORY: Hypoxia TECHNIQUE: Single frontal radiograph of the chest was obtained. Comparison: Comparison is made to chest one view 05/18/2021 FINDINGS: Lines and tubes are stable. The cardiomediastinal silhouette is obscured. Redemonstration of diffuse bilateral airspace opacities. Likely small bilateral pleural effusions are unchanged. IMPRESSION: Stable diffuse airspace opacities with possible bilateral pleural effusions. ACT 112: Negative or not required by law. Electronically signed by: Wily Fuller M.D. 05/19/2021 10:07 AM I & O Totals 24 Hours 05/18/21 05/19/21 05/20/21 06:59 06:59 06:59 Intake Total 1866.265 / 4156.831 3304.981 / 2811.981 670.45 / 670.45 Output Total 4075 / 4075 5300 / 5300 300 / 300 Balance -2208.735 / -2208.735 -2488.019 / -2488.019 370.45 / 370.45 Cumulative 05/05/21 18:07 thru 05/19/21 09:36 Intake Total 09674.752 Output Total 78555 Balance -91077.248 RT Ventilator Mngmt (Last Documented) Ventilator Ordered Settings Ventilator Support Mode Assist Control 05/19/21 11:15 Respiratory Rate 24 05/19/21 12:00 Ventilator Tidal Volume 420 05/19/21 11:15 Setting Minute Ventilation 12.5 05/19/21 11:15 Ventilator Positive Pressure 18 05/15/21 16:00 Support Setting Positive End Expiratory 14 05/19/21 11:15 Pressure Fraction of Inspired Oxygen 100 05/19/21 11:15 Peak Inspiratory Flow 42 05/13/21 14:59 Machine Comment FiO2 increased to 100% 05/18/21 08:45 Ventilator - PT Measurements Respiratory Rate 24 Exhaled Tidal Volume 420 Minute Ventilation 12.5 Peak Inspiratory Airway 34 Pressure Plateau Pressure 31 Respiratory Cycle Inspiratory: 1:1.7 Expiratory Ratio Inspiratory Phase Time 0.7 End-Tidal CO2 23 Static Lung Compliance 24.71 Dynamic Lung Compliance 21.00 Normal Static Lung Compliance 46.00 Patient Measurements Comment found on these settings. Coding Level of Care Code Critical Care 1st 30-74 mins Diagnoses Acute respiratory failure with hypoxia J96.01 Pneumonia due to COVID-19 virus U07.1; J12.82 ARDS (adult respiratory distress syndrome) J80 SUDHIR (obstructive sleep apnea) G47.33 Morbid obesity E66.01 Time Spent (min) 46
[2021-05-19 13:30] LABS: iSTAT Arterial Blood Gas HCO3 36 meg/L (19-24); iSTAT Arterial Blood Gas pCO2 78 mmHg (35-46); iSTAT Arterial Blood Gas pH 7.27 (7.35-7.45); iSTAT Arterial Blood Gas pO2 75 mmHg (80-95); iSTAT Carbon Dioxide 38 mmol/L (24-31); iSTAT FiO2 100 %; iSTAT Site Art Line
[2021-05-19] MEDS: ACETAMINOPHEN SUSP 1000 MG/31.2 ML UDP PO PRN ×2 (15:20→15:21)
[2021-05-19] MEDS: PEPTAMEN INTENSE VHP 1.0 CAL 1,000 ML BAG GT SCH (17:29)
[2021-05-20 00:09] LABS: iSTAT Arterial Blood Gas HCO3 42 meg/L (19-24); iSTAT Arterial Blood Gas pCO2 97 mmHg (35-46); iSTAT Arterial Blood Gas pH 7.25 (7.35-7.45); iSTAT Arterial Blood Gas pO2 71 mmHg (80-95); iSTAT Carbon Dioxide > 40 mmol/L (24-31); iSTAT FiO2 100 %; iSTAT Site Art Line
[2021-05-20] MEDS: CISATRACURIUM BESYLATE 80 MG in SODIUM CHLORIDE 0.9% 160 ML IV SCH ×5 (02:20→22:33)
[2021-05-20] MEDS: ARTIFICIAL TEARS OP OINT 3.5 GM TUBE OP SCH ×6 (02:20→22:34)
[2021-05-20] MEDS: ACETAMINOPHEN SUSP 1000 MG/31.2 ML UDP PO PRN (02:20)
[2021-05-20] MEDS: NOREPINEPHRINE/D5W 8 MG/508 ML BAG IV SCH ×2 (03:19→22:33)
[2021-05-20] MEDS: TUBE FEEDING WATER FLUSH GT SCH ×5 (04:07→20:35)
[2021-05-20 04:09] LABS: iSTAT Allen Test Pass; iSTAT Arterial Blood Gas HCO3 42 meg/L (19-24); iSTAT Arterial Blood Gas pCO2 76 mmHg (35-46); iSTAT Arterial Blood Gas pH 7.35 (7.35-7.45); iSTAT Arterial Blood Gas pO2 89 mmHg (80-95); iSTAT Carbon Dioxide > 40 mmol/L (24-31); iSTAT FiO2 100 %; iSTAT Site L Radial
[2021-05-20] MEDS: PIPERACILLIN/TAZOBACTAM 4.5 GM in DEXTROSE 5% 100 ML IV SCH ×2 (04:09→10:58)
[2021-05-20] MEDS: INSULIN ASPART 100 UNITS/ML VIAL SC SCH ×5 (04:10→20:40)
[2021-05-20] MEDS: fentaNYL DRIP 1,250 MCG/250 ML BAG IV SCH ×3 (04:12→20:45)
[2021-05-20] MEDS: propofoL 1,000 MG/100 ML VIAL IV SCH (08:11)
[2021-05-20 08:13] LABS: Hematocrit (blood only) 39.4 % (42-52); Hemoglobin 11.3 g/dL (14.0-18.0); Mean Corpuscular Hemoglobin 29.5 pg (25-34); Mean Corpuscular Hgb Conc 28.7 g/dL (32-36); Mean Corpuscular Volume 102.9 fL (80-100); Mean Platelet Volume 10.9 fL (7.4-10.4); Platelet Count 309 K/uL (130-400); RDW Coefficient of Variation 15.8 % (11.5-14.5); RDW Standard Deviation 58.4 fL (36.4-46.3); Red Blood Count 3.83 M/uL (4.7-6.1); White Blood Count 18.63 K/uL (4.8-10.8)
[2021-05-20 08:14] LABS: ALC (manual) 0.19 K/uL (1.2-3.4); ANC (manual) 15.65 K/uL (1.4-6.5); Basophils # (manual) 0.19 K/uL (0-0.2); Eosinophils # (manual) 0.19 K/uL (0-0.5); Lymphocytes # (manual) 0.19 K/uL (1.2-3.4); Metamyelocytes # (manual) 0.56 K/uL (0-0); Monocytes # (manual) 1.49 K/uL (0.11-0.59); Myelocytes # (manual) 0.37 K/uL (0-0); Neutrophils # (manual) 15.65 K/uL (1.4-6.5)
--- NOTE | 2021-05-20 08:19 | Hospitalist Progress Note ---
Date of Service May 20, 2021 Assessment & Plan (1) Acute respiratory failure with hypoxia: Plan: Secondary to COVID-19 virus infection (2) Pneumonia due to COVID-19 virus: Plan: Acute respiratory failure with hypoxia ARDS Pneumonia due to COVID-19 H/O SUDHIR --CXR:Extensive patchy interstitial and alveolar opacities bilaterally characteristic of a viral type pneumonitis and probable Covid 19 pneumonia. -Intubated on 05/08/21 -Appreciate Critical Care Input -CRP:8.49> 5.20 Desaturated with proning Not a candidate for ECMO given his BMI as per [place] [facility] [place] 5 day Remdesivir course Continue dexamethasone course Received Cefepime >> Zosyn --> now switched to meropenem and cipro given positive blood cultx and persistently posit. sputum cultx for pseudomonas weaned off of Nimbex lasix drip>> transition to Lasix 40mg TID on Lovenox for DVT Prophylaxis On propofol, Versed and fentanyl Vent management as per Critical Care 06/09 Blood Cx coagulase-negative staph Sputum culture 05/11 grew Pseudomonas - cont. Zosyn Repeat sputum cultx 05/16 -persistently growing Pseudomonas Chest x-ray05/15- No significant interval change in interstitial and alveolar opacities bilaterally. There is also evidence for small left pleural effusion and left basilar atelectasis. 05/16 - Continues with ventilation using assist control and still at FiO2 of 100%. Still not able to consider trach. Will continue to try to wean vent. Pulmonary medicine discussed possibility w/ pt's that we may never get to the point of trach unless oxygenation requirements reduce significantly and that by Thursday (05/20) we may need to discuss withdrawal of care. 05/19 - Last ABG 7. 25/95/58. P/F 58, significantly worse than yesterday. Compliance continues to be a problem. Per pulmonary -we'll continue to tolerate permissive hypercapnia in an effort to minimize distending pressures. Chest x-ray today continues to show diffuse pulmonary infiltrates, unclear how much may be related to fluid overload. He is net - 10 L since admission Bacteremia 05/19 blood cultx posit. for GNB - zosyn switched to meropenem and cipro - central line and Roscoe exchanged - pt continues to be febrile (3) Hypertension: Plan: Monitor (4) SUDHIR (obstructive sleep apnea): Plan: Morbidly obese BMI: 58 Was on CPAP (5) Hyperlipidemia: Plan: Continue statin DVT prophylaxis: Lovenox CODE STATUS: Full Admission and Anticipated Discharge Date Admission Date: May 05, 2021 Subjective Patient is seen in follow up of COVID pna, ARDS Remains Intubated, sedated Febrile Blood cultx positive - central line and Roscoe exchanged (05/20) on zosyn for pseudomonas pna -now switched to meropenem and cipro Pulmonary/ ICU medicine following closely FiO2 90% Review of Systems Review of Systems: Unobtainable due to cognitive status and Unobtainable due to endotracheal tube Physical Exam Physical Exam: General Appearance:Morbidly Obese M, Sedated and Intubated Head: normocephalic, Atraumatic Eyes: normal inspection Respiratory/Chest: +decreased breath sounds, +crackles Cardiovascular: S1, S2, No murmur Abdomen/GI:Soft, obese, Bowel sounds present Extremities/Musculoskeletal:normal inspection, no edema Neurologic/Psych:Sedated and Intubated Skin: normal color, warm Results & Data Results & Data ([facility]) Vital Signs (Past 12 Hours) Vital Signs Temp Pulse Resp BP Pulse Ox 05/20/21 07:40 108 H 34 H 90 05/20/21 06:00 123 H 34 H 89 L 05/20/21 05:00 116 H 34 H 89 L 05/20/21 04:00 39 C H 106 H 34 H 92 05/20/21 03:00 116 H 34 H 92 05/20/21 02:00 112 H 34 H 104/69 93 05/20/21 01:00 114 H 34 H 108/65 91 05/20/21 00:00 39 C H 119 H 34 H 89 L 05/19/21 23:54 34 H 05/19/21 23:35 116 H 34 H 89 L 05/19/21 23:00 114 H 34 H 89 L 05/19/21 22:00 116 H 34 H 88 L 05/19/21 21:00 115 H 34 H 114/66 89 L Laboratory Results 05/20/21 05/20/21 05/20/21 Range/Units 07:27 07:27 04:03 WBC 18.63 H (4.8-10.8) K/uL RBC 3.83 L (4.7-6.1) M/uL Hgb 11.3 L (14.0-18.0) g/dL Hct 39.4 L (42-52) % MCV 102.9 H (80-100) fL MCH 29.5 (25-34) pg MCHC 28.7 L (32-36) g/dL RDW Std Deviation 58.4 H (36.4-46.3) fL RDW Coeff of Samia 15.8 H (11.5-14.5) % Plt Count 309 (130-400) K/uL MPV 10.9 H (7.4-10.4) fL Absolute Nucleated RBC (0-0) K/uL Nucleated RBC % (auto) % Neutrophils % (Manual) 84.0 % Lymphocytes % (Manual) 1.0 % Monocytes % (Manual) 8.0 % Eosinophils % (Manual) 1.0 % Basophils % (Manual) 1.0 % Metamyelocytes % (Man) 3.0 % Myelocytes % (Man) 2.0 % Neutrophils # (Manual) 15.65 H (1.4-6.5) K/uL Total Absolute Neuts 15.65 H (1.4-6.5) K/uL Lymphocytes # (Manual) 0.19 L (1.2-3.4) K/uL Total Abs Lymphocytes 0.19 L (1.2-3.4) K/uL Monocytes # (Manual) 1.49 H (0.11-0.59) K/uL Eosinophils # (Manual) 0.19 (0-0.5) K/uL Basophils # (Manual) 0.19 (0-0.2) K/uL Metamyelocytes # (Man) 0.56 H (0-0) K/uL Myelocytes # (Manual) 0.37 H (0-0) K/uL RBC Morphology Sample Site POC pH (7.35-7.45) POC pCO2 (35-46) mmHg POC pO2 (80-95) mmHg POC HCO3 (19-24) jovanna/L POC Total CO2 (24-31) mmol/L POC Base Excess (-9-1.8) jovanna/L POC ABG O2 Sat (90-95) % Rajinder Test O2 Delivery Device POC O2 Rate Minute Ventilation POC FiO2 % Tidal Volume PEEP Sodium Pending Potassium Pending Chloride Pending Carbon Dioxide Pending Anion Gap Pending BUN Pending Creatinine Pending Est Cr Clr Drug Dosing Pending Est GFR ( Amer) Pending Est GFR (Non-Af Amer) Pending BUN/Creatinine Ratio Pending Glucose Pending POC Glucose 173 H (70-99) mg/dl Calcium Pending Phosphorus Pending Magnesium Pending 05/20/21 05/19/21 05/19/21 Range/Units 03:55 23:47 23:46 WBC (4.8-10.8) K/uL RBC (4.7-6.1) M/uL Hgb (14.0-18.0) g/dL Hct (42-52) % MCV (80-100) fL MCH (25-34) pg MCHC (32-36) g/dL RDW Std Deviation (36.4-46.3) fL RDW Coeff of Samia (11.5-14.5) % Plt Count (130-400) K/uL MPV (7.4-10.4) fL Absolute Nucleated RBC (0-0) K/uL Nucleated RBC % (auto) % Neutrophils % (Manual) % Lymphocytes % (Manual) % Monocytes % (Manual) % Eosinophils % (Manual) % Basophils % (Manual) % Metamyelocytes % (Man) % Myelocytes % (Man) % Neutrophils # (Manual) (1.4-6.5) K/uL Total Absolute Neuts (1.4-6.5) K/uL Lymphocytes # (Manual) (1.2-3.4) K/uL Total Abs Lymphocytes (1.2-3.4) K/uL Monocytes # (Manual) (0.11-0.59) K/uL Eosinophils # (Manual) (0-0.5) K/uL Basophils # (Manual) (0-0.2) K/uL Metamyelocytes # (Man) (0-0) K/uL Myelocytes # (Manual) (0-0) K/uL RBC Morphology Sample Site L Radial Art Line POC pH 7.35 7.25 L (7.35-7.45) POC pCO2 76 H 97 H (35-46) mmHg POC pO2 89 71 L (80-95) mmHg POC HCO3 42 H 42 H (19-24) jovanna/L POC Total CO2 > 40 H* > 40 H* (24-31) mmol/L POC Base Excess 16.0 H 15.0 H (-9-1.8) jovanna/L POC ABG O2 Sat 96.0 H 89.0 L (90-95) % Rajinder Test Pass NA O2 Delivery Device Ventilator Ventilator POC O2 Rate 34 34 Minute Ventilation 116 POC FiO2 100 100 % Tidal Volume 350 300 PEEP 17 18 Sodium Potassium Chloride Carbon Dioxide Anion Gap BUN Creatinine Est Cr Clr Drug Dosing Est GFR ( Amer) Est GFR (Non-Af Amer) BUN/Creatinine Ratio Glucose POC Glucose 125 H (70-99) mg/dl Calcium Phosphorus Magnesium 05/19/21 05/19/21 05/19/21 Range/Units 20:10 16:51 12:55 WBC (4.8-10.8) K/uL RBC (4.7-6.1) M/uL Hgb (14.0-18.0) g/dL Hct (42-52) % MCV (80-100) fL MCH (25-34) pg MCHC (32-36) g/dL RDW Std Deviation (36.4-46.3) fL RDW Coeff of Samia (11.5-14.5) % Plt Count (130-400) K/uL MPV (7.4-10.4) fL Absolute Nucleated RBC (0-0) K/uL Nucleated RBC % (auto) % Neutrophils % (Manual) % Lymphocytes % (Manual) % Monocytes % (Manual) % Eosinophils % (Manual) % Basophils % (Manual) % Metamyelocytes % (Man) % Myelocytes % (Man) % Neutrophils # (Manual) (1.4-6.5) K/uL Total Absolute Neuts (1.4-6.5) K/uL Lymphocytes # (Manual) (1.2-3.4) K/uL Total Abs Lymphocytes (1.2-3.4) K/uL Monocytes # (Manual) (0.11-0.59) K/uL Eosinophils # (Manual) (0-0.5) K/uL Basophils # (Manual) (0-0.2) K/uL Metamyelocytes # (Man) (0-0) K/uL Myelocytes # (Manual) (0-0) K/uL RBC Morphology Sample Site Art Line POC pH 7.27 L (7.35-7.45) POC pCO2 78 H (35-46) mmHg POC pO2 75 L (80-95) mmHg POC HCO3 36 H (19-24) jovanna/L POC Total CO2 38 H (24-31) mmol/L POC Base Excess 9.0 H (-9-1.8) jovanna/L POC ABG O2 Sat 92.0 (90-95) % Rajinder Test NA O2 Delivery Device Ventilator POC O2 Rate 34 Minute Ventilation POC FiO2 100 % Tidal Volume 300 PEEP 18 Sodium Potassium Chloride Carbon Dioxide Anion Gap BUN Creatinine Est Cr Clr Drug Dosing Est GFR ( Amer) Est GFR (Non-Af Amer) BUN/Creatinine Ratio Glucose POC Glucose 112 H 141 H (70-99) mg/dl Calcium Phosphorus Magnesium 05/19/21 05/19/21 Range/Units 11:37 08:36 WBC 18.31 H (4.8-10.8) K/uL RBC 3.81 L (4.7-6.1) M/uL Hgb 11.2 L (14.0-18.0) g/dL Hct 38.4 L (42-52) % MCV 100.8 H D (80-100) fL MCH 29.4 (25-34) pg MCHC 29.2 L (32-36) g/dL RDW Std Deviation 56.8 H (36.4-46.3) fL RDW Coeff of Samia 15.4 H (11.5-14.5) % Plt Count 264 (130-400) K/uL MPV 10.4 (7.4-10.4) fL Absolute Nucleated RBC 0.04 H (0-0) K/uL Nucleated RBC % (auto) 0.2 % Neutrophils % (Manual) 89.0 % Lymphocytes % (Manual) 3.0 % Monocytes % (Manual) 8.0 % Eosinophils % (Manual) % Basophils % (Manual) % Metamyelocytes % (Man) % Myelocytes % (Man) % Neutrophils # (Manual) 16.30 H (1.4-6.5) K/uL Total Absolute Neuts 16.30 H (1.4-6.5) K/uL Lymphocytes # (Manual) 0.55 L (1.2-3.4) K/uL Total Abs Lymphocytes 0.55 L (1.2-3.4) K/uL Monocytes # (Manual) 1.46 H (0.11-0.59) K/uL Eosinophils # (Manual) (0-0.5) K/uL Basophils # (Manual) (0-0.2) K/uL Metamyelocytes # (Man) (0-0) K/uL Myelocytes # (Manual) (0-0) K/uL RBC Morphology Unremarkable Sample Site POC pH (7.35-7.45) POC pCO2 (35-46) mmHg POC pO2 (80-95) mmHg POC HCO3 (19-24) jovanna/L POC Total CO2 (24-31) mmol/L POC Base Excess (-9-1.8) jovanna/L POC ABG O2 Sat (90-95) % Rajinder Test O2 Delivery Device POC O2 Rate Minute Ventilation POC FiO2 % Tidal Volume PEEP Sodium Potassium Chloride Carbon Dioxide Anion Gap BUN Creatinine Est Cr Clr Drug Dosing Est GFR ( Amer) Est GFR (Non-Af Amer) BUN/Creatinine Ratio Glucose POC Glucose 169 H (70-99) mg/dl Calcium Phosphorus Magnesium Medications Administered Current Inpatient Medications Acetaminophen (Acetaminophen Susp 1000 Mg/31.2 Ml Udp) 1,000 mg PO Q8 PRN PRN Reason: Fever Stop: 06/18/21 13:23 Last Admin: 05/20/21 02:20 Dose: 1,000 mg Documented by: Atorvastatin Calcium (Atorvastatin 20 Mg Tab) 20 mg PO DAILY [facility] Stop: 06/05/21 08:59 Last Admin: 05/19/21 08:36 Dose: 20 mg Documented by: Bisacodyl (Bisacodyl 10 Mg Supp) 10 mg [place] DAILY PRN PRN Reason: Constipation- No BM >3 days Stop: 06/10/21 09:02 Last Admin: 05/12/21 15:07 Dose: 10 mg Documented by: Enoxaparin Sodium (Enoxaparin Inj 40 Mg/0.4 Ml Syr) 40 mg SQ BID [facility] Stop: 06/15/21 20:59 Last Admin: 05/19/21 20:51 Dose: 40 mg Documented by: Fentanyl Citrate (Fentanyl Bolus From Bag) 50 mcg IV Q60M PRN PRN Reason: Pain or Agitation Stop: 05/22/21 11:44 Last Admin: 05/10/21 21:34 Dose: 50 mcg Documented by: Furosemide (Furosemide 40 Mg/4 Ml Vial) 40 mg IV BID [facility] Stop: 06/13/21 20:59 Last Admin: 05/19/21 20:57 Dose: 40 mg Documented by: Fentanyl Citrate (Fentanyl Drip) 1,250 mcg in 250 mls @ 30 mls/hr IV .Q8H20M [facility]; Protocol Stop: 05/22/21 11:44 Last Admin: 05/20/21 04:12 Dose: 150 mcg/hr, 30 mls/hr Documented by: Midazolam HCl (Versed) 125 mg in 250 mls @ 4 mls/hr IV .[id number] [facility]; Protocol Stop: 06/07/21 12:59 Last Admin: 05/19/21 06:23 Dose: 2 mg/hr, 4 mls/hr Documented by: Pantoprazole Sodium 40 mg/ (Syringe) 10 mls @ 5 mls/min IV DAILY@1100 [facility] Stop: 06/08/21 10:59 Last Admin: 05/18/21 11:03 Dose: 5 mls/min Documented by: Norepinephrine Bitartrate (Levophed/D5w) 8 mg in 508 mls @ 32.766 mls/hr IV .[id number] [facility]; Protocol Stop: 06/08/21 11:14 Last Admin: 05/20/21 03:19 Dose: 0.05 mcg/kg/min, 32.8 mls/hr Documented by: Piperacillin Sod/Tazobactam (Sod 4.5 gm/ Dextrose) 120 mls @ 30 mls/hr IV Q8H [facility]; Protocol Stop: 05/25/21 19:59 Last Admin: 05/20/21 04:09 Dose: 30 mls/hr Documented by: Propofol (Diprivan) 1,000 mg in 100 mls @ 20.556 mls/hr IV .Q4H52M [facility]; Protocol Stop: 05/20/21 16:14 Last Titration: 05/20/21 04:12 Dose: Infused Documented by: Cisatracurium Besylate 80 mg/ (Sodium Chloride) 200 mls @ 53.025 mls/hr IV .Q3H47M [facility]; Protocol Stop: 06/17/21 17:44 Last Admin: 05/20/21 02:20 Dose: 5 mcg/kg/min, 53 mls/hr Documented by: Insulin Aspart (Insulin Aspart 100 Units/Ml Vial) 0 units SC Q4 [facility] Stop: 06/17/21 07:59 Last Admin: 05/20/21 04:10 Dose: 9 units Documented by: Insulin Glargine (Insulin Glargine Solostar 100 Units/Ml 3 Ml Pen) 5 units SC BID [facility]; Protocol Stop: 06/17/21 09:14 Last Admin: 05/19/21 20:51 Dose: 5 units Documented by: Midazolam HCl (Midazolam Bolus From Bag) 2 mg IV Q60M PRN PRN Reason: Sedation Stop: 06/07/21 12:56 Miscellaneous (Icu Electrolyte Replacement Protocol) 1 ea N/A BID@,18 [facility]; Protocol Stop: 05/21/21 17:59 Last Admin: 05/19/21 17:31 Dose: Not Given Documented by: Miscellaneous Information (Pharmacy Glycemic Mgmt Consult) 1 ea N/A UD PRN PRN Reason: Consult Stop: 06/08/21 12:37 Miscellaneous Information (Piperacill/Tazobac Consult Active) 1 ea N/A UD PRN PRN Reason: Consult Stop: 06/10/21 12:27 Multi-Ingredient Cream (Artificial Tears Op Oint 3.5 Gm Tube) 1 appln OP Q4H [facility] Stop: 06/17/21 10:29 Last Admin: 05/20/21 04:13 Dose: 1 appln Documented by: Nutritional Formula (Peptamen Intense Vhp 1.0 [place] 1,000 Ml Bag) 1,000 ml GT CONT [facility]; Protocol Stop: 06/09/21 10:29 Last Admin: 05/19/21 17:29 Dose: 1,000 ml Documented by: Polyethylene Glycol (Polyethylene (Miralax) 17 Gm Pack) 17 gm PO DAILY PRN PRN Reason: Constipation Stop: 06/04/21 23:27 Propofol (Propofol Bolus From Bag) 20 mg IV Q5M PRN PRN Reason: Sedation Stop: 05/20/21 16:07 Senna/Docusate Sodium (Docusate Sodium/Senna 50/8.6mg Tab) 1 tab PO BID [facility] Stop: 06/10/21 08:59 Last Admin: 05/19/21 20:51 Dose: 1 tab Documented by: Sterile Water (Tube Feeding Water Flush) 60 ml GT Q4H [facility] Stop: 06/11/21 11:29 Last Admin: 05/20/21 04:07 Dose: 60 ml Documented by:
[2021-05-20] MEDS: ENOXAPARIN INJ 40 MG/0.4 ML SYR SQ SCH ×2 (08:23→20:36)
[2021-05-20] MEDS: DOCUSATE SODIUM/SENNA 50/8.6MG TAB PO SCH ×2 (08:23→20:36)
[2021-05-20] MEDS: ATORVASTATIN 20 MG TAB PO SCH (08:23)
[2021-05-20] MEDS: INSULIN GLARGINE SOLOSTAR 100 UNITS/ML 3 ML PEN SC SCH ×2 (08:24→20:41)
[2021-05-20 08:28] LABS: BUN Creatinine Ratio 50.2 (10-20); Calcium 8.9 mg/dl (8.5-10.1); Creatinine Clr Calc Pharmacy 156.9 ml/min; Est GFR (African American) 114.5 ml/min; Est GFR (Non-African American) 98.8 ml/min; Magnesium 2.9 mg/dl (1.8-2.4)
[2021-05-20 08:29] LABS: Phosphorus 2.1 mg/dl (2.5-4.9)
[2021-05-20] MEDS: FUROSEMIDE 40 MG/4 ML VIAL IV SCH ×3 (08:38→22:34)
[2021-05-20 08:42] LABS: Potassium 4.2 mmol/L (3.5-5.1)
--- NOTE | 2021-05-20 09:10 | XRay Report ---
XR chest 1V portable HISTORY: Respiratory failure. Follow-up. COMPARISON: Chest 05/19/2021. FINDINGS: Endotracheal tube terminates 3.4 cm from the juan francisco. Right jugular central venous catheter terminates at the SVC. Nasogastric tube terminates below the diaphragm. The tip is not included on th is study. No pneumothorax. No pleural effusions. Patchy bilateral airspace opacities, right greater t mcwilliams left persist. This is consistent with a viral pneumonia. IMPRESSION: 1. Satisfactory support line placement. 2. No change in the patchy bilateral airspace opacities consistent with a viral pneumonia. ACT 112: Negative or not required by law. Electronically signed by: Otis Lagos M.D. 05/20/2021 9:08 AM
[2021-05-20] MEDS: ICU ELECTROLYTE REPLACEMENT PROTOCOL SCH ×2 (09:23→17:51)
[2021-05-20] MEDS ORDERED: SODIUM PHOSPHATE 3 MMOL/1 ML 5 ML VIAL IV ONE (09:29)
[2021-05-20] MEDS ORDERED: SODIUM PHOSPHATE 15 MMOL in SODIUM CHLORIDE 0.9% 250 ML IV ONE (10:00)
[2021-05-20] MEDS: PEPTAMEN INTENSE VHP 1.0 CAL 1,000 ML BAG GT SCH (10:57)
[2021-05-20] MEDS: PANTOprazole 40 MG in SYRINGE 0 ML IV SCH (10:57)
--- NOTE | 2021-05-20 11:02 | Critical Care Progress Note ---
Date of Service May 20, 2021 Assessment & Plan (1) Acute respiratory failure with hypoxia: (2) Pneumonia due to COVID-19 virus: (3) ARDS (adult respiratory distress syndrome): (4) SUDHIR (obstructive sleep apnea): (5) Morbid obesity: Plan: Impression: 50-year-old male admitted to hospital 05/05/2021 with Covid pneumonia. He was intubated 05/08/2021. Recommendations Neurologic: Continue sedation with Fentanyl, midazolam, and Propofol. Continue cisatracurium to promote compliance and continue low tidal volumes in accordance with ARDS net and to facilitate ventilator synchrony- currently with Pplt 28 and VT 4ml/kg, PEEP 14 and FIo2 80-100%. Pulmonary: Continue lung protective ventilation strategy. Patient with severe ARDS mechanical ventilation day #12. Responded very poorly to proning on 05/08/2021 and was quickly placed supine. Defer any additional proning. BMI excludes any additional interventions such as extracorporeal membrane oxygenation. Dex dosing for late-phase ARDS has been completed. Continues with ventilation using assist control VT 4-6ml/kg- Peep and [id number] 0.0 to keep Pa02>56 with a plateau of <31. PF ~110 today. Compliance continues to be a problem. We'll continue to tolerate permissive hypercapnia in an effort to minimize distending pressures. Chest x-ray today continues to show diffuse pulmonary infiltrates, He is net - 10 L since admission and with his increase in PaO2 today will continue with diuresing in the setting of stable renal function. Cardiovascular: Off pressors. Hemodynamically stable currently. Increase Lasix to 40mg IV q8. Gastrointestinal: Tube feeding per dietary. Continue PPI. Successful bowel movement. Continue bowel regimen Renal: Continue ICU electrolyte replacement protocol. Acid-base status stable. Continue Lasix twice daily. Follow I&Os and maintain negative balance. Serum creatinine has been stable so far so we will continue to push with aggressive diuresis. Infectious disease: Day #11 Zosyn for Pseudomonas. With white blood cell stable at 18.6. Still persistently febrile. Blood cultures from CVL and Peripheral with GNB Follow-up cultures show persistent Pseudomonas, remains pansensitive- however in the setting of GNB in blood will change Zosyn to Meropenem and add Ciprofloxacin. Await speciation. - Will change CVL and Emely today Hematologic: No significant issues at present. Continue to trend Endocrine: Glycemic control per protocol. Lines and tubes: Internal jugular central line and radial arterial line placed 05/08/2021- remove and changed 05/20/21 . Intubated 05/08/2021. BARBY Duffy- Continue use of these lines VTE prophylaxis: Continue Lovenox 40 mg twice daily CODE STATUS: Full code Disposition: Remain in the ICU I have personally spent 65 minutes of critical care time in the direct management of this patient including discussion with Susan. This is a life/limb threatening event. This includes time spent evaluating patient, direct bedside care, chart review, placing orders, interpretation of diagnostic studies, discussion with consultants, patient, and family members, as well as other required patient management activities. This time is exclusive of all separately billable procedures, and teaching time and separate from and in addition to any other critical care service time. Admission and Anticipated Discharge Date Admission Date: May 05, 2021 Subjective Patient discussed on multidisciplinary rounds, patient evaluated in the [facility] ICU. He is ICU Day #12 intubated day #12 for hypoxia secondary to COVID 19 pneumonia. Patient continues to be febrile through the weekend and day #12 of Zosyn therapy for pseudomonas from sputum sample taken via ETT. His Blood culutres from yesterday both from peripheral and CVL line with preliminary GNB. We will change his ABX to meropenem and Ciprofloxacin coverage. He has completed his course of steroids for late phase ARDS. He remains on high levels of PEEP and FIO2, with stable Pplt pressures. His ABG this morning is stable. Will plan for CVL and Emely change out today secondary to blood cultures. Await speciation. Continue maximal supportive care, increase diuresis today with Lasix 40mg IV q8 hours, continue to have difficulty with oxygenation and body habitus requiring high fowlers for oxygenation saturation >88%. Review of Systems Review of Systems: Unable to perform secondary to intubation and sedaton Physical Exam Physical Exam: N: Unable to assess CAM Intubated, sedated, paralyzed pharmacologically- TOF 0/4 Eyes: Pupils are equal round and sluggishly reactive to light Neck: Trachea is midline. CVL site intact no erythema Respiratory: ETT in place with OGT, Diminished coarse lung sounds bilaterally. Cardiovascular: Regular rate and rhythm. No murmurs. Trace edema to bilateral feet and ankles. Gastrointestinal: Normal bowel sounds, soft, obese, tympanic on exam Skin: No rashes, warm dry and intact, bony prominences padded Results & Data Results & Data ([facility]) Vital Signs (Past 12 Hours) Vital Signs Temp Pulse Resp BP Pulse Ox 05/20/21 10:00 38.6 C H 125 H 34 H 118/74 89 L 05/20/21 09:30 119 H 34 H 88 L 05/20/21 09:00 105 H 34 H 90 05/20/21 08:30 117 H 34 H 91 05/20/21 08:00 38.3 C H 109 H 34 H 90 05/20/21 07:40 108 H 34 H 90 05/20/21 07:30 115 H 34 H 90 05/20/21 07:00 116 H 34 H 89 L 05/20/21 06:30 115 H 34 H 89 L 05/20/21 06:00 123 H 34 H 89 L 05/20/21 05:00 116 H 34 H 89 L 05/20/21 04:00 39 C H 106 H 34 H 92 05/20/21 03:00 116 H 34 H 92 05/20/21 02:00 112 H 34 H 104/69 93 05/20/21 01:00 114 H 34 H 108/65 91 05/20/21 00:00 39 C H 119 H 34 H 89 L 05/19/21 23:54 34 H 05/19/21 23:35 116 H 34 H 89 L Laboratory Results Abnormal lab results 05/19/21 05/19/21 05/19/21 Range/Units 16:51 20:10 23:46 WBC (4.8-10.8) K/uL RBC (4.7-6.1) M/uL Hgb (14.0-18.0) g/dL Hct (42-52) % MCV (80-100) fL MCHC (32-36) g/dL RDW Std Deviation (36.4-46.3) fL RDW Coeff of Samia (11.5-14.5) % MPV (7.4-10.4) fL Neutrophils # (Manual) (1.4-6.5) K/uL Total Absolute Neuts (1.4-6.5) K/uL Lymphocytes # (Manual) (1.2-3.4) K/uL Total Abs Lymphocytes (1.2-3.4) K/uL Monocytes # (Manual) (0.11-0.59) K/uL Metamyelocytes # (Man) (0-0) K/uL Myelocytes # (Manual) (0-0) K/uL POC pH 7.25 L (7.35-7.45) POC pCO2 97 H (35-46) mmHg POC pO2 71 L (80-95) mmHg POC HCO3 42 H (19-24) jovanna/L POC Total CO2 > 40 H* (24-31) mmol/L POC Base Excess 15.0 H (-9-1.8) jovanna/L POC ABG O2 Sat 89.0 L (90-95) % Carbon Dioxide (21-32) mmol/L BUN (7-18) mg/dl BUN/Creatinine Ratio (10-20) Glucose (70-99) mg/dl POC Glucose 141 H 112 H (70-99) mg/dl Phosphorus (2.5-4.9) mg/dl Magnesium (1.8-2.4) mg/dl 05/19/21 05/20/21 05/20/21 Range/Units 23:47 03:55 04:03 WBC (4.8-10.8) K/uL RBC (4.7-6.1) M/uL Hgb (14.0-18.0) g/dL Hct (42-52) % MCV (80-100) fL MCHC (32-36) g/dL RDW Std Deviation (36.4-46.3) fL RDW Coeff of Samia (11.5-14.5) % MPV (7.4-10.4) fL Neutrophils # (Manual) (1.4-6.5) K/uL Total Absolute Neuts (1.4-6.5) K/uL Lymphocytes # (Manual) (1.2-3.4) K/uL Total Abs Lymphocytes (1.2-3.4) K/uL Monocytes # (Manual) (0.11-0.59) K/uL Metamyelocytes # (Man) (0-0) K/uL Myelocytes # (Manual) (0-0) K/uL POC pH (7.35-7.45) POC pCO2 76 H (35-46) mmHg POC pO2 (80-95) mmHg POC HCO3 42 H (19-24) jovanna/L POC Total CO2 > 40 H* (24-31) mmol/L POC Base Excess 16.0 H (-9-1.8) jovanna/L POC ABG O2 Sat 96.0 H (90-95) % Carbon Dioxide (21-32) mmol/L BUN (7-18) mg/dl BUN/Creatinine Ratio (10-20) Glucose (70-99) mg/dl POC Glucose 125 H 173 H (70-99) mg/dl Phosphorus (2.5-4.9) mg/dl Magnesium (1.8-2.4) mg/dl 05/20/21 05/20/21 Range/Units 07:27 07:27 WBC 18.63 H (4.8-10.8) K/uL RBC 3.83 L (4.7-6.1) M/uL Hgb 11.3 L (14.0-18.0) g/dL Hct 39.4 L (42-52) % MCV 102.9 H (80-100) fL MCHC 28.7 L (32-36) g/dL RDW Std Deviation 58.4 H (36.4-46.3) fL RDW Coeff of Samia 15.8 H (11.5-14.5) % MPV 10.9 H (7.4-10.4) fL Neutrophils # (Manual) 15.65 H (1.4-6.5) K/uL Total Absolute Neuts 15.65 H (1.4-6.5) K/uL Lymphocytes # (Manual) 0.19 L (1.2-3.4) K/uL Total Abs Lymphocytes 0.19 L (1.2-3.4) K/uL Monocytes # (Manual) 1.49 H (0.11-0.59) K/uL Metamyelocytes # (Man) 0.56 H (0-0) K/uL Myelocytes # (Manual) 0.37 H (0-0) K/uL POC pH (7.35-7.45) POC pCO2 (35-46) mmHg POC pO2 (80-95) mmHg POC HCO3 (19-24) jovanna/L POC Total CO2 (24-31) mmol/L POC Base Excess (-9-1.8) jovanna/L POC ABG O2 Sat (90-95) % Carbon Dioxide 38 H (21-32) mmol/L BUN 44 H (7-18) mg/dl BUN/Creatinine Ratio 50.2 H (10-20) Glucose 158 H (70-99) mg/dl POC Glucose (70-99) mg/dl Phosphorus 2.1 L D (2.5-4.9) mg/dl Magnesium 2.9 H (1.8-2.4) mg/dl Diagnostic Findings XR chest 1V portable HISTORY: Respiratory failure. Follow-up. COMPARISON: Chest 05/19/2021. FINDINGS: Endotracheal tube terminates 3.4 cm from the juan francisco. Right jugular central venous catheter terminates at the SVC. Nasogastric tube terminates below the diaphragm. The tip is not included on this study. No pneumothorax. No pleural effusions. Patchy bilateral airspace opacities, right greater than left persist. This is consistent with a viral pneumonia. IMPRESSION: 1. Satisfactory support line placement. 2. No change in the patchy bilateral airspace opacities consistent with a viral pneumonia. XR chest 1V portable- Service Date:05/20/21 CLINICAL HISTORY: line placement TECHNIQUE: Single frontal radiograph of the chest was obtained. Comparison: Comparison is made to chest one view 05/20/2021 FINDINGS: Interval placement of left IJ catheter with the tip in the lower SVC. Otherwise lines and tubes are stable. The cardiomediastinal silhouette is normal. Multifocal airspace opacities are unchanged from prior exam. No evidence of pleural effusion or pneumothorax. IMPRESSION: 1. Satisfactory position of left IJ catheter. 2. Interval stability of right internal jugular venous catheter, endotracheal tube, and enteric tube. 3. Multifocal airspace opacities are unchanged from prior exam. Coding Level of Care Code Critical Care 1st 30-74 mins Diagnoses Acute respiratory failure with hypoxia J96.01 Pneumonia due to COVID-19 virus U07.1; J12.82 ARDS (adult respiratory distress syndrome) J80 SUDHIR (obstructive sleep apnea) G47.33 Morbid obesity E66.01
[2021-05-20] MEDS: ACETAMINOPHEN SUSP 325 MG/10.15 ML UDC PO PRN ×2 (11:18→17:29)
[2021-05-20] MEDS ORDERED: MEROPENEM CONSULT ACTIVE PRN (11:24)
[2021-05-20] MEDS: CIPROFLOXACIN / D5W 400 MG/200 ML BAG IV SCH ×2 (12:25→20:35)
[2021-05-20] MEDS: MEROPENEM 500 MG in SYRINGE 0 ML IV SCH ×2 (12:26→17:53)
--- NOTE | 2021-05-20 15:44 | XRay Report ---
XR chest 1V portable CLINICAL HISTORY: line placement TECHNIQUE: Single frontal radiograph of the chest was obtained. Comparison: Comparison is made to chest one view 05/20/2021 FINDINGS: Interval placement of left IJ catheter with the tip in the lower SVC. Otherwise lines and tubes are s table. The cardiomediastinal silhouette is normal. Multifocal airspace opacities are unchanged from p rior exam. No evidence of pleural effusion or pneumothorax. IMPRESSION: 1. Satisfactory position of left IJ catheter. 2. Interval stability of right internal jugular venous catheter, endotracheal tube, and enteric tube . 3. Multifocal airspace opacities are unchanged from prior exam. ACT 112: Negative or not required by law. Electronically signed by: Wily Fuller M.D. 05/20/2021 3:43 PM
--- NOTE | 2021-05-20 17:32 | Procedure Note ---
Procedure Note Date of Service May 20, 2021 Note INTERNAL JUGULAR CENTRAL LINE PROCEDURE NOTE:- Ultrasound guided placement of central venous catheter Procedure: Internal Jugular Central Line Placement Attending: Dr. Hudson APC: Adria Wheeler ([facility] Indication: Central Drug Administration, Poor Venous Access, Multiple Lab Draws Necessary, etc. Anesthesia: [X}Lidocaine 1% Phone Consent was obtained by bertha by wi as delegated by Dr. Hudson. The consent was signed, witnessed and placed on the chart prior to procedure. Indication, risks, and benefits were explained at length. A time-out was completed verifying correct patient, procedure, site, positionin g, and implants(s) or special equipment if applicable. Patients Left Neck was cleansed and draped in the typical sterile fashion using Chloraprep. The Internal Jugular Vein and Carotid Artery were identified using ultrasound. The superficial tissue was anesthetized using 3 mL of 1% lidocaine without epinephrine under direct visualization with the ultrasound. After adequate anesthetization was achieved, the Left Internal Jugular vein was cannulated under direct ultrasound guidance using an introducer needle on a syringe. Good venous blood return was maintained prior to removal of syringe from introducer needle. Using Seldinger Technique, a guide wire was advanced through the introducer needle without resistance. The introducer needle was removed and ultrasound imaging was viewed of the guide wire within the Internal Jugular Vein. A small incision was made in penetrating fashion at the guide wire insertion site utilizing an 11 blade scalpel. The dilator was advanced to the vessel without resistance. The dilator was exchanged for the triple lumen catheter which was advanced into the vessel without resistance. The guide wire was removed intact from the catheter without issue. Claves were placed on each catheter tip with confirmation of good blood flow from each lumen. Each port was easily flushed with sterile saline. The catheter was placed at 20 cm and sutured in place. BioPatch was applied to the catheter and a sterile Tegaderm dressing was applied over the catheter with careful attention to sterility. Patient tolerated procedure well. No immediate complications were met. Post procedure x-ray was completed, placement was appropriate and no pneumothorax was noted. Images were not saved to the permanent record secondary to software and machine used. Procedural Ultrasound Guidance: Procedure Date: Indication: Hemodynamic monitoring, multiple infusions, frequent blood draws Attending: Dr. Hudson Artery AND Vein visualized: Yes Compressible Vein: Yes Guidewire or Short Catheter seen in vein prior to dilation: Yes Secured and verified with XRAY Coding
--- NOTE | 2021-05-20 17:35 | Procedure Note ---
Procedure Note Date of Service May 20, 2021 Note ARTERIAL LINE PROCEDURE NOTE:- Ultrasound guided catheter insertion for arterial line placement radial artery Procedure: Arterial Line Placement Attending: Dr. Hudson APC: Adria Wheeler ([facility]) Indication: Monitoring on Pressors Anesthesia: X None- on infusions of fentanyl and sedation Phone Consent was obtained by Susan as delegated by Dr. Hudson. The consent was signed, witnessed and placed on the chart prior to procedure. Indication, risks, and benefits were explained at length. A time-out was completed verifying correct patient, procedure, site, positioning, and implant(s) or special equipment if applicable. Allens test was performed to ensure adequate perfusion. Patients Left wrist was prepped and draped in the usual sterile fashion. Ultrasound guidance was used to aid needle placement. A 20g Arrow arterial line was introduced into the left radial artery. Catheter was threaded, and the needle was removed with appropriate blood return. Good waveform was observed. The patient tolerated the procedure well. Images not saved to medical record. Blood Loss: Minimal Complications: None Procedural Ultrasound Guidance: Procedure Date: Indication: Hemodynamic monitoring, frequent blood draws, vasoactive medication titration Attending: Dr. Hudson Artery Identified: YES Ultrasound used to hospice superintendent vessel and real time guidance and accessing of artery Complications: NONE Patient tolerated procedure: WELL Coding
[2021-05-20] MEDS ORDERED: IBUPROFEN 800 MG TAB PO STA (19:00)
[2021-05-21] MEDS: MEROPENEM 500 MG in SYRINGE 0 ML IV SCH ×4 (00:36→17:59)
[2021-05-21] MEDS: TUBE FEEDING WATER FLUSH GT SCH ×7 (00:37→23:36)
[2021-05-21] MEDS: INSULIN ASPART 100 UNITS/ML VIAL SC SCH ×6 (00:37→19:56)
[2021-05-21] MEDS: CISATRACURIUM BESYLATE 80 MG in SODIUM CHLORIDE 0.9% 160 ML IV SCH ×2 (01:30→07:39)
[2021-05-21] MEDS: ACETAMINOPHEN SUSP 325 MG/10.15 ML UDC PO PRN ×2 (01:36→16:07)
[2021-05-21] MEDS: ARTIFICIAL TEARS OP OINT 3.5 GM TUBE OP SCH ×6 (02:30→22:36)
[2021-05-21 04:21] LABS: iSTAT Arterial Blood Gas HCO3 41 meg/L (19-24); iSTAT Arterial Blood Gas pCO2 70 mmHg (35-46); iSTAT Arterial Blood Gas pH 7.37 (7.35-7.45); iSTAT Arterial Blood Gas pO2 68 mmHg (80-95); iSTAT Carbon Dioxide > 40 mmol/L (24-31); iSTAT FiO2 85 %; iSTAT Site Art Line
[2021-05-21] MEDS: propofoL 1,000 MG/100 ML VIAL IV SCH ×2 (05:02→18:09)
[2021-05-21] MEDS: CIPROFLOXACIN / D5W 400 MG/200 ML BAG IV SCH ×3 (05:03→19:54)
[2021-05-21] MEDS: fentaNYL DRIP 1,250 MCG/250 ML BAG IV SCH ×3 (06:31→23:35)
[2021-05-21] MEDS: FUROSEMIDE 40 MG/4 ML VIAL IV SCH ×3 (06:38→22:36)
[2021-05-21 06:42] LABS: Mean Corpuscular Hemoglobin 29.3 pg (25-34); Mean Corpuscular Hgb Conc 28.9 g/dL (32-36); Mean Corpuscular Volume 101.1 fL (80-100); Mean Platelet Volume 10.4 fL (7.4-10.4); Platelet Count 308 K/uL (130-400); RDW Coefficient of Variation 15.6 % (11.5-14.5); RDW Standard Deviation 58.1 fL (36.4-46.3); Red Blood Count 3.76 M/uL (4.7-6.1); White Blood Count 17.15 K/uL (4.8-10.8)
[2021-05-21 06:46] LABS: Potassium 3.7 mmol/L (3.5-5.1)
[2021-05-21 06:48] LABS: Basophils # (auto) 0.05 K/uL (0-0.2); Basophils % (auto) 0.3 %; Eosinophils # (auto) 0.28 K/uL (0-0.5); Eosinophils % (auto) 1.6 %; Immature Granulocytes # (auto) 1.07 K/uL (0.00-0.02); Immature Granulocytes % (auto) 6.2 %; Lymphocytes # (auto) 1.29 K/uL (1.2-3.4); Lymphocytes % (auto) 7.5 %; Monocytes # (auto) 1.62 K/uL (0.11-0.59); Monocytes % (auto) 9.4 %; Neutrophils # (auto) 12.84 K/uL (1.4-6.5); Polychromasia 1+
[2021-05-21 06:49] LABS: BUN Creatinine Ratio 58.1 (10-20); Calcium 9.1 mg/dl (8.5-10.1); Creatinine Clr Calc Pharmacy 148.6 ml/min; Est GFR (African American) 111.9 ml/min; Est GFR (Non-African American) 96.6 ml/min; Magnesium 2.9 mg/dl (1.8-2.4)
[2021-05-21] MEDS: ICU ELECTROLYTE REPLACEMENT PROTOCOL SCH (07:42)
[2021-05-21] MEDS: ENOXAPARIN INJ 40 MG/0.4 ML SYR SQ SCH ×2 (08:19→19:57)
[2021-05-21] MEDS: DOCUSATE SODIUM/SENNA 50/8.6MG TAB PO SCH ×2 (08:19→19:58)
[2021-05-21] MEDS: ATORVASTATIN 20 MG TAB PO SCH (08:19)
[2021-05-21] MEDS: INSULIN GLARGINE SOLOSTAR 100 UNITS/ML 3 ML PEN SC SCH ×2 (08:20→19:57)
--- NOTE | 2021-05-21 09:21 | XRay Report ---
XR chest 1V portable CLINICAL HISTORY: resp failure TECHNIQUE: Single frontal radiograph of the chest was obtained. Comparison: Comparison is made to chest one view 05/20/2021 FINDINGS: Lines and tubes are stable. The cardiomediastinal silhouette is normal. Multiple airspace opacities a re slightly less conspicuous than on prior exam. No evidence of pleural effusion or pneumothorax. IMPRESSION: Minimal interval improvement in multifocal airspace opacities. ACT 112: Negative or not required by law. Electronically signed by: Wily Fuller M.D. 05/21/2021 9:20 AM
[2021-05-21] MEDS: PEPTAMEN INTENSE VHP 1.0 CAL 1,000 ML BAG GT SCH (09:33)
[2021-05-21] MEDS ORDERED: CISATRACURIUM BESYLATE IV SOLN 2 MG/ML 10 ML VIAL IV STA ×2 (09:55→10:44)
[2021-05-21] MEDS: POTASSIUM CHLORIDE 20 MEQ/15 ML UDC PO SCH ×2 (10:47→14:26)
[2021-05-21] MEDS: POT PHOSPHATE MONOBASIC W/ SOD TAB PO SCH ×3 (10:47→16:07)
[2021-05-21] MEDS: CISATRACURIUM BESYLATE 100 MG in SODIUM CHLORIDE 0.9% 200 ML IV SCH ×4 (10:50→22:36)
[2021-05-21] MEDS: PANTOprazole 40 MG in SYRINGE 0 ML IV SCH (12:20)
[2021-05-21] MEDS: NOREPINEPHRINE/D5W 8 MG/508 ML BAG IV SCH (12:23)
--- NOTE | 2021-05-21 13:09 | Critical Care Progress Note ---
Date of Service May 21, 2021 Assessment & Plan (1) Acute respiratory failure with hypoxia: (2) Pneumonia due to COVID-19 virus: (3) ARDS (adult respiratory distress syndrome): (4) SUDHIR (obstructive sleep apnea): (5) Morbid obesity: Plan: Impression: 50-year-old male admitted to hospital 05/05/2021 with Covid pneumonia. He was intubated 05/08/2021- remains with pseudomonal infection in blood and sputum. Lines changed 05/19. Repeat cultures today 05/21. Recommendations Neurologic: Continue sedation with Fentanyl, midazolam, and Propofol. Continue cisatracurium to promote compliance and continue low tidal volumes in accordance with ARDS net and to facilitate ventilator synchrony- currently with Pplt 28 and VT 4ml/kg, PEEP 14 and FIo2 80-100%. Pulmonary: Continue lung protective ventilation strategy. Patient with severe ARDS mechanical ventilation day #12. Responded very poorly to proning on 05/08/2021 and was quickly placed supine. Defer any additional proning. BMI excludes any additional interventions such as extracorporeal membrane oxygenation. Dex dosing for late-phase ARDS has been completed. Continues with ventilation using assist control VT 4-6ml/kg- Peep and [id number]/1 0.0 to keep Pa02>56 with a plateau of <31. PF ~110 today. Compliance continues to be a problem. We'll continue to tolerate permissive hypercapnia in an effort to minimize distending pressures. Chest x-ray today continues to show diffuse pulmonary infiltrates, He is net - 10.5 L since admission and with his increase in PaO2 today will continue with diuresing in the setting of stable renal function. Cardiovascular: Off pressors. Hemodynamically stable currently. Contin Lasix to 40mg IV q8, follow renal function. Willing to increase creatinine for improvement of oxygenation at this point in time. Gastrointestinal: Tube feeding per dietary. Continue PPI. Successful bowel movement. Continue bowel regimen Renal: Continue ICU electrolyte replacement protocol. Acid-base status stable. Continue Lasix twice daily. Follow I&Os and maintain negative balance. Serum creatinine has been stable so far so we will continue to push with aggressive diuresis. Infectious disease: 11 Days of Zosyn converted to Meropenem and Ciprofloxacin Day 2 on 05/20/21. Slight improvment in WBC and NLR. Blood cultures from CVL and Peripheral with Pseudomonas juarez-sensitive, but did not respond well to Zosyn. Hematologic: No significant issues at present. Continue to trend Endocrine: Glycemic control per protocol. Lines and tubes: Internal jugular central line and radial arterial line placed 05/08/2021- remove and changed 05/20/21 . Intubated 05/08/2021. BARBY Duffy- Continue use of these lines VTE prophylaxis: Continue Lovenox 40 mg twice daily CODE STATUS: Full code Disposition: Remain in the ICU I have personally spent 45 minutes of critical care time in the direct management of this patient including discussion with Susan. This is a life/limb threatening event. This includes time spent evaluating patient, direct bedside care, chart review, placing orders, interpretation of diagnostic studies, discussion with consultants, patient, and family members, as well as other required patient management activities. This time is exclusive of all separately billable procedures, and teaching time and separate from and in addition to any other critical care service time. Admission and Anticipated Discharge Date Admission Date: May 05, 2021 Subjective Patient discussed on multidisciplinary rounds, patient evaluated in the [facility] ICU. He is ICU Day #13 intubated day #13 for hypoxia secondary to COVID 19 pneumonia. Patient continued to be febrile through the night with Tmax 40. This was lowered to 38.5 with Motrin x1, Tylenol, and cooling blanket therapy. Patient has sputum culture taken via ETT and hiis Blood culutres both from peripheral and CVL line with with pseudomonas. He was previously on Zosyn x 11 days, he is day #2 now on Meropenem and Ciprofloxacin, showing some improvement in his leukocytosis and his NLR. His central line and arterial line were changed out yesterday. He has completed his course of steroids for late phase ARDS. He remains on high levels of PEEP and FIO2, with stable Pplt pressures. His ABG this morning is stable. Continue maximal supportive care, continue diuresis today with Lasix 40mg IV q8 hours, continue to have difficulty with oxygenation and body habitus requiring high fowlers for oxygenation saturation >88%. If no progression in his ventilator settings over the next 24 hours will likely require tracheostomy. Will discuss with today. Review of Systems Review of Systems: Unable to perform secondary to intubation and sedaton Physical Exam Physical Exam: N: Unable to assess CAM Intubated, sedated, paralyzed pharmacologically- TOF 4/4- rebolus x2 with increase in his drip rate goal TOF 0-2/4 Eyes: Pupils are equal round and sluggishly reactive to light Neck: Trachea is midline. CVL site intact no erythema Respiratory: ETT in place with OGT, Diminished coarse lung sounds bilaterally. Cardiovascular: Regular rate and rhythm. No murmurs. Trace edema to bilateral feet and ankles. Gastrointestinal: Normal bowel sounds, soft, obese, tympanic on exam Skin: No rashes, warm dry and intact, bony prominences padded Results & Data Results & Data ([facility]) Vital Signs (Past 12 Hours) Vital Signs Temp Pulse Resp BP Pulse Ox 05/21/21 12:30 38.5 C H 112 H 34 H 88 L 05/21/21 12:00 108 H 34 H 88 L 05/21/21 11:38 38.6 C H 05/21/21 11:30 113 H 34 H 93 05/21/21 11:23 103 H 34 H 89 L 05/21/21 11:00 115 H 34 H 121/73 89 L 05/21/21 10:30 97 H 34 H 91 05/21/21 10:00 97 H 34 H 118/74 90 05/21/21 09:30 89 34 H 90 05/21/21 09:00 96 H 34 H 05/21/21 08:30 105 H 34 H 89 L 05/21/21 08:00 38.6 C H 107 H 34 H 134/83 87 L 05/21/21 07:54 38.7 C H 05/21/21 07:52 97 H 34 H 91 05/21/21 07:30 101 H 34 H 90 05/21/21 07:00 99 H 34 H 136/78 89 L 05/21/21 06:30 96 H 34 H 91 05/21/21 06:00 38.7 C H 102 H 34 H 90 05/21/21 05:30 99 H 34 H 90 05/21/21 05:00 38.6 C H 100 H 34 H 118/73 89 L 05/21/21 04:30 103 H 34 H 91 05/21/21 04:00 38.6 C H 96 H 34 H 119/71 89 L 05/21/21 03:39 101 H 34 H 91 05/21/21 03:30 100 H 34 H 92 05/21/21 03:00 38.6 C H 104 H 34 H 120/73 91 05/21/21 02:30 110 H 34 H 91 05/21/21 02:00 38.7 C H 108 H 34 H 90 05/21/21 01:30 104 H 34 H 91 Laboratory Results Abnormal lab results 05/20/21 05/21/21 05/21/21 Range/Units 16:43 03:43 05:50 WBC (4.8-10.8) K/uL RBC (4.7-6.1) M/uL Hgb (14.0-18.0) g/dL Hct (42-52) % MCV (80-100) fL MCHC (32-36) g/dL RDW Std Deviation (36.4-46.3) fL RDW Coeff of Samia (11.5-14.5) % Neut # (Auto) (1.4-6.5) K/uL [place] # (Auto) (0.11-0.59) K/uL Immature Gran # (Auto) (0.00-0.02) K/uL POC pCO2 70 H (35-46) mmHg POC pO2 68 L (80-95) mmHg POC HCO3 41 H (19-24) jovanna/L POC Total CO2 > 40 H* (24-31) mmol/L POC Base Excess 15.0 H (-9-1.8) jovanna/L Carbon Dioxide 38 H (21-32) mmol/L Anion Gap 2.0 L (3-11) BUN 53 H (7-18) mg/dl BUN/Creatinine Ratio 58.1 H (10-20) Glucose 177 H (70-99) mg/dl POC Glucose (70-99) mg/dl POC Glucose (other) 130 H (70-99) mg/dl Phosphorus 2.0 L (2.5-4.9) mg/dl Magnesium 2.9 H (1.8-2.4) mg/dl 05/21/21 05/21/21 05/21/21 Range/Units 05:50 07:43 12:33 WBC 17.15 H (4.8-10.8) K/uL RBC 3.76 L (4.7-6.1) M/uL Hgb 11.0 L (14.0-18.0) g/dL Hct 38.0 L (42-52) % MCV 101.1 H (80-100) fL MCHC 28.9 L (32-36) g/dL RDW Std Deviation 58.1 H (36.4-46.3) fL RDW Coeff of Samia 15.6 H (11.5-14.5) % Neut # (Auto) 12.84 H (1.4-6.5) K/uL [place] # (Auto) 1.62 H (0.11-0.59) K/uL Immature Gran # (Auto) 1.07 H (0.00-0.02) K/uL POC pCO2 (35-46) mmHg POC pO2 (80-95) mmHg POC HCO3 (19-24) jovanna/L POC Total CO2 (24-31) mmol/L POC Base Excess (-9-1.8) jovanna/L Carbon Dioxide (21-32) mmol/L Anion Gap (3-11) BUN (7-18) mg/dl BUN/Creatinine Ratio (10-20) Glucose (70-99) mg/dl POC Glucose 153 H (70-99) mg/dl POC Glucose (other) 172 H (70-99) mg/dl Phosphorus (2.5-4.9) mg/dl Magnesium (1.8-2.4) mg/dl Diagnostic Findings XR chest 1V portable CLINICAL HISTORY: resp failure TECHNIQUE: Single frontal radiograph of the chest was obtained. Comparison: Comparison is made to chest one view 05/20/2021 FINDINGS: Lines and tubes are stable. The cardiomediastinal silhouette is normal. Multiple airspace opacities are slightly less conspicuous than on prior exam. No evidence of pleural effusion or pneumothorax. IMPRESSION: Minimal interval improvement in multifocal airspace opacities. ACT 112: Negative or not required by law. Coding Level of Care Code Critical Care 1st 30-74 mins Diagnoses Acute respiratory failure with hypoxia J96.01 Pneumonia due to COVID-19 virus U07.1; J12.82 ARDS (adult respiratory distress syndrome) J80 SUDHIR (obstructive sleep apnea) G47.33 Morbid obesity E66.01
--- NOTE | 2021-05-21 13:40 | Pharmacy Report ---
Pharmacy Glycemic Short Note 2 - Date of Service May 21, 2021 - Glycemic Short BSG Results (Last 24 hours): 05/20/21 05/21/21 05/21/21 16:43 05:50 07:43 Glucose 177 H POC Glucose 153 H POC Glucose (other) 130 H 05/21/21 12:33 Glucose POC Glucose POC Glucose (other) 172 H OUTPATIENT ANTIDIABETIC REGIMEN: * n/a * A1c = 6.3% 05/09/21 ASSESSMENT: 05/21: * BSGs well controlled the last 48hr with Lantus 5 units BID of basal. * Tube feeds remain @ goal. Patient remains intubated, sedated, and paralyzed. Norepi @ 0.05mcg/kg/min. * No acute changes to insulin regimen at this time. 05/19: * BSGs well controlled yesterday: [id number] mg/dL * Received 10 units Lantus + 36 units Novolog * Fasting BSG well controlled at 134 mg/dL this AM * No change to insulin regimen at this time * Continues on Nimbex and Levophed while tube feeds are running at goal. No steroids. 05/17: * BSG's adequate for ICU status patient, ranging 119-193 mg/dL over the last 24 hours. Continue same for today. * Steroids stopping tomorrow. Will hold NPH starting tomorrow AM. Will also loosen Novolog parameters slightly tomorrow AM. Patient will likely require further adjustments tomorrow. 05/16: * Stressors stable, other than tubefeeds titrating up (currently about half of goal rate). Anticipate continued titration up over the next 24 hours. * BSG's in or slightly below goal range for ICU status patient, ranging 111-180 mg/dL over the last 24 hours. Will slightly reduce both AM and PM NPH. * No change to Novolog at this time PLAN FOR INPATIENT GLYCEMIC CONTROL: * Basal insulin * Lantus 5 units SC BID * Bolus insulin * NovoLog per scale Q 4 hrs * Goal Range: Low 110 mg/dL - High 140 mg/dL * Correction Factor: 15 mg/dL/unit * Nutritional / Prandial insulin per carb ratio of 1 unit per 4 grams CHO consumed PLAN FOR DISCHARGE: * HbA1c was 6.3%. Unless patient is discharged on steroids for a long period of time, unlikely that antidiabetic medications will be necessary at discharge. * Continue to support lifestyle management
[2021-05-21] MEDS ORDERED: CISATRACURIUM BOLUS FROM BAG IV ONE (17:45)
[2021-05-21] MEDS: MIDAZOLAM HCL 125 MG/250 ML BAG IV SCH (18:16)
[2021-05-22] MEDS: INSULIN ASPART 100 UNITS/ML VIAL SC SCH ×7 (00:17→23:36)
[2021-05-22] MEDS: MEROPENEM 500 MG in SYRINGE 0 ML IV SCH ×5 (00:17→23:26)
[2021-05-22] MEDS: PEPTAMEN INTENSE VHP 1.0 CAL 1,000 ML BAG GT SCH (01:34)
[2021-05-22] MEDS: CISATRACURIUM BESYLATE 100 MG in SODIUM CHLORIDE 0.9% 200 ML IV SCH ×3 (01:34→07:59)
[2021-05-22] MEDS: ARTIFICIAL TEARS OP OINT 3.5 GM TUBE OP SCH ×6 (02:10→21:33)
[2021-05-22] MEDS: TUBE FEEDING WATER FLUSH GT SCH ×6 (02:10→23:08)
[2021-05-22 04:20] LABS: iSTAT Arterial Blood Gas HCO3 42 meg/L (19-24); iSTAT Arterial Blood Gas pCO2 72 mmHg (35-46); iSTAT Arterial Blood Gas pH 7.38 (7.35-7.45); iSTAT Arterial Blood Gas pO2 69 mmHg (80-95); iSTAT Carbon Dioxide > 40 mmol/L (24-31); iSTAT FiO2 90 %; iSTAT Site Art Line
[2021-05-22] MEDS: CIPROFLOXACIN / D5W 400 MG/200 ML BAG IV SCH ×4 (04:36→19:45)
[2021-05-22] MEDS: FUROSEMIDE 40 MG/4 ML VIAL IV SCH ×3 (05:25→21:35)
[2021-05-22 06:20] LABS: Hematocrit (blood only) 37.6 % (42-52); Hemoglobin 10.9 g/dL (14.0-18.0); Mean Corpuscular Hemoglobin 29.3 pg (25-34); Mean Corpuscular Volume 101.1 fL (80-100); Mean Platelet Volume 10.2 fL (7.4-10.4); Nucleated RBC # (auto) 0.02 K/uL (0-0); Nucleated RBC % (auto) 0.1 %; Platelet Count 252 K/uL (130-400); RDW Coefficient of Variation 15.7 % (11.5-14.5); RDW Standard Deviation 58.3 fL (36.4-46.3); Red Blood Count 3.72 M/uL (4.7-6.1); White Blood Count 13.71 K/uL (4.8-10.8)
[2021-05-22 06:30] LABS: BUN Creatinine Ratio 80.8 (10-20); Calcium 8.6 mg/dl (8.5-10.1); Creatinine Clr Calc Pharmacy 261.6 ml/min; Est GFR (Non-African American) 121.7 ml/min; Phosphorus 2.6 mg/dl (2.5-4.9); Potassium 3.6 mmol/L (3.5-5.1)
[2021-05-22 06:34] LABS: Basophils # (auto) 0.05 K/uL (0-0.2); Basophils % (auto) 0.4 %; Eosinophils # (auto) 0.27 K/uL (0-0.5); Immature Granulocytes # (auto) 0.74 K/uL (0.00-0.02); Immature Granulocytes % (auto) 5.4 %; Lymphocytes % (auto) 8.8 %; Monocytes # (auto) 0.99 K/uL (0.11-0.59); Monocytes % (auto) 7.2 %; Neutrophils # (auto) 10.46 K/uL (1.4-6.5); Neutrophils % (auto) 76.2 %; Polychromasia 1+
[2021-05-22 06:36] LABS: Magnesium 2.7 mg/dl (1.8-2.4)
[2021-05-22] MEDS: NOREPINEPHRINE/D5W 8 MG/508 ML BAG IV SCH ×2 (08:37→08:45)
[2021-05-22] MEDS: INSULIN GLARGINE SOLOSTAR 100 UNITS/ML 3 ML PEN SC SCH ×2 (08:42→21:19)
[2021-05-22] MEDS: fentaNYL DRIP 1,250 MCG/250 ML BAG IV SCH ×3 (08:45→16:58)
[2021-05-22] MEDS: propofoL 1,000 MG/100 ML VIAL IV SCH ×5 (08:45→20:30)
[2021-05-22] MEDS: DOCUSATE SODIUM/SENNA 50/8.6MG TAB PO SCH ×2 (08:46→19:46)
[2021-05-22] MEDS: ATORVASTATIN 20 MG TAB PO SCH (08:47)
[2021-05-22] MEDS: ENOXAPARIN INJ 40 MG/0.4 ML SYR SQ SCH ×2 (08:47→19:46)
--- NOTE | 2021-05-22 08:59 | XRay Report ---
XR chest 1V portable HISTORY: 50 years-old Male resp failure acute respiratory failure COMPARISON: Radiograph 05/21/2021 TECHNIQUE: Portable AP view of the chest FINDINGS: Endotracheal tube overlies the midline, 3.5 cm superior to the juan francisco. Left IJ central venous cathete r distal tip projects over the right atrium. Enteric tube courses below the diaphragm with distal tip outside the [id number]. No pneumothorax. Small pleural effusions. Extensive intermixed interstiti al and alveolar opacities have mildly worsened. Degenerative changes of the shoulders and spine. IMPRESSION: 1. Lines and tubes as above. No pneumothorax. 2. Progressively worsened extensive airspace opacities. ACT 112: Negative or not required by law. The above report was generated using voice recognition software. It may contain grammatical, syntax o r spelling errors. Electronically signed by: Satish Dowd M.D. 05/22/2021 8:58 AM
[2021-05-22] MEDS ORDERED: metOLazone 5 MG TABLET PO SCH (09:45)
--- NOTE | 2021-05-22 11:07 | Critical Care Progress Note ---
Date of Service May 22, 2021 Assessment & Plan (1) Acute respiratory failure with hypoxia: (2) Pneumonia due to COVID-19 virus: (3) ARDS (adult respiratory distress syndrome): (4) SUDHIR (obstructive sleep apnea): (5) Morbid obesity: Plan: Impression: 50-year-old male admitted to hospital 05/05/2021 with Covid pneumonia. He was intubated 05/08/2021- remains with pseudomonal infection in blood and sputum. Lines changed 05/19. Repeat cultures today 05/21. Recommendations Neurologic: Continue sedation with Fentanyl, midazolam, and Propofol. Discontinue Cisatracurium secondary to no clinical benefit. Continue adequate sedation with ARDS net and to facilitate ventilator synchrony- currently with Pplt 26 and VT 4ml/kg, PEEP 14 and FIo2 80-100%. Have not been able to wean under 80% FIO2. Pulmonary: Continue lung protective ventilation strategy. Patient with severe ARDS mechanical ventilation day #13. Responded very poorly to proning on 05/08/2021 and was quickly placed supine. Defer any additional proning. BMI excludes any additional interventions such as extracorporeal membrane oxygenation. Dex dosing for late-phase ARDS has been completed. Continues with ventilation using assist control VT 4-6ml/kg- Peep and Yht107/1 0.0 to keep Pa02>56 with a plateau of <31. PF 76 today. Compliance continues to be a problem. We'll continue to tolerate permissive hypercapnia in an effort to minimize distending pressures. Chest x-ray today continues to show diffuse pulmonary infiltrates, He is fluid positive last evening, but negative overall for admission and with his increase in PaO2 today will continue with diuresing in the setting of stable renal function. Cardiovascular: Off pressors. Hemodynamically stable currently. Continue Lasix to 40mg IV q8 add Metolazone, follow renal function. Willing to increase creatinine for improvement of oxygenation at this point in time. Gastrointestinal: Tube feeding per dietary. Continue PPI. BM 3 days ago Continue bowel regimen. May need escalation tomorrow Renal: Continue ICU electrolyte replacement protocol. Acid-base status stable. Continue Lasix q8 and Metolazone. Follow I&Os and maintain negative balance. Serum creatinine has been stable so far so we will continue to push with aggressive diuresis. Infectious disease: 11 Days of Zosyn converted to Meropenem and Ciprofloxacin Day 3 on 05/20/21. Marked improvement in WBC and NLR and fever curve. Blood cultures from CVL and Peripheral with Pseudomonas juarez-sensitive. Hematologic: No significant issues at present. Continue to trend Endocrine: Glycemic control per protocol. Lines and tubes: Internal jugular central line and radial arterial line placed 05/08/2021- remove and changed 05/20/21 Intubated 05/08/2021. BARBY Duffy- Continue use of these lines VTE prophylaxis: Continue Lovenox 40 mg twice daily CODE STATUS: Full code Disposition: Remain in the ICU I have personally spent 50 minutes of critical care time in the direct managem ent of this patient including discussion with Susan. This is a life/limb threatening event. This includes time spent evaluating patient, direct bedside care, chart review, placing orders, interpretation of diagnostic studies, discussion with consultants, patient, and family members, as well as other required patient management activities. This time is exclusive of all separately billable procedures, and teaching time and separate from and in addition to any other critical care service time. Admission and Anticipated Discharge Date Admission Date: May 05, 2021 Supervising Physician Co-Signing Physician Notes Patient seen and examined. EMR reviewed. Imaging independently reviewed. Discussed with critical care AMY and agree with assessment plan as noted. Discussed on multidisciplinary rounds with pharmacy, respiratory therapy, speech therapy, PT, OT, and nurse process excellence manager. Continue to work on aggressive fluid mobilization. Chest x-ray appears to demonstrate progressive bilateral pulmonary infiltrates. Unclear if this is related to fluid or not. The patient has not quite cleared isolation protocols. We will see if the can come in and visit. Would need to make significant progress before we could consider tracheostomy. Continue tube feeding. Neuromuscular blockade is now offered no benefit so this will be discontinued. His fever curve and white blood cell count are better with discontinuation of Zosyn and replacement with meropenem and high-dose ciprofloxacin. Prognosis remains quite guarded. Subjective Patient discussed on multidisciplinary rounds, patient evaluated in the COVID ICU. He is ICU Day #14 intubated day #14 for hypoxia secondary to COVID 19 pneumonia. Patient's fever curve, WBC count and NLR ratio have all downtrended over the past 24 hours. He does have a bacterial pseudomonal infection in his sputum and blood. Responding well now to Meropenem and Ciprofloxacin. Surveillance blood cultures were done on . He has completed his course of steroids for late phase ARDS. He remains on high levels of PEEP and FIO2, with stable Pplt pressures, maximized his neuromuscular blockade and sedation throughout yesterday with hopes of lowering his PEEP and Fio2. This did not change those or his Pplt pressures. His ABG this morning is stable PF ratio 76. Does continue to have poor reserve with desaturations occurring with cleaning and rolling. Continue maximal supportive care, continue diuresis today with Lasix 40mg IV q8 hours and will add in metolazone once this morning and if good results will dose tonight dose in conjunction with his Lasix as he was fluid positive yesterday but with improvement in renal function. Continue to have difficulty with oxygenation and body habitus requiring high fowlers for oxygenation saturation >88%. He remains unable to be attempted at weaning or sedation holiday. Will discontinue his neuromuscular blockade today as not providing any clinical benefit. Will attempt to set up visitation today with the . Decision in the next few days regarding Tracheostomy (will require lowering of ventilator support) and continued care vs. palliation. Review of Systems Review of Systems: unable to complete secondary to sedation and mechanical ventilation Physical Exam Physical Exam: N: Unable to assess CAM, Intubated, sedated, paralytics stopped, Eyes: Pupils are equal round and sluggishly reactive to light Neck: Trachea is midline. CVL site intact no erythema Respiratory: ETT in place with OGT, Diminished coarse lung sounds bilaterally. Cardiovascular: Regular rate and rhythm. No murmurs. Trace edema to bilateral feet and ankles. Gastrointestinal: Normal bowel sounds, soft, obese, tympanic on exam Skin: No rashes, warm dry and intact, bony prominences padded Results & Data Results & Data ([facility]) Vital Signs (Past 12 Hours) Vital Signs Temp Pulse Resp BP Pulse Ox 05/22/21 09:00 84 34 H 92 05/22/21 08:30 83 34 H 91 05/22/21 08:00 82 34 H 90 05/22/21 07:53 98 H 34 H 89 L 05/22/21 07:30 106 H 34 H 91 05/22/21 07:00 103 H 34 H 120/74 92 05/22/21 06:30 101 H 34 H 91 05/22/21 06:00 101 H 34 H 117/65 91 05/22/21 05:00 112 H 34 H 112/70 93 05/22/21 04:00 96 H 34 H 125/80 97 05/22/21 03:56 83 34 H 97 05/22/21 03:00 87 34 H 122/77 97 05/22/21 02:00 88 34 H 119/76 96 05/22/21 01:00 97 H 34 H 125/76 95 05/22/21 00:09 104 H 34 H 94 05/22/21 00:00 37.3 C 103 H 34 H 135/77 95 Laboratory Results Abnormal lab results 05/21/21 05/21/21 05/22/21 Range/Units 12:33 16:03 04:04 WBC (4.8-10.8) K/uL RBC (4.7-6.1) M/uL Hgb (14.0-18.0) g/dL Hct (42-52) % MCV (80-100) fL MCHC (32-36) g/dL RDW Std Deviation (36.4-46.3) fL RDW Coeff of Samia (11.5-14.5) % Neut # (Auto) (1.4-6.5) K/uL [place] # (Auto) (0.11-0.59) K/uL Immature Gran # (Auto) (0.00-0.02) K/uL Absolute Nucleated RBC (0-0) K/uL POC pCO2 72 H (35-46) mmHg POC pO2 69 L (80-95) mmHg POC HCO3 42 H (19-24) jovanna/L POC Total CO2 > 40 H* (24-31) mmol/L POC Base Excess 17.0 H (-9-1.8) jovanna/L Carbon Dioxide (21-32) mmol/L Anion Gap (3-11) BUN (7-18) mg/dl Creatinine (0.6-1.4) mg/dl BUN/Creatinine Ratio (10-20) Glucose (70-99) mg/dl POC Glucose (70-99) mg/dl POC Glucose (other) 172 H 154 H (70-99) mg/dl Magnesium (1.8-2.4) mg/dl 05/22/21 05/22/21 05/22/21 Range/Units 04:27 05:28 05:28 WBC 13.71 H (4.8-10.8) K/uL RBC 3.72 L (4.7-6.1) M/uL Hgb 10.9 L (14.0-18.0) g/dL Hct 37.6 L (42-52) % MCV 101.1 H (80-100) fL MCHC 29.0 L (32-36) g/dL RDW Std Deviation 58.3 H (36.4-46.3) fL RDW Coeff of Samia 15.7 H (11.5-14.5) % Neut # (Auto) 10.46 H (1.4-6.5) K/uL [place] # (Auto) 0.99 H (0.11-0.59) K/uL Immature Gran # (Auto) 0.74 H (0.00-0.02) K/uL Absolute Nucleated RBC 0.02 H (0-0) K/uL POC pCO2 (35-46) mmHg POC pO2 (80-95) mmHg POC HCO3 (19-24) jovanna/L POC Total CO2 (24-31) mmol/L POC Base Excess (-9-1.8) jovanna/L Carbon Dioxide 40 H (21-32) mmol/L Anion Gap 1.0 L (3-11) BUN 43 H (7-18) mg/dl Creatinine 0.53 L D (0.6-1.4) mg/dl BUN/Creatinine Ratio 80.8 H (10-20) Glucose 142 H (70-99) mg/dl POC Glucose 109 H (70-99) mg/dl POC Glucose (other) (70-99) mg/dl Magnesium 2.7 H (1.8-2.4) mg/dl 05/22/21 Range/Units 08:18 WBC (4.8-10.8) K/uL RBC (4.7-6.1) M/uL Hgb (14.0-18.0) g/dL Hct (42-52) % MCV (80-100) fL MCHC (32-36) g/dL RDW Std Deviation (36.4-46.3) fL RDW Coeff of Samia (11.5-14.5) % Neut # (Auto) (1.4-6.5) K/uL [place] # (Auto) (0.11-0.59) K/uL Immature Gran # (Auto) (0.00-0.02) K/uL Absolute Nucleated RBC (0-0) K/uL POC pCO2 (35-46) mmHg POC pO2 (80-95) mmHg POC HCO3 (19-24) jovanna/L POC Total CO2 (24-31) mmol/L POC Base Excess (-9-1.8) jovanna/L Carbon Dioxide (21-32) mmol/L Anion Gap (3-11) BUN (7-18) mg/dl Creatinine (0.6-1.4) mg/dl BUN/Creatinine Ratio (10-20) Glucose (70-99) mg/dl POC Glucose 147 H (70-99) mg/dl POC Glucose (other) (70-99) mg/dl Magnesium (1.8-2.4) mg/dl Diagnostic Findings XR chest 1V portable HISTORY: 50 years-old Male resp failure acute respiratory failure COMPARISON: Radiograph 05/21/2021 TECHNIQUE: Portable AP view of the chest FINDINGS: Endotracheal tube overlies the midline, 3.5 cm superior to the juan francisco. Left IJ central venous catheter distal tip projects over the right atrium. Enteric tube courses below the diaphragm with distal tip outside the [id number]. No pneumothorax. Small pleural effusions. Extensive intermixed interstitial and alveolar opacities have mildly worsened. Degenerative changes of the shoulders and spine. IMPRESSION: 1. Lines and tubes as above. No pneumothorax. 2. Progressively worsened extensive airspace opacities. Coding Level of Care Code Critical Care 1st 30-74 mins Diagnoses Acute respiratory failure with hypoxia J96.01 Pneumonia due to COVID-19 virus U07.1; J12.82 ARDS (adult respiratory distress syndrome) J80 SUDHIR (obstructive sleep apnea) G47.33 Morbid obesity E66.01
[2021-05-22] MEDS: PANTOprazole 40 MG in SYRINGE 0 ML IV SCH (11:26)
--- NOTE | 2021-05-22 15:11 | Hospitalist Progress Note ---
Date of Service May 21, 2021 Assessment & Plan (1) Acute respiratory failure with hypoxia: Plan: Secondary to COVID-19 virus infection (2) Pneumonia due to COVID-19 virus: Plan: Acute respiratory failure with hypoxia ARDS Pneumonia due to COVID-19 H/O SUDHIR --CXR:Extensive patchy interstitial and alveolar opacities bilaterally characteristic of a viral type pneumonitis and probable Covid 19 pneumonia. -Intubated on 05/08/21 -Appreciate Critical Care Input -CRP:8.49> 5.20 Desaturated with proning Not a candidate for ECMO given his BMI as per Critical Care, [facility] [place] Completed 5 day Remdesivir course Continue dexamethasone course Received Cefepime >> Zosyn --> was switched to meropenem and cipro given positive blood cultx and persistently posit. sputum cultx for pseudomonas weaned off of Nimbex lasix drip>> transition to Lasix 40mg TID on Lovenox for DVT Prophylaxis On propofol, Versed and fentanyl Vent management as per Critical Care 06/09 Blood Cx coagulase-negative staph Sputum culture 05/11 grew Pseudomonas - cont. Zosyn Repeat sputum cultx 05/16 -persistently growing Pseudomonas Chest x-ray05/15- No significant interval change in interstitial and alveolar opacities bilaterally. There is also evidence for small left pleural effusion and left basilar atelectasis. 05/16 - Continues with ventilation using assist control and still at FiO2 of 100%. Still not able to consider trach. Will continue to try to wean vent. Pulmonary medicine discussed possibility w/ pt's that we may never get to the point of trach unless oxygenation requirements reduce significantly and that by Thursday (05/20) we may need to discuss withdrawal of care. 05/19 - Last ABG 7. 25/95/58. P/F 58, significantly worse than yesterday. Compliance continues to be a problem. Per pulmonary -we'll continue to tolerate permissive hypercapnia in an effort to minimize distending pressures. Chest x-ray today continues to show diffuse pulmonary infiltrates, unclear how much may be related to fluid overload. He is net - 10 L since admission Bacteremia 05/19 blood cultx posit. for GNB - zosyn switched to meropenem and cipro - central line and Wilmer exchanged - pt continues to be febrile (3) Hypertension: Plan: Monitor (4) SUDHIR (obstructive sleep apnea): Plan: Morbidly obese BMI: 58 Was on CPAP (5) Hyperlipidemia: Plan: Continue statin DVT prophylaxis: Lovenox CODE STATUS: Full Admission and Anticipated Discharge Date Admission Date: May 05, 2021 Subjective Patient is seen in follow up of COVID pna, ARDS Remains Intubated, sedated Febrile Blood cultx positive - central line and Wilmer exchanged (05/20) on zosyn for pseudomonas pna -> was switched to meropenem and cipro Pulmonary/ ICU medicine following closely Prognosis remains guarded Review of Systems Review of Systems: Unobtainable due to cognitive status and Unobtainable due to endotracheal tube Physical Exam Physical Exam: General Appearance:Morbidly Obese M, Sedated and Intubated Head: normocephalic, Atraumatic Eyes: normal inspection Respiratory/Chest: +decreased breath sounds, +crackles Cardiovascular: S1, S2, No murmur Abdomen/GI:Soft, obese, Bowel sounds present Extremities/Musculoskeletal:normal inspection, no edema Neurologic/Psych:Sedated and Intubated Skin: normal color, warm
--- NOTE | 2021-05-22 16:13 | Hospitalist Progress Note ---
Date of Service May 22, 2021 Assessment & Plan (1) Acute respiratory failure with hypoxia: Plan: Secondary to COVID-19 virus infection (2) Pneumonia due to COVID-19 virus: Plan: Acute respiratory failure with hypoxia ARDS Pneumonia due to COVID-19 H/O SUDHIR --CXR:Extensive patchy interstitial and alveolar opacities bilaterally characteristic of a viral type pneumonitis and probable Covid 19 pneumonia. -Intubated on 05/08/21 -Pseudomonas bacteremia Sputum growing Pseudomonas as well -Appreciate Critical Care Input -CRP:8.49> 5.20 Did not tolerate proning Not a candidate for ECHO given his BMI as per Critical Care, [facility] Completed 5 day Remdesivir course Completed dexamethasone course Received Cefepime >> Zosyn 11 days>> meropenem and ciprofloxacin Day #3 weaned off of Nimbex lasix drip>> transition to IV Lasix 40mg, added Metolazone on Lovenox for DVT Prophylaxis Vent management as per Critical Care Currently on 14 PEEP, 100% FiO2 ? Need for Tracheostomy Continue Tube feeds (3) Hypertension: Plan: Monitor Continue current meds (4) SUDHIR (obstructive sleep apnea): Plan: Morbidly obese BMI: 58 Was on CPAP (5) Hyperlipidemia: Plan: Continue statin DVT prophylaxis Lovenox CODE STATUS Full Admission and Anticipated Discharge Date Admission Date: May 05, 2021 Subjective Patient is seen and examined at bedside Remains Sedated and Intubated Family at bedside Blood and sputum growing Pseudomonas Currently on 100% FiO2, 14 PEEP Neuromuscular blockade discontinued On pressor Started on Metolazone in addition to Lasix Review of Systems Review of Systems: All systems reviewed & are unremarkable except as noted in Subjective Physical Exam Physical Exam: Physical Exam: Vitals signs as noted above General Appearance:Morbidly Obese, Sedated and Intubated Head: normocephalic, Atraumatic Eyes: normal inspection, EOMI Neck: supple, Trachea midline Respiratory/Chest: Decreased breath sounds, CTA Cardiovascular: S1, S2, No murmur Abdomen/GI:Soft, Non tender, Bowel sounds present Extremities/Musculoskeletal:normal inspection, no edema Neurologic/Psych:Sedated and Intubated Skin: normal color, warm Results & Data Results & Data ([facility]) Vital Signs (Past 12 Hours) Vital Signs Temp Pulse Resp BP Pulse Ox 05/22/21 15:35 92 H 34 H 91 05/22/21 13:00 37.3 C 92 H 32 H 92 05/22/21 12:30 90 35 H 92 05/22/21 12:00 87 34 H 93 05/22/21 11:30 93 H 34 H 91 05/22/21 11:25 101 H 34 H 85 L 05/22/21 11:00 92 H 34 H 90 05/22/21 10:30 95 H 34 H 91 05/22/21 10:00 37.2 C 99 H 34 H 112/68 91 05/22/21 09:30 105 H 34 H 91 05/22/21 09:00 84 34 H 92 05/22/21 08:30 83 34 H 91 05/22/21 08:00 82 34 H 90 05/22/21 07:53 98 H 34 H 89 L 05/22/21 07:30 106 H 34 H 91 05/22/21 07:00 103 H 34 H 120/74 92 05/22/21 06:30 101 H 34 H 91 05/22/21 06:00 101 H 34 H 117/65 91 05/22/21 05:00 112 H 34 H 112/70 93 05/22/21 04:00 96 H 34 H 125/80 97 Laboratory Results Short CBC 05/22/21 Range/Units 05:28 WBC 13.71 H (4.8-10.8) K/uL Hgb 10.9 L (14.0-18.0) g/dL Hct 37.6 L (42-52) % Plt Count 252 (130-400) K/uL BMP 05/22/21 05:28 Sodium 142 Potassium 3.6 Chloride 101 Carbon Dioxide 40 H BUN 43 H Creatinine 0.53 L D Glucose 142 H Calcium 8.6
[2021-05-22] MEDS ORDERED: STAT IV Infusion **Titration per Protocol STA ×2 (16:52→19:14)
[2021-05-22 18:46] LABS: BUN Creatinine Ratio 60.7 (10-20); Calcium 8.7 mg/dl (8.5-10.1); Creatinine Clr Calc Pharmacy 216.6 ml/min; Est GFR (African American) 130.5 ml/min; Est GFR (Non-African American) 112.6 ml/min; Magnesium 2.6 mg/dl (1.8-2.4); Phosphorus 2.5 mg/dl (2.5-4.9); Potassium 3.2 mmol/L (3.5-5.1)
[2021-05-22] MEDS ORDERED: PROPOFOL BOLUS FROM BAG IV PRN (19:14)
[2021-05-22] MEDS: POTASSIUM CHLORIDE 20 MEQ/15 ML UDC NG SCH ×2 (19:46→23:08)
[2021-05-22 21:41] LABS: iSTAT Arterial Blood Gas HCO3 45 meg/L (19-24); iSTAT Arterial Blood Gas pCO2 82 mmHg (35-46); iSTAT Arterial Blood Gas pH 7.35 (7.35-7.45); iSTAT Arterial Blood Gas pO2 < 32 mmHg (80-95); iSTAT Carbon Dioxide > 40 mmol/L (24-31); iSTAT FiO2 100 %; iSTAT Site Art Line
[2021-05-23] MEDS: propofoL 1,000 MG/100 ML VIAL IV SCH ×7 (00:21→22:27)
[2021-05-23] MEDS: fentaNYL DRIP 1,250 MCG/250 ML BAG IV SCH (01:13)
[2021-05-23] MEDS: ARTIFICIAL TEARS OP OINT 3.5 GM TUBE OP SCH ×6 (01:59→21:49)
[2021-05-23] MEDS: TUBE FEEDING WATER FLUSH GT SCH ×6 (02:50→23:17)
[2021-05-23] MEDS: CIPROFLOXACIN / D5W 400 MG/200 ML BAG IV SCH ×3 (03:07→19:41)
[2021-05-23 04:39] LABS: BUN Creatinine Ratio 71.3 (10-20); Est GFR (African American) 131.3 ml/min; Est GFR (Non-African American) 113.3 ml/min; Phosphorus 2.3 mg/dl (2.5-4.9); Potassium 3.9 mmol/L (3.5-5.1)
[2021-05-23] MEDS: INSULIN ASPART 100 UNITS/ML VIAL SC SCH ×5 (04:45→20:26)
[2021-05-23 04:49] LABS: iSTAT Arterial Blood Gas HCO3 45 meg/L (19-24); iSTAT Arterial Blood Gas pCO2 66 mmHg (35-46); iSTAT Arterial Blood Gas pH 7.44 (7.35-7.45); iSTAT Arterial Blood Gas pO2 55 mmHg (80-95); iSTAT Carbon Dioxide > 40 mmol/L (24-31); iSTAT FiO2 100 %; iSTAT Site Art Line
[2021-05-23 05:04] LABS: Magnesium 2.6 mg/dl (1.8-2.4)
[2021-05-23 05:27] LABS: Hematocrit (blood only) 38.6 % (42-52); Hemoglobin 11.2 g/dL (14.0-18.0); Mean Corpuscular Hemoglobin 28.9 pg (25-34); Mean Corpuscular Volume 99.7 fL (80-100); Mean Platelet Volume 10.2 fL (7.4-10.4); Nucleated RBC # (auto) 0.04 K/uL (0-0); Nucleated RBC % (auto) 0.3 %; Platelet Count 248 K/uL (130-400); RDW Coefficient of Variation 15.6 % (11.5-14.5); RDW Standard Deviation 56.1 fL (36.4-46.3); Red Blood Count 3.87 M/uL (4.7-6.1); White Blood Count 15.79 K/uL (4.8-10.8)
[2021-05-23] MEDS ORDERED: metOLazone 5 MG TABLET PO SCH (05:30)
[2021-05-23] MEDS: MEROPENEM 500 MG in SYRINGE 0 ML IV SCH ×4 (05:36→23:18)
[2021-05-23] MEDS: ICU ELECTROLYTE REPLACEMENT PROTOCOL SCH ×2 (05:43→18:53)
[2021-05-23] MEDS ORDERED: SODIUM PHOSPHATE 3 MMOL/1 ML INFUSION IV STA (05:45)
[2021-05-23] MEDS: FUROSEMIDE 40 MG/4 ML VIAL IV SCH ×3 (05:58→21:49)
[2021-05-23] MEDS: POTASSIUM CHLORIDE 20 MEQ/15 ML UDC NG SCH ×2 (06:08→09:04)
[2021-05-23] MEDS ORDERED: SODIUM PHOSPHATE 15 MMOL in SODIUM CHLORIDE 0.9% 250 ML IV ONE (06:15)
[2021-05-23] MEDS ORDERED: VECURONIUM BROMIDE 10 MG VIAL IV STA (08:42)
[2021-05-23] MEDS: INSULIN GLARGINE SOLOSTAR 100 UNITS/ML 3 ML PEN SC SCH ×2 (08:58→20:26)
[2021-05-23] MEDS: PEPTAMEN INTENSE VHP 1.0 CAL 1,000 ML BAG GT SCH (09:04)
[2021-05-23] MEDS: NOREPINEPHRINE/D5W 8 MG/508 ML BAG IV SCH ×2 (09:04→20:26)
[2021-05-23] MEDS: ENOXAPARIN INJ 40 MG/0.4 ML SYR SQ SCH ×2 (09:05→19:47)
[2021-05-23] MEDS: DOCUSATE SODIUM/SENNA 50/8.6MG TAB PO SCH ×2 (09:06→19:47)
[2021-05-23] MEDS: ATORVASTATIN 20 MG TAB PO SCH (09:06)
[2021-05-23] MEDS: MIDAZOLAM HCL 125 MG/250 ML BAG IV SCH (09:31)
[2021-05-23] MEDS: NEW Std Conc--fentaNYL 2,500mcg/250mL NSS **10mcg/mL IV SCH ×2 (09:31→22:57)
--- NOTE | 2021-05-23 09:34 | XRay Report ---
SINGLE VIEW CHEST CLINICAL HISTORY: Respiratory failure. FINDINGS: 2 AP, portable, upright chest radiographs are compared to study dated 05/22/2021. The exami nation is significantly degraded by portable technique and patient rotation. An endotracheal tube, an enteric tube, and a left internal jugular central venous catheter are unchanged in position. The car diac silhouette appears enlarged. Multifocal airspace consolidation is unchanged as compared to yeste rday. Small pleural effusions are suspected. No pneumothorax is seen. The bony thorax is grossly inta ct. IMPRESSION: 1. Stable lines and tubes. 2. Multifocal airspace consolidation is unchanged as compared to yesterday. ACT 112: Negative or not required by law. Electronically signed by: Mario Gipson M.D. 05/23/2021 9:33 AM
--- NOTE | 2021-05-23 09:44 | Critical Care Progress Note ---
Date of Service May 23, 2021 Assessment & Plan (1) Acute respiratory failure with hypoxia: (2) Pneumonia due to COVID-19 virus: (3) ARDS (adult respiratory distress syndrome): (4) SUDHIR (obstructive sleep apnea): (5) Morbid obesity: Plan: Impression: 50-year-old male admitted to hospital 05/05/2021 with Covid pneumonia. He was intubated 05/08/2021- remains with pseudomonal infection in blood and sputum. Lines changed 05/19. Repeat blood cultures 05/21, repeat sputum sample 05.23.21 Recommendations Neurologic: Continue sedation with Fentanyl, midazolam, and Propofol. Discontinue Cisatracurium secondary to no clinical benefit. Pulmonary: Continue lung protective ventilation strategy. Patient with severe ARDS mechanical ventilation day #15. Responded very poorly to proning on 05/08/2021 and was quickly placed supine. Defer any additional proning. BMI excludes any additional interventions such as extracorporeal membrane oxygenation. Dex dosing for late-phase ARDS has been completed. Continues with ventilation using assist control VT 4-6ml/kg- Peep and [id number] 0.0 PF 50 today. Follow with periodic bolus NMB for compliance. Continue adequate sedation with ARDS net and to facilitate ventilator synchrony- currently with Pplt 28 and VT 6ml/kg, PEEP 16 and FIo2 100%. Have not been able to wean under 80% FIO2, and has needed increase support overnight to maintain oxygenation. His PF ratio is worse this morning, Compliance continues to be a problem. We'll continue to tolerate permissive hypercapnia in an effort to minimize distending pressures. Chest x-ray today continues to show diffuse pulmonary infiltrates, He was negative fluid balance overnight, continue with diuresing in the setting of stable renal function. Patient is now on the ventilator for extended time with no improvement. He would need a Tracheostomy in the future, but this is likely unable to be performed with his current PEEP and FIO2 requirements. Patient also continues to have desaturations down to the 70s with any lowering/turning/or movement. Cardiovascular: MAPS decreased overnight requiring on and off Levophed at 0.05mc/kg. Hemodynamically stable currently. Continue Lasix to 40mg IV q8 add Metolazone, follow renal function. Willing to increase creatinine for improvement of oxygenation at this point in time however this has been improving with diureses. He is -600 ml over 24 hours Gastrointestinal: Tube feeding per dietary. Continue PPI. BM 3 days ago Continue bowel regimen. Will add MOM 30 ml today and suppository. Renal: Continue ICU electrolyte replacement protocol. Acid-base status stable. Continue Lasix q8 and Metolazone. Follow I&Os and maintain negative balance. Serum creatinine has been stable so far so we will continue to push with aggressive diuresis. Infectious disease: 11 Days of Zosyn converted to Meropenem and Ciprofloxacin Day 4 on 05/20/21. Return of fevers last night with increase in the use of cooling blanket and slight increase in WBC this morning to 15. Blood cultures from CVL and Peripheral with Pseudomonas juarez-sensitive. Surveillance blood from [id number] with NGTD. Will resend sputum today. Hematologic: No significant issues at present. Continue to trend Endocrine: Glycemic control per protocol. Lines and tubes: Internal jugular central line and radial arterial line placed 05/08/2021- remove and changed 05/20/21 Intubated 05/08/2021. BARBY Duffy- Continue use of these lines VTE prophylaxis: Continue Lovenox 40 mg twice daily CODE STATUS: Full code Disposition: Remain in the ICU Had full visit with the yesterday at bedside. I was able to go through the patient's imaging with her and go through his hospital course including his maximal ventilator settings and monitor numbers. Feel that I was able to stress to her the severity of his illness and very limited treatment options at this time. His lungs likely have irreversible damage to them and we did discuss that if he survives he will likley be on a permanent ventilator for support. She verbally states she understands and also understands that as we continue to try and support Chad that his other organs may start to fail and that infections are likely to continue to to incur. She currently wants to continue to explore all treatment options including progressing with Tracheostomy if/when able as well as PEG tube placement. She voiced no other questions. I have personally spent 45 minutes of critical care time in the direct management of this patient including discussion with Susan. This is a life/limb threatening event. This includes time spent evaluating patient, direct bedside care, chart review, placing orders, interpretation of diagnostic studies, discussion with consultants, patient, and family members, as well as other required patient management activities. This time is exclusive of all separately billable procedures, and teaching time and separate from and in addition to any other critical care service time. Admission and Anticipated Discharge Date Admission Date: May 05, 2021 Subjective Patient discussed on multidisciplinary rounds, patient evaluated in the [facility] ICU. He is ICU Day #15 intubated day #15 for hypoxia secondary to COVID 19 [place]. Patient's had return of fevers yesterday and remains intermittently cooled with cooling blanket. Will resend sputum sample today. His Surveillance cultures from blood and CVL from [address] [place] [id number] remain with NGTD. He does have a bacterial pseudomonal infection in his sputum and blood. Responding to Meropenem and Ciprofloxacin. He has completed his course of steroids for late phase ARDS. He remains on high levels of PEEP and FIO2, with stable Pplt pressures, Continue to have difficulty with oxygenation. He has gone up on his PEEP overnight to 16 and Fio2 at 100%. He was given 10mg of Vecuronium IV this morning with no improvement in lung compliance or oxygenation. His ABG remains with PF ration of 50-55. He remains unable to be attempted at weaning or sedation holiday. Patient prognosis remains poor. Review of Systems Review of Systems: unable to complete secondary to sedation and mechanical ventilation Physical Exam Physical Exam: N: Unable to assess CAM, Intubated, sedated, paralytics stopped, DORIS -4 Eyes: Pupils are equal round and sluggishly reactive to light Neck: Trachea is midline. CVL site intact no erythema Respiratory: ETT in place with OGT, Diminished coarse lung sounds bilaterally. Cardiovascular: Regular rate and rhythm. No murmurs. Trace edema to bilateral feet and ankles. Gastrointestinal: Normal bowel sounds, soft, obese, tympanic on exam Skin: No rashes, warm dry and intact, bony prominences padded Results & Data Results & Data ([facility]) Vital Signs (Past 12 Hours) Vital Signs Temp Pulse Resp BP Pulse Ox 05/23/21 07:19 92 H 35 H 82 L 05/23/21 06:00 99 H 35 H 105/57 L 88 L 05/23/21 05:30 37.6 C H 103 H 35 H 88 L 05/23/21 05:00 108 H 34 H 104/53 L 88 L 05/23/21 04:30 103 H 35 H 88 L 05/23/21 04:00 106 H 34 H 103/63 89 L 05/23/21 03:30 104 H 34 H 90 05/23/21 03:00 106 H 34 H 89/56 L 89 L 05/23/21 02:30 108 H 34 H 89 L 05/23/21 02:21 108 H 35 H 89 L 05/23/21 02:00 108 H 35 H 105/52 L 88 L 05/23/21 01:30 105 H 34 H 89 L 05/23/21 01:00 102 H 35 H 97/58 L 89 L 05/23/21 00:30 105 H 34 H 87 L 05/23/21 00:00 37.6 C H 105 H 34 H 99/55 L 86 L 05/22/21 23:30 105 H 34 H 87 L 05/22/21 23:00 101 H 35 H 110/59 L 86 L 05/22/21 22:38 99 H 34 H 89 L 05/22/21 22:30 103 H 34 H 89 L 05/22/21 22:00 103 H 34 H 112/64 88 L Laboratory Results Abnormal lab results 05/21/21 05/22/21 05/22/21 Range/Units 19:53 00:15 11:51 WBC (4.8-10.8) K/uL RBC (4.7-6.1) M/uL Hgb (14.0-18.0) g/dL Hct (42-52) % MCHC (32-36) g/dL RDW Std Deviation (36.4-46.3) fL RDW Coeff of Samia (11.5-14.5) % Absolute Nucleated RBC (0-0) K/uL POC pCO2 (35-46) mmHg POC pO2 (80-95) mmHg POC HCO3 (19-24) jovanna/L POC Total CO2 (24-31) mmol/L POC Base Excess (-9-1.8) jovanna/L POC ABG O2 Sat (90-95) % Potassium (3.5-5.1) mmol/L Chloride (98-107) mmol/L Carbon Dioxide (21-32) mmol/L Anion Gap (3-11) BUN (7-18) mg/dl BUN/Creatinine Ratio (10-20) Glucose (70-99) mg/dl POC Glucose 150 H (70-99) mg/dl POC Glucose (other) 161 H 156 H (70-99) mg/dl Phosphorus (2.5-4.9) mg/dl Magnesium (1.8-2.4) mg/dl 05/22/21 05/22/21 05/22/21 Range/Units 16:19 18:12 20:10 WBC (4.8-10.8) K/uL RBC (4.7-6.1) M/uL Hgb (14.0-18.0) g/dL Hct (42-52) % MCHC (32-36) g/dL RDW Std Deviation (36.4-46.3) fL RDW Coeff of Samia (11.5-14.5) % Absolute Nucleated RBC (0-0) K/uL POC pCO2 (35-46) mmHg POC pO2 (80-95) mmHg POC HCO3 (19-24) jovanna/L POC Total CO2 (24-31) mmol/L POC Base Excess (-9-1.8) jovanna/L POC ABG O2 Sat (90-95) % Potassium 3.2 L (3.5-5.1) mmol/L Chloride 96 L (98-107) mmol/L Carbon Dioxide 42 H* (21-32) mmol/L Anion Gap (3-11) BUN 39 H (7-18) mg/dl BUN/Creatinine Ratio 60.7 H (10-20) Glucose 149 H (70-99) mg/dl POC Glucose 134 H (70-99) mg/dl POC Glucose (other) 139 H (70-99) mg/dl Phosphorus (2.5-4.9) mg/dl Magnesium 2.6 H (1.8-2.4) mg/dl 05/22/21 05/22/21 05/23/21 Range/Units 21:22 23:31 03:53 WBC 15.79 H (4.8-10.8) K/uL RBC 3.87 L (4.7-6.1) M/uL Hgb 11.2 L (14.0-18.0) g/dL Hct 38.6 L (42-52) % MCHC 29.0 L (32-36) g/dL RDW Std Deviation 56.1 H (36.4-46.3) fL RDW Coeff of Samia 15.6 H (11.5-14.5) % Absolute Nucleated RBC 0.04 H (0-0) K/uL POC pCO2 82 H (35-46) mmHg POC pO2 < 32 L (80-95) mmHg POC HCO3 45 H (19-24) jovanna/L POC Total CO2 > 40 H* (24-31) mmol/L POC Base Excess 19.0 H (-9-1.8) jovanna/L POC ABG O2 Sat 54.0 L (90-95) % Potassium (3.5-5.1) mmol/L Chloride (98-107) mmol/L Carbon Dioxide (21-32) mmol/L Anion Gap (3-11) BUN (7-18) mg/dl BUN/Creatinine Ratio (10-20) Glucose (70-99) mg/dl POC Glucose (70-99) mg/dl POC Glucose (other) 153 H (70-99) mg/dl Phosphorus (2.5-4.9) mg/dl Magnesium (1.8-2.4) mg/dl 05/23/21 05/23/21 05/23/21 Range/Units 03:53 04:32 08:51 WBC (4.8-10.8) K/uL RBC (4.7-6.1) M/uL Hgb (14.0-18.0) g/dL Hct (42-52) % MCHC (32-36) g/dL RDW Std Deviation (36.4-46.3) fL RDW Coeff of Samia (11.5-14.5) % Absolute Nucleated RBC (0-0) K/uL POC pCO2 66 H (35-46) mmHg POC pO2 55 L (80-95) mmHg POC HCO3 45 H (19-24) jovanna/L POC Total CO2 > 40 H* (24-31) mmol/L POC Base Excess 21.0 H (-9-1.8) jovanna/L POC ABG O2 Sat 87.0 L (90-95) % Potassium (3.5-5.1) mmol/L Chloride 96 L (98-107) mmol/L Carbon Dioxide 42 H* (21-32) mmol/L Anion Gap 1.0 L (3-11) BUN 45 H (7-18) mg/dl BUN/Creatinine Ratio 71.3 H (10-20) Glucose 139 H (70-99) mg/dl POC Glucose 154 H (70-99) mg/dl POC Glucose (other) (70-99) mg/dl Phosphorus 2.3 L (2.5-4.9) mg/dl Magnesium 2.6 H (1.8-2.4) mg/dl Diagnostic Findings SINGLE VIEW CHEST CLINICAL HISTORY: Respiratory failure. FINDINGS: 2 AP, portable, upright chest radiographs are compared to study dated 05/22/2021. The examination is significantly degraded by portable technique and patient rotation. An endotracheal tube, an enteric tube, and a left internal jugular central venous catheter are unchanged in position. The cardiac silhouette appears enlarged. Multifocal airspace consolidation is unchanged as compared to yesterday. Small pleural effusions are suspected. No pneumothorax is seen. The bony thorax is grossly intact. IMPRESSION: 1. Stable lines and tubes. 2. Multifocal airspace consolidation is unchanged as compared to yesterday. Coding Level of Care Code Critical Care 1st 30-74 mins Diagnoses Acute respiratory failure with hypoxia J96.01 Pneumonia due to COVID-19 virus U07.1; J12.82 ARDS (adult respiratory distress syndrome) J80 SUDHIR (obstructive sleep apnea) G47.33 Morbid obesity E66.01
[2021-05-23 10:40] LABS: iSTAT Arterial Blood Gas HCO3 47 meg/L (19-24); iSTAT Arterial Blood Gas pCO2 65 mmHg (35-46); iSTAT Arterial Blood Gas pH 7.47 (7.35-7.45); iSTAT Arterial Blood Gas pO2 55 mmHg (80-95); iSTAT Carbon Dioxide > 40 mmol/L (24-31); iSTAT FiO2 100 %; iSTAT Site Art Line
[2021-05-23] MEDS: PANTOprazole 40 MG in SYRINGE 0 ML IV SCH (11:17)
[2021-05-23] MEDS ORDERED: MAGNESIUM HYDROXIDE SUSP 30 ML UDC PO ONE (12:23)
[2021-05-23] MEDS ORDERED: bisacodyL 10 MG SUPP PR STA (12:24)
[2021-05-23] MEDS ORDERED: VECURONIUM BROMIDE 10 MG VIAL IV ONE (13:14)
[2021-05-23] MEDS: VECURONIUM BROMIDE 10 MG VIAL IV PRN ×2 (13:22→23:42)
--- NOTE | 2021-05-23 18:26 | Hospitalist Progress Note ---
Date of Service May 23, 2021 Assessment & Plan (1) Acute respiratory failure with hypoxia: Plan: Secondary to COVID-19 virus infection (2) Pneumonia due to COVID-19 virus: Plan: Acute respiratory failure with hypoxia ARDS Pneumonia due to COVID-19 H/O SUDHIR --CXR:Extensive patchy interstitial and alveolar opacities bilaterally characteristic of a viral type pneumonitis and probable Covid 19 pneumonia. -Intubated on 05/08/21 -Pseudomonas bacteremia Sputum growing Pseudomonas as well -Appreciate Critical Care Input -CRP:8.49> 5.20 Did not tolerate proning Not a candidate for ECHO given his BMI as per Critical Care, [facility] Completed 5 day Remdesivir course Completed dexamethasone course Received Cefepime >> Zosyn 11 days>> meropenem and ciprofloxacin Day #4 weaned off of Nimbex lasix drip>> transition to IV Lasix 40mg, added Metolazone on Lovenox for DVT Prophylaxis Vent management as per Critical Care Currently on 16 PEEP, 100% FiO2 Continue Tube feeds PF is 50 today Poor Prognosis Patient would need Tracheostomy eventually CXR today remains unchanged from yesterday Repeat Sputum Culture pending Family prefers to continue aggressive measures (3) Hypertension: Plan: Monitor Continue current meds (4) SUDHIR (obstructive sleep apnea): Plan: Morbidly obese BMI: 58 Was on CPAP (5) Hyperlipidemia: Plan: Continue statin DVT prophylaxis Lovenox CODE STATUS Full Admission and Anticipated Discharge Date Admission Date: May 05, 2021 Subjective Patient is seen and examined at bedside Remains Sedated and Intubated Currently on 100% FiO2, 16 PEEP On pressor Discussed with family at bedside Family prefers to continue aggressive measures and consider to see if patient can be transferred to tertiary care facility Patient desaturates easily even with minimal movement Review of Systems Review of Systems: Unobtainable due to endotracheal tube Physical Exam Physical Exam: Physical Exam: Vitals signs as noted above General Appearance:Morbidly Obese, Sedated and Intubated Head: normocephalic, Atraumatic Eyes: normal inspection, EOMI Neck: supple, Trachea midline Respiratory/Chest: Decreased breath sounds, CTA Cardiovascular: S1, S2, No murmur Abdomen/GI:Soft, Non tender, Bowel sounds present Extremities/Musculoskeletal:normal inspection, no edema Neurologic/Psych:Sedated and Intubated Skin: normal color, warm Results & Data Results & Data ([facility]) Vital Signs (Past 12 Hours) Vital Signs Temp Pulse Resp BP Pulse Ox 05/23/21 18:00 82 34 H 90 05/23/21 17:30 87 34 H 89 L 05/23/21 17:00 88 34 H 89 L 05/23/21 16:30 92 H 35 H 89 L 05/23/21 16:23 94 H 35 H 88 L 05/23/21 16:00 37.5 C 98 H 38 H 88 L 05/23/21 15:30 98 H 35 H 86 L 05/23/21 15:00 94 H 89 L 05/23/21 14:30 93 H 87 L 05/23/21 14:00 89 89 L 05/23/21 13:30 37.3 C 95 H 35 H 86 L 05/23/21 13:00 92 H 34 H 85 L 05/23/21 12:30 95 H 88 L 05/23/21 12:00 98 H 107/58 L 87 L 05/23/21 11:43 100 H 35 H 87 L 05/23/21 11:30 98 H 88 L 05/23/21 11:00 101 H 118/65 89 L 05/23/21 10:30 97 H 88 L 05/23/21 10:00 97 H 87 L 05/23/21 09:30 95 H 34 H 87 L 05/23/21 09:00 95 H 89 L 05/23/21 08:30 96 H 87 L 05/23/21 08:00 97 H 86 L 05/23/21 07:30 92 H 84 L 05/23/21 07:19 92 H 35 H 82 L 05/23/21 07:00 103 H 34 H 119/59 L 88 L 05/23/21 06:30 101 H 35 H 87 L Laboratory Results Short CBC 05/23/21 Range/Units 03:53 WBC 15.79 H (4.8-10.8) K/uL Hgb 11.2 L (14.0-18.0) g/dL Hct 38.6 L (42-52) % Plt Count 248 (130-400) K/uL BMP 05/22/21 05/23/21 18:12 03:53 Sodium 141 138 Potassium 3.2 L 3.9 D Chloride 96 L 96 L Carbon Dioxide 42 H* 42 H* BUN 39 H 45 H Creatinine 0.64 0.63 Glucose 149 H 139 H Calcium 8.7 9.0
[2021-05-24] MEDS: INSULIN ASPART 100 UNITS/ML VIAL SC SCH ×6 (00:14→20:34)
[2021-05-24] MEDS: PEPTAMEN INTENSE VHP 1.0 CAL 1,000 ML BAG GT SCH ×2 (01:54→14:18)
[2021-05-24] MEDS: ARTIFICIAL TEARS OP OINT 3.5 GM TUBE OP SCH ×6 (01:55→22:43)
[2021-05-24] MEDS: NOREPINEPHRINE/D5W 8 MG/508 ML BAG IV SCH ×3 (02:23→12:18)
[2021-05-24] MEDS: TUBE FEEDING WATER FLUSH GT SCH ×6 (02:24→23:34)
[2021-05-24] MEDS: propofoL 1,000 MG/100 ML VIAL IV SCH ×6 (02:25→22:46)
[2021-05-24] MEDS: CIPROFLOXACIN / D5W 400 MG/200 ML BAG IV SCH ×3 (03:47→20:32)
[2021-05-24 05:09] LABS: iSTAT Arterial Blood Gas HCO3 46 meg/L (19-24); iSTAT Arterial Blood Gas pCO2 65 mmHg (35-46); iSTAT Arterial Blood Gas pH 7.46 (7.35-7.45); iSTAT Arterial Blood Gas pO2 61 mmHg (80-95); iSTAT Carbon Dioxide > 40 mmol/L (24-31); iSTAT FiO2 100 %; iSTAT Site Art Line
[2021-05-24] MEDS: MEROPENEM 500 MG in SYRINGE 0 ML IV SCH (05:35)
[2021-05-24] MEDS: FUROSEMIDE 40 MG/4 ML VIAL IV SCH ×3 (05:35→20:45)
--- NOTE | 2021-05-24 07:49 | XRay Report ---
XR chest 1V portable CLINICAL HISTORY: Resp failure TECHNIQUE: Single frontal radiograph of the chest was obtained. Comparison: Comparison is made to chest one view 05/23/2021 FINDINGS: Lines and tubes are stable. The cardiomediastinal silhouette is normal. Multifocal airspace opacities are seen. Small bilateral pleural effusions are seen. IMPRESSION: Stable multifocal airspace opacities. ACT 112: Negative or not required by law. Electronically signed by: Wily Fuller M.D. 05/24/2021 7:48 AM
[2021-05-24 07:54] LABS: Hematocrit (blood only) 37.7 % (42-52); Hemoglobin 11.3 g/dL (14.0-18.0); Mean Corpuscular Volume 96.7 fL (80-100); Mean Platelet Volume 10.5 fL (7.4-10.4); Nucleated RBC # (auto) 0.13 K/uL (0-0); Nucleated RBC % (auto) 0.6 %; Platelet Count 280 K/uL (130-400); RDW Coefficient of Variation 15.7 % (11.5-14.5); RDW Standard Deviation 54.6 fL (36.4-46.3)
[2021-05-24] MEDS: ENOXAPARIN INJ 40 MG/0.4 ML SYR SQ SCH ×2 (08:21→20:38)
[2021-05-24] MEDS: DOCUSATE SODIUM/SENNA 50/8.6MG TAB PO SCH ×2 (08:21→20:45)
[2021-05-24] MEDS: bisacodyL 10 MG SUPP PR PRN (08:22)
[2021-05-24] MEDS: ATORVASTATIN 20 MG TAB PO SCH (08:23)
[2021-05-24 08:31] LABS: BUN Creatinine Ratio 63.6 (10-20); Calcium 8.9 mg/dl (8.5-10.1); Creatinine Clr Calc Pharmacy 180.8 ml/min; Est GFR (African American) 121.6 ml/min; Est GFR (Non-African American) 104.9 ml/min; Magnesium 2.4 mg/dl (1.8-2.4); Phosphorus 3.3 mg/dl (2.5-4.9); Potassium 2.9 mmol/L (3.5-5.1)
[2021-05-24] MEDS: ICU ELECTROLYTE REPLACEMENT PROTOCOL SCH ×2 (08:36→17:47)
[2021-05-24] MEDS: INSULIN GLARGINE SOLOSTAR 100 UNITS/ML 3 ML PEN SC SCH ×2 (08:36→20:36)
[2021-05-24] MEDS: ACETAMINOPHEN SUSP 325 MG/10.15 ML UDC PO PRN ×3 (09:42→17:54)
[2021-05-24] MEDS: POTASSIUM CHLORIDE / WTR 20 MEQ/100 ML PLCT IV SCH ×4 (09:43→16:26)
[2021-05-24] MEDS: PANTOprazole 40 MG in SYRINGE 0 ML IV SCH (10:23)
[2021-05-24] MEDS: NEW Std Conc--fentaNYL 2,500mcg/250mL NSS **10mcg/mL IV SCH (11:01)
--- NOTE | 2021-05-24 11:32 | Critical Care Progress Note ---
Date of Service May 24, 2021 Assessment & Plan (1) Acute respiratory failure with hypoxia: (2) Pneumonia due to COVID-19 virus: (3) ARDS (adult respiratory distress syndrome): (4) SUDHIR (obstructive sleep apnea): (5) Morbid obesity: Plan: Impression: 50-year-old male admitted to hospital 05/05/2021 with Covid pneumonia. He was intubated 05/08/2021- remains with pseudomonal infection in blood and sputum. Lines changed 05/19. Repeat cultures today 05/21. 24-hour events: The patient has had escalation in his oxygen requirement. He is now 100% FiO2 with PEEP up to 18. Compliance remains poor and plateau pressures are now at or above 32. He has had increase in his white blood cell count but his fever curve looks better. He is extremely tenuous and desaturates for prolonged periods of time with any significant movement or manipulation. He is cleared isolation protocol was transferred out of the ICU. is at bedside Recommendations Neurologic: Continue sedation with Fentanyl, midazolam, and Propofol. Continue adequate sedation with ARDS net and to facilitate ventilator synchrony. No response to neuromuscular blockade so no indication for continued therapy. Pulmonary: Continue lung protective ventilation strategy. Patient with severe ARDS mechanical ventilation day #17. Responded very poorly to proning on 05/08/2021 and was quickly placed supine. Defer any additional proning. BMI excludes any additional interventions such as extracorporeal membrane oxygenation. Dex dosing for late-phase ARDS has been completed. Current settings assist-control: 35/420/16/1.0 with plateau pressures of 33 consistent with very stiff lungs and poor compliance. Most recent blood gas 7.46/65/61. PF 61 today worse than yesterday. Compliance continues to be a problem. Tolerating permissive hypercapnia, mildly alkalotic today with diuresis. Chest x-ray today continues to show diffuse pulmonary infiltrates. He is fluid positive last evening, but negative overall for admission and with his increase in PaO2 today will continue with diuresing in the setting of stable renal function. Cardiovascular: Back on pressors which are currently escalating. Currently on Lasix to 40mg IV q8 add Metolazone, follow renal function. 1.2 L negative over the last 24 hours. Mildly alkalotic and may benefit from additional dose of Diamox today Gastrointestinal: Tube feeding per dietary. Continue PPI. Continue aggressive bowel regiment Renal: Continue ICU electrolyte replacement protocol. Acid-base status stable. Continue Lasix q8 and Metolazone. Follow I&Os and maintain negative balance. Serum creatinine has been stable so far so we will continue to push with aggressive diuresis. Infectious disease: 11 Days of Zosyn converted to Meropenem and Ciprofloxacin Day 4 on 05/20/21. Discussed with pharmacy today. He is now febrile but his white count is elevated. They are increasing his meropenem dosing given his volume of distribution issues. CHARANJIT is were less than 1. Given his clinical decline, will add tobramycin. Sputum cultures persistently positive for gram- negative rods Hematologic: No significant issues at present. Continue to trend Endocrine: Glycemic control per protocol. Lines and tubes: Internal jugular central line and radial arterial line placed 05/08/2021- remove and changed 05/20/21 Intubated 05/08/2021. BARBY Duffy- Continue use of these lines VTE prophylaxis: Continue Lovenox 40 mg twice daily CODE STATUS: Full code Disposition: Remain in the ICU Patient is critically ill with multiorgan system failure dysfunction. Met with again at bedside. Discussed with the hospitalist. is requesting transfer to another facility. I advised her that I think the patient was too ill to even consider transfer if there were beds available which they are not. I also advised that I did not believe there were any additional therapies available for Mr. Bryant at this point time that he is not getting here. The hospitalist will round with Susan today to update her on his discussions. With the patient's maximal ventilator settings, increasing pressor requirements, persistent fevers leukocytosis, and failure to make any significant meaningful progress over the last 10 days, I am not optimistic regarding his overall survivability. She is aware of the severity of his illness and has some family support at home. Offered to see if case management could assist with helping her or the kids, she declines currently. As stated previously, I do not think CPR in this setting would be beneficial in improving the patient's outcome or the survivability of his current illness and would favor changing his CODE STATUS to no CPR compressions. 50 minutes critical care time Admission and Anticipated Discharge Date Admission Date: May 05, 2021 Subjective intubated, sedated and paralyzed. Review of Systems Review of Systems: Unobtainable due to endotracheal tube Physical Exam Constitutional: + morbidly obese and + mechanically ventilated Neck: trachea midline, no thyromegaly Respiratory: no respiratory distress and no labored breathing Auscultation: + crackles and + wheezes Cardiovascular: RRR, no murmur, no edema Gastrointestinal (Abdomen): normal bowel sounds, soft, nontender, no hepatosplenomegaly Musculoskeletal: Extremities: extremities normal to inspection Skin: no rashes, warm and dry Lymphatic: no cervical lymphadenopathy Results & Data Results & Data ([facility]) Vital Signs (Past 12 Hours) Vital Signs Pulse Resp BP Pulse Ox 05/24/21 11:02 112 H 35 H 85 L 05/24/21 08:00 107 H 32 H 87 L 05/24/21 06:00 101 H 36 H 113/64 91 05/24/21 05:30 100 H 36 H 89 L 05/24/21 05:00 99 H 34 H 103/61 89 L 05/24/21 04:30 94 H 34 H 90 05/24/21 04:00 94 H 34 H 127/60 89 L 05/24/21 03:55 86 34 H 91 05/24/21 03:30 86 34 H 89 L 05/24/21 03:00 87 34 H 117/63 89 L 05/24/21 02:30 85 34 H 90 05/24/21 02:00 81 34 H 134/72 88 L 05/24/21 01:30 89 34 H 90 05/24/21 01:00 93 H 34 H 120/72 90 05/24/21 00:30 93 H 34 H 90 05/24/21 00:00 86 34 H 114/63 90 05/23/21 23:30 90 34 H 90 Critical Care Results & Data Vital Signs (Past 12 Hours) Vital Signs Pulse Resp BP Pulse Ox 05/24/21 11:02 112 H 35 H 85 L 05/24/21 08:00 107 H 32 H 87 L 05/24/21 06:00 101 H 36 H 113/64 91 05/24/21 05:30 100 H 36 H 89 L 05/24/21 05:00 99 H 34 H 103/61 89 L 05/24/21 04:30 94 H 34 H 90 05/24/21 04:00 94 H 34 H 127/60 89 L 05/24/21 03:55 86 34 H 91 05/24/21 03:30 86 34 H 89 L 05/24/21 03:00 87 34 H 117/63 89 L 05/24/21 02:30 85 34 H 90 05/24/21 02:00 81 34 H 134/72 88 L 05/24/21 01:30 89 34 H 90 05/24/21 01:00 93 H 34 H 120/72 90 05/24/21 00:30 93 H 34 H 90 05/24/21 00:00 86 34 H 114/63 90 05/23/21 23:30 90 34 H 90 Lab & Micro Results (Past 24 Hours) RBC 3.90 M/uL (4.7-6.1) L 05/24/21 WBC 21.20 K/uL (4.8-10.8) H 05/24/21 Hgb 11.3 g/dL (14.0-18.0) L 05/24/21 Hct 37.7 % (42-52) L 05/24/21 MCV 96.7 fL (80-100) 05/24/21 MCH 29.0 pg (25-34) 05/24/21 MCHC 30.0 g/dL (32-36) L 05/24/21 RDW Standard Deviation 54.6 fL (36.4-46.3) H 05/24/21 RDW Coefficient of Variation 15.7 % (11.5-14.5) H 05/24/21 Plt Count 280 K/uL (130-400) 05/24/21 MPV 10.5 fL (7.4-10.4) H 05/24/21 Nucleated Red Blood Cells % (auto) 0.6 % 05/24/21 Nucleated RBC Absolute Count (auto) 0.13 K/uL (0-0) H 05/24/21 Na 136 mmol/L (136-145) 05/24/21 K 2.9 mmol/L (3.5-5.1) L 05/24/21 Cl 88 mmol/L (98-107) L 05/24/21 CO2 42 mmol/L (21-32) H* 05/24/21 Anion Gap 7.0 (3-11) 05/24/21 BUN 48 mg/dl (7-18) H 05/24/21 Creatinine 0.76 mg/dl (0.6-1.4) 05/24/21 Estimated GFR ( Amer) 121.6 ml/min 05/24/21 Estimated GFR (Non-Af Amer) 104.9 ml/min 05/24/21 BUN/Creatinine Ratio 63.6 (10-20) H 05/24/21 Glu 146 mg/dl (70-99) H 05/24/21 Ca 8.9 mg/dl (8.5-10.1) 05/24/21 Phosphorus Level 3.3 mg/dl (2.5-4.9) 05/24/21 Mg 2.4 mg/dl (1.8-2.4) 05/24/21 06:37 05/24/21 Calcium Level 8.9 mg/dl (8.5-10.1) 05/24/21 06:37 05/24/21 Rajinder Test NA 05/24/21 04:43 05/24/21 Microbiology 05/19/21 06:08 Aerobic Blood Culture - Preliminary Blood Pseudomonas aeruginosa Anaerobic Blood Culture - Final No growth in Anaerobic bottle after 5 days. 05/19/21 06:08 Aerobic Blood Culture - Preliminary Blood Pseudomonas aeruginosa Anaerobic Blood Culture - Final No growth in Anaerobic bottle after 5 days. 05/23/21 Unknown Gram Stain - Final Sputum,Vent Suction Sputum Culture - Preliminary Gram negative bacilli 05/21/21 15:57 Aerobic Blood Culture - Preliminary Blood No growth in Aerobic bottle after 48 hours. Anaerobic Blood Culture - Final 05/21/21 14:52 Aerobic Blood Culture - Preliminary Blood No growth in Aerobic bottle after 48 hours. Anaerobic Blood Culture - Preliminary No growth in Anaerobic bottle after 48 hours. Diagnostic Findings (Past 24 Hours) Chest X-Ray 05/24/21 07:00 XR chest 1V portable CLINICAL HISTORY: Resp failure TECHNIQUE: Single frontal radiograph of the chest was obtained. Comparison: Comparison is made to chest one view 05/23/2021 FINDINGS: Lines and tubes are stable. The cardiomediastinal silhouette is normal. Multifocal airspace opacities are seen. Small bilateral pleural effusions are seen. IMPRESSION: Stable multifocal airspace opacities. ACT 112: Negative or not required by law. Electronically signed by: Wily Fuller M.D. 05/24/2021 7:48 AM I & O Totals 24 Hours 12/16/21 12/17/21 12/18/21 06:59 06:59 06:59 Intake Total 4942.527 / 4942.527 5088.353 / 5088.353 1257.888 / 1257.888 Output Total 5175 / 5175 6350 / 6350 150 / 150 Balance -232.473 / -232.473 -1261.647 / -6354.364 5483.888 / 1107.888 Cumulative 05/05/21 18:07 thru 05/24/21 11:01 Intake Total 22491.275 Output Total 31383 Balance -82268.725 RT Ventilator Mngmt (Last Documented) Ventilator Ordered Settings Ventilator Support Mode Assist Control 05/24/21 11:02 Respiratory Rate 35 05/24/21 11:02 Ventilator Tidal Volume 420 05/24/21 11:02 Setting Minute Ventilation 14 05/24/21 11:02 Ventilator Positive Pressure 18 05/15/21 16:00 Support Setting Positive End Expiratory 16 05/24/21 11:02 Pressure Fraction of Inspired Oxygen 100 05/24/21 11:02 Peak Inspiratory Flow 42 05/13/21 14:59 Machine Comment increased to 100% fio2. spo2 85% 05/22/21 11:25 on 90% fio2 Ventilator - PT Measurements Respiratory Rate 35 Exhaled Tidal Volume 408 Minute Ventilation 14 Peak Inspiratory Airway 38 Pressure Plateau Pressure 33 Respiratory Cycle Inspiratory: 1:1.2 Expiratory Ratio Inspiratory Phase Time 0.8 End-Tidal CO2 44 Static Lung Compliance 24.00 Dynamic Lung Compliance 18.55 Normal Static Lung Compliance 45.00 Patient Measurements Comment dropped fio2 post ABG Coding Level of Care Code Critical Care 1st 30-74 mins Diagnoses Acute respiratory failure with hypoxia J96.01 Pneumonia due to COVID-19 virus U07.1; J12.82 ARDS (adult respiratory distress syndrome) J80 SUDHIR (obstructive sleep apnea) G47.33 Morbid obesity E66.01 Time Spent (min) 50
[2021-05-24] MEDS ORDERED: acetaZOLAMIDE 500 MG in SYRINGE 0 ML IV STA (11:48)
[2021-05-24] MEDS ORDERED: TOBRAMYCIN CONSULT ACTIVE PRN (11:52)
[2021-05-24] MEDS ORDERED: MEROPENEM 2,000 MG in 0.9 % SODIUM CHLORIDE 58 ML IV SCH (12:00)
[2021-05-24] MEDS ORDERED: TOBRAMYCIN SULFATE IV STA (13:04)
[2021-05-24] MEDS ORDERED: DEXTROSE 5% IV STA (13:04)
[2021-05-24] MEDS: MIDAZOLAM HCL 125 MG/250 ML BAG IV SCH ×4 (13:17→18:34)
[2021-05-24] MEDS: MAX Conc 128mcg/mL; 32mg in 250mL IV SCH ×2 (13:51→22:44)
[2021-05-24] MEDS ORDERED: GENTAMICIN CONSULT ACTIVE PRN (13:53)
[2021-05-24] MEDS ORDERED: GENTAMICIN SULFATE 340 MG in DEXTROSE 5% 100 ML IV ONE (14:00)
--- NOTE | 2021-05-24 14:45 | Pharmacy Report ---
Pharmacy Abx Dose Progress Nt - Date of Service May 24, 2021 - Pharmacy Dosing Scope The patient is currently receiving the following antimicrobial agents per Pharmacy consult: [ ] mg IV/PO every [ ] hours - Objective Vital Signs (Past 12hrs): Vital Signs Pulse Resp BP Pulse Ox 05/24/21 11:02 112 H 35 H 85 L 05/24/21 08:00 107 H 32 H 87 L 05/24/21 06:00 101 H 36 H 113/64 91 05/24/21 05:30 100 H 36 H 89 L 05/24/21 05:00 99 H 34 H 103/61 89 L 05/24/21 04:30 94 H 34 H 90 05/24/21 04:00 94 H 34 H 127/60 89 L 05/24/21 03:55 86 34 H 91 05/24/21 03:30 86 34 H 89 L 05/24/21 03:00 87 34 H 117/63 89 L Lab Results (24hrs): Laboratory Tests (24 Hours) 05/24/21 05/24/21 06:37 06:37 WBC 21.20 H Creatinine 0.76 Est Cr Clr Drug Dosing 180.8 Micro Results: 05/23/21 Unknown Gram Stain - Final Sputum,Vent Suction 05/19/21 06:08 Anaerobic Blood Culture - Final Blood No growth in Anaerobic bottle after 5 days. 05/19/21 06:08 Anaerobic Blood Culture - Final Blood No growth in Anaerobic bottle after 5 days. 05/21/21 15:57 Anaerobic Blood Culture - Final Blood 05/15/21 17:59 Aerobic Blood Culture - Final Blood No growth in Aerobic bottle after 5 days. Anaerobic Blood Culture - Final No growth in Anaerobic bottle after 5 days. 05/15/21 17:59 Aerobic Blood Culture - Final Blood No growth in Aerobic bottle after 5 days. Anaerobic Blood Culture - Final No growth in Anaerobic bottle after 5 days. 05/16/21 Unknown Gram Stain - Final Sputum,Vent Suction Sputum Culture - Final Pseudomonas aeruginosa 05/15/21 20:55 Urine Culture - Final Urine,Indwelling Cath No growth - less than 1,000 colonies/mL. 05/11/21 06:17 Aerobic Blood Culture - Final Blood Coag neg staph not lugdunensis Anaerobic Blood Culture - Final No growth in Anaerobic bottle after 5 days. 05/11/21 07:58 Aerobic Blood Culture - Final Blood No growth in Aerobic bottle after 5 days. Anaerobic Blood Culture - Final No growth in Anaerobic bottle after 5 days. 05/11/21 11:00 Gram Stain - Final Sputum,Vent Suction Sputum Culture - Final Pseudomonas aeruginosa - Risk Factors for Resistance * Resident in a [facility] or extended-care facility * Hospitalization for 48 hours or more within the past 90 days * Current hospitalization > 5 days * Chronic dialysis within the past 30 days * Immunocompromised (chronic steroid therapy, chemotherapy, immunomodulators) * History of infection with a multidrug-resistant organism: [organism] [site of infection] [date] * Antimicrobial use within the last 90 days [include specific drugs, if known] - Assessment & Plan Assessment 50 year old M previously with juarez-sensitive pseudomonas growing from sputum/blood cultures. Blood cultures from 05/21 negative to date, sputum culture from 05/25 now growing 2 different gram negative bacilli. Patient was initially being treated with zosyn, then switched to meropenem/ciprofloxacin, today was day #5 of this treatment. Patient has had acute worsening, return of fever, increased white count and increasing pressor need. Therefore added an aminoglycoside for additional coverage. Meropenem initially increased today but then changed to ceftazidime for additional coverage for possible stenotrophomonas with second g negative bacilli growing. Continuing ciprofloxacin, patient's PK parameters for gent difficult to assess and want to ensure adequate coverage prior to level Plan Tobramycin/Gentamicin/Amikacin * Patient is not a candidate for extended-interval dosing due to altered pharmacokinetics in the setting of BMI of 57. * Will give 3 mg/kg (adjBW) loading dose and then dose ~2.2 mg/kg every 8 hours for current renal function * Will obtain peak/trough surrounding third maintenance dose. Pharmacy will continue to follow and will adjust dose/frequency as necessary. Thank you.
--- NOTE | 2021-05-24 14:56 | Pharmacy Report ---
Pharmacy Glycemic Short Note 2 - Date of Service May 24, 2021 - Glycemic Short BSG Results (Last 24 hours): 05/20/21 05/20/21 05/23/21 08:24 12:27 16:27 Glucose POC Glucose POC Glucose (other) 176 H 108 H 178 H 05/23/21 05/24/21 05/24/21 19:57 00:10 03:50 Glucose POC Glucose POC Glucose (other) 172 H 160 H 155 H 05/24/21 05/24/21 05/24/21 06:37 08:01 13:39 Glucose 146 H POC Glucose 136 H POC Glucose (other) 195 H OUTPATIENT ANTIDIABETIC REGIMEN: * n/a * A1c = 6.3% 05/09/21 ASSESSMENT: 05/24 * BSGs <180 mg/dL yesterday, Lantus 5 units BID continues * Patients midday BSG elevated 195 mg/dL, patient has ongoing stressors with worsening today, norepinephrine is titrating upwards * Will slightly tighten novolog parameter, tube feeds at goal. If BSGs trend upward low threshold for starting insulin infusion. 05/21: * BSGs well controlled the last 48hr with Lantus 5 units BID of basal. * Tube feeds remain @ goal. Patient remains intubated, sedated, and paralyzed. Norepi @ 0.05mcg/kg/min. * No acute changes to insulin regimen at this time. 05/19: * BSGs well controlled yesterday: [phone] mg/dL * Received 10 units Lantus + 36 units Novolog * Fasting BSG well controlled at 134 mg/dL this AM * No change to insulin regimen at this time * Continues on Nimbex and Levophed while tube feeds are running at goal. No steroids. 05/17: * BSG's adequate for ICU status patient, ranging 119-193 mg/dL over the last 24 hours. Continue same for today. * Steroids stopping tomorrow. Will hold NPH starting tomorrow AM. Will also loosen Novolog parameters slightly tomorrow AM. Patient will likely require further adjustments tomorrow. 05/16: * Stressors stable, other than tubefeeds titrating up (currently about half of goal rate). Anticipate continued titration up over the next 24 hours. * BSG's in or slightly below goal range for ICU status patient, ranging 111-180 mg/dL over the last 24 hours. Will slightly reduce both AM and PM NPH. * No change to Novolog at this time PLAN FOR INPATIENT GLYCEMIC CONTROL: * Basal insulin * Lantus 5 units SC BID * Bolus insulin * NovoLog per scale Q 4 hrs * Goal Range: Low 110 mg/dL - High 140 mg/dL * Correction Factor: 15 mg/dL/unit * Nutritional / Prandial insulin per carb ratio of 1 unit per 4 grams CHO consumed PLAN FOR DISCHARGE: * HbA1c was 6.3%. Unless patient is discharged on steroids for a long period of time, unlikely that antidiabetic medications will be necessary at discharge. * Continue to support lifestyle management
--- NOTE | 2021-05-24 16:26 | Hospitalist Progress Note ---
Date of Service May 24, 2021 Assessment & Plan (1) Acute respiratory failure with hypoxia: Plan: Secondary to COVID-19 virus infection (2) Pneumonia due to COVID-19 virus: Plan: Acute respiratory failure with hypoxia ARDS Pneumonia due to COVID-19 H/O SUDHIR --CXR:Extensive patchy interstitial and alveolar opacities bilaterally characteristic of a viral type pneumonitis and probable Covid 19 pneumonia. -Intubated on 05/08/21 -Pseudomonas bacteremia Sputum growing Pseudomonas as well -Appreciate Critical Care Input -CRP:8.49> 5.20 Did not tolerate proning Not a candidate for ECHO given his BMI as per Critical Care, [facility] Completed 5 day Remdesivir course Completed dexamethasone course Received Cefepime >> Zosyn 11 days>> meropenem 4 days>> ciprofloxacin Day #5, Added Ceftazidime, Gentamicin weaned off of Nimbex lasix drip>> transition to IV Lasix 40mg, added Metolazone on Lovenox for DVT Prophylaxis Vent management as per Critical Care Currently on 18 PEEP, 100% FiO2 Continue Tube feeds PF is 61 today Very poor Prognosis Febrile today Discussed with Dr.Joshua Shelby- Cw Operator, [facility], who currently denies transfer due to bed availability Patient's prefers to continue Full Code and aggressive measures Patient developed petechial rash today Chest x-ray showed multifocal airspace opacities, diffuse Sputum culture from yesterday growing gram-negative bacilli (3) Hypertension: Plan: Monitor Continue current meds (4) SUDHIR (obstructive sleep apnea): Plan: Morbidly obese BMI: 58 Was on CPAP (5) Hyperlipidemia: Plan: Continue statin DVT prophylaxis Lovenox CODE STATUS Full Admission and Anticipated Discharge Date Admission Date: May 05, 2021 Subjective Patient is seen and examined at bedside Discussed with ICU team Updated patient's over the phone Remains Sedated and Intubated Currently on 100% FiO2, 18 PEEP On pressor Remains very critical Febrile Developed petechial rash Review of Systems Review of Systems: Unobtainable due to endotracheal tube Physical Exam Physical Exam: Physical Exam: Vitals signs as noted above General Appearance:Morbidly Obese, Sedated and Intubated Head: normocephalic, Atraumatic Eyes: normal inspection, EOMI Neck: supple, Trachea midline Respiratory/Chest: Decreased breath sounds, CTA Cardiovascular: S1, S2, No murmur Abdomen/GI:Soft, Non tender, Bowel sounds present Extremities/Musculoskeletal:normal inspection, no edema Neurologic/Psych:Sedated and Intubated Skin: normal color, warm, +Petechial Rash Results & Data Results & Data ([facility]) Vital Signs (Past 12 Hours) Vital Signs Temp Pulse Resp BP Pulse Ox 05/24/21 15:17 116 H 34 H 86 L 05/24/21 15:00 38.6 C H 114 H 36 H 109/67 86 L 05/24/21 14:03 38.7 C H 114 H 35 H 111/71 86 L 05/24/21 13:00 38.8 C H 122 H 36 H 85 L 05/24/21 11:02 112 H 35 H 85 L 05/24/21 08:00 107 H 32 H 87 L 05/24/21 06:00 101 H 36 H 113/64 91 05/24/21 05:30 100 H 36 H 89 L 05/24/21 05:00 99 H 34 H 103/61 89 L 05/24/21 04:30 94 H 34 H 90 Laboratory Results Short CBC 05/24/21 Range/Units 06:37 WBC 21.20 H (4.8-10.8) K/uL Hgb 11.3 L (14.0-18.0) g/dL Hct 37.7 L (42-52) % Plt Count 280 (130-400) K/uL BMP 05/24/21 06:37 Sodium 136 Potassium 2.9 L D Chloride 88 L Carbon Dioxide 42 H* BUN 48 H Creatinine 0.76 Glucose 146 H Calcium 8.9
[2021-05-24 19:53] LABS: BUN Creatinine Ratio 56.6 (10-20); Calcium 8.6 mg/dl (8.5-10.1); Est GFR (African American) 111.9 ml/min; Est GFR (Non-African American) 96.6 ml/min; Potassium 3.5 mmol/L (3.5-5.1)
[2021-05-24] MEDS ORDERED: TOBRAMYCIN SULFATE IV SCH (21:00)
[2021-05-24] MEDS ORDERED: DEXTROSE 5% IV SCH (21:00)
[2021-05-24] MEDS: GENTAMICIN SULFATE 250 MG in DEXTROSE 5% 100 ML IV SCH (22:42)
[2021-05-25] MEDS: INSULIN ASPART 100 UNITS/ML VIAL SC SCH ×6 (00:27→20:21)
[2021-05-25] MEDS: NEW Std Conc--fentaNYL 2,500mcg/250mL NSS **10mcg/mL IV SCH ×2 (00:44→15:25)
[2021-05-25] MEDS ORDERED: GENTAMICIN SULFATE 250 MG in DEXTROSE 5% 100 ML IV SCH (02:00)
[2021-05-25] MEDS: ACETAMINOPHEN SUSP 325 MG/10.15 ML UDC PO PRN ×3 (02:01→22:49)
[2021-05-25] MEDS: propofoL 1,000 MG/100 ML VIAL IV SCH ×6 (02:47→23:36)
[2021-05-25] MEDS: ARTIFICIAL TEARS OP OINT 3.5 GM TUBE OP SCH ×6 (02:47→22:50)
[2021-05-25] MEDS ORDERED: STAT IV Infusion **Titration per Protocol STA ×2 (03:17→21:06)
[2021-05-25] MEDS: CIPROFLOXACIN / D5W 400 MG/200 ML BAG IV SCH ×3 (03:46→20:22)
[2021-05-25] MEDS: VASOPRESSIN 20 UNITS in 0.9 % SODIUM CHLORIDE 100 ML IV SCH ×3 (03:46→20:06)
[2021-05-25] MEDS: TUBE FEEDING WATER FLUSH GT SCH ×6 (03:47→23:36)
[2021-05-25 03:56] LABS: iSTAT Art Bld Gas pCO2 Correct 82 mmHg (35-46); iSTAT Art Bld Gas pH Corrected 7.368 (7.35-7.45); iSTAT Arterial Blood Gas HCO3 46 meg/L (19-24); iSTAT Arterial Blood Gas pCO2 74 mmHg (35-46); iSTAT Arterial Blood Gas pO2 53 mmHg (80-95); iSTAT Arterial Blood Gas pO2 C 63; iSTAT Carbon Dioxide > 40 mmol/L (24-31); iSTAT FiO2 100 %; iSTAT Hematocrit 37 % (42-52); iSTAT Hemoglobin 12.6 g/dl (14.0-18.0); iSTAT Potassium 3.5 mmol/L (3.3-5.0); iSTAT Site Art Line; iSTAT Sodium 133 mmol/L (135-144)
[2021-05-25 05:44] LABS: Hematocrit (blood only) 37.8 % (42-52); Hemoglobin 11.3 g/dL (14.0-18.0); Mean Corpuscular Hemoglobin 29.1 pg (25-34); Mean Corpuscular Hgb Conc 29.9 g/dL (32-36); Mean Corpuscular Volume 97.4 fL (80-100); Mean Platelet Volume 10.2 fL (7.4-10.4); Nucleated RBC % (auto) 0.4 %; Platelet Count 259 K/uL (130-400); RDW Coefficient of Variation 15.8 % (11.5-14.5); RDW Standard Deviation 54.9 fL (36.4-46.3); Red Blood Count 3.88 M/uL (4.7-6.1)
[2021-05-25 05:55] LABS: BUN Creatinine Ratio 54.9 (10-20); Calcium 8.9 mg/dl (8.5-10.1); Creatinine Clr Calc Pharmacy 146.2 ml/min; Est GFR (African American) 107.6 ml/min; Est GFR (Non-African American) 92.8 ml/min; Magnesium 2.7 mg/dl (1.8-2.4); Potassium 3.4 mmol/L (3.5-5.1)
[2021-05-25 06:03] LABS: Phosphorus 4.2 mg/dl (2.5-4.9)
[2021-05-25] MEDS: GENTAMICIN SULFATE 250 MG in DEXTROSE 5% 100 ML IV SCH ×2 (07:09→14:00)
[2021-05-25] MEDS: FUROSEMIDE 40 MG/4 ML VIAL IV SCH ×3 (07:09→20:27)
[2021-05-25] MEDS: DOCUSATE SODIUM/SENNA 50/8.6MG TAB PO SCH ×2 (08:01→20:26)
[2021-05-25] MEDS: ATORVASTATIN 20 MG TAB PO SCH (08:01)
[2021-05-25] MEDS: POTASSIUM CHLORIDE 20 MEQ/15 ML UDC NG SCH ×5 (08:01→23:18)
[2021-05-25] MEDS: ENOXAPARIN INJ 40 MG/0.4 ML SYR SQ SCH ×2 (08:01→20:23)
[2021-05-25] MEDS: ICU ELECTROLYTE REPLACEMENT PROTOCOL SCH ×2 (08:04→18:23)
[2021-05-25] MEDS: INSULIN GLARGINE SOLOSTAR 100 UNITS/ML 3 ML PEN SC SCH ×2 (08:40→20:23)
[2021-05-25] MEDS: MAX Conc 128mcg/mL; 32mg in 250mL IV SCH ×2 (08:43→17:24)
[2021-05-25] MEDS: PANTOprazole 40 MG in SYRINGE 0 ML IV SCH (10:25)
--- NOTE | 2021-05-25 10:25 | Critical Care Progress Note ---
Date of Service May 25, 2021 Assessment & Plan (1) Acute respiratory failure with hypoxia: (2) Pneumonia due to COVID-19 virus: (3) ARDS (adult respiratory distress syndrome): (4) SUDHIR (obstructive sleep apnea): (5) Morbid obesity: Plan: Impression: 50-year-old male admitted to hospital 05/05/2021 with Covid pneumonia. He was intubated 05/08/2021- remains with pseudomonal infection in blood and sputum. Lines changed 05/19. Repeat cultures today 05/21. 24-hour events: Patient has continued to decline clinically. He is now on 2 vasopressor agents. He remains significantly febrile. He is maxed out on the ventilator and despite this we are only able to achieve oxygen saturations of 80 to 82%. Hospitalist contacted [facility] to see whether or not the patient could be transferred there but unfortunately they do not have beds and declined the patient in transfer Recommendations Neurologic: Continue sedation with Fentanyl, midazolam, and Propofol. Continue adequate sedation with ARDS net and to facilitate ventilator synchrony. Has not improved with neuromuscular blockade so we will hold any additional paralytics Pulmonary: Continue lung protective ventilation strategy. Patient with severe ARDS mechanical ventilation day #18. Responded very poorly to proning on 05/08/2021 and was quickly placed supine. Defer any additional proning. BMI excludes any additional interventions such as extracorporeal membrane oxygenation. Dex dosing for late-phase ARDS has been completed. Current settings assist-control: 35/420/16/1.0 with plateau pressures of 29 consistent with very stiff lungs and poor compliance. Most recent blood gas 7.40/74/53 PF 53 today worse than yesterday. Compliance continues to be a problem. Tolerating permissive hypercapnia, mildly alkalotic today with diuresis. Chest x-ray today continues to show diffuse pulmonary infiltrates. He is fluid positive last evening, despite aggressive attempts at diuresis Cardiovascular: Back on pressors which are currently escalating, now requiring norepinephrine and vasopressin Currently on Lasix to 40mg IV q8 add Metolazone, follow renal function. Would like to try additional diuresis to see whether or not there is any hydrostatic component to his pulmonary infiltrates but development of renal failure would be another poor prognostic indicator Gastrointestinal: Hold tube feeding given 2 vasopressor agents Renal: Continue ICU electrolyte replacement protocol. Acid-base status stable. Continue Lasix q8 and Metolazone. Follow I&Os and maintain negative balance. S keon creatinine has been stable so far so we will continue to push with aggressive diuresis. Infectious disease: 11 Days of Zosyn converted to Meropenem and Ciprofloxacin Day 4 on 05/20/21, 05/24 transitioned to ceftazidime to cover potential stenotrophomonas and gentamicin in conjunction with high-dose Cipro. He remained significantly febrile and white count is climbing. 2 species of Pseudomonas identified in his lung. One is pansensitive and the other is pending. Given his fever, will continue Cipro, ceftazidime, and gentamicin Hematologic: No significant issues at present. Continue to trend Endocrine: Glycemic control per protocol. Lines and tubes: Internal jugular central line and radial arterial line placed 05/08/2021- remove and changed 05/20/21 Intubated 05/08/2021. BARBY Duffy- Continue use of these lines VTE prophylaxis: Continue Lovenox 40 mg twice daily CODE STATUS: Full code Disposition: Remain in the ICU Patient is critically ill with multiorgan system failure dysfunction. Tried to call the this morning but no answer on her cell phone. The patient is clinically declining. Every day we go without significant progress makes the likelihood of clinical improvement less and less likely. With the patient's maximal ventilator settings, increasing pressor requirements, persistent fevers leukocytosis, and failure to make any significant meaningful progress over the last 2 weeks, I am not optimistic regarding his overall survivability. She is aware of the severity of his illness and has some family support at home. Offered to see if case management could assist with helping her or the kids, she declines currently. As stated previously, I do not think CPR in this setting would be beneficial in improving the patient's outcome or the survivability of his current illness and would favor changing his CODE STATUS to no CPR compressions. 48 minutes critical care time Admission and Anticipated Discharge Date Admission Date: May 05, 2021 Subjective intubated and sedated Review of Systems Review of Systems: Unobtainable due to endotracheal tube Physical Exam Constitutional: + morbidly obese and + mechanically ventilated Neck: trachea midline, no thyromegaly Respiratory: no respiratory distress and no labored breathing Auscultation: + crackles and + wheezes Cardiovascular: RRR, no murmur, no edema Gastrointestinal (Abdomen): normal bowel sounds, soft, nontender, no hepatosplenomegaly Musculoskeletal: Extremities: extremities normal to inspection Skin: no rashes, warm and dry Lymphatic: no cervical lymphadenopathy Results & Data Results & Data ([facility]) Vital Signs (Past 12 Hours) Vital Signs Temp Pulse Resp BP Pulse Ox 05/25/21 08:00 106 H 05/25/21 07:45 104 H 34 H 05/25/21 05:30 39.2 C H 105 H 38 H 86 L 05/25/21 05:00 39.3 C H 108 H 39 H 128/77 86 L 05/25/21 04:30 39.3 C H 108 H 34 H 87 L 05/25/21 04:00 39.3 C H 107 H 30 H 85 L 05/25/21 03:50 108 H 36 H 84 L 05/25/21 03:30 39.3 C H 125 H 32 H 84 L 05/25/21 03:00 39.3 C H 130 H 32 H 89/55 L 82 L 05/25/21 02:30 39.2 C H 121 H 30 H 84 L 05/25/21 02:00 39.1 C H 119 H 35 H 98/61 L 84 L 05/25/21 01:30 39.0 C H 114 H 38 H 85 L 05/25/21 01:00 38.9 C H 113 H 32 H 97/55 L 85 L 05/25/21 00:30 38.8 C H 110 H 30 H 85 L 05/25/21 00:00 38.7 C H 108 H 30 H 99/67 L 84 L 05/24/21 23:57 104 H 05/24/21 23:30 38.6 C H 110 H 32 H 86 L 05/24/21 23:16 110 H 36 H 85 L 05/24/21 23:00 38.5 C H 108 H 31 H 97/66 L 87 L 05/24/21 22:30 38.4 C H 104 H 28 H 87 L Critical Care Results & Data Vital Signs (Past 12 Hours) Vital Signs Temp Pulse Resp BP Pulse Ox 05/25/21 08:00 106 H 05/25/21 07:45 104 H 34 H 05/25/21 05:30 39.2 C H 105 H 38 H 86 L 05/25/21 05:00 39.3 C H 108 H 39 H 128/77 86 L 05/25/21 04:30 39.3 C H 108 H 34 H 87 L 05/25/21 04:00 39.3 C H 107 H 30 H 85 L 05/25/21 03:50 108 H 36 H 84 L 05/25/21 03:30 39.3 C H 125 H 32 H 84 L 05/25/21 03:00 39.3 C H 130 H 32 H 89/55 L 82 L 05/25/21 02:30 39.2 C H 121 H 30 H 84 L 05/25/21 02:00 39.1 C H 119 H 35 H 98/61 L 84 L 05/25/21 01:30 39.0 C H 114 H 38 H 85 L 05/25/21 01:00 38.9 C H 113 H 32 H 97/55 L 85 L 05/25/21 00:30 38.8 C H 110 H 30 H 85 L 05/25/21 00:00 38.7 C H 108 H 30 H 99/67 L 84 L 05/24/21 23:57 104 H 05/24/21 23:30 38.6 C H 110 H 32 H 86 L 05/24/21 23:16 110 H 36 H 85 L 05/24/21 23:00 38.5 C H 108 H 31 H 97/66 L 87 L 05/24/21 22:30 38.4 C H 104 H 28 H 87 L Lab & Micro Results (Past 24 Hours) RBC 3.88 M/uL (4.7-6.1) L 05/25/21 WBC 25.20 K/uL (4.8-10.8) H 05/25/21 Hgb 11.3 g/dL (14.0-18.0) L 05/25/21 Hct 37.8 % (42-52) L 05/25/21 MCV 97.4 fL (80-100) 05/25/21 MCH 29.1 pg (25-34) 05/25/21 MCHC 29.9 g/dL (32-36) L 05/25/21 RDW Standard Deviation 54.9 fL (36.4-46.3) H 05/25/21 RDW Coefficient of Variation 15.8 % (11.5-14.5) H 05/25/21 Plt Count 259 K/uL (130-400) 05/25/21 MPV 10.2 fL (7.4-10.4) 05/25/21 Nucleated Red Blood Cells % (auto) 0.4 % 05/25/21 Nucleated RBC Absolute Count (auto) 0.10 K/uL (0-0) H 05/25/21 Na 132 mmol/L (136-145) L 05/25/21 K 3.4 mmol/L (3.5-5.1) L 05/25/21 Cl 86 mmol/L (98-107) L 05/25/21 CO2 40 mmol/L (21-32) H 05/25/21 Anion Gap 6.0 (3-11) 05/25/21 BUN 52 mg/dl (7-18) H 05/25/21 Creatinine 0.94 mg/dl (0.6-1.4) 05/25/21 Estimated GFR ( Amer) 107.6 ml/min 05/25/21 Estimated GFR (Non-Af Amer) 92.8 ml/min 05/25/21 BUN/Creatinine Ratio 54.9 (10-20) H 05/25/21 Glu 191 mg/dl (70-99) H 05/25/21 Ca 8.9 mg/dl (8.5-10.1) 05/25/21 Phosphorus Level 4.2 mg/dl (2.5-4.9) 05/25/21 Mg 2.7 mg/dl (1.8-2.4) H 05/25/21 05:07 05/25/21 Calcium Level 8.9 mg/dl (8.5-10.1) 05/25/21 05:07 05/25/21 Rajinder Test NA 05/25/21 03:42 05/25/21 Microbiology 05/23/21 Unknown Gram Stain - Final Sputum,Vent Suction Sputum Culture - Final Pseudomonas aeruginosa Pseudomonas aeruginosa#2 05/19/21 06:08 Aerobic Blood Culture - Preliminary Blood Pseudomonas aeruginosa Anaerobic Blood Culture - Final No growth in Anaerobic bottle after 5 days. 05/19/21 06:08 Aerobic Blood Culture - Preliminary Blood Pseudomonas aeruginosa Anaerobic Blood Culture - Final No growth in Anaerobic bottle after 5 days. I & O Totals 24 Hours 05/24/21 05/25/21 05/26/21 06:59 06:59 06:59 Intake Total 5088.353 / 5088.353 4869.237 / 4869.237 166.25 / 166.25 Output Total 6350 / 6350 2500 / 2500 Balance -1261.647 / -8773.379 3031.237 / 2369.237 166.25 / 166.25 Cumulative 05/05/21 18:07 thru 05/25/21 08:18 Intake Total 19239.874 Output Total 67242 Balance -8675.126 RT Ventilator Mngmt (Last Documented) Ventilator Ordered Settings Ventilator Support Mode Assist Control 05/25/21 08:00 Respiratory Rate 34 05/25/21 07:45 Ventilator Tidal Volume 420 05/25/21 08:00 Setting Minute Ventilation 13.7 05/25/21 07:45 Ventilator Positive Pressure 18 05/15/21 16:00 Support Setting Positive End Expiratory 16 05/25/21 08:00 Pressure Fraction of Inspired Oxygen 100 05/25/21 08:00 Peak Inspiratory Flow 42 05/13/21 14:59 Machine Comment increased to 100% [id number]. [id number] 85% 05/22/21 11:25 on 90% fio2 Ventilator - PT Measurements Respiratory Rate 34 Exhaled Tidal Volume 104 Minute Ventilation 13.7 Peak Inspiratory Airway 34 Pressure Plateau Pressure 29 Respiratory Cycle Inspiratory: 1:1.2 Expiratory Ratio Inspiratory Phase Time 0.80 End-Tidal CO2 40 Static Lung Compliance 8.00 Dynamic Lung Compliance 5.78 Normal Static Lung Compliance 33.00 Patient Measurements Comment Patient suctioning required at this time Coding Level of Care Code Critical Care 1st 30-74 mins Diagnoses Acute respiratory failure with hypoxia J96.01 Pneumonia due to COVID-19 virus U07.1; J12.82 ARDS (adult respiratory distress syndrome) J80 SUDHIR (obstructive sleep apnea) G47.33 Morbid obesity E66.01
[2021-05-25] MEDS: GENTAMICIN TROUGH 1 EA SCH ×2 (13:31→13:49)
[2021-05-25 15:46] LABS: BUN Creatinine Ratio 59.5 (10-20); Calcium 8.7 mg/dl (8.5-10.1); Creatinine Clr Calc Pharmacy 159.8 ml/min; Est GFR (African American) 115.6 ml/min; Est GFR (Non-African American) 99.7 ml/min; Potassium 3.1 mmol/L (3.5-5.1)
[2021-05-25] MEDS ORDERED: GENTAMICIN PEAK 1 EA ONE (16:00)
[2021-05-25] MEDS: PEPTAMEN INTENSE VHP 1.0 CAL 1,000 ML BAG GT SCH (16:23)
--- NOTE | 2021-05-25 16:30 | Hospitalist Progress Note ---
Date of Service May 25, 2021 Assessment & Plan (1) Acute respiratory failure with hypoxia: Plan: Secondary to COVID-19 virus infection (2) Pneumonia due to COVID-19 virus: Plan: Acute respiratory failure with hypoxia ARDS Pneumonia due to COVID-19 H/O SUDHIR --CXR:Extensive patchy interstitial and alveolar opacities bilaterally characteristic of a viral type pneumonitis and probable Covid 19 pneumonia. -Intubated on 05/08/21 -Pseudomonas bacteremia Sputum growing Pseudomonas as well -Appreciate Critical Care Input -CRP:8.49> 5.20 Did not tolerate proning Not a candidate for ECHO given his BMI as per Critical Care, [facility] Completed 5 day Remdesivir course Completed dexamethasone course Received Cefepime >> Zosyn 11 days>> meropenem 4 days>> ciprofloxacin Day #5, Added Ceftazidime, Gentamicin No improvement with neuromuscular blockade lasix drip>> transition to IV Lasix 40mg, added Metolazone on Lovenox for DVT Prophylaxis Vent management as per Critical Care Currently on 16 PEEP, 100% FiO2 Tube feeds held Very poor Prognosis Remains febrile Petechial rash seem to be better Repeat sputum culture growing Pseudomonas Leukocytosis worsening On 2 pressors-Levophed, vasopressin Patient's family aware of poor prognosis (3) Hypertension: Plan: Monitor Continue current meds (4) SUDHIR (obstructive sleep apnea): Plan: Morbidly obese BMI: 58 Was on CPAP (5) Hyperlipidemia: Plan: Continue statin DVT prophylaxis Lovenox CODE STATUS Full Admission and Anticipated Discharge Date Admission Date: May 05, 2021 Subjective Patient is seen and examined at bedside Sedated and intubated Saturating mid 80s while on maximal vent settings Febrile today Family at bedside Currently on 2 vasopressors Declining clinically Review of Systems Review of Systems: Unobtainable due to endotracheal tube Physical Exam Physical Exam: Physical Exam: Vitals signs as noted above General Appearance:Morbidly Obese, Sedated and Intubated Head: normocephalic, Atraumatic Eyes: normal inspection, EOMI Neck: supple, Trachea midline Respiratory/Chest: Decreased breath sounds, CTA Cardiovascular: S1, S2, No murmur Abdomen/GI:Soft, Non tender, Bowel sounds present Extremities/Musculoskeletal:normal inspection, no edema Neurologic/Psych:Sedated and Intubated Skin: normal color, warm, +Petechial Rash improving Results & Data Results & Data ([facility]) Vital Signs (Past 12 Hours) Vital Signs Temp Pulse Resp BP Pulse Ox 05/25/21 15:20 108 H 35 H 05/25/21 15:00 38.6 C H 108 H 34 H 108/65 85 L 05/25/21 14:00 38.7 C H 107 H 34 H 109/72 85 L 05/25/21 13:00 38.9 C H 105 H 35 H 112/77 85 L 05/25/21 12:00 38.9 C H 105 H 35 H 124/70 84 L 05/25/21 11:00 38.8 C H 106 H 34 H 116/69 84 L 05/25/21 10:30 105 H 35 H 05/25/21 10:00 38.8 C H 105 H 34 H 110/68 83 L 05/25/21 09:00 38.8 C H 104 H 34 H 111/80 84 L 05/25/21 08:00 39.0 C H 106 H 35 H 119/67 82 L 05/25/21 07:45 104 H 34 H 05/25/21 07:00 39.1 C H 103 H 34 H 132/77 86 L 05/25/21 05:30 39.2 C H 105 H 38 H 86 L 05/25/21 05:00 39.3 C H 108 H 39 H 128/77 86 L 05/25/21 04:30 39.3 C H 108 H 34 H 87 L Laboratory Results Short CBC 05/25/21 Range/Units 05:01 WBC 25.20 H (4.8-10.8) K/uL Hgb 11.3 L (14.0-18.0) g/dL Hct 37.8 L (42-52) % Plt Count 259 (130-400) K/uL BMP 05/24/21 05/25/21 05/25/21 19:21 05:07 15:00 Sodium 135 L 132 L 133 L Potassium 3.5 D 3.4 L 3.1 L Chloride 88 L 86 L 86 L Carbon Dioxide 41 H* 40 H 41 H* BUN 51 H 52 H 51 H Creatinine 0.91 0.94 0.86 Glucose 153 H 191 H 197 H Calcium 8.6 8.9 8.7
[2021-05-25] MEDS ORDERED: PROPOFOL BOLUS FROM BAG IV PRN (21:06)
[2021-05-25 22:12] LABS: BUN Creatinine Ratio 62.4 (10-20); Calcium 8.6 mg/dl (8.5-10.1); Creatinine Clr Calc Pharmacy 165.5 ml/min; Est GFR (African American) 117.3 ml/min; Est GFR (Non-African American) 101.2 ml/min; Potassium 3.7 mmol/L (3.5-5.1)
[2021-05-26 01:02] LABS: Calcium 8.8 mg/dl (8.5-10.1); Creatinine Clr Calc Pharmacy 154.4 ml/min; Est GFR (African American) 113.9 ml/min; Est GFR (Non-African American) 98.3 ml/min; Potassium 3.8 mmol/L (3.5-5.1)
[2021-05-26] MEDS: MAX Conc 128mcg/mL; 32mg in 250mL IV SCH ×4 (02:20→23:27)
[2021-05-26] MEDS: ARTIFICIAL TEARS OP OINT 3.5 GM TUBE OP SCH ×6 (03:08→22:11)
[2021-05-26] MEDS: GENTAMICIN SULFATE 250 MG in DEXTROSE 5% 100 ML IV SCH ×2 (03:08→13:37)
[2021-05-26] MEDS: TUBE FEEDING WATER FLUSH GT SCH ×6 (03:10→23:28)
[2021-05-26] MEDS: POTASSIUM CHLORIDE 20 MEQ/15 ML UDC NG SCH (03:10)
[2021-05-26] MEDS: CIPROFLOXACIN / D5W 400 MG/200 ML BAG IV SCH ×3 (03:43→19:56)
[2021-05-26] MEDS: propofoL 1,000 MG/100 ML VIAL IV SCH ×6 (03:43→22:10)
[2021-05-26] MEDS: VASOPRESSIN 20 UNITS in 0.9 % SODIUM CHLORIDE 100 ML IV SCH ×3 (03:45→20:15)
[2021-05-26] MEDS: INSULIN ASPART 100 UNITS/ML VIAL SC SCH ×7 (03:52→23:39)
[2021-05-26 03:59] LABS: iSTAT Arterial Blood Gas HCO3 44 meg/L (19-24); iSTAT Arterial Blood Gas pCO2 81 mmHg (35-46); iSTAT Arterial Blood Gas pH 7.34 (7.35-7.45); iSTAT Arterial Blood Gas pO2 48 mmHg (80-95); iSTAT Carbon Dioxide > 40 mmol/L (24-31); iSTAT FiO2 100 %; iSTAT Site Art Line
[2021-05-26 05:21] LABS: Hematocrit (blood only) 34.6 % (42-52); Hemoglobin 10.7 g/dL (14.0-18.0); Mean Corpuscular Hemoglobin 30.7 pg (25-34); Mean Corpuscular Hgb Conc 30.9 g/dL (32-36); Mean Corpuscular Volume 99.4 fL (80-100); Mean Platelet Volume 10.3 fL (7.4-10.4); Nucleated RBC # (auto) 0.16 K/uL (0-0); Nucleated RBC % (auto) 0.7 %; Platelet Count 232 K/uL (130-400); Red Blood Count 3.48 M/uL (4.7-6.1); White Blood Count 22.58 K/uL (4.8-10.8)
[2021-05-26 05:43] LABS: BUN Creatinine Ratio 61.8 (10-20); Calcium 8.6 mg/dl (8.5-10.1); Est GFR (African American) 111.9 ml/min; Est GFR (Non-African American) 96.6 ml/min; Magnesium 2.7 mg/dl (1.8-2.4); Potassium 4.3 mmol/L (3.5-5.1)
[2021-05-26] MEDS: MIDAZOLAM HCL 125 MG/250 ML BAG IV SCH (05:46)
[2021-05-26 05:47] LABS: Phosphorus 3.3 mg/dl (2.5-4.9)
[2021-05-26] MEDS: NEW Std Conc--fentaNYL 2,500mcg/250mL NSS **10mcg/mL IV SCH ×2 (05:48→19:55)
[2021-05-26] MEDS: ICU ELECTROLYTE REPLACEMENT PROTOCOL SCH ×2 (06:18→17:24)
[2021-05-26] MEDS: FUROSEMIDE 40 MG/4 ML VIAL IV SCH (06:23)
[2021-05-26] MEDS: INSULIN GLARGINE SOLOSTAR 100 UNITS/ML 3 ML PEN SC SCH ×2 (07:49→20:04)
[2021-05-26] MEDS: ENOXAPARIN INJ 40 MG/0.4 ML SYR SQ SCH ×2 (08:27→20:04)
[2021-05-26] MEDS: ATORVASTATIN 20 MG TAB PO SCH (08:27)
[2021-05-26] MEDS: DOCUSATE SODIUM/SENNA 50/8.6MG TAB PO SCH ×2 (08:28→20:03)
--- NOTE | 2021-05-26 08:35 | Pharmacy Report ---
Pharmacy Abx Dose Progress Nt - Date of Service May 26, 2021 - Pharmacy Dosing Scope The patient is currently receiving the following antimicrobial agents per Pharmacy consult: gentamicin IV - Objective Vital Signs (Past 12hrs): Vital Signs Temp Pulse Resp BP Pulse Ox 05/26/21 04:00 39.6 C H 120 H 34 H 108/65 83 L 05/26/21 03:30 39.6 C H 120 H 34 H 84 L 05/26/21 03:00 39.6 C H 118 H 34 H 98/63 L 82 L 05/26/21 02:54 118 H 34 H 82 L 05/26/21 02:30 39.5 C H 117 H 30 H 82 L 05/26/21 02:00 39.4 C H 117 H 34 H 102/68 82 L 05/26/21 01:30 39.3 C H 115 H 34 H 82 L 05/26/21 01:00 39.3 C H 117 H 34 H 117/65 82 L 05/26/21 00:30 39.2 C H 119 H 30 H 84 L 05/26/21 00:00 39.2 C H 118 H 34 H 101/66 84 L 05/25/21 23:30 39.1 C H 117 H 34 H 84 L 05/25/21 23:02 114 H 34 H 84 L 05/25/21 23:00 39.0 C H 115 H 34 H 111/58 L 83 L 05/25/21 22:30 38.9 C H 115 H 34 H 83 L 05/25/21 22:00 38.9 C H 115 H 34 H 109/65 82 L 05/25/21 21:30 38.8 C H 113 H 34 H 82 L 05/25/21 21:00 38.7 C H 115 H 34 H 104/64 81 L 05/25/21 20:30 38.7 C H 109 H 34 H 83 L Lab Results (24hrs): Laboratory Tests (24 Hours) 05/26/21 05/26/21 05/26/21 04:55 04:55 00:23 WBC 22.58 H Creatinine 0.91 0.89 Est Cr Clr Drug Dosing 151.0 154.4 Gentamicin Peak Gentamicin Trough 05/25/21 05/25/21 05/25/21 21:41 15:57 15:00 WBC Creatinine 0.83 0.86 Est Cr Clr Drug Dosing 165.5 159.8 Gentamicin Peak 9.30 Gentamicin Trough 05/25/21 13:27 WBC Creatinine Est Cr Clr Drug Dosing Gentamicin Peak Gentamicin Trough 3.70 H* Micro Results: 05/19/21 06:08 Aerobic Blood Culture - Final Blood Pseudomonas aeruginosa Anaerobic Blood Culture - Final No growth in Anaerobic bottle after 5 days. 05/19/21 06:08 Aerobic Blood Culture - Final Blood Pseudomonas aeruginosa Anaerobic Blood Culture - Final No growth in Anaerobic bottle after 5 days. 05/23/21 Unknown Gram Stain - Final Sputum,Vent Suction Sputum Culture - Final Pseudomonas aeruginosa Pseudomonas aeruginosa#2 05/21/21 15:57 Anaerobic Blood Culture - Final Blood 05/15/21 17:59 Aerobic Blood Culture - Final Blood No growth in Aerobic bottle after 5 days. Anaerobic Blood Culture - Final No growth in Anaerobic bottle after 5 days. 05/15/21 17:59 Aerobic Blood Culture - Final Blood No growth in Aerobic bottle after 5 days. Anaerobic Blood Culture - Final No growth in Anaerobic bottle after 5 days. 05/16/21 Unknown Gram Stain - Final Sputum,Vent Suction Sputum Culture - Final Pseudomonas aeruginosa 05/15/21 20:55 Urine Culture - Final Urine,Indwelling Cath No growth - less than 1,000 colonies/mL. 05/11/21 06:17 Aerobic Blood Culture - Final Blood Coag neg staph not lugdunensis Anaerobic Blood Culture - Final No growth in Anaerobic bottle after 5 days. 05/11/21 07:58 Aerobic Blood Culture - Final Blood No growth in Aerobic bottle after 5 days. Anaerobic Blood Culture - Final No growth in Anaerobic bottle after 5 days. 05/11/21 11:00 Gram Stain - Final Sputum,Vent Suction Sputum Culture - Final Pseudomonas aeruginosa - Assessment & Plan Assessment 50 year old M previously with juarez-sensitive pseudomonas growing from sputum/blood cultures. Repeat blood cultures from 05/21 negative to date, sputum culture from 05/23 now growing 2 different pseudomonas spp. Patient remains on ceftazidime/gentamicin/ciprofloxacin. He has a persistent leukocytosis, and worsening fever curve in spite of this. UOP decreased significantly the past 48hr, SCr relatively stable. Increasing vasopressor requirements. Plan Gentamicin * Patient is not a candidate for extended-interval dosing due to altered pharmacokinetics in the setting of obesity (Wt- 175kg, BMI 57). * Peak level of 9.3 mcg/mL was drawn appropriately (true peak), and is therapeutic. Goal peak level for pneumonia/bacteremia: 8 to 10 mcg/mL. * Trough level of 3.7 mcg/mL is supratherapeutic, however was ~ 6.5hr level (True trough ~ 2.7mcg/mL, still supratherapeutic). Goal trough level for pneumonia/bacteremia: < 1-2 mcg/mL. * Change to 250 mg (2.2 mg/kg) IV every 12 hours * Dosage based on adjusted body weight for patients weighing > 120% of ideal body weight. * Will obtain a repeat trough level today prior to the afternoon dose to ensure clearance. Plan to monitor peak/trough levels every 48-72 hrs or sooner if clinically indicated. Pharmacy will continue to follow and will adjust dose/frequency as necessary. Thank you.
--- NOTE | 2021-05-26 08:51 | XRay Report ---
XR chest 1V portable HISTORY: 50 years-old Male Resp failure acute respiratory failure COMPARISON: Chest radiograph 05/24/2021 TECHNIQUE: Semierect AP view of the chest FINDINGS: Endotracheal tube overlies the midline, 4 cm superior to the juan francisco. Left IJ central venous catheter distal tip terminates in the expected location of the mid SVC. Enteric tube courses below the diaphra gm outside the [id number]. No pneumothorax or large pleural effusion. Extensive bilateral airspace opacities with interstitial coarsening redemonstrated, slightly improved from prior. Bones appear gr ossly intact. Degenerative changes of the shoulders and spine. IMPRESSION: 1. Lines and tubes as above. 2. Extensive bilateral pulmonary opacities redemonstrated, slightly improved from prior. 3. No pneumothorax. ACT 112: Negative or not required by law. The above report was generated using voice recognition software. It may contain grammatical, syntax o r spelling errors. Electronically signed by: Satish Dowd M.D. 05/26/2021 8:49 AM
--- NOTE | 2021-05-26 09:58 | Pharmacy Report ---
Pharmacy Glycemic Short Note 2 - Date of Service May 26, 2021 - Glycemic Short BSG Results (Last 24 hours): 05/25/21 05/25/21 05/25/21 11:58 15:00 16:29 Glucose 197 H POC Glucose (other) 183 H 185 H 05/25/21 05/25/21 05/25/21 20:18 21:41 23:58 Glucose 176 H POC Glucose (other) 159 H 196 H 05/26/21 05/26/21 05/26/21 00:23 03:51 04:55 Glucose 186 H 167 H POC Glucose (other) 168 H 05/26/21 07:47 Glucose POC Glucose (other) 177 H OUTPATIENT ANTIDIABETIC REGIMEN: * n/a * A1c = 6.3% 05/09/21 ASSESSMENT: 05/26/21 * Patient's BSGs yesterday were [phone] mg/dL and today are 168- 177 mg/dL. * BSGs are reasonable all below 200 mg/dL. * Continue Lantus 5 units SQ BID plus Novolog as BSGs do not fluctuate much. * Conservative as concern if lose tube feeds source. Plus patient on high dose norepinephrine. 05/24 * BSGs <180 mg/dL yesterday, Lantus 5 units BID continues * Patients midday BSG elevated 195 mg/dL, patient has ongoing stressors with worsening today, norepinephrine is titrating upwards * Will slightly tighten novolog parameter, tube feeds at goal. If BSGs trend upward low threshold for starting insulin infusion. 05/21: * BSGs well controlled the last 48hr with Lantus 5 units BID of basal. * Tube feeds remain @ goal. Patient remains intubated, sedated, and paralyzed. Norepi @ 0.05mcg/kg/min. * No acute changes to insulin regimen at this time. 05/19: * BSGs well controlled yesterday: [phone] mg/dL * Received 10 units Lantus + 36 units Novolog * Fasting BSG well controlled at 134 mg/dL this AM * No change to insulin regimen at this time * Continues on Nimbex and Levophed while tube feeds are running at goal. No steroids. 05/17: * BSG's adequate for ICU status patient, ranging 119-193 mg/dL over the last 24 hours. Continue same for today. * Steroids stopping tomorrow. Will hold NPH starting tomorrow AM. Will also loosen Novolog parameters slightly tomorrow AM. Patient will likely require further adjustments tomorrow. 05/16: * Stressors stable, other than tubefeeds titrating up (currently about half of goal rate). Anticipate continued titration up over the next 24 hours. * BSG's in or slightly below goal range for ICU status patient, ranging 111-180 mg/dL over the last 24 hours. Will slightly reduce both AM and PM NPH. * No change to Novolog at this time PLAN FOR INPATIENT GLYCEMIC CONTROL: * Basal insulin * Lantus 5 units SC BID * Bolus insulin * NovoLog per scale Q 4 hrs * Goal Range: Low 110 mg/dL - High 140 mg/dL * Correction Factor: 15 mg/dL/unit * Nutritional / Prandial insulin per carb ratio of 1 unit per 3.5 grams CHO consumed PLAN FOR DISCHARGE: * HbA1c was 6.3%. Unless patient is discharged on steroids for a long period of time, unlikely that antidiabetic medications will be necessary at discharge. * Continue to support lifestyle management
[2021-05-26] MEDS: ACETAMINOPHEN SUSP 325 MG/10.15 ML UDC PO PRN ×2 (10:00→17:53)
[2021-05-26] MEDS: PANTOprazole 40 MG in SYRINGE 0 ML IV SCH (11:15)
--- NOTE | 2021-05-26 12:58 | Critical Care Progress Note ---
Date of Service May 26, 2021 Assessment & Plan (1) Acute respiratory failure with hypoxia: (2) Pneumonia due to COVID-19 virus: (3) ARDS (adult respiratory distress syndrome): (4) SUDHIR (obstructive sleep apnea): (5) Morbid obesity: Plan: Impression: 50-year-old male admitted to hospital 05/05/2021 with Covid pneumonia. He was intubated 05/08/2021- remains with pseudomonal infection in blood and sputum. Lines changed 05/19. Repeat cultures today 05/21. 24-hour events: Patient continues to decline clinically. He is on 2 vasopressor agents and is now febrile back to 40 degrees. No new culture data. He remains on maximal ventilatory settings with oxygen saturations that are in the high 70 low 80% range. Recommendations Neurologic: Continue sedation with Fentanyl, midazolam, and Propofol. Continue adequate sedation with ARDS net and to facilitate ventilator synchrony. Has not improved with neuromuscular blockade so we will hold any additional paralytics Pulmonary: Continue lung protective ventilation strategy. Patient with severe ARDS mechanical ventilation day #19. Responded very poorly to proning on 05/08/2021 and was quickly placed supine. Defer any additional proning. BMI excludes any additional interventions such as extracorporeal membrane oxygenation. Dex dosing for late-phase ARDS has been completed. Current settings assist-control: 35/420/18/1.0 with plateau pressures of 33 consistent with very stiff lungs and poor compliance. Most recent blood gas 7.34/81/48. PF 48 today worse than yesterday. Compliance continues to be a problem. The patient now is failing from an oxygenation as well as a ventilation standpoint. This does not appear to be a survivable issue. Cardiovascular: Now requiring norepinephrine and vasopressin have attempted to aggressively diurese however in the setting of severe hypotension will hold additional diuretics. Gastrointestinal: Hold tube feeding given 2 vasopressor agents Renal: Continue ICU electrolyte replacement protocol. Acid-base status stable. Holding additional diuretics. Serum creatinine has been stable so far so we will continue to push with aggressive diuresis. Infectious disease: 11 Days of Zosyn converted to Meropenem and Ciprofloxacin Day 5 on 05/20/21, 05/24 transitioned to ceftazidime to cover potential stenotrophomonas and gentamicin in conjunction with high-dose Cipro. He remained significantly febrile and white count is climbing. 2 species of Pseudomonas identified in his lung. One is pansensitive and the other is pending. Given his fever, will continue Cipro, ceftazidime, and gentamicin Hematologic: No significant issues at present. Continue to trend Endocrine: Glycemic control per protocol. Lines and tubes: Internal jugular central line and radial arterial line placed 05/08/2021- remove and changed 05/20/21 Intubated 05/08/2021. BARBY Duffy- Continue use of these lines VTE prophylaxis: Continue Lovenox 40 mg twice daily CODE STATUS: Full code Disposition: Remain in the ICU Patient is critically ill with multiorgan system failure dysfunction. Discussed with , Susan, again today. She understands the severity of his illness but wishes to continue in hopes for some miracle. She asked that his Tylenol be dosed more regularly for his fever which I communicated to the nurses. She also inquired about nursing staffing ratios. I advised her that Mr. Lockwood was always been on a 2-1 patient to nurse ratio throughout his ICU stay and will continue to do so. Unfortunately, I think his clinical decline is portending his . There are no additional adjuvants available. I think at this point in time we may be prolonging his rather than actually giving him a chance for functional recovery. She has brought her daughters in to see the patient at bedside but is not yet open to discussion regarding palliative care. I believe CPR in the setting would be futile 48 minutes critical care time Admission and Anticipated Discharge Date Admission Date: May 05, 2021 Subjective intubated and sedated Review of Systems Review of Systems: Unobtainable due to endotracheal tube Physical Exam Constitutional: + morbidly obese and + mechanically ventilated Neck: trachea midline, no thyromegaly Respiratory: Auscultation: + crackles and + wheezes Cardiovascular: RRR, no murmur, no edema Gastrointestinal (Abdomen): normal bowel sounds, soft, nontender, no hepatosplenomegaly Musculoskeletal: Extremities: extremities normal to inspection Skin: no rashes, warm and dry Lymphatic: no cervical lymphadenopathy Results & Data Results & Data ([facility]) Vital Signs (Past 12 Hours) Vital Signs Temp Pulse Resp BP Pulse Ox 05/26/21 11:20 120 H 35 H 05/26/21 10:00 40.0 C H 124 H 34 H 98/71 L 81 L 05/26/21 09:00 39.9 C H 122 H 34 H 109/62 81 L 05/26/21 08:00 39.8 C H 120 H 34 H 83 L 05/26/21 07:42 121 H 34 H 05/26/21 07:00 39.7 C H 121 H 34 H 82 L 05/26/21 04:00 39.6 C H 120 H 34 H 108/65 83 L 05/26/21 03:30 39.6 C H 120 H 34 H 84 L 05/26/21 03:00 39.6 C H 118 H 34 H 98/63 L 82 L 05/26/21 02:54 118 H 34 H 82 L 05/26/21 02:30 39.5 C H 117 H 30 H 82 L 05/26/21 02:00 39.4 C H 117 H 34 H 102/68 82 L 05/26/21 01:30 39.3 C H 115 H 34 H 82 L 05/26/21 01:00 39.3 C H 117 H 34 H 117/65 82 L Critical Care Results & Data Vital Signs (Past 12 Hours) Vital Signs Temp Pulse Resp BP Pulse Ox 05/26/21 11:20 120 H 35 H 05/26/21 10:00 40.0 C H 124 H 34 H 98/71 L 81 L 05/26/21 09:00 39.9 C H 122 H 34 H 109/62 81 L 05/26/21 08:00 39.8 C H 120 H 34 H 83 L 05/26/21 07:42 121 H 34 H 05/26/21 07:00 39.7 C H 121 H 34 H 82 L 05/26/21 04:00 39.6 C H 120 H 34 H 108/65 83 L 05/26/21 03:30 39.6 C H 120 H 34 H 84 L 05/26/21 03:00 39.6 C H 118 H 34 H 98/63 L 82 L 05/26/21 02:54 118 H 34 H 82 L 05/26/21 02:30 39.5 C H 117 H 30 H 82 L 05/26/21 02:00 39.4 C H 117 H 34 H 102/68 82 L 05/26/21 01:30 39.3 C H 115 H 34 H 82 L 05/26/21 01:00 39.3 C H 117 H 34 H 117/65 82 L Lab & Micro Results (Past 24 Hours) RBC 3.48 M/uL (4.7-6.1) L 05/26/21 WBC 22.58 K/uL (4.8-10.8) H 05/26/21 Hgb 10.7 g/dL (14.0-18.0) L 05/26/21 Hct 34.6 % (42-52) L 05/26/21 MCV 99.4 fL (80-100) 05/26/21 MCH 30.7 pg (25-34) 05/26/21 MCHC 30.9 g/dL (32-36) L 05/26/21 RDW Standard Deviation 57.0 fL (36.4-46.3) H 05/26/21 RDW Coefficient of Variation 16.0 % (11.5-14.5) H 05/26/21 Plt Count 232 K/uL (130-400) 05/26/21 MPV 10.3 fL (7.4-10.4) 05/26/21 Nucleated Red Blood Cells % (auto) 0.7 % 05/26/21 Nucleated RBC Absolute Count (auto) 0.16 K/uL (0-0) H 05/26/21 Na 131 mmol/L (136-145) L 05/26/21 K 4.3 mmol/L (3.5-5.1) 05/26/21 Cl 86 mmol/L (98-107) L 05/26/21 CO2 40 mmol/L (21-32) H 05/26/21 Anion Gap 5.0 (3-11) 05/26/21 BUN 56 mg/dl (7-18) H 05/26/21 Creatinine 0.91 mg/dl (0.6-1.4) 05/26/21 Estimated GFR ( Amer) 111.9 ml/min 05/26/21 Estimated GFR (Non-Af Amer) 96.6 ml/min 05/26/21 BUN/Creatinine Ratio 61.8 (10-20) H 05/26/21 Glu 167 mg/dl (70-99) H 05/26/21 Ca 8.6 mg/dl (8.5-10.1) 05/26/21 Phosphorus Level 3.3 mg/dl (2.5-4.9) 05/26/21 Mg 2.7 mg/dl (1.8-2.4) H 05/26/21 04:55 05/26/21 Calcium Level 8.6 mg/dl (8.5-10.1) 05/26/21 04:55 05/26/21 Rajinder Test NA 05/26/21 03:46 05/26/21 Microbiology 05/19/21 06:08 Aerobic Blood Culture - Final Blood Pseudomonas aeruginosa Anaerobic Blood Culture - Final No growth in Anaerobic bottle after 5 days. 05/19/21 06:08 Aerobic Blood Culture - Final Blood Pseudomonas aeruginosa Anaerobic Blood Culture - Final No growth in Anaerobic bottle after 5 days. 05/23/21 Unknown Gram Stain - Final Sputum,Vent Suction Sputum Culture - Final Pseudomonas aeruginosa Pseudomonas aeruginosa#2 Diagnostic Findings (Past 24 Hours) Chest X-Ray 05/26/21 07:00 XR chest 1V portable HISTORY: 50 years-old Male Resp failure acute respiratory failure COMPARISON: Chest radiograph 05/24/2021 TECHNIQUE: Semierect AP view of the chest FINDINGS: Endotracheal tube overlies the midline, 4 cm superior to the juan francisco. Left IJ central venous catheter distal tip terminates in the expected location of the mid SVC. Enteric tube courses below the diaphragm outside the [id number]. No pneumothorax or large pleural effusion. Extensive bilateral airspace opacities with interstitial coarsening redemonstrated, slightly improved from prior. Bones appear grossly intact. Degenerative changes of the shoulders and spine. IMPRESSION: 1. Lines and tubes as above. 2. Extensive bilateral pulmonary opacities redemonstrated, slightly improved from prior. 3. No pneumothorax. ACT 112: Negative or not required by law. The above report was generated using voice recognition software. It may contain grammatical, syntax or spelling errors. Electronically signed by: Satish Dowd M.D. 05/26/2021 8:49 AM I & O Totals 24 Hours 05/25/21 05/26/21 05/27/21 06:59 06:59 06:59 Intake Total 4869.237 / 4869.237 3048.297 / 3048.297 696.959 / 696.959 Output Total 2500 / 2500 2275 / 2275 900 / 900 Balance 2369.237 / 2369.237 773.297 / 773.297 -203.041 / -203.041 Cumulative 05/05/21 18:07 thru 05/26/21 12:09 Intake Total 15006.880 Output Total 26556 Balance -8271.120 RT Ventilator Mngmt (Last Documented) Ventilator Ordered Settings Ventilator Support Mode Assist Control 05/26/21 11:20 Respiratory Rate 35 05/26/21 11:20 Ventilator Tidal Volume 420 05/26/21 11:20 Setting Minute Ventilation 13.6 05/26/21 11:20 Ventilator Positive Pressure 18 05/15/21 16:00 Support Setting Positive End Expiratory 18 05/26/21 11:20 Pressure Fraction of Inspired Oxygen 100 05/26/21 11:20 Peak Inspiratory Flow 42 05/13/21 14:59 Machine Comment Increased to +18 by at 05/25/21 10:30 1030 Ventilator - PT Measurements Respiratory Rate 35 Exhaled Tidal Volume 415 Minute Ventilation 13.6 Peak Inspiratory Airway 37 Pressure Plateau Pressure 33 Respiratory Cycle Inspiratory: 1:1.2 Expiratory Ratio Inspiratory Phase Time 0.80 End-Tidal CO2 45 Static Lung Compliance 27.67 Dynamic Lung Compliance 21.84 Normal Static Lung Compliance 46.00 Patient Measurements Comment Circuit drained and temp. adjusted Coding Level of Care Code Critical Care 1st 30-74 mins Diagnoses Acute respiratory failure with hypoxia J96.01 Pneumonia due to COVID-19 virus U07.1; J12.82 ARDS (adult respiratory distress syndrome) J80 SUDHIR (obstructive sleep apnea) G47.33 Morbid obesity E66.01 Time Spent (min) 48
[2021-05-26] MEDS ORDERED: GENTAMICIN TROUGH 1 EA ONE (13:30)
[2021-05-26] MEDS ORDERED: GENTAMICIN PEAK ONE (15:40)
--- NOTE | 2021-05-26 16:27 | Hospitalist Progress Note ---
Date of Service May 26, 2021 Assessment & Plan (1) Acute respiratory failure with hypoxia: Plan: Secondary to COVID-19 virus infection (2) Pneumonia due to COVID-19 virus: Plan: Acute respiratory failure with hypoxia ARDS Pneumonia due to COVID-19 H/O SUDHIR --CXR:Extensive patchy interstitial and alveolar opacities bilaterally characteristic of a viral type pneumonitis and probable Covid 19 pneumonia. -Intubated on 05/08/21 -Pseudomonas bacteremia Sputum growing Pseudomonas as well -Appreciate Critical Care Input -CRP:8.49> 5.20 Did not tolerate proning Not a candidate for ECHO given his BMI as per Critical Care, [facility] Completed 5 day Remdesivir course Completed dexamethasone course Received Cefepime >> Zosyn 11 days>> meropenem 4 days>> ciprofloxacin Day #5, Added Ceftazidime, Gentamicin No improvement with neuromuscular blockade lasix drip>> transition to IV Lasix 40mg, added Metolazone on Lovenox for DVT Prophylaxis Vent management as per Critical Care Currently on 18 PEEP, 100% FiO2 on Tube feeds Very poor Prognosis Remains febrile Petechial rash better Repeat sputum culture growing Pseudomonas Persistent Leukocytosis On 2 pressors-Levophed, vasopressin Patient's family aware of poor prognosis Sats dropped to low 80s (3) Hypertension: Plan: Monitor Continue current meds (4) SUDHIR (obstructive sleep apnea): Plan: Morbidly obese BMI: 58 Was on CPAP (5) Hyperlipidemia: Plan: Continue statin DVT prophylaxis Lovenox CODE STATUS Full Code as per family Admission and Anticipated Discharge Date Admission Date: May 05, 2021 Subjective Patient is seen and examined at bedside Remains sedated and intubated Febrile today Oxygen sats low 80s on maximal vent settings Family at bedside Tachycardic Review of Systems Review of Systems: All systems reviewed & are unremarkable except as noted in Subjective Physical Exam Physical Exam: Physical Exam: Vitals signs as noted above General Appearance:Morbidly Obese, Sedated and Intubated Head: normocephalic, Atraumatic Eyes: normal inspection, EOMI Neck: supple, Trachea midline Respiratory/Chest: Decreased breath sounds, CTA Cardiovascular: S1, S2, + Tachycardia, No murmur Abdomen/GI:Soft, Non tender, Bowel sounds present Extremities/Musculoskeletal:normal inspection, no edema Neurologic/Psych:Sedated and Intubated Skin: normal color, warm, +Petechial Rash improving Results & Data Results & Data ([facility]) Vital Signs (Past 12 Hours) Vital Signs Temp Pulse Resp BP Pulse Ox 05/26/21 16:00 114 H 05/26/21 11:20 120 H 35 H 05/26/21 10:00 40.0 C H 124 H 34 H 98/71 L 81 L 05/26/21 09:00 39.9 C H 122 H 34 H 109/62 81 L 05/26/21 08:00 39.8 C H 120 H 34 H 83 L 05/26/21 07:42 121 H 34 H 05/26/21 07:00 39.7 C H 121 H 34 H 82 L Laboratory Results Short CBC 05/26/21 Range/Units 04:55 WBC 22.58 H (4.8-10.8) K/uL Hgb 10.7 L (14.0-18.0) g/dL Hct 34.6 L (42-52) % Plt Count 232 (130-400) K/uL BMP 05/25/21 05/26/21 05/26/21 21:41 00:23 04:55 Sodium 133 L 131 L 131 L Potassium 3.7 D 3.8 4.3 Chloride 86 L 86 L 86 L Carbon Dioxide 41 H* 41 H* 40 H BUN 52 H 53 H 56 H Creatinine 0.83 0.89 0.91 Glucose 176 H 186 H 167 H Calcium 8.6 8.8 8.6
[2021-05-26] MEDS: PEPTAMEN INTENSE VHP 1.0 CAL 1,000 ML BAG GT SCH (18:21)
[2021-05-27] MEDS ORDERED: GENTAMICIN TROUGH 1 EA ONE (01:30)
[2021-05-27] MEDS: propofoL 1,000 MG/100 ML VIAL IV SCH ×6 (02:08→20:23)
[2021-05-27] MEDS: ACETAMINOPHEN SUSP 325 MG/10.15 ML UDC PO PRN ×3 (02:33→10:08)
[2021-05-27] MEDS: TUBE FEEDING WATER FLUSH GT SCH ×5 (02:49→20:40)
[2021-05-27] MEDS: ARTIFICIAL TEARS OP OINT 3.5 GM TUBE OP SCH ×6 (02:49→20:44)
[2021-05-27 03:22] LABS: iSTAT Art Bld Gas pCO2 Correct 87 mmHg (35-46); iSTAT Art Bld Gas pH Corrected 7.322 (7.35-7.45); iSTAT Arterial Blood Gas HCO3 44 meg/L (19-24); iSTAT Arterial Blood Gas pCO2 81 mmHg (35-46); iSTAT Arterial Blood Gas pH 7.35 (7.35-7.45); iSTAT Arterial Blood Gas pO2 36 mmHg (80-95); iSTAT Arterial Blood Gas pO2 C 41; iSTAT Carbon Dioxide > 40 mmol/L (24-31); iSTAT FiO2 100 %; iSTAT Hematocrit 34 % (42-52); iSTAT Hemoglobin 11.6 g/dl (14.0-18.0); iSTAT Potassium 4.2 mmol/L (3.3-5.0); iSTAT Site Art Line; iSTAT Sodium 129 mmol/L (135-144)
[2021-05-27] MEDS: CIPROFLOXACIN / D5W 400 MG/200 ML BAG IV SCH ×3 (04:29→20:40)
[2021-05-27] MEDS: INSULIN ASPART 100 UNITS/ML VIAL SC SCH ×5 (04:30→20:41)
[2021-05-27] MEDS: VASOPRESSIN 20 UNITS in 0.9 % SODIUM CHLORIDE 100 ML IV SCH ×3 (05:02→20:44)
[2021-05-27 05:46] LABS: Hematocrit (blood only) 34.8 % (42-52); Hemoglobin 10.3 g/dL (14.0-18.0); Mean Corpuscular Hemoglobin 29.3 pg (25-34); Mean Corpuscular Hgb Conc 29.6 g/dL (32-36); Mean Corpuscular Volume 98.9 fL (80-100); Mean Platelet Volume 10.8 fL (7.4-10.4); Nucleated RBC # (auto) 0.24 K/uL (0-0); Platelet Count 252 K/uL (130-400); RDW Standard Deviation 57.1 fL (36.4-46.3); Red Blood Count 3.52 M/uL (4.7-6.1); White Blood Count 24.54 K/uL (4.8-10.8)
[2021-05-27] MEDS: GENTAMICIN SULFATE 250 MG in DEXTROSE 5% 100 ML IV SCH (06:06)
[2021-05-27 06:19] LABS: Magnesium 2.8 mg/dl (1.8-2.4)
[2021-05-27 06:20] LABS: Albumin Globulin Ratio 0.3 (0.9-2); Albumin Level 1.5 gm/dl (3.4-5.0); BUN Creatinine Ratio 55.7 (10-20); Bilirubin,Total 1.5 mg/dl (0.2-1); Calcium 8.6 mg/dl (8.5-10.1); Creatinine Clr Calc Pharmacy 117.3 ml/min; Est GFR (African American) 80.9 ml/min; Est GFR (Non-African American) 69.8 ml/min; Globulin 5.6 gm/dl (2.5-4.0); Potassium 4.2 mmol/L (3.5-5.1); Total Protein 7.1 gm/dl (6.4-8.2)
[2021-05-27] MEDS: ICU ELECTROLYTE REPLACEMENT PROTOCOL SCH ×2 (06:26→19:08)
[2021-05-27 06:38] LABS: ALC (manual) 1.08 K/uL (1.2-3.4); ANC (manual) 18.09 K/uL (1.4-6.5); Basophilic Stippling 1+; Eosinophils # (manual) 0.86 K/uL (0-0.5); Eosinophils % (manual) 3.5 %; Lymphocytes # (manual) 1.08 K/uL (1.2-3.4); Lymphocytes % (manual) 4.4 %; Metamyelocytes # (manual) 0.86 K/uL (0-0); Metamyelocytes % (manual) 3.5 %; Monocytes % (manual) 5.3 %; Myelocytes # (manual) 2.36 K/uL (0-0); Myelocytes % (manual) 9.6 %; Neutrophils # (manual) 18.09 K/uL (1.4-6.5); Neutrophils % (manual) 73.7 %; Polychromasia 1+; Stomatocytes 1+
--- NOTE | 2021-05-27 07:37 | XRay Report ---
XR chest 1V portable CLINICAL HISTORY: Respiratory failure. COMPARISON STUDY: Chest radiograph May 26, 2021. FINDINGS: Tip of endotracheal tube is 6 cm above the juan francisco. Tip of nasogastric tube is below the low er aspect of this image but at least within the proximal stomach. No pneumothorax or pleural effusion is noted. Cardiomediastinal silhouette is stable. Extensive bilateral airspace opacities and interst itial thickening persists. Left internal jugular central line is in place. IMPRESSION: 1. Satisfactory positioning of lines and tubes. 2. No significant change in extensive bilateral airspace opacities. ACT 112: Negative or not required by law. Electronically signed by: Petros Barth M.D. 05/27/2021 7:36 AM
[2021-05-27] MEDS: MAX Conc 128mcg/mL; 32mg in 250mL IV SCH ×6 (07:53→20:24)
[2021-05-27] MEDS: ATORVASTATIN 20 MG TAB PO SCH (08:18)
[2021-05-27] MEDS: INSULIN GLARGINE SOLOSTAR 100 UNITS/ML 3 ML PEN SC SCH ×2 (08:18→20:43)
[2021-05-27] MEDS: ENOXAPARIN INJ 40 MG/0.4 ML SYR SQ SCH ×2 (08:19→20:43)
[2021-05-27] MEDS: DOCUSATE SODIUM/SENNA 50/8.6MG TAB PO SCH ×2 (08:22→20:44)
[2021-05-27 08:55] LABS: Phosphorus 4.8 mg/dl (2.5-4.9)
[2021-05-27] MEDS: NEW Std Conc--fentaNYL 2,500mcg/250mL NSS **10mcg/mL IV SCH ×2 (09:40→23:03)
[2021-05-27] MEDS: PANTOprazole 40 MG in SYRINGE 0 ML IV SCH (11:16)
--- NOTE | 2021-05-27 11:27 | Palliative Care Consultation ---
Date of Consultation May 27, 2021 Assessment & Plan (1) Palliative care encounter: Chad is a 50 year old unvaccinated male who presented to the [facility] on 05/05 with COVID-19 symptoms with wosening shortness of breath. He failed cpap and High-flow oxygen and was ultimately intubated on 05/08. Additional PMH includes: morbid obesity, obstructive sleep apnea, hypertension, restless leg syndrome and tobacco use. Ramon has remained critically ill for over two weeks with multiorgan system failure. Lengthy conversations held with the patient's by the critical care team regarding his poor prognosis. He continues to decline and is now receiving the maximum ventilatory support we can offer with an FiO2 of 100% and PEEP for 18. He is receiving maximum dosing of Levophed and Vasopressin. Family persistent on full code status despite the futile aspect of this. Palliative Medicine was consulted to discuss overall goals of care. The patient is intubated and sedated and not able to participate in any meaningful interaction regarding his goals of care. Numerous conversations have been held with the patients , Susan, regarding his overall poor prognosis. Patient has been removed from airborne isolation allowing visitation in room 109. I met with Susan, both of their daughters and another sister of Susan. During my short visit, the patient had a 12 beat run of Ventricular tachycardia. He is now on maximum ventilator efforts and his SpO2 is 68-70%. He is receiving maximum dose of Levophed and Vasopressin with a SBP in the mid 90s. All family members were very emotional during my visit. I explained that their Dad and is dying and no further efforts would lead to him returning home, nor lead to him having any semblance of a meaningful recovery. I explained when we cant solve something medically, we can work to keep someone comfortable and with dignity not attached to machines. I reminded them that Ramon was hesitant to intubation initially. I said doing CPR to him would be futile. The sister said she would talk further with her, but came out and said that they continue to want full resuscitative efforts taken in the event of cardiac arrest, which is likely to occur over the next day or two. Palliative will follow. (2) ARDS (adult respiratory distress syndrome): (3) Acute respiratory failure with hypoxia: (4) Hypoxia: (5) COVID: History of Present Illness Reason for Consultation: Goals of care Requesting Physician: Dr. Sneed Attending Physician: Wciho Joseph MD History of Present Illness Chad is a 50 year old unvaccinated male who presented to the [facility] on 05/05 with COVID-19 symptoms with wosening shortness of breath. He failed cpap and High-flow oxygen and was ultimately intubated on 05/08. Additional PMH includes: morbid obesity, obstructive sleep apnea, hypertension, restless leg syndrome and tobacco use. Ramon has remained critically ill for over two weeks with multiorgan system failure. Lengthy conversations held with the patient's by the critical care team regarding his poor prognosis. He continues to decline and is now receiving the maximum ventilatory support we can offer with an FiO2 of 100% and PEEP for 18. He is receiving maximum dosing of Levophed. Family persistent on full code status despite the futile aspect of this. Palliative Medicine was consulted to discuss overall goals of care. Please see A/P for further details. Thanks for involving palliative medicine with this unfortunate situation. Allergies Allergy/AdvReac Type Severity Reaction Status Date / Time Sulfa (Sulfonamide Allergy Intermediate Rash Verified 05/05/21 19:07 Antibiotics) amoxicillin AdvReac Intermediate PUFFY FACE Verified 05/05/21 19:07 Home Medications Medication Instructions Recorded Confirmed Type amlodipine 5 mg tablet 5 mg PO DAILY 05/05/21 05/05/21 History atorvastatin 20 mg tablet 20 mg PO DAILY 05/05/21 05/05/21 History lisinopril 20 1 tab PO DAILY 05/05/21 05/05/21 History mg-hydrochlorothiazide 12.5 mg tablet Patient History Medical History (Updated 05/27/21 @ 12:30 by SADE Bonilla) ARDS (adult respiratory distress syndrome) Body mass index (BMI) of 50-59.9 in adult COVID Hyperlipidemia Hypertension Hypoxia Morbid obesity SUDHIR (obstructive sleep apnea) Palliative care encounter Surgical History History of ankle surgery Family History Other No significant family history Social History Smoking Status: Former smoker Hx Alcohol Use: No Hx Substance Use: No Preferred Language: Liberian Communication Ability: Effective Foreclosure Home Inspector Required: No Beliefs That Will Affect Care: None marital status: Current Living Situation: Spouse How many Children do You have: 1 Feels Safe at Home: Yes Assistive Devices: Oxygen - Continuous Review of Systems Review of Systems: Unobtainable due to endotracheal tube Physical Exam Constitutional: + ill appearing and + frail appearing ENMT: Mouth: + dry oral mucous membranes Respiratory: + respiratory distress Cardiovascular: Rate/Rhythm: + tachycardic Extremities: + edema; + abnormal capillary refill Gastrointestinal (Abdomen): Inspection/Auscultation: abdomen normal to inspection Skin: + pallor Results & Data ([facility]) Vital Signs (Past 12 Hours) Vital Signs Temp Pulse Resp BP Pulse Ox 05/27/21 09:00 38.7 C H 121 H 34 H 72 L 05/27/21 08:30 38.7 C H 123 H 34 H 73 L 05/27/21 08:00 38.7 C H 122 H 35 H 73 L 05/27/21 07:35 124 H 35 H 74 L 05/27/21 07:30 38.8 C H 123 H 34 H 73 L 05/27/21 07:23 122 H 05/27/21 07:00 38.8 C H 122 H 38 H 74 L 05/27/21 06:30 38.8 C H 123 H 34 H 74 L 05/27/21 06:00 38.8 C H 122 H 34 H 75 L 05/27/21 05:30 38.7 C H 120 H 34 H 75 L 05/27/21 05:00 38.7 C H 122 H 34 H 76 L 05/27/21 04:30 38.7 C H 120 H 34 H 76 L 05/27/21 04:00 38.7 C H 121 H 35 H 96/56 L 75 L 05/27/21 03:30 38.7 C H 118 H 34 H 76 L 05/27/21 03:00 38.7 C H 118 H 34 H 105/59 L 74 L 05/27/21 02:51 117 H 34 H 73 L 05/27/21 02:30 38.6 C H 115 H 34 H 77 L 05/27/21 02:00 38.6 C H 114 H 34 H 77 L 12/20/21 01:30 38.6 C H 115 H 34 H 77 L 05/27/21 01:00 38.6 C H 116 H 34 H 77 L 05/27/21 00:30 38.6 C H 114 H 34 H 77 L 05/27/21 00:00 38.6 C H 114 H 34 H 92/55 L 77 L 05/26/21 23:30 38.6 C H 113 H 34 H 78 L PG Care Time/CCT Total # of Minutes Spent Total Time Spent with Patient: Total time spent is greater than 50% in coordination of care (as documented) at patient's floor/unit and/or counseling patient: 100 minutes Coding Level of Care Code 12472 Inpt Consult Level 3 Diagnoses Palliative care encounter Z51.5 ARDS (adult respiratory distress syndrome) J80 Acute respiratory failure with hypoxia J96.01 Hypoxia R09.02 COVID U07.1 Time Spent (min) 100
--- NOTE | 2021-05-27 12:36 | Critical Care Progress Note ---
Date of Service May 27, 2021 Assessment & Plan (1) Acute respiratory failure with hypoxia: (2) Pneumonia due to COVID-19 virus: (3) ARDS (adult respiratory distress syndrome): (4) SUDHIR (obstructive sleep apnea): (5) Morbid obesity: Plan: Impression: 50-year-old male admitted to hospital 05/05/2021 with Covid pneumonia. He was intubated 05/08/2021- remains with pseudomonal infection in blood and sputum. Lines changed 05/19. Repeat cultures today 05/21. 24-hour events: Patient's saturation is now of the low 70s even though he is on 100% FiO2 and PEEP of 18 Recommendations Neurologic: On midazolam fentanyl and propofol Pulmonary: -- VDRF with acute hypoxic respiratory failure Likely secondary to multilobar COVID-19 pneumonia Continue with ventilatory support Secondary to multilobar COVID-19 pneumonia COVID-19 PCR positive Continue with lung protective ventilation High PEEP, low tidal volume to keep Plateau < 30 with permissive hypercapnea if need be. Monitor ABGs Severe ARDS mechanical ventilation day #20. Responded very poorly to proning on 05/08/2021 and was quickly placed supine. Defer any additional proning. BMI excludes any additional interventions such as extracorporeal membrane oxygenation. Dex dosing for late-phase ARDS has been completed. Cardiovascular: --Shock multifactorial Persistent hypoxia as well as infection from Pseudomonas and Covid-19 Continue with Gastrointestinal: Hold tube feeding given 2 vasopressor agents Renal: -- SANDER Likely from hypotension Monitor BUN/creatinine Avoid nephrotoxic medications Infectious disease: --Pansensitive Pseudomonas aeruginosa bacteremia Sputum culture also growing pansensitive Pseudomonas 11 Days of Zosyn converted to Meropenem and Ciprofloxacin Day 5 on 05/20/21, 05/24 transitioned to ceftazidime to cover potential stenotrophomonas and gentamicin in conjunction with high-dose Cipro. Gentamicin DC 05/27/2021 Hematologic: No significant issues at present. Continue to trend Endocrine: Glycemic control per protocol. --Prophylaxis VTE: Lovenox GI: Protonix Lines: Internal jugular central line and radial arterial line placed 05/08/2021- remove and changed 05/20/21 Intubated 05/08/2021. BARBY Duffy- Continue use of these lines Diet: N.p.o. Plan: In/out: +2.9 L, urine output 2024 T-max 38.8 ET tube advanced by 2 cm Patient saturation is 73% on 100% with PEEP of 18 Patient's was at bedside during examination was given the idea of patient being on 2 pressors, max ventilator support and having saturations which are not compatible with life. I did explain her that any saturation less than 88% if persistent can give irreversible brain damage. Patient is starting to have NSVT's most likely from hypoxia. Overall patient's condition is very poor. It is highly unlikely for patient to survive. Patient's still wants to continue with full care including CPR if needed. Palliative care has been helping but unfortunately no significant progress I do personally think that doing CPR will not be appropriate care as it there will be more suffering. Gentamicin has been DC'd. Continue with ceftazidime and ciprofloxacin. QTC 436 today I have personally spent 48 minutes of critical care time in the direct management of this patient. This is a life/limb threatening event. This includes time spent evaluating patient, direct bedside care, chart review, placing orders, interpretation of diagnostic studies, discussion with consultants, patient, and family members, as well as other required patient management activities. This time is exclusive of all separately billable procedures, and teaching time and separate from and in addition to any other critical care service time. Please note the above document was generated using voice recognition software. It may contain grammatical, syntax or spelling errors. Admission and Anticipated Discharge Date Admission Date: May 05, 2021 Subjective Patient seen and examined at bedside. Patient's was in the room during examination. Patient is spiking fever T-max 38.8 His saturation is 73% 100% FiO2 and PEEP of 18 Review of Systems Review of Systems: Unobtainable due to endotracheal tube Physical Exam Physical Exam: Constitutional: No acute distress HEENT: PERRLA Respiratory system: Decreased air entry bilaterally, no wheeze, no rhonchi, positive crackles bilateral lower lobes CVS: S1-S2 positive, no murmurs or gallops Abdomen: Soft, nontender, nondistended, positive bowel sounds x4, obese Extremities: +2 pulses bilaterally radialis/ dorsalis pedis, no cyanosis, +1 pitting edema bilateral lower extremity Neuro: Sedated, breathing over the vent Psych: Unable to assess G/U: Positive Duffy Skin: Petechial, nonblanching are appreciated anteriorly on the chest, there is rash under the axilla on the left side looks like tinea. Lymphatic: no cervical or axillary lymphadenopathy Results & Data Results & Data ([facility]) Vital Signs (Past 12 Hours) Vital Signs Temp Pulse Resp BP Pulse Ox 05/27/21 12:00 38.8 C H 125 H 34 H 68 L 05/27/21 11:30 38.8 C H 124 H 34 H 73 L 05/27/21 11:00 38.7 C H 121 H 34 H 72 L 05/27/21 10:30 38.7 C H 122 H 34 H 74 L 05/27/21 10:25 121 H 35 H 74 L 05/27/21 10:00 38.7 C H 121 H 34 H 123/70 74 L 05/27/21 09:30 38.6 C H 121 H 34 H 74 L 05/27/21 09:00 38.7 C H 121 H 34 H 72 L 05/27/21 08:30 38.7 C H 123 H 34 H 73 L 05/27/21 08:00 38.7 C H 122 H 35 H 73 L 05/27/21 07:35 124 H 35 H 74 L 05/27/21 07:30 38.8 C H 123 H 34 H 73 L 05/27/21 07:23 122 H 05/27/21 07:00 38.8 C H 122 H 38 H 74 L 05/27/21 06:30 38.8 C H 123 H 34 H 74 L 05/27/21 06:00 38.8 C H 122 H 34 H 75 L 05/27/21 05:30 38.7 C H 120 H 34 H 75 L 05/27/21 05:00 38.7 C H 122 H 34 H 76 L 05/27/21 04:30 38.7 C H 120 H 34 H 76 L 05/27/21 04:00 38.7 C H 121 H 35 H 96/56 L 75 L 05/27/21 03:30 38.7 C H 118 H 34 H 76 L 05/27/21 03:00 38.7 C H 118 H 34 H 105/59 L 74 L 05/27/21 02:51 117 H 34 H 73 L 05/27/21 02:30 38.6 C H 115 H 34 H 77 L 05/27/21 02:00 38.6 C H 114 H 34 H 77 L 05/27/21 01:30 38.6 C H 115 H 34 H 77 L 05/27/21 01:00 38.6 C H 116 H 34 H 77 L 05/27/21 00:30 38.6 C H 114 H 34 H 77 L 05/27/21 05:08 05/27/21 05:03 Coding Level of Care Code Critical Care 1st 30-74 mins Diagnoses Acute respiratory failure with hypoxia J96.01 Pneumonia due to COVID-19 virus U07.1; J12.82 ARDS (adult respiratory distress syndrome) J80 SUDHIR (obstructive sleep apnea) G47.33 Morbid obesity E66.01 Time Spent (min) 48
[2021-05-27 16:11] LABS: iSTAT Creatinine 1.7 mg/dl (0.6-1.3); iSTAT Hemoglobin 11.6 g/dl (14.0-18.0); iSTAT Ionized Calcium 1.01 mmol/l (1.12-1.32); iSTAT Potassium 4.8 mmol/L (3.3-5.0)
--- NOTE | 2021-05-27 17:16 | Hospitalist Progress Note ---
Date of Service May 27, 2021 Assessment & Plan (1) Acute respiratory failure with hypoxia: Plan: Secondary to COVID-19 virus infection (2) Pneumonia due to COVID-19 virus: Plan: Acute respiratory failure with hypoxia ARDS Pneumonia due to COVID-19 H/O SUDHIR --CXR:Extensive patchy interstitial and alveolar opacities bilaterally characteristic of a viral type pneumonitis and probable Covid 19 pneumonia. -Intubated on 05/08/21 -Pseudomonas bacteremia Sputum growing Pseudomonas as well -Appreciate Critical Care Input -CRP:8.49> 5.20 Did not tolerate proning Not a candidate for ECHO given his BMI as per Critical Care, [facility] Completed 5 day Remdesivir course Completed dexamethasone course Received Cefepime >> Zosyn 11 days>> meropenem 4 days>> ciprofloxacin Day #8 Gentamicin was discontinued 05/27 Currently on Ceftazidime, Ciprofloxacin No improvement with neuromuscular blockade lasix drip>> transition to IV Lasix 40mg, added Metolazone. currently off d iuretics on Lovenox for DVT Prophylaxis Management as per Critical Care Currently on 18 PEEP, 100% FiO2 on Tube feeds Very poor Prognosis Repeat sputum culture growing Pseudomonas Remains on pressors-Levophed, vasopressin Sats dropped to low 70s Patient's family prefers to continue current care Palliative Care on board (3) Hypertension: Plan: Monitor Continue current meds (4) SUDHIR (obstructive sleep apnea): Plan: Morbidly obese BMI: 58 Was on CPAP (5) Hyperlipidemia: Plan: Continue statin DVT prophylaxis Lovenox CODE STATUS Full Code as per family Admission and Anticipated Discharge Date Admission Date: May 05, 2021 Subjective Patient is seen and examined at bedside Remains sedated and intubated Saturation in 70s Remains Febrile Discussed with ICU team Family at bedside Remains on Pressors Review of Systems Review of Systems: Unobtainable due to endotracheal tube Physical Exam Physical Exam: Physical Exam: Vitals signs as noted above General Appearance:Morbidly Obese, Sedated and Intubated Head: normocephalic, Atraumatic Eyes: normal inspection, EOMI Neck: supple, Trachea midline Respiratory/Chest: Decreased breath sounds, CTA Cardiovascular: S1, S2, + Tachycardia, No murmur Abdomen/GI:Soft, Non tender, Bowel sounds present Extremities/Musculoskeletal:normal inspection, no edema Neurologic/Psych:Sedated and Intubated Skin: normal color, warm, +Petechial Rash improving Results & Data Results & Data ([facility]) Vital Signs (Past 12 Hours) Vital Signs Temp Pulse Resp BP Pulse Ox 05/27/21 17:00 38.7 C H 124 H 34 H 69 L 05/27/21 16:30 38.7 C H 126 H 34 H 70 L 05/27/21 16:00 38.8 C H 126 H 34 H 69 L 05/27/21 15:30 38.9 C H 127 H 34 H 70 L 05/27/21 15:26 128 H 35 H 70 L 05/27/21 15:00 38.9 C H 128 H 35 H 71 L 05/27/21 14:30 39.0 C H 129 H 35 H 69 L 05/27/21 14:00 39.0 C H 129 H 35 H 69 L 05/27/21 13:30 38.9 C H 128 H 34 H 71 L 05/27/21 13:00 38.8 C H 127 H 34 H 71 L 05/27/21 12:30 38.8 C H 127 H 35 H 72 L 05/27/21 12:00 38.8 C H 125 H 34 H 68 L 05/27/21 11:30 38.8 C H 124 H 34 H 73 L 05/27/21 11:00 38.7 C H 121 H 34 H 72 L 05/27/21 10:30 38.7 C H 122 H 34 H 74 L 05/27/21 10:25 121 H 35 H 74 L 05/27/21 10:00 38.7 C H 121 H 34 H 123/70 74 L 05/27/21 09:30 38.6 C H 121 H 34 H 74 L 05/27/21 09:00 38.7 C H 121 H 34 H 72 L 05/27/21 08:30 38.7 C H 123 H 34 H 73 L 05/27/21 08:00 38.7 C H 122 H 35 H 73 L 05/27/21 07:35 124 H 35 H 74 L 05/27/21 07:30 38.8 C H 123 H 34 H 73 L 05/27/21 07:23 122 H 05/27/21 07:00 38.8 C H 122 H 38 H 74 L 05/27/21 06:30 38.8 C H 123 H 34 H 74 L 05/27/21 06:00 38.8 C H 122 H 34 H 75 L 05/27/21 05:30 38.7 C H 120 H 34 H 75 L Laboratory Results Short CBC 05/27/21 Range/Units 05:08 WBC 24.54 H (4.8-10.8) K/uL Hgb 10.3 L (14.0-18.0) g/dL Hct 34.8 L (42-52) % Plt Count 252 (130-400) K/uL BMP 05/27/21 05:03 Sodium 128 L Potassium 4.2 Chloride 84 L Carbon Dioxide 40 H BUN 66 H Creatinine 1.19 Glucose 183 H Calcium 8.6 Liver Function 05/27/21 Range/Units 05:03 Total Bilirubin 1.5 H (0.2-1) mg/dl AST 72 H (15-37) U/L ALT 43 (12-78) Alkaline Phosphatase 28 L (45-117) U/L Albumin 1.5 L (3.4-5.0) gm/dl
[2021-05-27] MEDS: MIDAZOLAM HCL 125 MG/250 ML BAG IV SCH (20:23)
[2021-05-27] MEDS: PEPTAMEN INTENSE VHP 1.0 CAL 1,000 ML BAG GT SCH (20:58)
[2021-05-28] MEDS: INSULIN ASPART 100 UNITS/ML VIAL SC SCH ×3 (00:02→08:12)
[2021-05-28] MEDS: propofoL 1,000 MG/100 ML VIAL IV SCH ×5 (01:50→17:44)
[2021-05-28] MEDS: MAX Conc 128mcg/mL; 32mg in 250mL IV SCH ×5 (01:51→17:10)
[2021-05-28] MEDS: TUBE FEEDING WATER FLUSH GT SCH ×5 (01:51→14:43)
[2021-05-28] MEDS ORDERED: STAT IV Infusion **Titration per Protocol STA (02:28)
[2021-05-28] MEDS ORDERED: NOREPINEPHRINE/D5W 8 MG/508 ML BAG IV SCH (02:30)
[2021-05-28] MEDS: ARTIFICIAL TEARS OP OINT 3.5 GM TUBE OP SCH ×5 (02:38→17:10)
[2021-05-28] MEDS: PHENYLEPHRINE HCL 20 MG in DEXTROSE 5% 500 ML IV SCH ×3 (02:49→07:31)
[2021-05-28] MEDS: CIPROFLOXACIN / D5W 400 MG/200 ML BAG IV SCH ×2 (04:18→12:26)
[2021-05-28 04:52] LABS: iSTAT Art Bld Gas pCO2 Correct 102 mmHg (35-46); iSTAT Art Bld Gas pH Corrected 7.208 (7.35-7.45); iSTAT Arterial Blood Gas HCO3 39 meg/L (19-24); iSTAT Arterial Blood Gas pCO2 92 mmHg (35-46); iSTAT Arterial Blood Gas pH 7.24 (7.35-7.45); iSTAT Arterial Blood Gas pO2 33 mmHg (80-95); iSTAT Arterial Blood Gas pO2 C 39; iSTAT Carbon Dioxide > 40 mmol/L (24-31); iSTAT FiO2 100 %; iSTAT Hematocrit 33 % (42-52); iSTAT Hemoglobin 11.2 g/dl (14.0-18.0); iSTAT Potassium 5.6 mmol/L (3.3-5.0); iSTAT Site Art Line; iSTAT Sodium 121 mmol/L (135-144)
[2021-05-28] MEDS: VASOPRESSIN 20 UNITS in 0.9 % SODIUM CHLORIDE 100 ML IV SCH ×2 (05:10→13:01)
[2021-05-28 05:23] LABS: Hematocrit (blood only) 32.8 % (42-52); Hemoglobin 9.6 g/dL (14.0-18.0); Mean Corpuscular Hemoglobin 28.9 pg (25-34); Mean Corpuscular Hgb Conc 29.3 g/dL (32-36); Mean Corpuscular Volume 98.8 fL (80-100); Mean Platelet Volume 10.6 fL (7.4-10.4); Nucleated RBC # (auto) 1.31 K/uL (0-0); Nucleated RBC % (auto) 4.9 %; Platelet Count 265 K/uL (130-400); RDW Coefficient of Variation 15.8 % (11.5-14.5); RDW Standard Deviation 56.9 fL (36.4-46.3); Red Blood Count 3.32 M/uL (4.7-6.1); White Blood Count 26.84 K/uL (4.8-10.8)
[2021-05-28 05:50] LABS: Albumin Level 1.5 gm/dl (3.4-5.0); BUN Creatinine Ratio 44.4 (10-20); Calcium 8.1 mg/dl (8.5-10.1); Creatinine Clr Calc Pharmacy 72.3 ml/min; Est GFR (African American) 45.1 ml/min; Est GFR (Non-African American) 38.9 ml/min; Magnesium 2.9 mg/dl (1.8-2.4); Potassium 5.6 mmol/L (3.5-5.1)
[2021-05-28 05:52] LABS: Albumin Globulin Ratio 0.3 (0.9-2); Bilirubin,Total 1.4 mg/dl (0.2-1); Globulin 5.6 gm/dl (2.5-4.0); Phosphorus 7.4 mg/dl (2.5-4.9); Total Protein 7.1 gm/dl (6.4-8.2)
[2021-05-28 05:53] LABS: ALC (manual) 0.46 K/uL (1.2-3.4); ANC (manual) 20.83 K/uL (1.4-6.5); Basophilic Stippling 1+; Eosinophils # (manual) 0.24 K/uL (0-0.5); Eosinophils % (manual) 0.9 %; Lymphocytes # (manual) 0.46 K/uL (1.2-3.4); Lymphocytes % (manual) 1.7 %; Metamyelocytes % (manual) 5.2 %; Monocytes # (manual) 1.15 K/uL (0.11-0.59); Monocytes % (manual) 4.3 %; Myelocytes # (manual) 2.76 K/uL (0-0); Myelocytes % (manual) 10.3 %; Neutrophils # (manual) 20.83 K/uL (1.4-6.5); Neutrophils % (manual) 77.6 %; Polychromasia 2+; Stomatocytes 2+
[2021-05-28] MEDS: MIDAZOLAM HCL 125 MG/250 ML BAG IV SCH (06:49)
[2021-05-28] MEDS: DOCUSATE SODIUM/SENNA 50/8.6MG TAB PO SCH (07:39)
[2021-05-28] MEDS: ACETAMINOPHEN SUSP 325 MG/10.15 ML UDC PO PRN ×2 (07:39→14:43)
[2021-05-28] MEDS: ENOXAPARIN INJ 40 MG/0.4 ML SYR SQ SCH (07:39)
[2021-05-28] MEDS: INSULIN GLARGINE SOLOSTAR 100 UNITS/ML 3 ML PEN SC SCH (07:40)
--- NOTE | 2021-05-28 07:41 | XRay Report ---
XR chest 1V portable HISTORY: 50 years-old Male resp failure acute respiratory failure COMPARISON: Chest radiograph 05/27/2021 TECHNIQUE: Semierect AP view of the chest FINDINGS: Endotracheal tube overlies the midline several centimeters superior to the juan francisco. Enteric tube cours es below the diaphragm with distal tip outside the [id number]. Left IJ central venous catheter david ears stable. No pneumothorax or large pleural effusion. Interstitial coarsening with extensive bilate ral airspace opacities are generally unchanged. No acute fracture. IMPRESSION: 1. Satisfactory positioning of life-support lines and tubes. 2. Unchanged extensive bilateral airspace opacities. ACT 112: Negative or not required by law. The above report was generated using voice recognition software. It may contain grammatical, syntax o r spelling errors. Electronically signed by: Satish Dowd M.D. 05/28/2021 7:39 AM
[2021-05-28] MEDS: ICU ELECTROLYTE REPLACEMENT PROTOCOL SCH ×2 (08:12→15:44)
[2021-05-28] MEDS: PHENYLEPHRINE HCL 40 MG in DEXTROSE 5% 500 ML IV SCH ×3 (09:36→15:44)
[2021-05-28] MEDS: INSULIN ASPART PER UNIT SC SCH ×3 (10:14→15:54)
--- NOTE | 2021-05-28 12:01 | Critical Care Progress Note ---
Date of Service May 28, 2021 Assessment & Plan (1) Acute respiratory failure with hypoxia: (2) Pneumonia due to COVID-19 virus: (3) ARDS (adult respiratory distress syndrome): (4) SUDHIR (obstructive sleep apnea): (5) Morbid obesity: Plan: Impression: 50-year-old male admitted to hospital 05/05/2021 with Covid pneumonia. He was intubated 05/08/2021- remains with pseudomonal infection in blood and sputum. Lines changed 05/19. Repeat cultures today 05/21. 24-hour events: Patient's saturation is now of the low 70s even though he is on 100% FiO2 and PEEP of 18 Recommendations Neurologic: On midazolam fentanyl and propofol Pulmonary: -- VDRF with acute hypoxic respiratory failure Likely secondary to multilobar COVID-19 pneumonia Continue with ventilatory support Secondary to multilobar COVID-19 pneumonia COVID-19 PCR positive Continue with lung protective ventilation High PEEP, low tidal volume to keep Plateau < 30 with permissive hypercapnea if need be. Monitor ABGs Severe ARDS mechanical ventilation day #20. Responded very poorly to proning on 05/08/2021 and was quickly placed supine. Defer any additional proning. BMI excludes any additional interventions such as extracorporeal membrane oxygenation. Dex dosing for late-phase ARDS has been completed. Cardiovascular: --Shock multifactorial Persistent hypoxia as well as infection from Pseudomonas and Covid-19 Continue with Gastrointestinal: Hold tube feeding given 2 vasopressor agents Renal: -- SANDER Getting worse Likely from shock Monitor BUN/creatinine Avoid nephrotoxic medications Infectious disease: --Pansensitive Pseudomonas aeruginosa bacteremia Sputum culture also growing pansensitive Pseudomonas 11 Days of Zosyn converted to Meropenem and Ciprofloxacin Day 5 on 05/20/21, 05/24 transitioned to ceftazidime to cover potential stenotrophomonas and gentamicin in conjunction with high-dose Cipro. Gentamicin DC 05/27/2021 Hematologic: No significant issues at present. Continue to trend Endocrine: Glycemic control per protocol. --Prophylaxis VTE: Lovenox GI: Protonix Lines: Internal jugular central line and radial arterial line placed 05/08/2021- remove and changed 05/20/21 Intubated 05/08/2021. BARBY Duffy- Continue use of these lines Diet: N.p.o. Plan: In/out: +3.7 L, urine output 865 T-max 39.4 Patient's potassium is 5.6 today. His kidney function is getting worse. Dialysis would not be possible given his condition He also has hyperphosphatemia. Patient is an multiorgan failure did understand and would like no CPR if there is any further demise. She still wants to continue with the current care. Overall prognosis very poor I have personally spent 38 minutes of critical care time in the direct management of this patient. This is a life/limb threatening event. This includes time spent evaluating patient, direct bedside care, chart review, placing orders, interpretation of diagnostic studies, discussion with consultants, patient, and family members, as well as other required patient management activities. This time is exclusive of all separately billable procedures, and teaching time and separate from and in addition to any other critical care service time. Please note the above document was generated using voice recognition software. It may contain grammatical, syntax or spelling errors. Admission and Anticipated Discharge Date Admission Date: May 05, 2021 Subjective Patient seen and examined at bedside. No acute distress, no chills overnight Patient is still spiking fever T-max of 39.4 He was on propofol, fentanyl. Overnight phenylephrine was added to Levophed and vasopressin as the patient blood pressure was still going down He was saturating 62% on 100% FiO2 and PEEP of 18 Review of Systems Review of Systems: Unobtainable due to endotracheal tube Physical Exam Physical Exam: Constitutional: No acute distress HEENT: PERRLA Respiratory system: Decreased air entry bilaterally, no wheeze, no rhonchi, positive crackles bilateral lower lobes CVS: S1-S2 positive, no murmurs or gallops Abdomen: Soft, nontender, nondistended, positive bowel sounds x4, obese Extremities: +2 pulses bilaterally radialis/ dorsalis pedis, no cyanosis, +2 pitting edema bilateral lower extremity Neuro: Sedated, breathing over the vent Psych: Unable to assess G/U: Positive Duffy Skin: Petechial, nonblanching are appreciated anteriorly on the chest, there is rash under the axilla on the left side looks like tinea. Lymphatic: no cervical or axillary lymphadenopathy Results & Data Results & Data ([facility]) Vital Signs (Past 12 Hours) Vital Signs Temp Pulse Resp BP Pulse Ox 05/28/21 11:49 117 H 136/62 05/28/21 11:03 117 H 35 H 62 L 05/28/21 08:07 117 H 35 H 65 L 05/28/21 08:00 39.4 C H 117 H 34 H 103/64 64 L 05/28/21 07:00 39.4 C H 121 H 34 H 67 L 05/28/21 06:45 39.4 C H 121 H 34 H 67 L 05/28/21 04:20 124 H 35 H 67 L 05/28/21 04:00 124 H 05/28/21 03:00 39.2 C H 124 H 35 H 66 L 05/28/21 02:30 39.1 C H 123 H 31 H 67 L 05/28/21 02:00 39.0 C H 122 H 35 H 66 L 05/28/21 01:30 38.9 C H 122 H 34 H 67 L 05/28/21 01:00 38.8 C H 121 H 34 H 66 L 05/28/21 00:30 38.8 C H 121 H 30 H 68 L 05/28/21 00:00 38.7 C H 122 H 35 H 108/55 L 66 L Coding Level of Care Code Critical Care 1st 30-74 mins Diagnoses Acute respiratory failure with hypoxia J96.01 Pneumonia due to COVID-19 virus U07.1; J12.82 ARDS (adult respiratory distress syndrome) J80 SUDHIR (obstructive sleep apnea) G47.33 Morbid obesity E66.01 Time Spent (min) 38
[2021-05-28] MEDS: PANTOprazole 40 MG in SYRINGE 0 ML IV SCH (12:27)
[2021-05-28 12:55] LABS: iSTAT Hemoglobin 11.2 g/dl (14.0-18.0); iSTAT Ionized Calcium 0.89 mmol/l (1.12-1.32); iSTAT Potassium 6.5 mmol/L (3.3-5.0)
--- NOTE | 2021-05-28 13:01 | Palliative Care Progress Note ---
Date of Service May 28, 2021 Assessment & Plan (1) Palliative care encounter: Plan: Patient continues to do poorly despite maximum ventilator efforts. Patient remains intubated with sedation on board. In addition, he has Levophed, Vasopressin, and Neosynephrine infusing to maintain a hemodynamically stable BP. Patients family agreeable to a DNR transition today; however, want to continue with current treatment, despite his decline. He is currently requiring an FIO2 100% PEEP 18 and SpO2 62% for most of the day. Family aware of his imminent demise. [employer] to be arriving this afternoon to help support family. Unfortunately, I believe patient will likely pass away over the next few hours to a day. Support offered to the family during this difficult time. Palliative will follow. (2) ARDS (adult respiratory distress syndrome): (3) Acute respiratory failure with hypoxia: (4) Hypoxia: (5) COVID: Admission and Anticipated Discharge Date Admission Date: May 05, 2021 Subjective No acute distress, no chills overnight Patient is still spiking fever T-max of 39.4 He was on propofol, fentanyl. Overnight phenylephrine was added to Levophed and vasopressin as the patient blood pressure was still going down He was saturating 62% on 100% FiO2 and PEEP of 18 Family at bedside. Pt demise is imminent Review of Systems Review of Systems: Unobtainable due to endotracheal tube Physical Exam Constitutional: + ill appearing and + frail appearing ENMT: Mouth: + dry oral mucous membranes Respiratory: + respiratory distress Cardiovascular: Rate/Rhythm: + tachycardic Extremities: + edema; + abnormal capillary refill Gastrointestinal (Abdomen): Inspection/Auscultation: abdomen normal to inspection Skin: + pallor Results & Data ([facility]) Vital Signs (Past 12 Hours) Vital Signs Temp Pulse Resp BP Pulse Ox 05/28/21 11:49 117 H 136/62 05/28/21 11:03 117 H 35 H 62 L 05/28/21 08:07 117 H 35 H 65 L 05/28/21 08:00 39.4 C H 117 H 34 H 103/64 64 L 05/28/21 07:00 39.4 C H 121 H 34 H 67 L 05/28/21 06:45 39.4 C H 121 H 34 H 67 L 05/28/21 04:20 124 H 35 H 67 L 05/28/21 04:00 124 H 05/28/21 03:00 39.2 C H 124 H 35 H 66 L 05/28/21 02:30 39.1 C H 123 H 31 H 67 L 05/28/21 02:00 39.0 C H 122 H 35 H 66 L 05/28/21 01:30 38.9 C H 122 H 34 H 67 L 05/28/21 01:00 38.8 C H 121 H 34 H 66 L PG Care Time/CCT Total # of Minutes Spent Total Time Spent with Patient: Total time spent is greater than 50% in coordination of care (as documented) at patient's floor/unit and/or counseling patient: 35 minutes Coding Level of Care Code 71643 Subseq Hosp Care Lvl 3 Diagnoses Palliative care encounter Z51.5 ARDS (adult respiratory distress syndrome) J80 Acute respiratory failure with hypoxia J96.01 Hypoxia R09.02 COVID U07.1 Time Spent (min) 35
[2021-05-28] MEDS: NEW Std Conc--fentaNYL 2,500mcg/250mL NSS **10mcg/mL IV SCH (13:23)
[2021-05-28] MEDS ORDERED: IBUPROFEN 200 MG/10 ML UDC PO ONE (16:15)
--- NOTE | 2021-05-28 17:10 | Hospitalist Progress Note ---
Date of Service May 28, 2021 Assessment & Plan (1) Acute respiratory failure with hypoxia: Plan: Secondary to COVID-19 virus infection (2) Pneumonia due to COVID-19 virus: Plan: Acute respiratory failure with hypoxia ARDS Pneumonia due to COVID-19 Septic Shock H/O SUDHIR --CXR:Extensive patchy interstitial and alveolar opacities bilaterally characteristic of a viral type pneumonitis and probable Covid 19 pneumonia. -Intubated on 05/08/21 -Pseudomonas bacteremia Sputum growing Pseudomonas as well -Appreciate Critical Care Input -CRP:8.49> 5.20 Did not tolerate proning Not a candidate for ECHO given his BMI as per Critical Care, [facility] Completed 5 day Remdesivir course Completed dexamethasone course Received Cefepime >> Zosyn 11 days>> meropenem 4 days>> ciprofloxacin Day #9 Gentamicin was discontinued 05/27 Currently on Ceftazidime, Ciprofloxacin No improvement with neuromuscular blockade lasix drip>> transition to IV Lasix 40mg, added Metolazone. currently off diuretics on Lovenox for DVT Prophylaxis Management as per Critical Care Currently on 18 PEEP, 100% FiO2 on Tube feeds Very poor Prognosis Repeat sputum culture growing Pseudomonas Remains on pressors-Levophed, vasopressin Sats dropped to low 60s Currently on Conditional code (ICU team discussed with family who agreed with no CPR) Palliative Care failure Multiorgan failure (3) Hypertension: Plan: Monitor Acute Renal Failure Likely ATN/secondary to septic shock Avoid Nephrotoxic agents as able (4) SUDHIR (obstructive sleep apnea): Plan: Morbidly obese BMI: 58 Was on CPAP (5) Hyperlipidemia: Plan: Was on statin DVT prophylaxis Lovenox CODE STATUS Conditional Code Admission and Anticipated Discharge Date Admission Date: May 05, 2021 Subjective Patient is seen and examined bedside Remains sedated and intubated Currently on maximal ventilator support with 100% FiO2, PEEP of 18 Family at bedside Clinically deteriorating Oxygen saturations 60s Renal function is worsening Review of Systems Review of Systems: Unobtainable due to endotracheal tube Physical Exam Physical Exam: Physical Exam: Vitals signs as noted above General Appearance:Morbidly Obese, Sedated and Intubated Head: normocephalic, Atraumatic Eyes: normal inspection, EOMI Neck: supple, Trachea midline Respiratory/Chest: Decreased breath sounds, basal crackles Cardiovascular: S1, S2, + Tachycardia, No murmur Abdomen/GI:Soft, Non tender, Bowel sounds present Extremities/Musculoskeletal:normal inspection, no edema Neurologic/Psych:Sedated and Intubated Skin: normal color, warm, +Petechial Rash ? Tenia Results & Data Results & Data ([facility]) Vital Signs (Past 12 Hours) Vital Signs Temp Pulse Resp BP Pulse Ox 05/28/21 16:00 39.5 C H 109 H 34 H 125/55 L 62 L 05/28/21 15:21 114 H 118/61 05/28/21 15:00 39.4 C H 110 H 34 H 62 L 05/28/21 14:42 114 H 34 H 62 L 05/28/21 14:00 39.4 C H 114 H 34 H 117/55 L 63 L 05/28/21 13:00 39.4 C H 113 H 34 H 63 L 05/28/21 12:00 39.4 C H 115 H 34 H 114/58 L 62 L 05/28/21 11:49 117 H 136/62 05/28/21 11:03 117 H 35 H 62 L 05/28/21 11:00 39.3 C H 117 H 34 H 62 L 05/28/21 10:00 39.3 C H 117 H 34 H 94/64 L 62 L 05/28/21 09:00 39.3 C H 118 H 34 H 117/58 L 63 L 05/28/21 08:07 117 H 35 H 65 L 05/28/21 08:00 39.4 C H 117 H 34 H 103/64 64 L 05/28/21 07:00 39.4 C H 121 H 34 H 67 L 05/28/21 06:45 39.4 C H 121 H 34 H 67 L Laboratory Results Short CBC 05/28/21 Range/Units 04:57 WBC 26.84 H (4.8-10.8) K/uL Hgb 9.6 L (14.0-18.0) g/dL Hct 32.8 L (42-52) % Plt Count 265 (130-400) K/uL BMP 05/28/21 04:57 Sodium 122 L Potassium 5.6 H D Chloride 79 L Carbon Dioxide 34 H BUN 86 H Creatinine 1.93 H D Glucose 184 H Calcium 8.1 L Liver Function 05/28/21 Range/Units 04:57 Total Bilirubin 1.4 H (0.2-1) mg/dl AST 134 H (15-37) U/L ALT 76 (12-78) Alkaline Phosphatase 30 L (45-117) U/L Albumin 1.5 L (3.4-5.0) gm/dl
[2021-05-28] MEDS ORDERED: PHENYLEPHRINE HCL 80 MG in DEXTROSE 5% 500 ML IV SCH (17:45)
--- NOTE | 2021-05-28 19:17 | Death Pronouncement Note ---
Date of Service May 28, 2021 Pronouncement Note Admission Date Admission Date: May 05, 2021 PRONOUNCEMENT NOTE - Date: 05/28/2021 Time: 1911 I was contacted by nursing staff regarding the patients declining status and concerns for imminent demise. In short, patient was hospitalized for COVID-19 pneumonia and complicated by severe ARDS, septic shock. Patient's condition continued to deteriorate over the past several days and he was made DNR today. He became increasingly hypotensive and hypoxic and eventually entered asystole rhythm. Represented the patient's room pronounced him at 1911. Assessment: I presented to the patients room for evaluation. Upon assessment, the patient was found to be in a terminal state. Pupils were fixed and dilated without response. No palpable pulses appreciated. No spontaneous breaths noted. Heart sounds were absent. No response to painful stimuli. Time of : 1911 as pronounced by myself. Family present at bedside. Appropriate response to grief appreciated. Condolences provided. Questions were addressed and emotional support was provided. Patients primary service was contacted and made aware of patient demise. Pronouncement section of the Certificate was filled out and signed by myself. Cause of : Primary -COVID-19 pneumonia Secondary -septic shock Contributing Causes of -ARDS, pneumonia, acute renal failure Please feel free to contact me with any questions regarding the above-mentioned course. Contributing Factors (1) Acute respiratory failure with hypoxia: (2) Pneumonia due to COVID-19 virus: (3) Hypertension: (4) SUDHIR (obstructive sleep apnea): (5) Hyperlipidemia: Additional Data Attending physician: Wicho Joseph MD Coding Level of Care Code None Diagnoses Acute respiratory failure with hypoxia J96.01 Pneumonia due to COVID-19 virus U07.1; J12.82 Hypertension I10 SUDHIR (obstructive sleep apnea) G47.33 Hyperlipidemia E78.5
--- NOTE | 2021-05-28 20:01 | Discharge Summary ---
Date of Service May 28, 2021 Admission HPI Per Admitting Provider CHIEF COMPLAINT: Shortness of breath, COVID pneumonia. HISTORY OF PRESENT ILLNESS: This is a 50-year-old male with past medical history significant for hyperlipidemia, obstructive sleep apnea on CPAP, hypertension, morbid obesity, restless legs, history of tobacco use disorder. Presents with shortness of breath, not feeling well. The patient was diagnosed with COVID on Thursday. The patient says he is having symptoms since last Thursday. Initially felt cold-like symptoms. Then since last , symptoms got worse. He was taking regular Tylenol and Advil, so he was not sure about the fever, but having generalized aches and pains, weakness, poor appetite, constant headaches, body aches, not feeling well, cough, bringing up yellowish greenish phlegm, and he was feeling short of breath, which prompted him to come to the ER. In the ER, he was saturating only 75%, currently he is placed on nonrebreather, saturating in mid 90s. Denies any chest pain. No blurred visions. Denies any runny nose or sore throat, nausea, vomiting or abdominal pain. Abdomen has somewhat discomfort, but no significant pain, no diarrhea. Normal bowel and bladder movements. No rash. Admission Exam Per Admitting Provider PHYSICAL EXAMINATION: GENERAL: The patient is morbidly obese, not in acute distress. VITAL SIGNS: Temperature 37.5, pulse 97, respiratory rate 28, blood pressure 146/94, oxygen 96% on nonrebreather. HEENT: Pupils equal, round and reactive to light. NECK: No JVD. No masses. CARDIOVASCULAR: S1 and S2 heard. Regular rate and rhythm. No murmur, no gallop. RESPIRATORY SYSTEM: Normal AP diameter. No accessory muscle use. No wheezing, no crackles. ABDOMEN: Soft, bowel sounds present, nontender, no distention. CENTRAL NERVOUS SYSTEM: Cranial nerves II through XII are grossly intact, nonfocal. EXTREMITIES: No edema, no erythema. Principal Diagnosis COVID-19 pneumonia Septic shock ARDS Acute Renal Failure HTN SUDHIR HLP Morbid Obesity Discharge Data Allergies Allergy/AdvReac Type Severity Reaction Status Date / Time Sulfa (Sulfonamide Allergy Intermediate Rash Verified 05/05/21 19:07 Antibiotics) amoxicillin AdvReac Intermediate PUFFY FACE Verified 05/05/21 19:07 Consultations 05/05/21 19:55 ED Decision to Admit Stat 05/08/21 08:20 Consult Portable Router Operator Routine 05/27/21 09:53 Consult Palliative Care Routine Hospital Course (1) Acute respiratory failure with hypoxia: Secondary to COVID-19 virus infection (2) Pneumonia due to COVID-19 virus: Acute respiratory failure with hypoxia ARDS Pneumonia due to COVID-19 Septic Shock H/O SUDHIR --CXR:Extensive patchy interstitial and alveolar opacities bilaterally characteristic of a viral type pneumonitis and probable Covid 19 pneumonia. -Intubated on 05/08/21 -Pseudomonas bacteremia Sputum growing Pseudomonas as well -Appreciate Critical Care Input -CRP:8.49> 5.20 Did not tolerate proning Not a candidate for ECHO given his BMI as per Critical Care, [facility] Completed 5 day Remdesivir course Completed dexamethasone course Received Cefepime >> Zosyn 11 days>> meropenem 4 days>> ciprofloxacin Day #9 Gentamicin was discontinued 05/27 Currently on Ceftazidime, Ciprofloxacin No improvement with neuromuscular blockade lasix drip>> transition to IV Lasix 40mg, added Metolazone. currently off diuretics on Lovenox for DVT Prophylaxis Management as per Critical Care Currently on 18 PEEP, 100% FiO2 on Tube feeds Very poor Prognosis Repeat sputum culture growing Pseudomonas Remains on pressors-Levophed, vasopressin Sats dropped to low 60s Currently on Conditional code (ICU team discussed with family who agreed with no CPR) Palliative Care failure Multiorgan failure Note as per ICU team: Date of Service May 28, 2021 Pronouncement Note Admission Date Admission Date: May 05, 2021 PRONOUNCEMENT NOTE - Date: 05/28/2021 Time: 1911 I was contacted by nursing staff regarding the patients declining status and concerns for imminent demise. In short, patient was hospitalized for COVID-19 pneumonia and complicated by severe ARDS, septic shock. Patient's condition continued to deteriorate over the past several days and he was made DNR today. He became increasingly hypotensive and hypoxic and eventually entered asystole rhythm. Represented the patient's room pronounced him at 1911. Assessment: I presented to the patients room for evaluation. Upon assessment, the patient was found to be in a terminal state. Pupils were fixed and dilated without response. No palpable pulses appreciated. No spontaneous breaths noted. Heart sounds were absent. No response to painful stimuli. Time of : 1911 as pronounced by myself. Family present at bedside. Appropriate response to grief appreciated. Condolences provided. Questions were addressed and emotional support was provided. Patients primary service was contacted and made aware of patient demise. Pronouncement section of the Certificate was filled out and signed by myself. Cause of : Primary -COVID-19 pneumonia Secondary -septic shock Contributing Causes of -ARDS, pneumonia, acute renal failure Please feel free to contact me with any questions regarding the above-mentioned course. (3) Hypertension: Monitor Acute Renal Failure Likely ATN/secondary to septic shock Avoid Nephrotoxic agents as able (4) SUDHIR (obstructive sleep apnea): Morbidly obese BMI: 58 Was on CPAP (5) Hyperlipidemia: Was on statin DVT prophylaxis Lovenox CODE STATUS Conditional Code Total Time Total Time Spent Total Time Spent (In Minutes): 50 minutes Discharge Plan Discharge Items Patient Disposition: Discharge Diagnosis: COVID-19 pneumonia Septic shock ARDS Acute Renal Failure HTN SUDHIR HLP Morbid Obesity Other Date/Time: 05/28/21 19:12
--- NOTE | 2021-05-29 06:16 | Electrocardiogram Report ---
Test Reason : Blood Pressure : / mmHG Vent. Rate : 121 BPM Atrial Rate : 121 BPM P-R Int : 152 ms QRS Dur : 080 ms QT Int : 328 ms P-R-T Axes : 042 020 038 degrees QTc Int : 465 ms Sinus tachycardia Otherwise normal ECG When compared with ECG of 05-MAY-2021 19:32, Incomplete right bundle branch block is no longer Present Confirmed by Tab Wilson ([id number]) on 05/29/2021 6:16:28 AM Referred By: REFERRED SELF Confirmed By:Tab Wilson
--- NOTE | 2021-06-11 12:41 | Coding Query ---
To promote full compliance with coding requirements relating to patient care, provider participation is requested in all cases of liner installer uncertainty. Please assist us with the question(s) below: Coding Question(s): The diagnosis(es) below was documented in the Critical Care Progress Notes on 05/11 & 05/12 and/or 05/13 & 05/14, and/or attending Progress Notes on 05/15 through 05/21, then subsequently fell off all further documentation. Please indicate if it is still a possible diagnosis or ruled out. Physician's Response(s): PSEUDOMONAS VENTILATOR ASSOCIATED PNEUMONIA (documented on Critical Care Progress Notes 05/13 & 05/14) ( ) Diagnosed and POA ( ) Diagnosed and not POA ( ) Ruled out ( X ) Other (please specify) Diagnosed unsure if POA PSEUDOMONAS PNEUMONIA (documented on Progress Notes from 05/15 - 05/21 under Subjective) ( ) Diagnosed and POA ( ) Diagnosed and not POA ( ) Ruled out (X ) Other (please specify) Diagnosed unsure if POA DM 2 (documented on Critical Care Progress Notes on 05/11 and 05/12) ( ) Diagnosed and POA ( ) Diagnosed and not POA ( ) Ruled out ( X ) Other (please specif y) Prediabetes POA MTDD
== END 2021-05-28 21:28 | disposition expired | DRG 207 ==
LOC: ED 18:07 → EDINP 21:04 → SUATTDRO 21:04 → EDINP 23:45 → 2E 05-06 18:46 → 1E 05-24 10:38